=== PATIENT | male | born 1950 | race Caucasian/White ===

== ENCOUNTER 2016-10-04 10:10 | Inpatient (IN) | payer MEDICARE ==
[~2016-10-04] VITALS: Ht 172.7 cm; Wt 82.0 kg
[2016-10-04] MEDS ORDERED: SOD CHLORIDE 0.9% 1,000 ML IV STA (11:07)
[2016-10-04 11:28] LABS: ADD SCAN DIFF NO
[2016-10-04 11:31] LABS: BASOPHILS % 0.7 % (0.0-2.0); EOSINOPHILS # 0.3 10^3/ul (0.0-0.5); EOSINOPHILS % 4.1 % (0.0-7.0); HEMATOCRIT 26.6 % (42.0-52.0); HEMOGLOBIN 9.3 g/dl (14.0-18.0); LYMPHOCYTES # 1.5 10^3/ul (0.8-2.9); MEAN CORPUSCULAR HEMOGLOBIN 32.2 pg (29.0-33.0); MEAN PLATELET VOLUME 9.6 fl (7.4-10.4); MONOCYTE # 0.6 10^3/ul (0.3-0.9); MONOCYTES % 9.5 % (0.0-11.0); NEUTROPHIL # 3.7 10^3/ul (1.6-7.5); NEUTROPHILS % 61.4 % (39.0-77.0); PLATELET COUNT 181 10^3/UL (140-415); RED BLOOD COUNT 2.89 10^6/ul (4.70-6.10); RED CELL DISTRIBUTION WIDTH 13.2 % (11.5-14.5); WHITE BLOOD COUNT 6.1 10^3/ul (4.8-10.8)
[2016-10-04 11:46] LABS: INR 0.92; PARTIAL THROMBOPLASTIN TIME 28.1 Sec (25.0-35.0); PROTIME 12.4 Sec (12.2-14.2)
[2016-10-04] MEDS ORDERED: METF500T4 PO (11:51)
[2016-10-04] MEDS ORDERED: FLUO20CA38 PO (11:51)
[2016-10-04] MEDS ORDERED: ASPI81TA3 PO (11:51)
--- NOTE | 2016-10-04 11:59 | RADRPT ---
PROCEDURE: XR Chest. CLINICAL INDICATION: chest pain TECHNIQUE: Single AP view of the chest were obtained COMPARISON: None FINDINGS: The heart and mediastinum are within normal limits. The pulmonary vasculature are unremarkable. The aorta demonstrates atherosclerotic calcifications. There is no lung consolidation, pleural effusio n or pneumothorax. Degenerative changes are seen within the thoracic spine. There is no acute osse ous abnormality. IMPRESSION: No acute disease. RPTAT: AA .Madison Ledesma MD, Date Time Electronically viewed and signed by .Madison Ledesma MD, on 10/04/2016 11:58 .J/
[2016-10-04 12:45] LABS: ALBUMIN 4.7 g/dl (3.3-4.9); ALBUMIN/GLOBULIN RATIO 1.8; CREATININE 11.75 mg/dl (0.61-1.24); TOTAL PROTEIN 7.3 g/dl (6.1-8.1)
[2016-10-04 12:55] LABS: POTASSIUM 6.7 mmol/L (3.5-5.1)
[2016-10-04] MEDS ORDERED: NA POLYST SULFON 15 GM/60 ML BTL PO STA (13:13)
[2016-10-04] MEDS ORDERED: ALBUTEROL 0.5% (NEB) 2.5 MG/0.5 ML AMP INH STA (13:13)
[2016-10-04] MEDS ORDERED: INSULIN REGULAR, HUMAN 100 UNIT/1 ML 3ML VIAL IV STA (13:13)
--- NOTE | 2016-10-04 13:27 | ERA ---
ER Documentation Chief Complaint Date/Time DATE: 10/04/16 TIME: 13:21 Chief Complaint UNABLE TO CONTROL HTN AND DIZZY HPI 66-year-old male with a history of hypertension and diabetes presenting with complaints of uncontrollable hypertension and dizziness. He states that over the last 2 weeks his blood pressure has been difficult to control. He has also noticed 5 days of abdominal discomfort, decreased appetite, and dark stools. He denies any nausea, vomiting, chest pain, shortness of breath, headache, fever , chills, or vision disturbance that is new. He denies any dysuria or change in urination. He denies any hematochezia or hematemesis. He has noted a 20 pound weight loss within the past month, but denies any night sweats. His only blood thinner is aspirin. He is taking all his medications regularly ROS All systems reviewed and are negative except as per history of present illness. Medications Home Meds Reported Medications Aspirin* (Aspirin* Chew) 81 Mg Tab.chew, 81 MG PO DAILY, TAB.CHEW 10/04/16 Fluoxetine Hcl* (Prozac*) 20 Mg Capsule, 20 MG PO DAILY, CAP 10/04/16 Metformin* (Glucophage*) 500 Mg Tab, 500 MG PO WITH BREAKFAST, #30 TAB 10/04/16 Allergies Allergies: Coded Allergies: No Known Allergy (Unverified , 10/04/16) PMhx/Soc History of Surgery: Yes (GALLBLADDER, BONE MARROW TRANSPLANT 18YRS AGO) Anesthesia Reaction: No Hx Neurological Disorder: No Hx Respiratory Disorders: No Hx Cardiac Disorders: Yes (HTN) Hx Psychiatric Problems: No Hx Miscellaneous Medical Probl: Yes (DM) Hx Alcohol Use: No Hx Substance Use: No Hx Tobacco Use: No Smoking Status: Never smoker FmHx Family History: No diabetes Physical Exam Vitals Vital Signs Date Time Temp Pulse Resp B/P Pulse Ox O2 Delivery O2 Flow Rate FiO2 10/04/16 12:22 70 20 162/85 98 Room Air 10/04/16 11:55 Nasal Cannula 2 10/04/16 10:12 98.0 82 18 191/83 99 Physical Exam Const: No apparent distress, nontoxic, nondiaphoretic Head: Atraumatic Eyes: Normal Conjunctiva, PERRLA, EOMI ENT: Dry mucous membranes Neck: Full range of motion. No JVD. No meningismus. Resp: Clear to auscultation bilaterally Cardio: Regular rate and rhythm, no murmurs Abd: Soft, non tender, non distended. Normal bowel sounds Skin: No petechiae or rashes, pallor noted Back: No midline or flank tenderness Ext: No cyanosis, or edema Neur: Awake and alert and oriented 3, cranial nerves intact, strength and sensations intact in all 4 extremities Psych: Normal Mood and Affect Result Diagram: 10/04/16 1117 10/04/16 1117 Results 24 hrs Laboratory Tests Test 10/04/16 11:17 10/04/16 13:52 White Blood Count 6.110^3/ul Red Blood Count 2.8910^6/ul Hemoglobin 9.3g/dl Hematocrit 26.6% Mean Corpuscular Volume 92.0fl Mean Corpuscular Hemoglobin 32.2pg Mean Corpuscular Hemoglobin Concent 35.0g/dl Red Cell Distribution Width 13.2% Platelet Count 73285^3/UL Mean Platelet Volume 9.6fl Neutrophils % 61.4% Lymphocytes % 24.0% Monocytes % 9.5% Eosinophils % 4.1% Basophils % 0.7% Nucleated Red Blood Cells % 0.0/100WBC Neutrophils # 3.710^3/ul Lymphocytes # 1.510^3/ul Monocytes # 0.610^3/ul Eosinophils # 0.310^3/ul Basophils # 0.010^3/ul Nucleated Red Blood Cells # 0.010^3/ul Prothrombin Time 12.4Sec Prothrombin Time Ratio 1.0 INR International Normalized Ratio 0.92 Activated Partial Thromboplast Time 28.1Sec Sodium Level 134mmol/L Potassium Level 6.7mmol/L Chloride Level 97mmol/L Carbon Dioxide Level 19mmol/L Anion Gap 25 Blood Urea Nitrogen 135mg/dl Creatinine 11.75mg/dl Glucose Level 99mg/dl Calcium Level 9.0mg/dl Total Bilirubin 0.0mg/dl Direct Bilirubin 0.00mg/dl Indirect Bilirubin 0.0mg/dl Aspartate Amino Transf (AST/SGOT) 11IU/L Alanine Aminotransferase (ALT/SGPT) 22IU/L Alkaline Phosphatase 72IU/L Troponin I < 0.012ng/ml Total Protein 7.3g/dl Albumin 4.7g/dl Globulin 2.60g/dl Albumin/Globulin Ratio 1.80 Urine Color LT. YELLOW Urine Clarity SLIGHTLY CLOUDY Urine pH 6.0 Urine Specific [place] <=1.005 Urine Ketones NEGATIVE Urine Nitrite NEGATIVE Urine Bilirubin NEGATIVE Urine Urobilinogen 0.2 E.U./dL Urine Leukocyte Esterase 3+ Urine Microscopic RBC 0-2/HPF Urine Microscopic WBC >50/HPF Urine Bacteria FEW Urine Hemoglobin TRACE Urine Glucose NEGATIVE% Urine Total Protein TRACE Current Medications Medications (Trade) Dose Ordered Sig/Antwon Route PRN Reason Start Time Stop Time Status Last Admin Dose Admin Sodium Chloride (NS) 1,000 ml @ 1,000 mls/hr Q1H STAT IV 10/04/16 11:07 10/04/16 12:06 DC 10/04/16 11:28 Sodium Polystyrene Sulfonate (Kayexalate) 30 gm ONCE STAT PO 10/04/16 13:13 10/04/16 13:15 DC 10/04/16 13:42 Albuterol (Proventil 0.5% (Neb)) 15 mg ONCE STAT INH 10/04/16 13:13 10/04/16 13:15 DC Insulin Human Regular (Humulin R) 10 unit ONCE STAT IV 10/04/16 13:13 10/04/16 13:16 DC 10/04/16 13:45 Dextrose (D50w Syringe) ONCE PRN IV POC BLOOD GLUCOSE <250 MG/DL 10/04/16 13:30 10/04/16 13:41 Ondansetron HCl (Zofran Inj) 4 mg ER BRIDGE PRN IV NAUSEA AND/OR VOMITING 10/04/16 14:30 10/05/16 14:29 Acetaminophen (Tylenol Tab) 650 mg ER BRIDGE PRN PO MILD PAIN/FEVER 10/04/16 14:30 10/05/16 14:29 Procedures/MDM EKG: Rate/Rhythm: Normal Sinus Rhythm QRS, ST, T-waves: QTC 453, no changes consistent w/ acute ischemia Impression: No evidence of ischemia or arrhythmia EKG: Rate/Rhythm: Normal Sinus Rhythm QRS, ST, T-waves: No changes consistent w/ acute ischemia Impression: No evidence of ischemia or arrhythmia Chest x-ray shows no acute abnormalities Labs: CBC shows anemia CMP shows evidence of acute renal failure Troponin within normal limits MDM Patient is presenting with generalized weakness, difficulty controlling his hypertension, and black stools. Vitals were notable for hypertension without any other abnormalities. Workup showed mild anemia, which may be secondary to slow UGI bleed. However labs were also notable for evidence of acute renal failure with hyperkalemia, uremia, acidosis, and elevated creatinine. EKGs did not show any peaked T waves. Acute coronary syndrome is less likely. Patient was treated for hyperkalemia with insulin, dextrose, albuterol, and Kayexalate. Patient's blood pressure improved without any intervention. I have a low suspicion for hypertensive emergency. However patient is not stable for discharge at this time and will require admission for further workup and treatment of his acute renal failure. Critical Care Time: 35 minutes Treatments/Evaluations: Close monitoring and treatment of unstable vital signs, cardiorespiratory, and neurologic status, while maintaining tight balance of fluid, respiratory, and cardiac interventions. This time includes discussing the case with the patient and the patients family. This time does not include all procedures stated elsewhere in this record. This time also includes reviewing old records, labs and radiological studies. This time includes examining and re-examining the patient. Additionally, this time also includes arranging care with admitting and consulting physicians. Accepting Care Team: Current data and ongoing care discussed. Time: Time of admission Primary Provider: Mendoza Consulting: none Outstanding Data: none Departure Diagnosis: Primary Impression: Acute renal failure Qualified Code: N17.9 - Acute renal failure, unspecified acute renal failure type Additional Impressions: Hypertension Qualified Code: I15.9 - Secondary hypertension Hyperkalemia Anemia Qualified Code: D64.89 - Anemia due to other cause, not classified Condition: Critical JASMYNE MCLAIN MD Oct 04, 2016 13:27
[2016-10-04] MEDS ORDERED: DEXTROSE 50% 50 ML SYRINGE IV PRN ×3 (13:30→21:30)
[2016-10-04 14:09] LABS: ADD UMIC YES; UR BILIRUBIN (Dip) NEGATIVE (NEGATIVE); UR BLOOD (Dip) TRACE (NEGATIVE); UR CLARITY SLIGHTLY CLOUDY (CLEAR); UR COLOR LT. YELLOW (YELLOW); UR GLUCOSE (Dip) NEGATIVE (NEGATIVE); UR KETONES (Dip) NEGATIVE (NEGATIVE); UR LEUKOCYTE ESTERASE (Dip) 3+ (NEGATIVE); UR NITRITE (Dip) NEGATIVE (NEGATIVE); UR TOTAL PROTEIN (Dip) TRACE (NEGATIVE); UR UROBILINOGEN (Dip) 0.2 E.U./dL (0.1-1.0)
[2016-10-04 14:28] LABS: URINE RBCS 0-2 /HPF (0)
[2016-10-04 14:29] LABS: UR BACTERIA FEW
[2016-10-04] MEDS ORDERED: ONDANSETRON 4 MG INJ IV PRN (14:30)
[2016-10-04] MEDS ORDERED: ACETAMINOPHEN 325 MG TAB PO PRN (14:30)
[2016-10-04 18:42] LABS: ALBUMIN 4.4 g/dl (3.3-4.9); ALBUMIN/GLOBULIN RATIO 1.51; CALCIUM 8.6 mg/dl (8.4-10.2); CREATININE 11.81 mg/dl (0.61-1.24); MAGNESIUM 3.6 mg/dl (1.7-2.5); PHOSPHORUS 7.8 mg/dl (2.5-4.9); POTASSIUM 4.9 mmol/L (3.5-5.1); TOTAL PROTEIN 7.3 g/dl (6.1-8.1)
[2016-10-04 19:12] LABS: THYROID STIMULATING HORMONE 3.82 MIU/L (0.465-4.680)
--- NOTE | 2016-10-04 19:13 | HP ---
DATE OF ADMISSION: 10/04/2016 REASON FOR ADMISSION: Uncontrolled hypertension, dizziness and black stools. CONSULTANTS: 1. Fabrice Cummings MD, Nephrology. 2. Rebecca Gray MD, Gastroenterology. HISTORY OF PRESENT ILLNESS: This is a 66-year-old male with past medical history of essential hypertension and type 2 diabetes mellitus, who came to the emergency room with the chief complaint of uncontrolled hypertension and dizziness. The patient verbalized that over the last 2 weeks his blood pressure has been difficult to control. The patient also verbalized 5 days of abdominal discomfort with decreased appetite and dark stools. The patient was complaining of nausea. He denied any vomiting. He denied any chest pain or dyspnea. The patient was complaining of headache. The patient denied any fevers or chills. The patient also verbalized dark stools. He denied any blood in stools or hematemesis. The patient verbalized that he has noticed a 20 -pound weight loss within the past month. There were no reported night sweats. The patient is not the best historian. The patient denied any history of chronic kidney disease although he vaguely mentioned that he was told that his kidneys are not functioning "normal." In the emergency room, the patient was noticed to be in acute renal failure with a BUN and creatinine of 135 and 11.75, respectively. The patient was noticed to have a potassium of 6.7. The patient had no leukocytosis. He was noticed to have anemia with a hemoglobin and hematocrit of 9.3 and 26.6, respectively. The patient's coag panel was within normal limits. His urinalysis showed 3+ leukocyte esterase along with urine microscopic WBCs greater than 50, with trace total urine protein. The patient's chest x-ray was negative for any acute cardiopulmonary findings. A 12-lead EKG showed no evidence of any ST-T changes. The patient was treated with IV insulin along with Kayexalate and inhaled beta 2 agonist for hyperkalemia. PAST MEDICAL HISTORY: Essential hypertension, diabetes mellitus. PAST SURGICAL HISTORY: Gallbladder removal. In the ER physician's notes, the ER physician mentions about bone marrow transplant. However, the patient was unable to give me this history. HOME MEDICATIONS 1. Aspirin 81 mg p.o. daily. 2. Prozac 20 mg p.o. daily. 3. Metformin 500 mg p.o. with breakfast and dinner. ALLERGIES: NO KNOWN DRUG ALLERGIES. SOCIAL HISTORY: The patient lives at home with his family. Currently retired. No history of tobacco, alcohol or illicit drug use. REVIEW OF SYSTEMS: A 12-point review of systems was made and the review of systems are negative other than what is mentioned in the history of present illness. PHYSICAL EXAMINATION: VITAL SIGNS: Temperature 98.0, pulse is 70, respiratory rate 20, blood pressure 160/84, oxygen saturation 98% on room air. GENERAL: This is a well-built, well-nourished male lying in bed in no apparent distress. HEENT: Head normocephalic and atraumatic. Eyes: Anicteric sclerae. Conjunctivae clear. ENT: Nasal septum is dry. Oral mucosa is dry. NECK: Supple. JVD noticed. RESPIRATORY: Bilaterally diminished breath sounds. No adventitious breath sounds. No use of accessory muscles of respiration. CARDIAC: Regular rate and rhythm. S1, S2 heard. ABDOMEN: Soft and nontender. Nondistended. Bowel sounds hypoactive in all 4 quadrants. GENITOURINARY: Deferred. EXTREMITIES: No cyanosis, no clubbing. Trace pretibial edema. Peripheral pulses are palpable. NEUROLOGIC: The patient is awake, alert and oriented. Cranial nerves are grossly intact. LABORATORY AND DIAGNOSTIC DATA: WBC 6.1, hemoglobin 9.3, hematocrit 26.6, platelet count 181. Sodium 134, potassium 6.7, chloride 97, carbon dioxide 19, anion gap 25, BUN 135, creatinine 11.75, glucose 99, calcium 9.0. AST 11, ALT 22, alkaline phosphatase 72. Troponin I less than 0.012. PT 12.4, INR 0.9, APTT 28.1. Urinalysis: Urine nitrite negative, leukocyte esterase negative, urine microscopic WBCs greater than 50. Chest x-ray: No acute cardiopulmonary findings. 12-lead EKG: Normal sinus rhythm. IMPRESSION: This is a 66-year-old male who came to the emergency room with multiple complaints who was found to have evidence of acute kidney injury with significant azotemia and hyperkalemia, who will be admitted here for further treatment and evaluation. ASSESSMENT AND PLAN: 1. Acute kidney injury. Etiology unclear. Unknown baseline creatinine. The patient is nonoliguric. Nephrology consult will be obtained. The patient has no evidence of any underlying fluid overload. The patient has no symptoms of uremia. The patient's mental status is stable at this time. Hence, it is likely that the patient does not need emergent hemodialysis today. We will repeat the patient's BMP to further evaluate the trend in BUN and creatinine. The patient will be monitored on telemetry floor. 2. Hyperkalemia. Most probably secondary to underlying acute kidney injury. It has been treated with potassium exchange resin, IV insulin and beta 2 agonist therapy. A repeat potassium level will be obtained. The patient will be monitored on telemetry. 3. Essential hypertension. The patient will be started on appropriate antihypertensives. The patient's blood pressure will be lowered gradually. 4. Type 2 diabetes mellitus. The patient's metformin will be discontinued because of underlying acute kidney injury. The patient will be started on sliding scale insulin along with basal insulin and Lantus insulin. Hemoglobin A1c will be obtained to evaluate the blood glucose control over the past few days. 5. Melena. The patient has evidence of normocytic normochromic anemia. The patient will be started on IV Protonix. A gastroenterology consult will be obtained. Stool for OB will be obtained. 6. Reported weight loss. Etiology unclear. Tumor markers will be sent on this patient. The patient denied any night sweats. The patient's chest x-ray was negative for any acute infiltrates, ruling out any possibility of tuberculosis. Plan. The patient will be admitted to inpatient telemetry floor. The patient will be started on a renal, carbohydrate controlled diet. The patient will remain a FULL CODE. Activities will be as tolerated. He will be started on DVT prophylaxis and gastrointestinal prophylaxis. The rest of the patient's management will be based on the clinical course, the results of the diagnostic studies, and inputs from consultants. Based on the patient's clinical presentation, he most probably requires at least 2 midnights' stay for further management and evaluation of his clinical presentation. The case and management of this patient was fully discussed with Dr. Donaldson. KWAME DONALDSON MD, AM/RACHELLE Conf#: [id number] DID#: [id number] KODAK
[2016-10-04 19:35] VITALS: TEMP 98.9
[2016-10-04] MEDS ORDERED: DEXTROSE 5%-0.45% NACL 1,000 ML IV ONE (20:38)
[2016-10-04] MEDS ORDERED: GLUCOSE GEL 15 GRAM TUBE BUCCAL PRN (21:30)
[2016-10-04] MEDS ORDERED: GLUCAGON 1 MG INJ IM PRN (21:30)
[2016-10-04] MEDS ORDERED: GLUCOSE GEL 15 GRAM TUBE PO PRN ×2 (21:30)
[2016-10-04 21:43] VITALS: PULSE 81
[2016-10-04] MEDS: INSULIN ASPART [NOVOLOG] 3 ML PEN SC SCH (22:11)
[2016-10-04] MEDS: hydrALAzine 20 MG INJ IV PRN (22:21)
[2016-10-04] MEDS: DEXTROSE 5%-0.45% NACL 1,000 ML IV SCH (23:45)
[2016-10-04 23:54] VITALS: BP 179/84; RESP 19
[2016-10-05] VITALS (14 sets, daily range): BP systolic 103–183; BP diastolic 56–94; PULSE 61–79; RESP 16–21; Ht 172.7 cm; Wt 82.0 kg
[2016-10-05] MEDS ORDERED: PANTOPRAZOLE 40 MG INJ IV SCH (00:30)
[2016-10-05] MEDS ORDERED: ONDANSETRON 4 MG INJ IV PRN ×2 (00:30)
[2016-10-05] MEDS ORDERED: HYDROCODONE/APAP (5/325) TAB PO PRN ×2 (00:30)
[2016-10-05] MEDS ORDERED: METOPROLOL 25 MG TAB PO SCH (00:30)
[2016-10-05] MEDS ORDERED: SOD CHLORIDE 0.9% 1,000 ML IV SCH (00:30)
[2016-10-05] MEDS ORDERED: morphine 2 MG INJ IV PRN ×2 (00:30)
[2016-10-05] MEDS ORDERED: ACETAMINOPHEN 500 MG TAB PO PRN (00:30)
[2016-10-05] MEDS: DEXTROSE 5%-0.45% NACL 1,000 ML IV SCH ×3 (00:36→01:45)
[2016-10-05] MEDS: METOPROLOL 25 MG TAB PO SCH ×3 (00:54→20:44)
[2016-10-05] MEDS: ACCUCHECK AT 2AM (Patients on SS coverage) XX SCH (02:00)
[2016-10-05] MEDS: SOD CHLORIDE 0.45% 1,000 ML IV SCH ×4 (02:48→23:45)
[2016-10-05] MEDS: ACETAMINOPHEN 500 MG TAB PO PRN ×2 (02:53→19:48)
[2016-10-05] MEDS: PANTOPRAZOLE 40 MG INJ IV SCH ×2 (05:55→17:39)
[2016-10-05] MEDS: INSULIN ASPART [NOVOLOG] 3 ML PEN SC SCH ×7 (08:00→20:44)
[2016-10-05] MEDS ORDERED: INSULIN ASPART [NOVOLOG] 3 ML PEN SC SCH (08:00)
[2016-10-05 09:08] LABS: CARCINOEMBRYONIC ANTIGEN 2.5 ng/ml (0.0-5.0)
[2016-10-05 09:12] LABS: CANCER ANTIGEN 19-9 71.8 U/ml (0.0-37.0)
[2016-10-05 11:21] LABS: IRON 75 ug/dl (35-150)
[2016-10-05 11:23] LABS: ALBUMIN 4.7 g/dl (3.3-4.9); ALBUMIN/GLOBULIN RATIO 1.74; CALCIUM 9.3 mg/dl (8.4-10.2); CREATININE 10.15 mg/dl (0.61-1.24); POTASSIUM 4.9 mmol/L (3.5-5.1); TOTAL PROTEIN 7.4 g/dl (6.1-8.1)
[2016-10-05 11:24] LABS: CHOL/HDL RATIO 6.8 RATIO; MAGNESIUM 3.5 mg/dl (1.7-2.5); PHOSPHORUS 8.6 mg/dl (2.5-4.9)
[2016-10-05 11:30] LABS: TOTAL IRON BINDING CAPACITY 270 ug/dl (241-421)
[2016-10-05 11:52] LABS: PROSTATE SPECIFIC ANTIGEN 30.6 ng/ml (0.0-4.0)
--- NOTE | 2016-10-05 12:07 | PN ---
Date/Time of Note Date/Time of Note DATE: 10/05/16 TIME: 12:03 Assessment/Plan VTE Prophylaxis VTE Prophylaxis Intervention: anti-embolic stocking Lines/Catheters [facility] Peripheral IV Urinary Cath still in place: Yes Reason Cath still needed: urinary retention Assessment/Plan Problems: (1) Hyperkalemia Status: Acute Comment: Patient has received the appropriate treatments for the hyperkalemia which included insulin sugar bicarb etc. Potassium is now normalized. This is due to his acute renal failure. (2) Acute renal failure Status: Acute Comment: The exact etiology of this is to be determined but one has to be concerned that he had a liter of urine in his bladder after voiding. We will have to be careful for watching for changes renal function and especially for postobstructive diuresis. Qualifiers: Acute renal failure type: unspecified Qualified Code: N17.9 - Acute renal failure, unspecified acute renal failure type (3) Anemia Status: Acute Comment: GI will be seeing him in consultation. Qualifiers: Anemia type: other cause Other causes of anemia: other cause, not classified Qualified Code: D64.89 - Anemia due to other cause, not classified (4) Hypertension Status: Acute Comment: Add an alpha blockade given the urinary retention. Titrate up this drug to effect. Qualifiers: Hypertension type: unspecified secondary hypertension Qualified Code: I15.9 - Secondary hypertension (5) Diabetes mellitus type 2 in nonobese Status: Chronic Comment: Continue observation. Under the present circumstances metformin will be held we can use a DPP 4 inhibitor drug if needed that can be added on (6) Dysthymia Status: Chronic Comment: Noted. Subjective 24 Hr Interval Summary Free Text/Dictation Patient reports he feels better. As an outpatient he was having black stools but cannot describe whether or not they were tarry. He states he was having frequent urination however please see the rather obscure note from the nurses had in the emergency room but says when they put the catheter and he had 1 L of urine there Constitutional: no complaints Respiratory: no complaints Cardiovascular: no complaints (No shortness of breath) Gastrointestinal: no complaints Genitourinary: other (At this time with a catheter and he has no complaints) Exam/Review of Systems Vital Signs Vitals Vital Signs Date Time Temp Pulse Resp B/P Pulse Ox O2 Delivery O2 Flow Rate FiO2 10/05/16 08:27 98.0 67 18 177/80 99 10/04/16 19:35 Room Air 10/04/16 16:30 21 10/04/16 11:55 2 Intake and Output 10/04/16 10/04/16 10/05/16 15:00 23:00 07:00 Intake Total 1550 ml Output Total 6000 ml Balance -4450 ml Exam Constitutional: alert, oriented Neck: non-tender, supple Respiratory: clear to auscultation, normal air movement Cardiovascular: nl pulses, regular rate and rhythm Results Result Diagram: 10/04/16 1117 10/05/16 0720 Results 24 hrs Laboratory Tests Test 10/04/16 13:52 10/04/16 18:00 10/04/16 19:47 10/04/16 21:30 Urine Color LT. YELLOW Urine Clarity SLIGHTLY CLOUDY Urine pH 6.0 Urine Specific [place] <=1.005 L Urine Ketones NEGATIVE Urine Nitrite NEGATIVE Urine Bilirubin NEGATIVE Urine Urobilinogen 0.2 E.U./dL Urine Leukocyte Esterase 3+ H Urine Microscopic RBC 0-2 Urine Microscopic WBC >50 Urine Bacteria FEW Urine Hemoglobin TRACE Urine Glucose NEGATIVE Urine Total Protein TRACE Sodium Level 137 Potassium Level 4.9 Chloride Level 101 Carbon Dioxide Level 15 L Anion Gap 26 H Blood Urea Nitrogen 133 H Creatinine 11.81 H Glucose Level 112 Calcium Level 8.6 Phosphorus Level 7.8 H Magnesium Level 3.6 H Total Bilirubin 0.0 L Direct Bilirubin 0.00 Indirect Bilirubin 0.0 Aspartate Amino Transf (AST/SGOT) 14 L Alanine Aminotransferase (ALT/SGPT) 29 Alkaline Phosphatase 75 Total Protein 7.3 Albumin 4.4 Globulin 2.90 Albumin/Globulin Ratio 1.51 Vitamin D 1,25-Dihydroxy 41.8 Thyroid Stimulating Hormone (TSH) 3.820 Free Thyroxine 1.07 Bedside Glucose 152 Urine Osmolality 273 Urine Random Sodium 41 Test 10/05/16 07:20 10/05/16 08:50 Sodium Level 142 Potassium Level 4.9 Chloride Level 105 Carbon Dioxide Level 17 L Anion Gap 25 H Blood Urea Nitrogen 120 H Creatinine 10.15 H Glucose Level 88 Hemoglobin A1c 6.6 H Calcium Level 9.3 Phosphorus Level 8.6 H Magnesium Level 3.5 H Iron Level 75 Total Iron Binding Capacity 270 Percent Iron Saturation 28 Ferritin 387.0 H Total Bilirubin 0.0 L Direct Bilirubin 0.00 Indirect Bilirubin 0.0 Aspartate Amino Transf (AST/SGOT) 12 L Alanine Aminotransferase (ALT/SGPT) 22 Alkaline Phosphatase 74 Total Protein 7.4 Albumin 4.7 Globulin 2.70 Albumin/Globulin Ratio 1.74 Triglycerides Level 130 Cholesterol Level 177 LDL Cholesterol, Calculated 125 HDL Cholesterol 26 L Cholesterol/HDL Ratio 6.8 Carcinoembryonic Antigen 2.5 CA 19-9 Antigen 71.8 H Prostate Specific Antigen 30.6 H Bedside Glucose 117 Medications Medications Current Medications Dextrose (D50w Syringe) ONCE PRN IV POC BLOOD GLUCOSE <250 MG/DL Last administered on 10/04/16 13:41; Admin Dose 50 ML; Start 10/04/16 at 13:30 Hydralazine HCl (Apresoline) 10 mg Q6H PRN IV SBP>160 Last administered on 10/04 22:21; Admin Dose 10 MG; Start 10/04/16 at 20:30 Diagnostic Test (Pha) (Accu-Chek) 1 ea 02 XX ; Start 10/05/16 at 02:00 Miscellaneous Information 1 ea NOTE XX ; Start 10/04/16 at 21:30 Glucose (Glutose) 15 gm Q15M PRN PO DECREASED GLUCOSE; Start 10/04/16 at 21:30 Glucose (Glutose) 22.5 gm Q15M PRN PO DECREASED GLUCOSE; Start 10/04/16 at 21: 30 Dextrose (D50w Syringe) 25 ml Q15M PRN IV DECREASED GLUCOSE; Start 10/04/16 at 21:30 Dextrose (D50w Syringe) 50 ml Q15M PRN IV DECREASED GLUCOSE; Start 10/04/16 at 21:30 Glucagon (Glucagen) 1 mg Q15M PRN IM DECREASED GLUCOSE; Start 10/04/16 at 21:30 Glucose 15 gm 15 gm Q15M PRN BUCCAL DECREASED GLUCOSE; Start 10/04/16 at 21:30 Sodium Chloride (1/2 NS) 1,000 ml @ 125 mls/hr Q8H IV Last administered on 10:26; Admin Dose 125 MLS/HR; Start 10/04/16 at 23:45 Pantoprazole (Protonix Iv) 40 mg BID@,18 IV Last administered on 10/05/16 05 :55; Admin Dose 40 MG; Start 10/05/16 at 06:00 Insulin Glargine (Lantus) 8 unit HS SC ; Start 10/05/16 at 21:00 Metoprolol Tartrate (Lopressor) 25 mg BID PO Last administered on 10/05/16 08: 55; Admin Dose 25 MG; Start 10/05/16 at 00:50 Ondansetron HCl (Zofran Inj) 4 mg Q6H PRN IV NAUSEA AND/OR VOMITING; Start at 00:30 Acetaminophen (Tylenol Tab) 500 mg Q6H PRN PO MILD PAIN &OR TEMP.>100.4F Last administered on 10/05/16 02:53; Admin Dose 500 MG; Start 10/05/16 at 00:30 Acetaminophen/ Hydrocodone Bitart ([place] (5/325)) 1 tab Q6H PRN PO PAIN; Start 10/05/16 at 00:30 Morphine Sulfate (morphine) 2 mg Q6H PRN IV PAIN; Start 10/05/16 at 00:30 Doxazosin Mesylate (Cardura) 1 mg ONCE ONCE PO ; Start 10/05/16 at 12:00; Stop 10/05/16 at 12:01; Status UNV Doxazosin Mesylate (Cardura) 2 mg HS PO ; Start 10/05/16 at 21:00; Status PATTI MACHADO MD Oct 05, 2016 12:07
--- NOTE | 2016-10-05 12:31 | CONS ---
Date/Time of Note Date/Time of Note DATE: 10/05/16 TIME: 12:23 Assessment/Plan Assessment/Plan Additional Assessment/Plan Assessment: * Renal failure likely chronic * Anemia likely multifactorial * Rule out GI bleeding * Melena/GI bleeding * Significant unexplained weight loss likely multifactorial * Rule out occult neoplasm * History of diabetes mellitus type 2 * History of hypertension poorly controlled Plan; * Awaiting nephrology consult would likely required dialysis * Monitor H&H, transfuse as necessary * Stool for occult blood * Obtain CT of the abdomen and pelvis to rule out masses * EGD and colonoscopy once stable from the renal and blood pressure point of view Consultation Date/Type/Reason Admit Date/Time Oct 04, 2016 at 14:10 Date of Consultation: Oct 05, 2016 Reason for Consultation Questionable melena/anemia Hx of Present Illness Patient 66-year-old male with history of diabetes mellitus and hypertension, the patient states that he has been having significant difficulty controlling his blood pressure of late. He was also told that his kidney function was severely compromised but at no point was told to have any need for dialysis. The patient presented to the emergency room with progressive weakness and a very significant weight loss of over 20 pounds over the last 2 or 3 months which is the period of time where his complaints have exacerbated. Patient also reports episodes of black tarry stool. He is moderately anemic. There has been no hematemesis, no hematochezia. The patient has never had any gastrointestinal evaluation such as endoscopy or colonoscopy. At this time the patient is awaiting nephrology consultation and once this is completed and the patient stabilized and cleared from the renal point of view GI workup is clearly indicated with endoscopy and colonoscopy. In the meantime the patient will be treated empirically with PPIs and stool will be obtained for occult blood, his hemoglobin hematocrit will be closely monitor and if situation deteriorates urgent evaluation will be available. Constitutional: other (Significant weakness and lethargy) Eyes: no complaints ENT: no complaints Respiratory: no complaints Cardiovascular: no complaints (No shortness of breath) Gastrointestinal: no complaints, other (Melena) Genitourinary: no complaints, other (At this time with a catheter and he has no complaints) Musculoskeletal: no complaints Skin: no complaints Neurologic: no complaints Endocrine: no complaints Lymphatic: no complaints Psychological: no complaints Past Medical History Medical History: diabetes, hypertension Past Surgical History Past Surgical Hx: cholecystectomy Family History Significant Family History: no pertinent family hx Social History Alcohol Use: none Smoking Status: Former smoker Drug Use: none Exam/Review of Systems Vital Signs Vitals Vital Signs Date Time Temp Pulse Resp B/P Pulse Ox O2 Delivery O2 Flow Rate FiO2 10/05/16 12:10 61 10/05/16 08:27 98.0 18 177/80 99 10/04/16 19:35 Room Air 10/04/16 16:30 21 10/04/16 11:55 2 Intake and Output 10/04/16 10/04/16 10/05/16 15:00 23:00 07:00 Intake Total 1550 ml Output Total 6000 ml Balance -4450 ml Exam Constitutional: alert, oriented, well developed Psych: nl mood/affect, no complaints Head: atraumatic, normocephalic Eyes: EOMI, PERRL, nl conjunctiva, nl lids, nl sclera ENMT: nl external ears & nose, nl lips & teeth, nl nasal mucosa & septum Neck: non-tender, supple Respiratory: clear to auscultation, normal air movement Cardiovascular: nl pulses, regular rate and rhythm Gastrointestinal: nl liver, spleen, non-tender, soft Musculoskeletal: nl extremities to inspection Extremities: normal pulses Neurological: No DTR's symmetric, No confused, No focal weakness, No lethargic , No numbness, No other, No reflexes, No unresponsive Skin: nl turgor, No rash or lesions Lymph: nl lymph nodes Results Result Diagram: 10/04/16 1117 10/05/16 0720 Results 24 hrs Laboratory Tests Test 10/04/16 13:52 10/04/16 18:00 10/04/16 19:47 10/04/16 21:30 Urine Color LT. YELLOW Urine Clarity SLIGHTLY CLOUDY Urine pH 6.0 Urine Specific [place] <=1.005 L Urine Ketones NEGATIVE Urine Nitrite NEGATIVE Urine Bilirubin NEGATIVE Urine Urobilinogen 0.2 E.U./dL Urine Leukocyte Esterase 3+ H Urine Microscopic RBC 0-2 Urine Microscopic WBC >50 Urine Bacteria FEW Urine Hemoglobin TRACE Urine Glucose NEGATIVE Urine Total Protein TRACE Sodium Level 137 Potassium Level 4.9 Chloride Level 101 Carbon Dioxide Level 15 L Anion Gap 26 H Blood Urea Nitrogen 133 H Creatinine 11.81 H Glucose Level 112 Calcium Level 8.6 Phosphorus Level 7.8 H Magnesium Level 3.6 H Total Bilirubin 0.0 L Direct Bilirubin 0.00 Indirect Bilirubin 0.0 Aspartate Amino Transf (AST/SGOT) 14 L Alanine Aminotransferase (ALT/SGPT) 29 Alkaline Phosphatase 75 Total Protein 7.3 Albumin 4.4 Globulin 2.90 Albumin/Globulin Ratio 1.51 Vitamin D 1,25-Dihydroxy 41.8 Thyroid Stimulating Hormone (TSH) 3.820 Free Thyroxine 1.07 Bedside Glucose 152 Urine Osmolality 273 Urine Random Sodium 41 Test 10/05/16 07:20 10/05/16 08:50 10/05/16 12:08 Sodium Level 142 Potassium Level 4.9 Chloride Level 105 Carbon Dioxide Level 17 L Anion Gap 25 H Blood Urea Nitrogen 120 H Creatinine 10.15 H Glucose Level 88 Hemoglobin A1c 6.6 H Calcium Level 9.3 Phosphorus Level 8.6 H Magnesium Level 3.5 H Iron Level 75 Total Iron Binding Capacity 270 Percent Iron Saturation 28 Ferritin 387.0 H Total Bilirubin 0.0 L Direct Bilirubin 0.00 Indirect Bilirubin 0.0 Aspartate Amino Transf (AST/SGOT) 12 L Alanine Aminotransferase (ALT/SGPT) 22 Alkaline Phosphatase 74 Total Protein 7.4 Albumin 4.7 Globulin 2.70 Albumin/Globulin Ratio 1.74 Triglycerides Level 130 Cholesterol Level 177 LDL Cholesterol, Calculated 125 HDL Cholesterol 26 L Cholesterol/HDL Ratio 6.8 Carcinoembryonic Antigen 2.5 CA 19-9 Antigen 71.8 H Prostate Specific Antigen 30.6 H Bedside Glucose 117 109 Medications Medications Current Medications Dextrose (D50w Syringe) ONCE PRN IV POC BLOOD GLUCOSE <250 MG/DL Last administered on 10/04/16 13:41; Admin Dose 50 ML; Start 10/04/16 at 13:30 Hydralazine HCl (Apresoline) 10 mg Q6H PRN IV SBP>160 Last administered on 10/04 22:21; Admin Dose 10 MG; Start 10/04/16 at 20:30 Diagnostic Test (Pha) (Accu-Chek) 1 ea 02 XX ; Start 10/05/16 at 02:00 Miscellaneous Information 1 ea NOTE XX ; Start 10/04/16 at 21:30 Glucose (Glutose) 15 gm Q15M PRN PO DECREASED GLUCOSE; Start 10/04/16 at 21:30 Glucose (Glutose) 22.5 gm Q15M PRN PO DECREASED GLUCOSE; Start 10/04/16 at 21: 30 Dextrose (D50w Syringe) 25 ml Q15M PRN IV DECREASED GLUCOSE; Start 10/04/16 at 21:30 Dextrose (D50w Syringe) 50 ml Q15M PRN IV DECREASED GLUCOSE; Start 10/04/16 at 21:30 Glucagon (Glucagen) 1 mg Q15M PRN IM DECREASED GLUCOSE; Start 10/04/16 at 21:30 Glucose 15 gm 15 gm Q15M PRN BUCCAL DECREASED GLUCOSE; Start 10/04/16 at 21:30 Sodium Chloride (1/2 NS) 1,000 ml @ 125 mls/hr Q8H IV Last administered on 10:26; Admin Dose 125 MLS/HR; Start 10/04/16 at 23:45 Pantoprazole (Protonix Iv) 40 mg BID@18 IV Last administered on 10/05/16 05 :55; Admin Dose 40 MG; Start 10/05/16 at 06:00 Insulin Glargine (Lantus) 8 unit HS SC ; Start 10/05/16 at 21:00 Metoprolol Tartrate (Lopressor) 25 mg BID PO Last administered on 10/05/16 08: 55; Admin Dose 25 MG; Start 10/05/16 at 00:50 Ondansetron HCl (Zofran Inj) 4 mg Q6H PRN IV NAUSEA AND/OR VOMITING; Start at 00:30 Acetaminophen (Tylenol Tab) 500 mg Q6H PRN PO MILD PAIN &OR TEMP.>100.4F Last administered on 10/05/16 02:53; Admin Dose 500 MG; Start 10/05/16 at 00:30 Acetaminophen/ Hydrocodone Bitart ([place] (5/325)) 1 tab Q6H PRN PO PAIN; Start 10/05/16 at 00:30 Morphine Sulfate (morphine) 2 mg Q6H PRN IV PAIN; Start 10/05/16 at 00:30 Doxazosin Mesylate (Cardura) 1 mg ONCE ONCE PO ; Start 10/05/16 at 13:00; Stop 10/05/16 at 13:01 Doxazosin Mesylate (Cardura) 2 mg HS PO ; Start 10/05/16 at 21:00 CARMEN FONSECA MD Oct 05, 2016 12:31
--- NOTE | 2016-10-05 12:48 | PN ---
Date/Time of Note Date/Time of Note DATE: 10/05/16 TIME: 12:42 Assessment/Plan VTE Prophylaxis VTE Prophylaxis Intervention: other Lines/Catheters Urinary Cath still in place: Yes Reason Cath still needed: urinary retention Assessment/Plan Problems: (1) Hyperkalemia Status: Acute (2) Acute renal failure Status: Acute Qualifiers: Acute renal failure type: unspecified Qualified Code: N17.9 - Acute renal failure, unspecified acute renal failure type (3) Anemia Status: Acute Qualifiers: Anemia type: other cause Other causes of anemia: other cause, not classified Qualified Code: D64.89 - Anemia due to other cause, not classified (4) Hypertension Status: Acute Qualifiers: Hypertension type: unspecified secondary hypertension Qualified Code: I15.9 - Secondary hypertension (5) Diabetes mellitus type 2 in nonobese Status: Chronic Assessment/Plan arf obstructice uropathu ckd baseline not known pt deveolping symptoms for uraemia if no improvement may require hd Subjective 24 Hr Interval Summary Eyes: no complaints Respiratory: no complaints Cardiovascular: no complaints Gastrointestinal: nausea, vomiting Genitourinary: no complaints Exam/Review of Systems Vital Signs Vitals Vital Signs Date Time Temp Pulse Resp B/P Pulse Ox O2 Delivery O2 Flow Rate FiO2 10/05/16 12:26 98.0 65 18 183/94 100 10/04/16 19:35 Room Air 10/04/16 16:30 21 10/04/16 11:55 2 Intake and Output 10/04/16 10/04/16 10/05/16 15:00 23:00 07:00 Intake Total 1550 ml Output Total 6000 ml Balance -4450 ml Exam Constitutional: alert, oriented, well developed Psych: no complaints Head: normocephalic Eyes: nl conjunctiva Neck: supple Respiratory: clear to auscultation Cardiovascular: regular rate and rhythm Gastrointestinal: soft Musculoskeletal: nl extremities to inspection Results Result Diagram: 10/04/16 1117 10/05/16 0720 Results 24 hrs Laboratory Tests Test 10/04/16 13:52 10/04/16 18:00 10/04/16 19:47 10/04/16 21:30 Urine Color LT. YELLOW Urine Clarity SLIGHTLY CLOUDY Urine pH 6.0 Urine Specific [place] <=1.005 L Urine Ketones NEGATIVE Urine Nitrite NEGATIVE Urine Bilirubin NEGATIVE Urine Urobilinogen 0.2 E.U./dL Urine Leukocyte Esterase 3+ H Urine Microscopic RBC 0-2 Urine Microscopic WBC >50 Urine Bacteria FEW Urine Hemoglobin TRACE Urine Glucose NEGATIVE Urine Total Protein TRACE Sodium Level 137 Potassium Level 4.9 Chloride Level 101 Carbon Dioxide Level 15 L Anion Gap 26 H Blood Urea Nitrogen 133 H Creatinine 11.81 H Glucose Level 112 Calcium Level 8.6 Phosphorus Level 7.8 H Magnesium Level 3.6 H Total Bilirubin 0.0 L Direct Bilirubin 0.00 Indirect Bilirubin 0.0 Aspartate Amino Transf (AST/SGOT) 14 L Alanine Aminotransferase (ALT/SGPT) 29 Alkaline Phosphatase 75 Total Protein 7.3 Albumin 4.4 Globulin 2.90 Albumin/Globulin Ratio 1.51 Vitamin D 1,25-Dihydroxy 41.8 Thyroid Stimulating Hormone (TSH) 3.820 Free Thyroxine 1.07 Bedside Glucose 152 Urine Osmolality 273 Urine Random Sodium 41 Test 10/05/16 07:20 10/05/16 08:50 10/05/16 12:08 Sodium Level 142 Potassium Level 4.9 Chloride Level 105 Carbon Dioxide Level 17 L Anion Gap 25 H Blood Urea Nitrogen 120 H Creatinine 10.15 H Glucose Level 88 Hemoglobin A1c 6.6 H Calcium Level 9.3 Phosphorus Level 8.6 H Magnesium Level 3.5 H Iron Level 75 Total Iron Binding Capacity 270 Percent Iron Saturation 28 Ferritin 387.0 H Total Bilirubin 0.0 L Direct Bilirubin 0.00 Indirect Bilirubin 0.0 Aspartate Amino Transf (AST/SGOT) 12 L Alanine Aminotransferase (ALT/SGPT) 22 Alkaline Phosphatase 74 Total Protein 7.4 Albumin 4.7 Globulin 2.70 Albumin/Globulin Ratio 1.74 Triglycerides Level 130 Cholesterol Level 177 LDL Cholesterol, Calculated 125 HDL Cholesterol 26 L Cholesterol/HDL Ratio 6.8 Carcinoembryonic Antigen 2.5 CA 19-9 Antigen 71.8 H Prostate Specific Antigen 30.6 H Bedside Glucose 117 109 Medications Medications Current Medications Dextrose (D50w Syringe) ONCE PRN IV POC BLOOD GLUCOSE <250 MG/DL Last administered on 10/04/16 13:41; Admin Dose 50 ML; Start 10/04/16 at 13:30 Hydralazine HCl (Apresoline) 10 mg Q6H PRN IV SBP>160 Last administered on 10/04 22:21; Admin Dose 10 MG; Start 10/04/16 at 20:30 Diagnostic Test (Pha) (Accu-Chek) 1 ea 02 XX ; Start 10/05/16 at 02:00 Miscellaneous Information 1 ea NOTE XX ; Start 10/04/16 at 21:30 Glucose (Glutose) 15 gm Q15M PRN PO DECREASED GLUCOSE; Start 10/04/16 at 21:30 Glucose (Glutose) 22.5 gm Q15M PRN PO DECREASED GLUCOSE; Start 10/04/16 at 21: 30 Dextrose (D50w Syringe) 25 ml Q15M PRN IV DECREASED GLUCOSE; Start 10/04/16 at 21:30 Dextrose (D50w Syringe) 50 ml Q15M PRN IV DECREASED GLUCOSE; Start 10/04/16 at 21:30 Glucagon (Glucagen) 1 mg Q15M PRN IM DECREASED GLUCOSE; Start 10/04/16 at 21:30 Glucose 15 gm 15 gm Q15M PRN BUCCAL DECREASED GLUCOSE; Start 10/04/16 at 21:30 Sodium Chloride (1/2 NS) 1,000 ml @ 125 mls/hr Q8H IV Last administered on 10:26; Admin Dose 125 MLS/HR; Start 10/04/16 at 23:45 Pantoprazole (Protonix Iv) 40 mg BID@06,18 IV Last administered on 10/05/16 05 :55; Admin Dose 40 MG; Start 10/05/16 at 06:00 Insulin Glargine (Lantus) 8 unit HS SC ; Start 10/05/16 at 21:00 Metoprolol Tartrate (Lopressor) 25 mg BID PO Last administered on 10/05/16 08: 55; Admin Dose 25 MG; Start 10/05/16 at 00:50 Ondansetron HCl (Zofran Inj) 4 mg Q6H PRN IV NAUSEA AND/OR VOMITING; Start at 00:30 Acetaminophen (Tylenol Tab) 500 mg Q6H PRN PO MILD PAIN &OR TEMP.>100.4F Last administered on 10/05/16 02:53; Admin Dose 500 MG; Start 10/05/16 at 00:30 Acetaminophen/ Hydrocodone Bitart ([place] (5/325)) 1 tab Q6H PRN PO PAIN; Start 10/05/16 at 00:30 Morphine Sulfate (morphine) 2 mg Q6H PRN IV PAIN; Start 10/05/16 at 00:30 Doxazosin Mesylate (Cardura) 1 mg ONCE ONCE PO ; Start 10/05/16 at 13:00; Stop 10/05/16 at 13:01 Doxazosin Mesylate (Cardura) 2 mg HS PO ; Start 10/05/16 at 21:00 CHRISTIANO ROWLEY MD Oct 05, 2016 12:47
[2016-10-05] MEDS ORDERED: BARIUM SULF 2% 450 ML BTL (BERRY SMOOTHIE) PO ONE (13:00)
[2016-10-05] MEDS ORDERED: DOXAZOSIN 1 MG TAB PO ONE (13:00)
[2016-10-05] MEDS: hydrALAzine 20 MG INJ IV PRN (14:21)
[2016-10-05 15:05] LABS: PHOSPHORUS 8.1 mg/dl (2.5-4.9)
--- NOTE | 2016-10-05 15:17 | RADRPT ---
PROCEDURE: Renal US. CLINICAL INDICATION: Renal dysfunction. TECHNIQUE: Multiple sonographic images of the kidneys and urinary bladder were obtained. The imag es were reviewed on a PACS workstation. COMPARISON: No prior studies are available for comparison. FINDINGS: The right kidney measures 10.9 cm. The left kidney measures 10.1 cm. There is no renal mass. There is moderate right hydronephrosis and mild left hydronephrosis. No obstructing lesion is visua lized. There is no renal calculus. Renal parenchymal thickness is normal bilaterally. Echogenicity is normal bilaterally. The perirenal regions are normal with no fluid collection or mass. There is a Shannon catheter in the urinary bladder. There is diffuse bladder wall thickening measuri ng up to 1.6 cm. IMPRESSION: 1. Moderate right hydronephrosis and mild left hydronephrosis. 2. Shannon catheter in the bladder. 3. Thickening of the wall of the bladder. RPTAT: QQ .Francisco Tian MD, MD Date Time Electronically viewed and signed by .Francisco Tian MD, on 10/05/2016 15:17 .R/
[2016-10-05] MEDS ORDERED: INSULIN GLARGINE [LANtus] 3 ML PEN SC SCH (20:00)
[2016-10-05] MEDS: DOXAZOSIN 2 MG TAB PO SCH (20:53)
[2016-10-05] MEDS: INSULIN GLARGINE [LANtus] 3 ML PEN SC SCH (21:41)
[2016-10-06] VITALS (11 sets, daily range): BP systolic 110–153; BP diastolic 60–98; PULSE 59–73; RESP 18–20
[2016-10-06] MEDS: ACCUCHECK AT 2AM (Patients on SS coverage) XX SCH (01:51)
[2016-10-06] MEDS: SOD CHLORIDE 0.45% 1,000 ML IV SCH ×3 (03:12→21:19)
[2016-10-06] MEDS: PANTOPRAZOLE 40 MG INJ IV SCH ×2 (05:12→17:30)
[2016-10-06] MEDS: ACETAMINOPHEN 500 MG TAB PO PRN ×2 (05:16→21:09)
[2016-10-06] MEDS: INSULIN ASPART [NOVOLOG] 3 ML PEN SC SCH ×7 (08:00→21:00)
[2016-10-06] MEDS: METOPROLOL 25 MG TAB PO SCH ×2 (08:12→21:09)
--- NOTE | 2016-10-06 11:02 | RADRPT ---
PROCEDURE: CT Abdomen and Pelvis without contrast. CLINICAL INDICATION: Unexplained weight loss. TECHNIQUE: Multiple contiguous axial CT images of the abdomen and pelvis were obtained without the administration of intravenous contrast. Oral contrast was administered. Coronal and sagittal recons tructions were also performed. CTDIvol (mGy): 8.75; Total Exam DLP (mGy-cm): 545.50. One or more of the following dose reduction techniques were utilized: - Automated exposure control. - Adjustment of the mA and/or kV according to patient size. - Use of iterative reconstruction technique. COMPARISON: Renal ultrasound 10/05/2016. FINDINGS: Limited imaging of the lower thorax demonstrates hyperinflation and mild bronchial wall thickening o f the lower lobe airways. The lung bases are clear. The liver and spleen are homogeneous in density. The gallbladder is surgically absent. The pancrea s and adrenal glands are unremarkable. The kidneys are symmetric in size. There are no nephroureteral stones. Mild moderate bilateral symm etric hydroureteronephrosis is present and unchanged. Bilateral symmetric perinephric fat stranding is observed. The abdominal aorta is normal in caliber. Atherosclerotic calcification is present. There is no per iaortic / retroperitoneal lymphadenopathy. The stomach and small and large intestines are unremarkable. The appendix is normal. There are no focal inflammatory changes of the mesentery. There is no mesenteric lymphadenopathy. There is no a scites. The bladder is collapsed around a Shannon. There is marked concentric bladder wall thickening with pe rivesical edema. The prostate gland and seminal vesicles are unremarkable. There is no free pelvic fluid. There is no pelvic sidewall or inguinal lymphadenopathy. L4-S1 degenerative disk disease is observed. Body wall soft tissues are unremarkable. IMPRESSION: Mild moderate bilateral symmetric hydroureteronephrosis without evidence of nephroureterolithiasis. Marked concentric urinary bladder wall thickening with perivesical edema is observed suggesting seq uelae of lower urinary tract inflammation and / or bladder outlet obstruction. Correlate with appro priate clinical data. L4-S1 degenerative disk disease. RPTAT: HLST .Karie Small MD, Date Time Electronically viewed and signed by .Karie Small MD, on 10/06/2016 11:02 .T/
[2016-10-06 12:10] LABS: CALCIUM 8.7 mg/dl (8.4-10.2); CREATININE 6.86 mg/dl (0.61-1.24); POTASSIUM 3.8 mmol/L (3.5-5.1)
--- NOTE | 2016-10-06 15:53 | PN ---
Date/Time of Note Date/Time of Note DATE: 10/06/16 TIME: 15:49 Assessment/Plan VTE Prophylaxis VTE Prophylaxis Intervention: ambulation Lines/Catheters IV Catheter Type (from [facility]): Peripheral IV Urinary Cath still in place: Yes Reason Cath still needed: urinary retention Assessment/Plan Assessment/Plan Assessment: * Renal failure likely chronic * Anemia likely multifactorial * Rule out GI bleeding * Melena/GI bleeding * Significant unexplained weight loss likely multifactorial * Rule out occult neoplasm * History of diabetes mellitus type 2 * History of hypertension poorly controlled Plan; * Awaiting nephrology consult would likely required dialysis * Monitor H&H, transfuse as necessary * Stool for occult blood * EGD and colonoscopy once stable risk and benefit explained to patient agreed with planned procedure Subjective 24 Hr Interval Summary Free Text/Dictation * Course reviewed with RN * Patient seen and examined * awaiting stool for occult blood result * Still complaining of melena Exam/Review of Systems Vital Signs Vitals Vital Signs Date Time Temp Pulse Resp B/P Pulse Ox O2 Delivery O2 Flow Rate FiO2 10/06/16 12:33 98.8 57 20 153/77 100 10/05/16 16:45 Room Air 10/04/16 16:30 21 10/04/16 11:55 2 Intake and Output 10/05/16 10/05/16 10/06/16 15:00 23:00 07:00 Intake Total 437 ml 2000 ml 1975 ml Output Total 4300 ml 1800 ml Balance 437 ml -2300 ml 175 ml Exam Constitutional: alert, oriented Psych: nl mood/affect, no complaints Head: atraumatic, normocephalic Neck: non-tender, supple Respiratory: clear to auscultation, normal air movement Cardiovascular: nl pulses, regular rate and rhythm Gastrointestinal: nl liver, spleen, non-tender, soft Musculoskeletal: nl extremities to inspection, nl gait and stance Extremities: normal pulses Neurological: nl speech, nl strength Skin: nl turgor, No rash or lesions Lymph: nl lymph nodes Results Result Diagram: 10/04/16 1117 10/06/16 1130 Results 24 hrs Laboratory Tests Test 10/05/16 17:20 10/05/16 20:43 10/06/16 08:11 10/06/16 11:30 Bedside Glucose 197 146 118 Sodium Level 134 L Potassium Level 3.8 Chloride Level 101 Carbon Dioxide Level 21 Anion Gap 16 # Blood Urea Nitrogen 85 #H Creatinine 6.86 #H Glucose Level 166 Calcium Level 8.7 Test 10/06/16 12:35 Bedside Glucose 176 Medications Medications Current Medications Dextrose (D50w Syringe) ONCE PRN IV POC BLOOD GLUCOSE <250 MG/DL Last administered on 10/04/16 13:41; Admin Dose 50 ML; Start 10/04/16 at 13:30 Hydralazine HCl (Apresoline) 10 mg Q6H PRN IV SBP>160 Last administered on 10/05 14:21; Admin Dose 10 MG; Start 10/04/16 at 20:30 Diagnostic Test (Pha) (Accu-Chek) 1 ea 02 XX ; Start 10/05/16 at 02:00 Miscellaneous Information 1 ea NOTE XX ; Start 10/04/16 at 21:30 Glucose (Glutose) 15 gm Q15M PRN PO DECREASED GLUCOSE; Start 10/04/16 at 21:30 Glucose (Glutose) 22.5 gm Q15M PRN PO DECREASED GLUCOSE; Start 10/04/16 at 21: 30 Dextrose (D50w Syringe) 25 ml Q15M PRN IV DECREASED GLUCOSE; Start 10/04/16 at 21:30 Dextrose (D50w Syringe) 50 ml Q15M PRN IV DECREASED GLUCOSE; Start 10/04/16 at 21:30 Glucagon (Glucagen) 1 mg Q15M PRN IM DECREASED GLUCOSE; Start 10/04/16 at 21:30 Glucose 15 gm 15 gm Q15M PRN BUCCAL DECREASED GLUCOSE; Start 10/04/16 at 21:30 Sodium Chloride (1/2 NS) 1,000 ml @ 125 mls/hr Q8H IV Last administered on 12:42; Admin Dose 125 MLS/HR; Start 10/04/16 at 23:45 Pantoprazole (Protonix Iv) 40 mg BID@,18 IV Last administered on 10/06/16 05 :12; Admin Dose 40 MG; Start 10/05/16 at 06:00 Insulin Glargine (Lantus) 8 unit HS SC Last administered on 10/05/16 21:41; Admin Dose 8 UNIT; Start 10/05/16 at 21:00 Metoprolol Tartrate (Lopressor) 25 mg BID PO Last administered on 10/06/16 08: 12; Admin Dose 25 MG; Start 10/05/16 at 00:50 Ondansetron HCl (Zofran Inj) 4 mg Q6H PRN IV NAUSEA AND/OR VOMITING; Start at 00:30 Acetaminophen (Tylenol Tab) 500 mg Q6H PRN PO MILD PAIN &OR TEMP.>100.4F Last administered on 10/06/16 05:16; Admin Dose 500 MG; Start 10/05/16 at 00:30 Acetaminophen/ Hydrocodone Bitart ([place] (5/325)) 1 tab Q6H PRN PO PAIN; Start 10/05/16 at 00:30 Morphine Sulfate (morphine) 2 mg Q6H PRN IV PAIN; Start 10/05/16 at 00:30 Doxazosin Mesylate (Cardura) 2 mg HS PO Last administered on 10/05/16 20:53; Admin Dose 2 MG; Start 10/05/16 at 21:00 VENESSA PAYNE NP Oct 06, 2016 15:53
--- NOTE | 2016-10-06 16:29 | PN ---
Date/Time of Note Date/Time of Note DATE: 10/06/16 TIME: 16:22 Assessment/Plan VTE Prophylaxis VTE Prophylaxis Intervention: SCD's Lines/Catheters IV C[facility]ter Type (from [facility]): Peripheral IV Urinary Cath still in place: Yes Assessment/Plan Chief Complaint/Hosp Course Assessment and plan 1. Acute renal failure. Suspect postobstructive issue. Continue with nephrology recommendations. Dialysis per recreational specialist. Will get urologist to follow 2. Reported anemia. Occult stool is pending. Tentative plan for EGD/ colonoscopy per GI 3. Moderate bilateral symmetric hydroureteronephrosis without evidence of nephroureterolithiasis. Will get urologist to follow. 4. Elevated tumor markers. Patient does report having unintentional weight loss of 20 pounds in a month. Will get oncologist to follow. 5. Essential hypertension. Continue antihypertensives and adjust needed 6. Diabetes. On insulin regimen. Will adjust as needed. Disposition and plan: Monitor renal function. Dialysis per recreational specialist. Will get urology and oncology involved. Discussed plan of care with Dr. Quan Problems: Subjective 24 Hr Interval Summary Free Text/Dictation Appears comfortable at present. No apparent distress at this time. Exam/Review of Systems Vital Signs Vitals Vital Signs Date Time Temp Pulse Resp B/P Pulse Ox O2 Delivery O2 Flow Rate FiO2 10/06/16 12:33 98.8 57 20 153/77 100 10/05/16 16:45 Room Air 10/04/16 16:30 21 10/04/16 11:55 2 Intake and Output 10/05/16 10/05/16 10/06/16 14:59 22:59 06:59 Intake Total 437 ml 2000 ml 1975 ml Output Total 4300 ml 1800 ml Balance 437 ml -2300 ml 175 ml Exam Constitutional: alert, oriented Psych: nl mood/affect Eyes: nl conjunctiva Respiratory: clear to auscultation Cardiovascular: nl pulses, regular rate and rhythm Gastrointestinal: non-tender, soft Genitourinary - Male: other (Shannon catheter in place) Neurological: RENEWALS MANAGER II-XII intact, nl mental status, nl speech Results Result Diagram: 10/04/16 1117 10/06/16 1130 Results 24 hrs Laboratory Tests Test 10/05/16 17:20 10/05/16 20:43 10/06/16 08:11 10/06/16 11:30 Bedside Glucose 197 146 118 Sodium Level 134 L Potassium Level 3.8 Chloride Level 101 Carbon Dioxide Level 21 Anion Gap 16 # Blood Urea Nitrogen 85 #H Creatinine 6.86 #H Glucose Level 166 Calcium Level 8.7 Test 10/06/16 12:35 Bedside Glucose 176 Medications Medications Current Medications Dextrose (D50w Syringe) ONCE PRN IV POC BLOOD GLUCOSE <250 MG/DL Last administered on 10/04/16 13:41; Admin Dose 50 ML; Start 10/04/16 at 13:30 Hydralazine HCl (Apresoline) 10 mg Q6H PRN IV SBP>160 Last administered on 10/05 14:21; Admin Dose 10 MG; Start 10/04/16 at 20:30 Diagnostic Test (Pha) (Accu-Chek) 1 ea 02 XX ; Start 10/05/16 at 02:00 Miscellaneous Information 1 ea NOTE XX ; Start 10/04/16 at 21:30 Glucose (Glutose) 15 gm Q15M PRN PO DECREASED GLUCOSE; Start 10/04/16 at 21:30 Glucose (Glutose) 22.5 gm Q15M PRN PO DECREASED GLUCOSE; Start 10/04/16 at 21: 30 Dextrose (D50w Syringe) 25 ml Q15M PRN IV DECREASED GLUCOSE; Start 10/04/16 at 21:30 Dextrose (D50w Syringe) 50 ml Q15M PRN IV DECREASED GLUCOSE; Start 10/04/16 at 21:30 Glucagon (Glucagen) 1 mg Q15M PRN IM DECREASED GLUCOSE; Start 10/04/16 at 21:30 Glucose 15 gm 15 gm Q15M PRN BUCCAL DECREASED GLUCOSE; Start 10/04/16 at 21:30 Sodium Chloride (1/2 NS) 1,000 ml @ 125 mls/hr Q8H IV Last administered on 12:42; Admin Dose 125 MLS/HR; Start 10/04/16 at 23:45 Pantoprazole (Protonix Iv) 40 mg BID@,18 IV Last administered on 10/06/16 05 :12; Admin Dose 40 MG; Start 10/05/16 at 06:00 Insulin Glargine (Lantus) 8 unit HS SC Last administered on 10/05/16 21:41; Admin Dose 8 UNIT; Start 10/05/16 at 21:00 Metoprolol Tartrate (Lopressor) 25 mg BID PO Last administered on 10/06/16 08: 12; Admin Dose 25 MG; Start 10/05/16 at 00:50 Ondansetron HCl (Zofran Inj) 4 mg Q6H PRN IV NAUSEA AND/OR VOMITING; Start at 00:30 Acetaminophen (Tylenol Tab) 500 mg Q6H PRN PO MILD PAIN &OR TEMP.>100.4F Last administered on 10/06/16 05:16; Admin Dose 500 MG; Start 10/05/16 at 00:30 Acetaminophen/ Hydrocodone Bitart ([place] (5/325)) 1 tab Q6H PRN PO PAIN; Start 10/05/16 at 00:30 Morphine Sulfate (morphine) 2 mg Q6H PRN IV PAIN; Start 10/05/16 at 00:30 Doxazosin Mesylate (Cardura) 2 mg HS PO Last administered on 10/05/16 20:53; Admin Dose 2 MG; Start 10/05/16 at 21:00 Bisacodyl (Dulcolax) 10 mg ONCE ONCE PO ; Start 10/07/16 at 16:30; Stop at 16:31; Status UNV Magnesium Citrate (Citroma) 300 ml ONCE ONCE PO ; Start 10/07/16 at 17:30; Stop 10/07/16 at 17:31; Status UNV Polyethylene Glycol (Miralax) 119 gm ONCE ONCE PO ; Start 10/07/16 at 18:30; Stop 10/07/16 at 18:31; Status UNV ALEXA CHAVEZ Oct 06, 2016 16:29
[2016-10-06] MEDS: CALCIUM CARBONATE 500 MG CHEW TAB PO SCH (19:02)
[2016-10-06] MEDS: DOXAZOSIN 2 MG TAB PO SCH (21:08)
[2016-10-06] MEDS: INSULIN GLARGINE [LANtus] 3 ML PEN SC SCH (21:11)
--- NOTE | 2016-10-06 22:14 | CONS ---
Date/Time of Note Date/Time of Note DATE: 10/06/16 TIME: 22:07 Assessment/Plan Assessment/Plan Additional Assessment/Plan In light of good urine vol will continue vigorous hydration monitor I/O chemistry Cont'd Hospitalization Reason: WIll replace lytes as needed and monitor I/I chemistry. Pt need gu eval. Consultation Date/Type/Reason Admit Date/Time Oct 04, 2016 at 14:10 Initial Consult Date 10/05/16 Reason for Consultation KAIT< Azotemia 24 HR Interval Summary Subjective hx not possible: other (Pt is in good spirits) Exam/Review of Systems Vital Signs Vitals Vital Signs Date Time Temp Pulse Resp B/P Pulse Ox O2 Delivery O2 Flow Rate FiO2 10/06/16 20:00 97.9 70 18 137/98 100 10/05/16 16:45 Room Air 10/04/16 16:30 21 10/04/16 11:55 2 Intake and Output 10/05/16 10/05/16 10/06/16 15:00 23:00 07:00 Intake Total 437 ml 2000 ml 1975 ml Output Total 4300 ml 1800 ml Balance 437 ml -2300 ml 175 ml Exam Constitutional: alert, oriented, well developed Psych: nl mood/affect, no complaints Head: atraumatic, normocephalic Eyes: EOMI, PERRL, nl conjunctiva, nl lids, nl sclera ENMT: nl external ears & nose, nl lips & teeth, nl nasal mucosa & septum Neck: non-tender, supple Respiratory: clear to auscultation, normal air movement Cardiovascular: nl pulses, regular rate and rhythm Gastrointestinal: nl liver, spleen, non-tender, soft Genitourinary - Male: other Musculoskeletal: nl extremities to inspection, nl gait and stance Extremities: normal pulses Neurological: JUNIOR AUTOMATION ENGINEER II-XII intact, nl mental status, nl speech, nl strength Skin: nl turgor, No rash or lesions Lymph: nl lymph nodes Results Despite impressive Diuresis, BUN/Creat have not decreased proportionately Note very high PSA>30 Result Diagram: 10/04/16 1117 10/06/16 1130 Results 24 hrs Laboratory Tests Test 10/06/16 08:11 10/06/16 11:30 10/06/16 12:35 10/06/16 17:18 Bedside Glucose 118 176 100 Sodium Level 134 L Potassium Level 3.8 Chloride Level 101 Carbon Dioxide Level 21 Anion Gap 16 # Blood Urea Nitrogen 85 #H Creatinine 6.86 #H Glucose Level 166 Calcium Level 8.7 Test 10/06/16 21:07 Bedside Glucose 90 Medications Medications Current Medications Dextrose (D50w Syringe) ONCE PRN IV POC BLOOD GLUCOSE <250 MG/DL Last administered on 10/04/16 13:41; Admin Dose 50 ML; Start 10/04/16 at 13:30 Hydralazine HCl (Apresoline) 10 mg Q6H PRN IV SBP>160 Last administered on 10/05 14:21; Admin Dose 10 MG; Start 10/04/16 at 20:30 Diagnostic Test (Pha) (Accu-Chek) 1 ea 02 XX ; Start 10/05/16 at 02:00 Miscellaneous Information 1 ea NOTE XX ; Start 10/04/16 at 21:30 Glucose (Glutose) 15 gm Q15M PRN PO DECREASED GLUCOSE; Start 10/04/16 at 21:30 Glucose (Glutose) 22.5 gm Q15M PRN PO DECREASED GLUCOSE; Start 10/04/16 at 21: 30 Dextrose (D50w Syringe) 25 ml Q15M PRN IV DECREASED GLUCOSE; Start 10/04/16 at 21:30 Dextrose (D50w Syringe) 50 ml Q15M PRN IV DECREASED GLUCOSE; Start 10/04/16 at 21:30 Glucagon (Glucagen) 1 mg Q15M PRN IM DECREASED GLUCOSE; Start 10/04/16 at 21:30 Glucose 15 gm 15 gm Q15M PRN BUCCAL DECREASED GLUCOSE; Start 10/04/16 at 21:30 Sodium Chloride (1/2 NS) 1,000 ml @ 125 mls/hr Q8H IV Last administered on 21:19; Admin Dose 125 MLS/HR; Start 10/04/16 at 23:45 Pantoprazole (Protonix Iv) 40 mg BID@,18 IV Last administered on 10/06/16 17 :30; Admin Dose 40 MG; Start 10/05/16 at 06:00 Insulin Glargine (Lantus) 8 unit HS SC Last administered on 10/06/16 21:11; Admin Dose 8 UNIT; Start 10/05/16 at 21:00 Metoprolol Tartrate (Lopressor) 25 mg BID PO Last administered on 10/06/16 21: 09; Admin Dose 25 MG; Start 10/05/16 at 00:50 Ondansetron HCl (Zofran Inj) 4 mg Q6H PRN IV NAUSEA AND/OR VOMITING; Start at 00:30 Acetaminophen (Tylenol Tab) 500 mg Q6H PRN PO MILD PAIN &OR TEMP.>100.4F Last administered on 10/06/16 21:09; Admin Dose 500 MG; Start 10/05/16 at 00:30 Acetaminophen/ Hydrocodone Bitart ([place] (5/325)) 1 tab Q6H PRN PO PAIN; Start 10/05/16 at 00:30 Morphine Sulfate (morphine) 2 mg Q6H PRN IV PAIN; Start 10/05/16 at 00:30 Doxazosin Mesylate (Cardura) 2 mg HS PO Last administered on 10/06/16 21:08; Admin Dose 2 MG; Start 10/05/16 at 21:00 Bisacodyl (Dulcolax) 10 mg ONCE ONCE PO ; Start 10/07/16 at 16:30; Stop at 16:31 Magnesium Citrate (Citroma) 300 ml ONCE ONCE PO ; Start 10/07/16 at 17:30; Stop 10/07/16 at 17:31 Polyethylene Glycol (Miralax) 119 gm ONCE ONCE PO ; Start 10/07/16 at 18:30; Stop 10/07/16 at 18:31 ALEXSANDRA WILSON MD Oct 06, 2016 22:14
[2016-10-07] VITALS (13 sets, daily range): BP systolic 116–181; BP diastolic 56–82; PULSE 61–74; RESP 18–20
[2016-10-07] MEDS: ACCUCHECK AT 2AM (Patients on SS coverage) XX SCH (02:00)
[2016-10-07] MEDS: PANTOPRAZOLE 40 MG INJ IV SCH ×2 (06:03→17:49)
[2016-10-07] MEDS: SOD CHLORIDE 0.45% 1,000 ML IV SCH ×2 (06:04→16:08)
[2016-10-07 07:56] LABS: ADD SCAN DIFF NO
[2016-10-07] MEDS: INSULIN ASPART [NOVOLOG] 3 ML PEN SC SCH ×7 (08:00→21:00)
[2016-10-07 08:06] LABS: BASOPHILS % 0.4 % (0.0-2.0); EOSINOPHILS # 0.2 10^3/ul (0.0-0.5); EOSINOPHILS % 3.3 % (0.0-7.0); HEMOGLOBIN 9.2 g/dl (14.0-18.0); LYMPHOCYTES # 1.9 10^3/ul (0.8-2.9); LYMPHOCYTES % 27.6 % (15.0-51.0); MEAN CORPUSCULAR HEMOGLOBIN 31.7 pg (29.0-33.0); MEAN CORPUSCULAR HGB CONC 34.1 g/dl (32.0-37.0); MEAN CORPUSCULAR VOLUME 93.1 fl (82.0-101.0); MEAN PLATELET VOLUME 9.8 fl (7.4-10.4); MONOCYTE # 0.7 10^3/ul (0.3-0.9); MONOCYTES % 9.8 % (0.0-11.0); NEUTROPHIL # 3.9 10^3/ul (1.6-7.5); NEUTROPHILS % 58.5 % (39.0-77.0); PLATELET COUNT 174 10^3/UL (140-415); RED CELL DISTRIBUTION WIDTH 13.5 % (11.5-14.5); WHITE BLOOD COUNT 6.7 10^3/ul (4.8-10.8)
[2016-10-07] MEDS: CALCIUM CARBONATE 500 MG CHEW TAB PO SCH ×3 (08:40→21:16)
[2016-10-07] MEDS: METOPROLOL 25 MG TAB PO SCH ×2 (08:41→21:17)
[2016-10-07 10:50] LABS: CALCIUM 8.9 mg/dl (8.4-10.2); CREATININE 5.45 mg/dl (0.61-1.24); POTASSIUM 3.6 mmol/L (3.5-5.1)
--- NOTE | 2016-10-07 12:22 | CONS ---
Date/Time of Note Date/Time of Note DATE: 10/07/16 TIME: 12:22 Assessment/Plan Assessment/Plan Additional Assessment/Plan (1) Hyperkalemia Status: Acute (2) Acute renal failure Status: Acute- improved Qualifiers: Acute renal failure type: unspecified Qualified Code: N17.9 - Acute renal failure, unspecified acute renal failure type (3) Anemia Status: Acute Qualifiers: Anemia type: other cause Other causes of anemia: other cause, not classified Qualified Code: D64.89 - Anemia due to other cause, not classified (4) Hypertension Status: Acute Qualifiers: Hypertension type: unspecified secondary hypertension Qualified Code: I15.9 - Secondary hypertension (5) Diabetes mellitus type 2 in nonobese Status: Chronic Assessment/Plan arf obstructice uropathu- improving ckd baseline not known No acute indication for HD Will cont to closely monitor UO, Electrolytes, volume status and renal function. Consultation Date/Type/Reason Admit Date/Time Oct 04, 2016 at 14:10 Initial Consult Date 10/05/16 Type of Consultation: Renal Reason for Consultation KAIT 24 HR Interval Summary Free Text/Dictation NO new complaints, Good UO reported Constitutional: No requiring O2 Exam/Review of Systems Vital Signs Vitals Vital Signs Date Time Temp Pulse Resp B/P Pulse Ox O2 Delivery O2 Flow Rate FiO2 10/07/16 11:46 97.8 68 18 160/81 100 10/05/16 16:45 Room Air 10/04/16 16:30 21 10/04/16 11:55 2 Intake and Output 10/06/16 10/06/16 10/07/16 15:00 23:00 07:00 Intake Total 950 ml 1650 ml 365 ml Output Total 2600 ml 1700 ml Balance 950 ml -950 ml -1335 ml Exam Constitutional: alert, No distress ENMT: mucosa pink and moist Neck: No jvd Respiratory: clear to auscultation Cardiovascular: regular rate and rhythm, No edema Gastrointestinal: non-tender, soft Extremities: No edema Neurological: MATE FISHING VESSEL II-XII intact, No lethargic Skin: No diaphoresis Results Result Diagram: 10/07/16 0736 10/07/16 0736 Results 24 hrs Laboratory Tests Test 10/06/16 12:35 10/06/16 17:18 10/06/16 21:07 10/07/16 07:36 Bedside Glucose 176 100 90 White Blood Count 6.7 Red Blood Count 2.90 L Hemoglobin 9.2 L Hematocrit 27.0 L Mean Corpuscular Volume 93.1 Mean Corpuscular Hemoglobin 31.7 Mean Corpuscular Hemoglobin Concent 34.1 Red Cell Distribution Width 13.5 Platelet Count 174 Mean Platelet Volume 9.8 Neutrophils % 58.5 Lymphocytes % 27.6 Monocytes % 9.8 Eosinophils % 3.3 Basophils % 0.4 Nucleated Red Blood Cells % 0.0 Neutrophils # 3.9 Lymphocytes # 1.9 Monocytes # 0.7 Eosinophils # 0.2 Basophils # 0.0 Nucleated Red Blood Cells # 0.0 Sodium Level 140 Potassium Level 3.6 Chloride Level 105 Carbon Dioxide Level 18 L Anion Gap 21 H Blood Urea Nitrogen 75 H Creatinine 5.45 H Glucose Level 78 # Calcium Level 8.9 Magnesium Level 2.4 Test 10/07/16 08:15 10/07/16 11:29 Bedside Glucose 91 152 Medications Medications Current Medications Dextrose (D50w Syringe) ONCE PRN IV POC BLOOD GLUCOSE <250 MG/DL Last administered on 10/04/16 13:41; Admin Dose 50 ML; Start 10/04/16 at 13:30 Hydralazine HCl (Apresoline) 10 mg Q6H PRN IV SBP>160 Last administered on 10/05 14:21; Admin Dose 10 MG; Start 10/04/16 at 20:30 Diagnostic Test (Pha) (Accu-Chek) 1 ea 02 XX ; Start 10/05/16 at 02:00 Miscellaneous Information 1 ea NOTE XX ; Start 10/04/16 at 21:30 Glucose (Glutose) 15 gm Q15M PRN PO DECREASED GLUCOSE; Start 10/04/16 at 21:30 Glucose (Glutose) 22.5 gm Q15M PRN PO DECREASED GLUCOSE; Start 10/04/16 at 21: 30 Dextrose (D50w Syringe) 25 ml Q15M PRN IV DECREASED GLUCOSE; Start 10/04/16 at 21:30 Dextrose (D50w Syringe) 50 ml Q15M PRN IV DECREASED GLUCOSE; Start 10/04/16 at 21:30 Glucagon (Glucagen) 1 mg Q15M PRN IM DECREASED GLUCOSE; Start 10/04/16 at 21:30 Glucose 15 gm 15 gm Q15M PRN BUCCAL DECREASED GLUCOSE; Start 10/04/16 at 21:30 Sodium Chloride (1/2 NS) 1,000 ml @ 125 mls/hr Q8H IV Last administered on 06:04; Admin Dose 125 MLS/HR; Start 10/04/16 at 23:45 Pantoprazole (Protonix Iv) 40 mg BID@06,18 IV Last administered on 10/07/16 06 :03; Admin Dose 40 MG; Start 10/05/16 at 06:00 Insulin Glargine (Lantus) 8 unit HS SC Last administered on 10/06/16 21:11; Admin Dose 8 UNIT; Start 10/05/16 at 21:00 Metoprolol Tartrate (Lopressor) 25 mg BID PO Last administered on 10/07/16 08: 41; Admin Dose 25 MG; Start 10/05/16 at 00:50 Ondansetron HCl (Zofran Inj) 4 mg Q6H PRN IV NAUSEA AND/OR VOMITING; Start at 00:30 Acetaminophen (Tylenol Tab) 500 mg Q6H PRN PO MILD PAIN &OR TEMP.>100.4F Last administered on 10/06/16 21:09; Admin Dose 500 MG; Start 10/05/16 at 00:30 Acetaminophen/ Hydrocodone Bitart ([place] (5/325)) 1 tab Q6H PRN PO PAIN; Start 10/05/16 at 00:30 Morphine Sulfate (morphine) 2 mg Q6H PRN IV PAIN; Start 10/05/16 at 00:30 Doxazosin Mesylate (Cardura) 2 mg HS PO Last administered on 10/06/16 21:08; Admin Dose 2 MG; Start 10/05/16 at 21:00 Bisacodyl (Dulcolax) 10 mg ONCE ONCE PO ; Start 10/07/16 at 16:30; Stop at 16:31 Magnesium Citrate (Citroma) 300 ml ONCE ONCE PO ; Start 10/07/16 at 17:30; Stop 10/07/16 at 17:31 Polyethylene Glycol (Miralax) 119 gm ONCE ONCE PO ; Start 10/07/16 at 18:30; Stop 10/07/16 at 18:31 TARIQ GARCIA MD Oct 07, 2016 12:22
--- NOTE | 2016-10-07 15:57 | PN ---
Date/Time of Note Date/Time of Note DATE: 10/07/16 TIME: 15:54 Assessment/Plan VTE Prophylaxis VTE Prophylaxis Intervention: SCD's Lines/Catheters IV Catheter Type (from [facility]): Peripheral IV Urinary Cath still in place: Yes Assessment/Plan Chief Complaint/Hosp Course Assessment and plan 1. Acute renal failure. postobstructive issue. Continue with nephrology recommendations. No need for dialysis at this time per worm packer. Appears to be improving at present 2. Reported anemia. Occult stool is pending. Tentative plan for EGD/ colonoscopy per GI 3. Moderate bilateral symmetric hydroureteronephrosis without evidence of nephroureterolithiasis. Await urologist input. 4. Elevated tumor markers. Patient does report having unintentional weight loss of 20 pounds in a month. Oncologist follow 5. Essential hypertension. Continue antihypertensives and adjust needed 6. Diabetes. On insulin regimen. Will adjust as needed. Disposition and plan: Continue to monitor renal function. Appears to be improving. Discharged in medically stable for by consultants. Discussed plan of care with Dr. Quan Problems: Subjective 24 Hr Interval Summary Free Text/Dictation No specific complaints at this time. Comfortable at present Exam/Review of Systems Vital Signs Vitals Vital Signs Date Time Temp Pulse Resp B/P Pulse Ox O2 Delivery O2 Flow Rate FiO2 10/07/16 12:40 61 10/07/16 11:46 97.8 18 160/81 100 10/05/16 16:45 Room Air 10/04/16 16:30 21 10/04/16 11:55 2 Intake and Output 10/06/16 10/06/16 10/07/16 15:00 23:00 07:00 Intake Total 950 ml 1650 ml 365 ml Output Total 2600 ml 1700 ml Balance 950 ml -950 ml -1335 ml Exam Constitutional: alert, oriented, no reports of pain Psych: nl mood/affect Eyes: nl conjunctiva Respiratory: clear to auscultation Cardiovascular: nl pulses, regular rate and rhythm Gastrointestinal: non-tender, soft Genitourinary - Male: other (Shannon catheter in place) bowen urine Neurological: FIBERGLASS LAMINATOR II-XII intact, nl mental status, nl speech Results Result Diagram: 10/07/16 0736 10/07/16 0736 Results 24 hrs Laboratory Tests Test 10/06/16 17:18 10/06/16 21:07 10/07/16 07:36 10/07/16 08:15 Bedside Glucose 100 90 91 White Blood Count 6.7 Red Blood Count 2.90 L Hemoglobin 9.2 L Hematocrit 27.0 L Mean Corpuscular Volume 93.1 Mean Corpuscular Hemoglobin 31.7 Mean Corpuscular Hemoglobin Concent 34.1 Red Cell Distribution Width 13.5 Platelet Count 174 Mean Platelet Volume 9.8 Neutrophils % 58.5 Lymphocytes % 27.6 Monocytes % 9.8 Eosinophils % 3.3 Basophils % 0.4 Nucleated Red Blood Cells % 0.0 Neutrophils # 3.9 Lymphocytes # 1.9 Monocytes # 0.7 Eosinophils # 0.2 Basophils # 0.0 Nucleated Red Blood Cells # 0.0 Sodium Level 140 Potassium Level 3.6 Chloride Level 105 Carbon Dioxide Level 18 L Anion Gap 21 H Blood Urea Nitrogen 75 H Creatinine 5.45 H Glucose Level 78 # Calcium Level 8.9 Magnesium Level 2.4 Test 10/07/16 11:29 Bedside Glucose 152 Medications Medications Current Medications Dextrose (D50w Syringe) ONCE PRN IV POC BLOOD GLUCOSE <250 MG/DL Last administered on 10/04/16 13:41; Admin Dose 50 ML; Start 10/04/16 at 13:30 Hydralazine HCl (Apresoline) 10 mg Q6H PRN IV SBP>160 Last administered on 10/05 14:21; Admin Dose 10 MG; Start 10/04/16 at 20:30 Diagnostic Test (Pha) (Accu-Chek) 1 ea 02 XX ; Start 10/05/16 at 02:00 Miscellaneous Information 1 ea NOTE XX ; Start 10/04/16 at 21:30 Glucose (Glutose) 15 gm Q15M PRN PO DECREASED GLUCOSE; Start 10/04/16 at 21:30 Glucose (Glutose) 22.5 gm Q15M PRN PO DECREASED GLUCOSE; Start 10/04/16 at 21: 30 Dextrose (D50w Syringe) 25 ml Q15M PRN IV DECREASED GLUCOSE; Start 10/04/16 at 21:30 Dextrose (D50w Syringe) 50 ml Q15M PRN IV DECREASED GLUCOSE; Start 10/04/16 at 21:30 Glucagon (Glucagen) 1 mg Q15M PRN IM DECREASED GLUCOSE; Start 10/04/16 at 21:30 Glucose 15 gm 15 gm Q15M PRN BUCCAL DECREASED GLUCOSE; Start 10/04/16 at 21:30 Sodium Chloride (1/2 NS) 1,000 ml @ 125 mls/hr Q8H IV Last administered on 06:04; Admin Dose 125 MLS/HR; Start 10/04/16 at 23:45 Pantoprazole (Protonix Iv) 40 mg BID@06,18 IV Last administered on 10/07/16 06 :03; Admin Dose 40 MG; Start 10/05/16 at 06:00 Insulin Glargine (Lantus) 8 unit HS SC Last administered on 10/06/16 21:11; Admin Dose 8 UNIT; Start 10/05/16 at 21:00 Metoprolol Tartrate (Lopressor) 25 mg BID PO Last administered on 10/07/16 08: 41; Admin Dose 25 MG; Start 10/05/16 at 00:50 Ondansetron HCl (Zofran Inj) 4 mg Q6H PRN IV NAUSEA AND/OR VOMITING; Start at 00:30 Acetaminophen (Tylenol Tab) 500 mg Q6H PRN PO MILD PAIN &OR TEMP.>100.4F Last administered on 10/06/16 21:09; Admin Dose 500 MG; Start 10/05/16 at 00:30 Acetaminophen/ Hydrocodone Bitart ([place] (5/325)) 1 tab Q6H PRN PO PAIN; Start 10/05/16 at 00:30 Morphine Sulfate (morphine) 2 mg Q6H PRN IV PAIN; Start 10/05/16 at 00:30 Doxazosin Mesylate (Cardura) 2 mg HS PO Last administered on 10/06/16 21:08; Admin Dose 2 MG; Start 10/05/16 at 21:00 Bisacodyl (Dulcolax) 10 mg ONCE ONCE PO ; Start 10/07/16 at 16:30; Stop at 16:31 Magnesium Citrate (Citroma) 300 ml ONCE ONCE PO ; Start 10/07/16 at 17:30; Stop 10/07/16 at 17:31 Polyethylene Glycol (Miralax) 119 gm ONCE ONCE PO ; Start 10/07/16 at 18:30; Stop 10/07/16 at 18:31 ALEXA CHAVEZ Oct 07, 2016 15:57
[2016-10-07] MEDS ORDERED: BISACODYL (EC) 5 MG TAB PO ONE (16:30)
[2016-10-07] MEDS ORDERED: MAGNESIUM CITRATE 300 ML BTL PO ONE (17:30)
[2016-10-07] MEDS ORDERED: POLYETHYLENE GLYCOL 3350 119 GM POWDER PO ONE (18:30)
[2016-10-07] MEDS: DOXAZOSIN 2 MG TAB PO SCH (21:17)
[2016-10-07] MEDS: INSULIN GLARGINE [LANtus] 3 ML PEN SC SCH (21:22)
--- NOTE | 2016-10-07 21:34 | CONS ---
Date/Time of Note Date/Time of Note DATE: 10/07/16 TIME: 21:30 Assessment/Plan Assessment/Plan Chief Complaint/Hosp Course anemia. Occult stool is pending. Tentative plan for EGD/colonoscopy per GI Elevated tumor markers- CA 19-9 and PSA. Patient does report having unintentional weight loss of 20 pounds in a month. Marked concentric urinary bladder wall thickening with perivesical edema is observed suggesting sequelae of lower urinary tract inflammation and / or bladder outlet obstruction. Acute renal failure. postobstructive issue. No need for dialysis at this time per physicians and surgeons. Appears to be improving at present RE- UROLOGY EVAL Essential hypertension. Continue antihypertensives and adjust needed Diabetes. On insulin regimen. Will adjust as needed. Problems: Consultation Date/Type/Reason Admit Date/Time Oct 04, 2016 at 14:10 Initial Consult Date 10/05/16 Type of Consultation: hemeoncre 24 HR Interval Summary Free Text/Dictation all noted w-up in progress Exam/Review of Systems Vital Signs Vitals Vital Signs Date Time Temp Pulse Resp B/P Pulse Ox O2 Delivery O2 Flow Rate FiO2 10/07/16 20:33 68 10/07/16 19:57 98.0 18 181/81 100 10/05/16 16:45 Room Air 10/04/16 16:30 21 10/04/16 11:55 2 Intake and Output 10/06/16 10/06/16 10/07/16 15:00 23:00 07:00 Intake Total 950 ml 1650 ml 365 ml Output Total 2600 ml 1700 ml Balance 950 ml -950 ml -1335 ml Exam Constitutional: alert, oriented Psych: nl mood/affect Eyes: nl conjunctiva Respiratory: clear to auscultation Cardiovascular: nl pulses, regular rate and rhythm Gastrointestinal: non-tender, soft Genitourinary - Male: other (Shannon catheter in place) Neurological: BI TECHNICAL LEAD II-XII intact, nl mental status, nl speech Results Result Diagram: 10/07/16 0736 10/07/16 0736 Results 24 hrs Laboratory Tests Test 10/07/16 07:36 10/07/16 08:15 10/07/16 11:29 10/07/16 17:23 White Blood Count 6.7 Red Blood Count 2.90 L Hemoglobin 9.2 L Hematocrit 27.0 L Mean Corpuscular Volume 93.1 Mean Corpuscular Hemoglobin 31.7 Mean Corpuscular Hemoglobin Concent 34.1 Red Cell Distribution Width 13.5 Platelet Count 174 Mean Platelet Volume 9.8 Neutrophils % 58.5 Lymphocytes % 27.6 Monocytes % 9.8 Eosinophils % 3.3 Basophils % 0.4 Nucleated Red Blood Cells % 0.0 Neutrophils # 3.9 Lymphocytes # 1.9 Monocytes # 0.7 Eosinophils # 0.2 Basophils # 0.0 Nucleated Red Blood Cells # 0.0 Sodium Level 140 Potassium Level 3.6 Chloride Level 105 Carbon Dioxide Level 18 L Anion Gap 21 H Blood Urea Nitrogen 75 H Creatinine 5.45 H Glucose Level 78 # Calcium Level 8.9 Magnesium Level 2.4 Bedside Glucose 91 152 127 Medications Medications Current Medications Dextrose (D50w Syringe) ONCE PRN IV POC BLOOD GLUCOSE <250 MG/DL Last administered on 10/04/16 13:41; Admin Dose 50 ML; Start 10/04/16 at 13:30 Hydralazine HCl (Apresoline) 10 mg Q6H PRN IV SBP>160 Last administered on 10/05 14:21; Admin Dose 10 MG; Start 10/04/16 at 20:30 Diagnostic Test (Pha) (Accu-Chek) 1 ea 02 XX ; Start 10/05/16 at 02:00 Miscellaneous Information 1 ea NOTE XX ; Start 10/04/16 at 21:30 Glucose (Glutose) 15 gm Q15M PRN PO DECREASED GLUCOSE; Start 10/04/16 at 21:30 Glucose (Glutose) 22.5 gm Q15M PRN PO DECREASED GLUCOSE; Start 10/04/16 at 21: 30 Dextrose (D50w Syringe) 25 ml Q15M PRN IV DECREASED GLUCOSE; Start 10/04/16 at 21:30 Dextrose (D50w Syringe) 50 ml Q15M PRN IV DECREASED GLUCOSE; Start 10/04/16 at 21:30 Glucagon (Glucagen) 1 mg Q15M PRN IM DECREASED GLUCOSE; Start 10/04/16 at 21:30 Glucose 15 gm 15 gm Q15M PRN BUCCAL DECREASED GLUCOSE; Start 10/04/16 at 21:30 Sodium Chloride (1/2 NS) 1,000 ml @ 125 mls/hr Q8H IV Last administered on 16:08; Admin Dose 125 MLS/HR; Start 10/04/16 at 23:45 Pantoprazole (Protonix Iv) 40 mg BID@18 IV Last administered on 10/07/16 17 :49; Admin Dose 40 MG; Start 10/05/16 at 06:00 Insulin Glargine (Lantus) 8 unit HS SC Last administered on 10/07/16 21:22; Admin Dose 8 UNIT; Start 10/05/16 at 21:00 Metoprolol Tartrate (Lopressor) 25 mg BID PO Last administered on 10/07/16 21: 17; Admin Dose 25 MG; Start 10/05/16 at 00:50 Ondansetron HCl (Zofran Inj) 4 mg Q6H PRN IV NAUSEA AND/OR VOMITING; Start at 00:30 Acetaminophen (Tylenol Tab) 500 mg Q6H PRN PO MILD PAIN &OR TEMP.>100.4F Last administered on 10/06/16 21:09; Admin Dose 500 MG; Start 10/05/16 at 00:30 Acetaminophen/ Hydrocodone Bitart ([place] (5/325)) 1 tab Q6H PRN PO PAIN; Start 10/05/16 at 00:30 Morphine Sulfate (morphine) 2 mg Q6H PRN IV PAIN; Start 10/05/16 at 00:30 Doxazosin Mesylate (Cardura) 2 mg HS PO Last administered on 10/07/16 21:17; Admin Dose 2 MG; Start 10/05/16 at 21:00 Procedures Procedures PROCEDURE: CT Abdomen and Pelvis without contrast. CLINICAL INDICATION: Unexplained weight loss. TECHNIQUE: Multiple contiguous axial CT images of the abdomen and pelvis were obtained without the administration of intravenous contrast. Oral contrast was administered. Coronal and sagittal reconstructions were also performed. CTDIvol (mGy): 8.75; Total Exam DLP (mGy-cm): 545.50. One or more of the following dose reduction techniques were utilized: - Automated exposure control. - Adjustment of the mA and/or kV according to patient size. - Use of iterative reconstruction technique. COMPARISON: Renal ultrasound 10/05/2016. FINDINGS: Limited imaging of the lower thorax demonstrates hyperinflation and mild bronchial wall thickening of the lower lobe airways. The lung bases are clear. The liver and spleen are homogeneous in density. The gallbladder is surgically absent. The pancreas and adrenal glands are unremarkable. The kidneys are symmetric in size. There are no nephroureteral stones. Mild moderate bilateral symmetric hydroureteronephrosis is present and unchanged. Bilateral symmetric perinephric fat stranding is observed. The abdominal aorta is normal in caliber. Atherosclerotic calcification is present. There is no periaortic / retroperitoneal lymphadenopathy. The stomach and small and large intestines are unremarkable. The appendix is normal. There are no focal inflammatory changes of the mesentery. There is no mesenteric lymphadenopathy. There is no ascites. The bladder is collapsed around a Shannon. There is marked concentric bladder wall thickening with perivesical edema. The prostate gland and seminal vesicles are unremarkable. There is no free pelvic fluid. There is no pelvic sidewall or inguinal lymphadenopathy. L4-S1 degenerative disk disease is observed. Body wall soft tissues are unremarkable. IMPRESSION: Mild moderate bilateral symmetric hydroureteronephrosis without evidence of nephroureterolithiasis. Marked concentric urinary bladder wall thickening with perivesical edema is observed suggesting sequelae of lower urinary tract inflammation and / or bladder outlet obstruction. Correlate with appropriate clinical data. L4-S1 degenerative disk disease. KEVIN HENNING MD Oct 07, 2016 21:34
[2016-10-07] MEDS: hydrALAzine 20 MG INJ IV PRN (22:42)
[2016-10-08] VITALS (16 sets, daily range): BP systolic 103–188; BP diastolic 55–97; PULSE 63–79; RESP 12–20
[2016-10-08] MEDS: SOD CHLORIDE 0.45% 1,000 ML IV SCH ×4 (00:19→22:45)
[2016-10-08] MEDS: ACCUCHECK AT 2AM (Patients on SS coverage) XX SCH (02:00)
[2016-10-08] MEDS ORDERED: POLYETHYLENE GLYCOL 3350 119 GM POWDER PO ONE ×2 (06:00→08:00)
[2016-10-08] MEDS: PANTOPRAZOLE 40 MG INJ IV SCH ×2 (06:15→18:22)
[2016-10-08 07:28] LABS: ADD SCAN DIFF NO
[2016-10-08] MEDS ORDERED: BISACODYL (EC) 5 MG TAB PO ONE (08:00)
[2016-10-08] MEDS: INSULIN ASPART [NOVOLOG] 3 ML PEN SC SCH ×8 (08:00→20:49)
[2016-10-08 08:01] LABS: CREATININE 4.42 mg/dl (0.61-1.24); POTASSIUM 3.7 mmol/L (3.5-5.1)
[2016-10-08 08:06] LABS: BASOPHILS % 0.5 % (0.0-2.0); EOSINOPHILS # 0.3 10^3/ul (0.0-0.5); EOSINOPHILS % 4.2 % (0.0-7.0); HEMATOCRIT 37.4 % (42.0-52.0); HEMOGLOBIN 12.8 g/dl (14.0-18.0); LYMPHOCYTES # 1.8 10^3/ul (0.8-2.9); LYMPHOCYTES % 28.4 % (15.0-51.0); MEAN CORPUSCULAR HEMOGLOBIN 32.3 pg (29.0-33.0); MEAN CORPUSCULAR HGB CONC 34.2 g/dl (32.0-37.0); MEAN CORPUSCULAR VOLUME 94.4 fl (82.0-101.0); MEAN PLATELET VOLUME 10.1 fl (7.4-10.4); MONOCYTE # 0.6 10^3/ul (0.3-0.9); MONOCYTES % 9.9 % (0.0-11.0); NEUTROPHIL # 3.6 10^3/ul (1.6-7.5); NEUTROPHILS % 56.8 % (39.0-77.0); PLATELET COUNT 177 10^3/UL (140-415); RED BLOOD COUNT 3.96 10^6/ul (4.70-6.10); RED CELL DISTRIBUTION WIDTH 13.6 % (11.5-14.5); WHITE BLOOD COUNT 6.3 10^3/ul (4.8-10.8)
[2016-10-08] MEDS: METOPROLOL 25 MG TAB PO SCH ×2 (08:53→20:46)
[2016-10-08] MEDS: CALCIUM CARBONATE 500 MG CHEW TAB PO SCH ×3 (08:53→18:22)
--- NOTE | 2016-10-08 11:28 | CONS ---
Date/Time of Note Date/Time of Note DATE: 10/08/16 TIME: 11:27 Assessment/Plan Assessment/Plan Additional Assessment/Plan (1) Hyperkalemia Status: Acute (2) Acute renal failure Status: Acute- improved Qualifiers: Acute renal failure type: unspecified Qualified Code: N17.9 - Acute renal failure, unspecified acute renal failure type (3) Anemia Status: Acute Qualifiers: Anemia type: other cause Other causes of anemia: other cause, not classified Qualified Code: D64.89 - Anemia due to other cause, not classified (4) Hypertension Status: Acute Qualifiers: Hypertension type: unspecified secondary hypertension Qualified Code: I15.9 - Secondary hypertension (5) Diabetes mellitus type 2 in nonobese Status: Chronic Assessment/Plan arf obstructice uropathy- improving ckd baseline not known No acute indication for HD Will cont to closely monitor UO, Electrolytes, volume status and renal function. Consultation Date/Type/Reason Admit Date/Time Oct 04, 2016 at 14:10 Initial Consult Date 10/05/16 Type of Consultation: renal 24 HR Interval Summary Free Text/Dictation No new complaints Exam/Review of Systems Vital Signs Vitals Vital Signs Date Time Temp Pulse Resp B/P Pulse Ox O2 Delivery O2 Flow Rate FiO2 10/08/16 08:28 68 10/08/16 08:00 97.8 20 160/71 99 10/05/16 16:45 Room Air 10/04/16 16:30 21 10/04/16 11:55 2 Intake and Output 10/07/16 10/07/16 10/08/16 15:00 23:00 07:00 Intake Total 1700 ml 1240 ml Output Total 1900 ml 1600 ml Balance -200 ml -360 ml Exam Constitutional: oriented, No distress ENMT: mucosa pink and moist Neck: No jvd Respiratory: clear to auscultation Cardiovascular: regular rate and rhythm, No edema Gastrointestinal: non-tender, soft Genitourinary - Male: other (Shannon) Neurological: GOGGLES ASSEMBLER II-XII intact, nl mental status, No lethargic Skin: No diaphoresis Results Result Diagram: 10/08/16 0620 10/08/16 0620 Results 24 hrs Laboratory Tests Test 10/07/16 11:29 10/07/16 17:23 10/07/16 21:21 10/08/16 06:20 Bedside Glucose 152 127 125 White Blood Count 6.3 Red Blood Count 3.96 #L Hemoglobin 12.8 #L Hematocrit 37.4 #L Mean Corpuscular Volume 94.4 Mean Corpuscular Hemoglobin 32.3 Mean Corpuscular Hemoglobin Concent 34.2 Red Cell Distribution Width 13.6 Platelet Count 177 Mean Platelet Volume 10.1 Neutrophils % 56.8 Lymphocytes % 28.4 Monocytes % 9.9 Eosinophils % 4.2 Basophils % 0.5 Nucleated Red Blood Cells % 0.0 Neutrophils # 3.6 Lymphocytes # 1.8 Monocytes # 0.6 Eosinophils # 0.3 Basophils # 0.0 Nucleated Red Blood Cells # 0.0 Sodium Level 141 Potassium Level 3.7 Chloride Level 108 Carbon Dioxide Level 19 L Anion Gap 18 H Blood Urea Nitrogen 72 H Creatinine 4.42 #H Glucose Level 81 Calcium Level 9.0 Test 10/08/16 07:45 Bedside Glucose 78 Medications Medications Current Medications Dextrose (D50w Syringe) ONCE PRN IV POC BLOOD GLUCOSE <250 MG/DL Last administered on 10/04/16 13:41; Admin Dose 50 ML; Start 10/04/16 at 13:30 Hydralazine HCl (Apresoline) 10 mg Q6H PRN IV SBP>160 Last administered on 10/07 22:42; Admin Dose 10 MG; Start 10/04/16 at 20:30 Diagnostic Test (Pha) (Accu-Chek) 1 ea 02 XX ; Start 10/05/16 at 02:00 Miscellaneous Information 1 ea NOTE XX ; Start 10/04/16 at 21:30 Glucose (Glutose) 15 gm Q15M PRN PO DECREASED GLUCOSE; Start 10/04/16 at 21:30 Glucose (Glutose) 22.5 gm Q15M PRN PO DECREASED GLUCOSE; Start 10/04/16 at 21: 30 Dextrose (D50w Syringe) 25 ml Q15M PRN IV DECREASED GLUCOSE; Start 10/04/16 at 21:30 Dextrose (D50w Syringe) 50 ml Q15M PRN IV DECREASED GLUCOSE; Start 10/04/16 at 21:30 Glucagon (Glucagen) 1 mg Q15M PRN IM DECREASED GLUCOSE; Start 10/04/16 at 21:30 Glucose 15 gm 15 gm Q15M PRN BUCCAL DECREASED GLUCOSE; Start 10/04/16 at 21:30 Sodium Chloride (1/2 NS) 1,000 ml @ 125 mls/hr Q8H IV Last administered on 06:15; Admin Dose 125 MLS/HR; Start 10/04/16 at 23:45 Pantoprazole (Protonix Iv) 40 mg BID@06,18 IV Last administered on 10/08/16 06 :15; Admin Dose 40 MG; Start 10/05/16 at 06:00 Insulin Glargine (Lantus) 8 unit HS SC Last administered on 10/07/16 21:22; Admin Dose 8 UNIT; Start 10/05/16 at 21:00 Metoprolol Tartrate (Lopressor) 25 mg BID PO Last administered on 10/08/16 08: 53; Admin Dose 25 MG; Start 10/05/16 at 00:50 Ondansetron HCl (Zofran Inj) 4 mg Q6H PRN IV NAUSEA AND/OR VOMITING; Start at 00:30 Acetaminophen (Tylenol Tab) 500 mg Q6H PRN PO MILD PAIN &OR TEMP.>100.4F Last administered on 10/06/16 21:09; Admin Dose 500 MG; Start 10/05/16 at 00:30 Acetaminophen/ Hydrocodone Bitart ([place] (5/325)) 1 tab Q6H PRN PO PAIN; Start 10/05/16 at 00:30 Morphine Sulfate (morphine) 2 mg Q6H PRN IV PAIN; Start 10/05/16 at 00:30 Doxazosin Mesylate (Cardura) 2 mg HS PO Last administered on 10/07/16 21:17; Admin Dose 2 MG; Start 10/05/16 at 21:00 TARIQ GARCIA MD Oct 08, 2016 11:28
--- NOTE | 2016-10-08 16:15 | PN ---
Date/Time of Note Date/Time of Note DATE: 10/08/16 TIME: 16:12 Assessment/Plan Lines/Catheters IV [facility] Type (from [facility]): Peripheral IV Urinary Cath still in place: Yes Assessment/Plan Chief Complaint/Hosp Course Assessment and plan 1. Acute renal failure. postobstructive uropathy. Continue with nephrology recommendations. No need for dialysis at this time per attraction attendant. Appears to be improving at present 2. Reported anemia. Occult stool is pending. Tentative plan for EGD/ colonoscopy per GI 3. Moderate bilateral symmetric hydroureteronephrosis without evidence of nephroureterolithiasis. Urologist was consulted 4. Elevated tumor markers. Patient does report having unintentional weight loss of 20 pounds in a month. Oncologist following. Continue the recommendation 5. Essential hypertension. Continue antihypertensives and adjust needed 6. Diabetes. On insulin regimen. Will adjust as needed. Disposition and plan: Continue to monitor renal function. Slowly improving at present. Await for further clinical improvement. Monitor renal panel. Continue inpatient monitoring. Discharge when medically stable and cleared by consultants Discussed plan of care with Dr. Quan Problems: Subjective 24 Hr Interval Summary Free Text/Dictation Comfortable at this time. No apparent distress seen at this time. Exam/Review of Systems Vital Signs Vitals Vital Signs Date Time Temp Pulse Resp B/P Pulse Ox O2 Delivery O2 Flow Rate FiO2 10/08/16 15:52 97.9 65 20 176/78 100 10/05/16 16:45 Room Air 10/04/16 16:30 21 10/04/16 11:55 2 Intake and Output 10/07/16 10/07/16 10/08/16 15:00 23:00 07:00 Intake Total 1700 ml 1240 ml Output Total 1900 ml 1600 ml Balance -200 ml -360 ml Exam Constitutional: alert, oriented Head: normocephalic Eyes: nl conjunctiva Neck: supple, No jvd Respiratory: clear to auscultation Cardiovascular: regular rate and rhythm Gastrointestinal: non-tender, soft Musculoskeletal: nl extremities to inspection Extremities: normal pulses Neurological: PLANT GUIDE II-XII intact, nl mental status, nl speech Results Result Diagram: 10/08/16 0620 10/08/16 0620 Results 24 hrs Laboratory Tests Test 10/07/16 17:23 10/07/16 21:21 10/07/16 23:30 10/08/16 06:20 Bedside Glucose 127 125 Stool Occult Blood NEGATIVE White Blood Count 6.3 Red Blood Count 3.96 #L Hemoglobin 12.8 #L Hematocrit 37.4 #L Mean Corpuscular Volume 94.4 Mean Corpuscular Hemoglobin 32.3 Mean Corpuscular Hemoglobin Concent 34.2 Red Cell Distribution Width 13.6 Platelet Count 177 Mean Platelet Volume 10.1 Neutrophils % 56.8 Lymphocytes % 28.4 Monocytes % 9.9 Eosinophils % 4.2 Basophils % 0.5 Nucleated Red Blood Cells % 0.0 Neutrophils # 3.6 Lymphocytes # 1.8 Monocytes # 0.6 Eosinophils # 0.3 Basophils # 0.0 Nucleated Red Blood Cells # 0.0 Sodium Level 141 Potassium Level 3.7 Chloride Level 108 Carbon Dioxide Level 19 L Anion Gap 18 H Blood Urea Nitrogen 72 H Creatinine 4.42 #H Glucose Level 81 Calcium Level 9.0 Test 10/08/16 07:45 10/08/16 11:56 Bedside Glucose 78 110 Medications Medications Current Medications Dextrose (D50w Syringe) ONCE PRN IV POC BLOOD GLUCOSE <250 MG/DL Last administered on 10/04/16 13:41; Admin Dose 50 ML; Start 10/04/16 at 13:30 Hydralazine HCl (Apresoline) 10 mg Q6H PRN IV SBP>160 Last administered on 10/07 22:42; Admin Dose 10 MG; Start 10/04/16 at 20:30 Diagnostic Test (Pha) (Accu-Chek) 1 ea 02 XX ; Start 10/05/16 at 02:00 Miscellaneous Information 1 ea NOTE XX ; Start 10/04/16 at 21:30 Glucose (Glutose) 15 gm Q15M PRN PO DECREASED GLUCOSE; Start 10/04/16 at 21:30 Glucose (Glutose) 22.5 gm Q15M PRN PO DECREASED GLUCOSE; Start 10/04/16 at 21: 30 Dextrose (D50w Syringe) 25 ml Q15M PRN IV DECREASED GLUCOSE; Start 10/04/16 at 21:30 Dextrose (D50w Syringe) 50 ml Q15M PRN IV DECREASED GLUCOSE; Start 10/04/16 at 21:30 Glucagon (Glucagen) 1 mg Q15M PRN IM DECREASED GLUCOSE; Start 6/17/17 at 21:30 Glucose 15 gm 15 gm Q15M PRN BUCCAL DECREASED GLUCOSE; Start 10/04/16 at 21:30 Sodium Chloride (1/2 NS) 1,000 ml @ 125 mls/hr Q8H IV Last administered on 06:15; Admin Dose 125 MLS/HR; Start 10/04/16 at 23:45 Pantoprazole (Protonix Iv) 40 mg BID@06,18 IV Last administered on 10/08/16 06 :15; Admin Dose 40 MG; Start 10/05/16 at 06:00 Insulin Glargine (Lantus) 8 unit HS SC Last administered on 10/07/16 21:22; Admin Dose 8 UNIT; Start 10/05/16 at 21:00 Metoprolol Tartrate (Lopressor) 25 mg BID PO Last administered on 10/08/16 08: 53; Admin Dose 25 MG; Start 10/05/16 at 00:50 Ondansetron HCl (Zofran Inj) 4 mg Q6H PRN IV NAUSEA AND/OR VOMITING; Start at 00:30 Acetaminophen (Tylenol Tab) 500 mg Q6H PRN PO MILD PAIN &OR TEMP.>100.4F Last administered on 10/06/16 21:09; Admin Dose 500 MG; Start 10/05/16 at 00:30 Acetaminophen/ Hydrocodone Bitart ([place] (5/325)) 1 tab Q6H PRN PO PAIN; Start 10/05/16 at 00:30 Morphine Sulfate (morphine) 2 mg Q6H PRN IV PAIN; Start 10/05/16 at 00:30 Doxazosin Mesylate (Cardura) 2 mg HS PO Last administered on 10/07/16 21:17; Admin Dose 2 MG; Start 10/05/16 at 21:00 ALEXA CHAVEZ Oct 08, 2016 16:15
[2016-10-08] MEDS ORDERED: MIDAZOLAM 1 MG/ML 2 ML INJ ONE (16:40)
[2016-10-08] MEDS ORDERED: LIDOCAINE 2% (SDV) 5 ML INJ ONE (16:40)
[2016-10-08] MEDS ORDERED: PROPOFOL 20 ML ONE (16:40)
[2016-10-08] MEDS ORDERED: EPHEDrine SULFATE 50 MG/5 ML SYG ONE (17:10)
--- NOTE | 2016-10-08 19:14 | CONS ---
Date/Time of Note Date/Time of Note DATE: 10/08/16 TIME: 19:12 Assessment/Plan Assessment/Plan Chief Complaint/Hosp Course anemia. Occult stool is NEG Tentative plan for EGD/colonoscopy per GI Elevated tumor markers- CA 19-9 and PSA. Patient does report having unintentional weight loss of 20 pounds in a month. Marked concentric urinary bladder wall thickening with perivesical edema is observed suggesting sequelae of lower urinary tract inflammation and / or bladder outlet obstruction. Acute renal failure. postobstructive issue. No need for dialysis at this time per airplane charter clerk. Appears to be improving at present RE- UROLOGY EVAL, CYSTOSCOPY AND PROSTATE US Essential hypertension. Continue antihypertensives and adjust needed Diabetes. On insulin regimen. Will adjust as needed. Problems: Consultation Date/Type/Reason Admit Date/Time Oct 04, 2016 at 14:10 Initial Consult Date 10/05/16 Type of Consultation: HEMEONC 24 HR Interval Summary Free Text/Dictation ALL NOTED Exam/Review of Systems Vital Signs Vitals Vital Signs Date Time Temp Pulse Resp B/P Pulse Ox O2 Delivery O2 Flow Rate FiO2 10/08/16 17:52 63 15 141/73 99 Room Air 10/08/16 15:52 97.9 10/04/16 16:30 21 10/04/16 11:55 2 Intake and Output 10/07/16 10/07/16 10/08/16 15:00 23:00 07:00 Intake Total 1700 ml 1240 ml Output Total 1900 ml 1600 ml Balance -200 ml -360 ml Exam Constitutional: alert, oriented Head: normocephalic Eyes: nl conjunctiva Neck: supple, No jvd Respiratory: clear to auscultation Cardiovascular: regular rate and rhythm Gastrointestinal: non-tender, soft Musculoskeletal: nl extremities to inspection Extremities: normal pulses Neurological: FORKLIFT PICKER II-XII intact, nl mental status, nl speech Results Result Diagram: 10/08/16 0620 10/08/16 0620 Results 24 hrs Laboratory Tests Test 10/07/16 21:21 10/07/16 23:30 10/08/16 06:20 10/08/16 07:45 Bedside Glucose 125 78 Stool Occult Blood NEGATIVE White Blood Count 6.3 Red Blood Count 3.96 #L Hemoglobin 12.8 #L Hematocrit 37.4 #L Mean Corpuscular Volume 94.4 Mean Corpuscular Hemoglobin 32.3 Mean Corpuscular Hemoglobin Concent 34.2 Red Cell Distribution Width 13.6 Platelet Count 177 Mean Platelet Volume 10.1 Neutrophils % 56.8 Lymphocytes % 28.4 Monocytes % 9.9 Eosinophils % 4.2 Basophils % 0.5 Nucleated Red Blood Cells % 0.0 Neutrophils # 3.6 Lymphocytes # 1.8 Monocytes # 0.6 Eosinophils # 0.3 Basophils # 0.0 Nucleated Red Blood Cells # 0.0 Sodium Level 141 Potassium Level 3.7 Chloride Level 108 Carbon Dioxide Level 19 L Anion Gap 18 H Blood Urea Nitrogen 72 H Creatinine 4.42 #H Glucose Level 81 Calcium Level 9.0 Test 10/08/16 11:56 10/08/16 16:33 10/08/16 18:18 Bedside Glucose 110 104 105 Medications Medications Current Medications Dextrose (D50w Syringe) ONCE PRN IV POC BLOOD GLUCOSE <250 MG/DL Last administered on 10/04/16 13:41; Admin Dose 50 ML; Start 10/04/16 at 13:30 Hydralazine HCl (Apresoline) 10 mg Q6H PRN IV SBP>160 Last administered on 10/07 22:42; Admin Dose 10 MG; Start 10/04/16 at 20:30 Diagnostic Test (Pha) (Accu-Chek) 1 ea 02 XX ; Start 10/05/16 at 02:00 Miscellaneous Information 1 ea NOTE XX ; Start 10/04/16 at 21:30 Glucose (Glutose) 15 gm Q15M PRN PO DECREASED GLUCOSE; Start 10/04/16 at 21:30 Glucose (Glutose) 22.5 gm Q15M PRN PO DECREASED GLUCOSE; Start 10/04/16 at 21: 30 Dextrose (D50w Syringe) 25 ml Q15M PRN IV DECREASED GLUCOSE; Start 10/04/16 at 21:30 Dextrose (D50w Syringe) 50 ml Q15M PRN IV DECREASED GLUCOSE; Start 10/04/16 at 21:30 Glucagon (Glucagen) 1 mg Q15M PRN IM DECREASED GLUCOSE; Start 10/04/16 at 21:30 Glucose 15 gm 15 gm Q15M PRN BUCCAL DECREASED GLUCOSE; Start 10/04/16 at 21:30 Sodium Chloride (1/2 NS) 1,000 ml @ 125 mls/hr Q8H IV Last administered on 06:15; Admin Dose 125 MLS/HR; Start 10/04/16 at 23:45 Pantoprazole (Protonix Iv) 40 mg BID@18 IV Last administered on 10/08/16 18 :22; Admin Dose 40 MG; Start 10/05/16 at 06:00 Insulin Glargine (Lantus) 8 unit HS SC Last administered on 10/07/16 21:22; Admin Dose 8 UNIT; Start 10/05/16 at 21:00 Metoprolol Tartrate (Lopressor) 25 mg BID PO Last administered on 10/08/16 08: 53; Admin Dose 25 MG; Start 10/05/16 at 00:50 Ondansetron HCl (Zofran Inj) 4 mg Q6H PRN IV NAUSEA AND/OR VOMITING; Start at 00:30 Acetaminophen (Tylenol Tab) 500 mg Q6H PRN PO MILD PAIN &OR TEMP.>100.4F Last administered on 10/06/16 21:09; Admin Dose 500 MG; Start 10/05/16 at 00:30 Acetaminophen/ Hydrocodone Bitart ([place] (5/325)) 1 tab Q6H PRN PO PAIN; Start 10/05/16 at 00:30 Morphine Sulfate (morphine) 2 mg Q6H PRN IV PAIN; Start 10/05/16 at 00:30 Doxazosin Mesylate (Cardura) 2 mg HS PO Last administered on 10/07/16 21:17; Admin Dose 2 MG; Start 10/05/16 at 21:00 Procedures Procedures [place] [id number] Radiology Main Line: [phone] DIAGNOSTIC IMAGING REPORT Patient: CELE CARRILLO : 1950 Age: 66 Sex: M MR #: [id number] DOS: 10/06/16 0000 Ordering MD: CARMEN FONSECA [place] [facility] [place] [facility] PROCEDURE: CT Abdomen and Pelvis without contrast. CLINICAL INDICATION: Unexplained weight loss. TECHNIQUE: Multiple contiguous axial CT images of the abdomen and pelvis were obtained without the administration of intravenous contrast. Oral contrast was administered. Coronal and sagittal reconstructions were also performed. CTDIvol (mGy): 8.75; Total Exam DLP (mGy-cm): 545.50. One or more of the following dose reduction techniques were utilized: - Automated exposure control. - Adjustment of the mA and/or kV according to patient size. - Use of iterative reconstruction technique. COMPARISON: Renal ultrasound 10/05/2016. FINDINGS: Limited imaging of the lower thorax demonstrates hyperinflation and mild bronchial wall thickening of the lower lobe airways. The lung bases are clear. The liver and spleen are homogeneous in density. The gallbladder is surgically absent. The pancreas and adrenal glands are unremarkable. The kidneys are symmetric in size. There are no nephroureteral stones. Mild moderate bilateral symmetric hydroureteronephrosis is present and unchanged. Bilateral symmetric perinephric fat stranding is observed. The abdominal aorta is normal in caliber. Atherosclerotic calcification is present. There is no periaortic / retroperitoneal lymphadenopathy. The stomach and small and large intestines are unremarkable. The appendix is normal. There are no focal inflammatory changes of the mesentery. There is no mesenteric lymphadenopathy. There is no ascites. The bladder is collapsed around a Shannon. There is marked concentric bladder wall thickening with perivesical edema. The prostate gland and seminal vesicles are unremarkable. There is no free pelvic fluid. There is no pelvic sidewall or inguinal lymphadenopathy. L4-S1 degenerative disk disease is observed. Body wall soft tissues are unremarkable. IMPRESSION: Mild moderate bilateral symmetric hydroureteronephrosis without evidence of nephroureterolithiasis. Marked concentric urinary bladder wall thickening with perivesical edema is observed suggesting sequelae of lower urinary tract inflammation and / or bladder outlet obstruction. Correlate with appropriate clinical data. L4-S1 degenerative disk disease. RPTAT: HLST .Karie Small MD, MD Date Time Electronically viewed and signed by .Karie Small MD, MD on 10/06/2016 11:02 .T/ CC: CARMEN FONSECA MD, VERA M MD Oct 08, 2016 19:13
[2016-10-08] MEDS: DOXAZOSIN 2 MG TAB PO SCH (20:46)
[2016-10-08] MEDS: INSULIN GLARGINE [LANtus] 3 ML PEN SC SCH (20:47)
--- NOTE | 2016-10-08 21:27 | GILP ---
DATE OF PROCEDURE: 10/08/2016 PROCEDURE: Colonoscopy to cecum. PREMEDICATION: Monitored anesthesia care by anesthesiologist. PREPARATION: Suboptimal. INSTRUMENT USED: Olympus colonoscope. FINDINGS: Rectal: Exam is normal with no evidence of perirectal disease, no masses. Colonic: The colonic mucosa is essentially within normal limits. Unfortunately, certain areas were not well visualized due to the presence of semisolid stool; estimate 20% of the lumen was obscured. No gross lesions are identified. No bleeding site is identified. Large internal hemorrhoids are present. PLAN: The patient will be continued on present regimen. Screening colonoscopy in 1-3 years is jelena mmended due to the poor preparation encountered today. Dictated By: CARMEN FONSECA MS/RACHELLE Conf#: [id number] DID#: [id number]
--- NOTE | 2016-10-08 21:36 | GILP ---
DATE OF PROCEDURE: PROCEDURE: Esophagogastroduodenoscopy with biopsies. BRIEF HISTORY AND INDICATIONS: The patient is being evaluated for anemia. PREMEDICATION: Monitored anesthesia care by anesthesiologist. SURGEON: Carmen Gray MD INSTRUMENT USED: Olympus esophagoscope. TECHNIQUE: After informed consent, with the patient/relatives understanding the procedure, its indic ations, potential risks and complications, including but not limited to: allergic reaction, bleeding , perforation or infection, and after all pertinent questions were answered to the patients satisfac tion, the patient/relatives signed witnessed informed consent. Following this, premedication was administered slowly IV push under careful cardiovascular and respi ratory monitoring with pulse oximetry, automatic blood pressure and traffic monitor specialist. Once the sedative effect was achieved the patient was place in the left lateral decubitus, the panen doscope was introduced and advanced under visual control. Careful examination of the upper gastrointestinal tract, both on insertion as well as withdrawal of the instrument disclosed the following findings: ESOPHAGUS: The distal esophagus shows erythema and edema of the mucosa of a moderate degree. STOMACH: Upon entrance to the stomach, air was insufflated. There was erythema and edema of the jennifer dy and antrum of the stomach, which is moderate to severe. The pylorus is severely deformed with er osions. Biopsies were obtained to rule out H. pylori infection. DUODENUM: The duodenum shows significant erythema, edema, and superficial erosion of the mucosa. T he instrument was withdrawn reexamining the mucosa in detail. No additional abnormalities are noted . PYLORUS: The pylorus appears patent and within normal limits, with no evidence of gastric outlet obs truction. The instrument was then withdrawn. The patient tolerated the procedure well and was transfer out of the endoscopy suite awake, and in good condition to continue recovery under observation IMPRESSION: 1. Distal esophagitis. 2. Severe gastritis, rule out Helicobacter pylori infection. 3. Deformed pylorus. 4. Erosive duodenitis. PLAN: The patient will be treated with PPIs. Pathology will be reviewed as soon as available. Fur ther recommendations will depend on the patient's clinical course, as well as review of biopsies. Dictated By: CARMEN GRAY MS/RACHELLE Conf#: [id number] DID#: [id number]
[2016-10-09] VITALS (10 sets, daily range): BP systolic 147–172; BP diastolic 72–78; PULSE 59–76; RESP 14–18
[2016-10-09] MEDS: ACCUCHECK AT 2AM (Patients on SS coverage) XX SCH (02:00)
[2016-10-09] MEDS: PANTOPRAZOLE 40 MG INJ IV SCH ×2 (05:20→18:32)
[2016-10-09] MEDS: INSULIN ASPART [NOVOLOG] 3 ML PEN SC SCH ×7 (07:57→21:00)
[2016-10-09] MEDS: SOD CHLORIDE 0.45% 1,000 ML IV SCH ×3 (07:59→21:40)
[2016-10-09 08:00] LABS: ADD SCAN DIFF NO
[2016-10-09 08:21] LABS: BASOPHILS % 0.6 % (0.0-2.0); EOSINOPHILS # 0.3 10^3/ul (0.0-0.5); EOSINOPHILS % 6.3 % (0.0-7.0); HEMATOCRIT 24.7 % (42.0-52.0); HEMOGLOBIN 8.5 g/dl (14.0-18.0); LYMPHOCYTES # 1.7 10^3/ul (0.8-2.9); LYMPHOCYTES % 31.3 % (15.0-51.0); MEAN CORPUSCULAR HEMOGLOBIN 32.3 pg (29.0-33.0); MEAN CORPUSCULAR HGB CONC 34.4 g/dl (32.0-37.0); MEAN CORPUSCULAR VOLUME 93.9 fl (82.0-101.0); MEAN PLATELET VOLUME 10.4 fl (7.4-10.4); MONOCYTE # 0.6 10^3/ul (0.3-0.9); MONOCYTES % 11.2 % (0.0-11.0); NEUTROPHIL # 2.7 10^3/ul (1.6-7.5); NEUTROPHILS % 50.4 % (39.0-77.0); PLATELET COUNT 177 10^3/UL (140-415); RED BLOOD COUNT 2.63 10^6/ul (4.70-6.10); RED CELL DISTRIBUTION WIDTH 13.6 % (11.5-14.5); WHITE BLOOD COUNT 5.4 10^3/ul (4.8-10.8)
[2016-10-09 09:02] LABS: CALCIUM 8.5 mg/dl (8.4-10.2); CREATININE 3.66 mg/dl (0.61-1.24); POTASSIUM 3.7 mmol/L (3.5-5.1)
[2016-10-09] MEDS: METOPROLOL 25 MG TAB PO SCH ×2 (09:15→21:56)
[2016-10-09] MEDS: CALCIUM CARBONATE 500 MG CHEW TAB PO SCH ×3 (09:15→18:32)
[2016-10-09] MEDS ORDERED: DIATRIZOATE MEGLUMINE 300 ML BTL UR ONE (14:29)
--- NOTE | 2016-10-09 14:39 | PN ---
Date/Time of Note Date/Time of Note DATE: 10/09/16 TIME: 14:34 Assessment/Plan VTE Prophylaxis VTE Prophylaxis Intervention: ambulation Lines/Catheters IV Catheter Type (from [facility]): Peripheral IV Central line still needed: Yes Urinary Cath still in place: Yes Reason Cath still needed: urinary retention Assessment/Plan Assessment/Plan ssessment: * Renal failure likely chronic * Anemia likely multifactorial * EGD Distal esophagitis. Severe gastritis, rule out Helicobacter pylori infection. Deformed pylorus. Erosive duodenitis. Melena/GI bleeding * Significant unexplained weight loss likely multifactorial * Rule out occult neoplasm * History of diabetes mellitus type 2 * History of hypertension poorly controlled Plan; * continue present management * case discussed with Dr Gray * Further orders will depend on clinical course Subjective 24 Hr Interval Summary Free Text/Dictation * course reviewed with RN * Patient seen and examined * EGD Distal esophagitis. Severe gastritis, rule out Helicobacter pylori infection. Deformed pylorus. . Erosive duodenitis. Exam/Review of Systems Vital Signs Vitals Vital Signs Date Time Temp Pulse Resp B/P Pulse Ox O2 Delivery O2 Flow Rate FiO2 10/09/16 12:09 64 10/09/16 11:33 97.5 14 172/78 99 10/09/16 05:00 Room Air Intake and Output 10/08/16 10/08/16 10/09/16 15:00 23:00 07:00 Intake Total 985 ml 1275 ml Output Total 2000 ml 1500 ml Balance -1015 ml -225 ml Exam Constitutional: alert, frail Neck: non-tender, supple Respiratory: clear to auscultation, diminished breath sounds, normal air movement Cardiovascular: nl pulses, regular rate and rhythm Gastrointestinal: nl liver, spleen, non-tender, soft Musculoskeletal: nl extremities to inspection, nl gait and stance Extremities: normal pulses Neurological: nl mental status Results Result Diagram: 10/09/16 0645 10/09/16 0645 Results 24 hrs Laboratory Tests Test 10/08/16 16:33 10/08/16 18:18 10/08/16 20:45 10/09/16 02:28 Bedside Glucose 104 105 207 69 L Test 10/09/16 02:51 10/09/16 03:12 10/09/16 06:45 10/09/16 07:48 Bedside Glucose 71 101 94 White Blood Count 5.4 Red Blood Count 2.63 #L Hemoglobin 8.5 #L Hematocrit 24.7 #L Mean Corpuscular Volume 93.9 Mean Corpuscular Hemoglobin 32.3 Mean Corpuscular Hemoglobin Concent 34.4 Red Cell Distribution Width 13.6 Platelet Count 177 Mean Platelet Volume 10.4 Neutrophils % 50.4 Lymphocytes % 31.3 Monocytes % 11.2 H Eosinophils % 6.3 Basophils % 0.6 Nucleated Red Blood Cells % 0.0 Neutrophils # 2.7 Lymphocytes # 1.7 Monocytes # 0.6 Eosinophils # 0.3 Basophils # 0.0 Nucleated Red Blood Cells # 0.0 Sodium Level 139 Potassium Level 3.7 Chloride Level 106 Carbon Dioxide Level 23 Anion Gap 14 Blood Urea Nitrogen 57 H Creatinine 3.66 H Glucose Level 96 Calcium Level 8.5 Test 10/09/16 11:33 10/09/16 11:49 Lab Scanned Report REFERENCE LAB Bedside Glucose 104 Medications Medications Current Medications Dextrose (D50w Syringe) ONCE PRN IV POC BLOOD GLUCOSE <250 MG/DL Last administered on 10/04/16 13:41; Admin Dose 50 ML; Start 10/04/16 at 13:30 Hydralazine HCl (Apresoline) 10 mg Q6H PRN IV SBP>160 Last administered on 10/07 22:42; Admin Dose 10 MG; Start 10/04/16 at 20:30 Diagnostic Test (Pha) (Accu-Chek) 1 ea 02 XX Last administered on 10/09/16 02: 00; Admin Dose 1 EA; Start 10/05/16 at 02:00 Miscellaneous Information 1 ea NOTE XX ; Start 10/04/16 at 21:30 Glucose (Glutose) 15 gm Q15M PRN PO DECREASED GLUCOSE; Start 10/04/16 at 21:30 Glucose (Glutose) 22.5 gm Q15M PRN PO DECREASED GLUCOSE; Start 10/04/16 at 21: 30 Dextrose (D50w Syringe) 25 ml Q15M PRN IV DECREASED GLUCOSE; Start 10/04/16 at 21:30 Dextrose (D50w Syringe) 50 ml Q15M PRN IV DECREASED GLUCOSE; Start 10/04/16 at 21:30 Glucagon (Glucagen) 1 mg Q15M PRN IM DECREASED GLUCOSE; Start 10/04/16 at 21:30 Glucose 15 gm 15 gm Q15M PRN BUCCAL DECREASED GLUCOSE; Start 10/04/16 at 21:30 Sodium Chloride (1/2 NS) 1,000 ml @ 125 mls/hr Q8H IV Last administered on 07:59; Admin Dose 125 MLS/HR; Start 10/04/16 at 23:45 Pantoprazole (Protonix Iv) 40 mg BID@06,18 IV Last administered on 10/09/16 05 :20; Admin Dose 40 MG; Start 10/05/16 at 06:00 Insulin Glargine (Lantus) 8 unit HS SC Last administered on 10/08/16 20:47; Admin Dose 8 UNIT; Start 10/05/16 at 21:00 Metoprolol Tartrate (Lopressor) 25 mg BID PO Last administered on 10/09/16 09: 15; Admin Dose 25 MG; Start 10/05/16 at 00:50 Ondansetron HCl (Zofran Inj) 4 mg Q6H PRN IV NAUSEA AND/OR VOMITING; Start at 00:30 Acetaminophen (Tylenol Tab) 500 mg Q6H PRN PO MILD PAIN &OR TEMP.>100.4F Last administered on 10/06/16 21:09; Admin Dose 500 MG; Start 10/05/16 at 00:30 Acetaminophen/ Hydrocodone Bitart ([place] (5/325)) 1 tab Q6H PRN PO PAIN; Start 10/05/16 at 00:30 Morphine Sulfate (morphine) 2 mg Q6H PRN IV PAIN; Start 10/05/16 at 00:30 Doxazosin Mesylate (Cardura) 2 mg HS PO Last administered on 10/08/16 20:46; Admin Dose 2 MG; Start 10/05/16 at 21:00 VENESSA PAYNE NP Oct 09, 2016 14:39
--- NOTE | 2016-10-09 15:35 | PN ---
Date/Time of Note Date/Time of Note DATE: 10/09/16 TIME: 15:33 Assessment/Plan VTE Prophylaxis VTE Prophylaxis Intervention: SCD's Lines/Catheters IV [facility] Type (from [facility]): Peripheral IV Urinary Cath still in place: Yes Assessment/Plan Chief Complaint/Hosp Course Assessment and plan 1. Acute renal failure. postobstructive uropathy. awaiting urologist input. Continue with nephrology recommendations. No need for dialysis at this time per round kiln drawer. Appears to be improving at present 2. Reported anemia. Occult stool is pending. Tentative plan for EGD/ colonoscopy per GI 3. Moderate bilateral symmetric hydroureteronephrosis without evidence of nephroureterolithiasis. Urologist was consulted. Awaiting input 4. Elevated tumor markers. Patient does report having unintentional weight loss of 20 pounds in a month. Oncologist following. Continue the recommendation 5. Essential hypertension. Continue antihypertensives and adjust needed 6. Diabetes. On insulin regimen. Will adjust as needed. Disposition and plan: Discussed with oncologist, awaiting urologist input. urologist contacted again. Monitor renal function. Improving at present. Discussed plan of care with Dr. Quan Problems: Subjective 24 Hr Interval Summary Free Text/Dictation No apparent distress at this time. is comfortable at present Exam/Review of Systems Vital Signs Vitals Vital Signs Date Time Temp Pulse Resp B/P Pulse Ox O2 Delivery O2 Flow Rate FiO2 10/09/16 12:09 64 10/09/16 11:33 97.5 14 172/78 99 10/09/16 05:00 Room Air Intake and Output 10/08/16 10/08/16 10/09/16 15:00 23:00 07:00 Intake Total 985 ml 1275 ml Output Total 2000 ml 1500 ml Balance -1015 ml -225 ml Exam Constitutional: alert, oriented Psych: no complaints Eyes: nl conjunctiva Respiratory: clear to auscultation Cardiovascular: regular rate and rhythm Gastrointestinal: non-tender, soft Musculoskeletal: nl extremities to inspection Extremities: normal pulses Neurological: RADIO REPAIRMAN II-XII intact, nl mental status, nl speech Results Result Diagram: 10/09/16 0645 10/09/16 0645 Results 24 hrs Laboratory Tests Test 10/08/16 16:33 10/08/16 18:18 10/08/16 20:45 10/09/16 02:28 Bedside Glucose 104 105 207 69 L Test 10/09/16 02:51 10/09/16 03:12 10/09/16 06:45 10/09/16 07:48 Bedside Glucose 71 101 94 White Blood Count 5.4 Red Blood Count 2.63 #L Hemoglobin 8.5 #L Hematocrit 24.7 #L Mean Corpuscular Volume 93.9 Mean Corpuscular Hemoglobin 32.3 Mean Corpuscular Hemoglobin Concent 34.4 Red Cell Distribution Width 13.6 Platelet Count 177 Mean Platelet Volume 10.4 Neutrophils % 50.4 Lymphocytes % 31.3 Monocytes % 11.2 H Eosinophils % 6.3 Basophils % 0.6 Nucleated Red Blood Cells % 0.0 Neutrophils # 2.7 Lymphocytes # 1.7 Monocytes # 0.6 Eosinophils # 0.3 Basophils # 0.0 Nucleated Red Blood Cells # 0.0 Sodium Level 139 Potassium Level 3.7 Chloride Level 106 Carbon Dioxide Level 23 Anion Gap 14 Blood Urea Nitrogen 57 H Creatinine 3.66 H Glucose Level 96 Calcium Level 8.5 Test 10/09/16 11:33 10/09/16 11:49 Lab Scanned Report REFERENCE LAB Bedside Glucose 104 Medications Medications Current Medications Dextrose (D50w Syringe) ONCE PRN IV POC BLOOD GLUCOSE <250 MG/DL Last administered on 10/04/16 13:41; Admin Dose 50 ML; Start 10/04/16 at 13:30 Hydralazine HCl (Apresoline) 10 mg Q6H PRN IV SBP>160 Last administered on 10/07 22:42; Admin Dose 10 MG; Start 10/04/16 at 20:30 Diagnostic Test (Pha) (Accu-Chek) 1 ea 02 XX Last administered on 10/09/16 02: 00; Admin Dose 1 EA; Start 10/05/16 at 02:00 Miscellaneous Information 1 ea NOTE XX ; Start 10/04/16 at 21:30 Glucose (Glutose) 15 gm Q15M PRN PO DECREASED GLUCOSE; Start 10/04/16 at 21:30 Glucose (Glutose) 22.5 gm Q15M PRN PO DECREASED GLUCOSE; Start 10/04/16 at 21: 30 Dextrose (D50w Syringe) 25 ml Q15M PRN IV DECREASED GLUCOSE; Start 10/04/16 at 21:30 Dextrose (D50w Syringe) 50 ml Q15M PRN IV DECREASED GLUCOSE; Start 10/04/16 at 21:30 Glucagon (Glucagen) 1 mg Q15M PRN IM DECREASED GLUCOSE; Start 10/04/16 at 21:30 Glucose 15 gm 15 gm Q15M PRN BUCCAL DECREASED GLUCOSE; Start 10/04/16 at 21:30 Sodium Chloride (1/2 NS) 1,000 ml @ 125 mls/hr Q8H IV Last administered on 07:59; Admin Dose 125 MLS/HR; Start 10/04/16 at 23:45 Pantoprazole (Protonix Iv) 40 mg BID@06,18 IV Last administered on 10/09/16 05 :20; Admin Dose 40 MG; Start 10/05/16 at 06:00 Insulin Glargine (Lantus) 8 unit HS SC Last administered on 10/08/16 20:47; Admin Dose 8 UNIT; Start 10/05/16 at 21:00 Metoprolol Tartrate (Lopressor) 25 mg BID PO Last administered on 10/09/16 09: 15; Admin Dose 25 MG; Start 10/05/16 at 00:50 Ondansetron HCl (Zofran Inj) 4 mg Q6H PRN IV NAUSEA AND/OR VOMITING; Start at 00:30 Acetaminophen (Tylenol Tab) 500 mg Q6H PRN PO MILD PAIN &OR TEMP.>100.4F Last administered on 10/06/16 21:09; Admin Dose 500 MG; Start 10/05/16 at 00:30 Acetaminophen/ Hydrocodone Bitart ([place] (5/325)) 1 tab Q6H PRN PO PAIN; Start 10/05/16 at 00:30 Morphine Sulfate (morphine) 2 mg Q6H PRN IV PAIN; Start 10/05/16 at 00:30 Doxazosin Mesylate (Cardura) 2 mg HS PO Last administered on 10/08/16 20:46; Admin Dose 2 MG; Start 10/05/16 at 21:00 ALEXA CHAVEZ Oct 09, 2016 15:35
[2016-10-09 17:45] LABS: ADD SCAN DIFF NO
[2016-10-09 17:48] LABS: BASOPHILS % 0.3 % (0.0-2.0); EOSINOPHILS # 0.4 10^3/ul (0.0-0.5); HEMATOCRIT 26.4 % (42.0-52.0); HEMOGLOBIN 9.1 g/dl (14.0-18.0); LYMPHOCYTES % 30.8 % (15.0-51.0); MEAN CORPUSCULAR HEMOGLOBIN 32.2 pg (29.0-33.0); MEAN CORPUSCULAR HGB CONC 34.5 g/dl (32.0-37.0); MEAN CORPUSCULAR VOLUME 93.3 fl (82.0-101.0); MEAN PLATELET VOLUME 9.7 fl (7.4-10.4); MONOCYTE # 0.7 10^3/ul (0.3-0.9); MONOCYTES % 10.1 % (0.0-11.0); NEUTROPHIL # 3.4 10^3/ul (1.6-7.5); NEUTROPHILS % 52.5 % (39.0-77.0); PLATELET COUNT 179 10^3/UL (140-415); RED BLOOD COUNT 2.83 10^6/ul (4.70-6.10); RED CELL DISTRIBUTION WIDTH 13.7 % (11.5-14.5); WHITE BLOOD COUNT 6.6 10^3/ul (4.8-10.8)
--- NOTE | 2016-10-09 19:28 | CONS ---
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 resolving with catheter drainage Rec Bone Scan Cystogram home with zhang , outpt prostate biopsy Problems: Consultation Date/Type/Reason Admit Date/Time Oct 04, 2016 at 14:10 Reason for Consultation Urinary retention with renal failure Elevated PSA Constitutional: No requiring O2 Eyes: no complaints ENT: no complaints Respiratory: no complaints Cardiovascular: no complaints Gastrointestinal: nausea, vomiting Genitourinary: no complaints Musculoskeletal: no complaints Skin: no complaints Neurologic: no complaints Endocrine: no complaints Lymphatic: no complaints Psychological: no complaints Past Medical History Medical History: diabetes, hypertension Past Surgical History Past Surgical Hx: cholecystectomy Social History Alcohol Use: none Smoking Status: Former smoker Drug Use: none Exam/Review of Systems Vital Signs Vitals Vital Signs Date Time Temp Pulse Resp B/P Pulse Ox O2 Delivery O2 Flow Rate FiO2 10/09/16 16:10 66 10/09/16 11:33 97.5 14 172/78 99 10/09/16 05:00 Room Air Intake and Output 10/08/16 10/08/16 10/09/16 15:00 23:00 07:00 Intake Total 985 ml 1275 ml Output Total 2000 ml 1500 ml Balance -1015 ml -225 ml Exam Prostate is hard and nodular Results Result Diagram: 10/09/16 1740 10/09/16 0645 Results 24 hrs Laboratory Tests Test 10/08/16 20:45 10/09/16 02:28 10/09/16 02:51 10/09/16 03:12 Bedside Glucose 207 69 L 71 101 Test 10/09/16 06:45 10/09/16 07:48 10/09/16 11:33 10/09/16 11:49 White Blood Count 5.4 Red Blood Count 2.63 #L Hemoglobin 8.5 #L Hematocrit 24.7 #L Mean Corpuscular Volume 93.9 Mean Corpuscular Hemoglobin 32.3 Mean Corpuscular Hemoglobin Concent 34.4 Red Cell Distribution Width 13.6 Platelet Count 177 Mean Platelet Volume 10.4 Neutrophils % 50.4 Lymphocytes % 31.3 Monocytes % 11.2 H Eosinophils % 6.3 Basophils % 0.6 Nucleated Red Blood Cells % 0.0 Neutrophils # 2.7 Lymphocytes # 1.7 Monocytes # 0.6 Eosinophils # 0.3 Basophils # 0.0 Nucleated Red Blood Cells # 0.0 Sodium Level 139 Potassium Level 3.7 Chloride Level 106 Carbon Dioxide Level 23 Anion Gap 14 Blood Urea Nitrogen 57 H Creatinine 3.66 H Glucose Level 96 Calcium Level 8.5 Bedside Glucose 94 104 Lab Scanned Report REFERENCE LAB Test 10/09/16 17:34 10/09/16 17:40 Bedside Glucose 131 White Blood Count 6.6 # Red Blood Count 2.83 L Hemoglobin 9.1 L Hematocrit 26.4 L Mean Corpuscular Volume 93.3 Mean Corpuscular Hemoglobin 32.2 Mean Corpuscular Hemoglobin Concent 34.5 Red Cell Distribution Width 13.7 Platelet Count 179 Mean Platelet Volume 9.7 Neutrophils % 52.5 Lymphocytes % 30.8 Monocytes % 10.1 Eosinophils % 6.0 Basophils % 0.3 Nucleated Red Blood Cells % 0.0 Neutrophils # 3.4 Lymphocytes # 2.0 Monocytes # 0.7 Eosinophils # 0.4 Basophils # 0.0 Nucleated Red Blood Cells # 0.0 Medications Medications Current Medications Dextrose (D50w Syringe) ONCE PRN IV POC BLOOD GLUCOSE <250 MG/DL Last administered on 10/04/16 13:41; Admin Dose 50 ML; Start 10/04/16 at 13:30 Hydralazine HCl (Apresoline) 10 mg Q6H PRN IV SBP>160 Last administered on 10/07 22:42; Admin Dose 10 MG; Start 10/04/16 at 20:30 Diagnostic Test (Pha) (Accu-Chek) 1 ea 02 XX Last administered on 10/09/16 02: 00; Admin Dose 1 EA; Start 10/05/16 at 02:00 Miscellaneous Information 1 ea NOTE XX ; Start 10/04/16 at 21:30 Glucose (Glutose) 15 gm Q15M PRN PO DECREASED GLUCOSE; Start 10/04/16 at 21:30 Glucose (Glutose) 22.5 gm Q15M PRN PO DECREASED GLUCOSE; Start 10/04/16 at 21: 30 Dextrose (D50w Syringe) 25 ml Q15M PRN IV DECREASED GLUCOSE; Start 10/04/16 at 21:30 Dextrose (D50w Syringe) 50 ml Q15M PRN IV DECREASED GLUCOSE; Start 6/17/17 at 21:30 Glucagon (Glucagen) 1 mg Q15M PRN IM DECREASED GLUCOSE; Start 10/04/16 at 21:30 Glucose 15 gm 15 gm Q15M PRN BUCCAL DECREASED GLUCOSE; Start 10/04/16 at 21:30 Sodium Chloride (1/2 NS) 1,000 ml @ 125 mls/hr Q8H IV Last administered on 07:59; Admin Dose 125 MLS/HR; Start 10/04/16 at 23:45 Pantoprazole (Protonix Iv) 40 mg BID@06,18 IV Last administered on 10/09/16 18 :32; Admin Dose 40 MG; Start 10/05/16 at 06:00 Insulin Glargine (Lantus) 8 unit HS SC Last administered on 10/08/16 20:47; Admin Dose 8 UNIT; Start 10/05/16 at 21:00 Metoprolol Tartrate (Lopressor) 25 mg BID PO Last administered on 10/09/16 09: 15; Admin Dose 25 MG; Start 10/05/16 at 00:50 Ondansetron HCl (Zofran Inj) 4 mg Q6H PRN IV NAUSEA AND/OR VOMITING; Start at 00:30 Acetaminophen (Tylenol Tab) 500 mg Q6H PRN PO MILD PAIN &OR TEMP.>100.4F Last administered on 10/06/16 21:09; Admin Dose 500 MG; Start 10/05/16 at 00:30 Acetaminophen/ Hydrocodone Bitart ([place] (5/325)) 1 tab Q6H PRN PO PAIN; Start 10/05/16 at 00:30 Morphine Sulfate (morphine) 2 mg Q6H PRN IV PAIN; Start 10/05/16 at 00:30 Doxazosin Mesylate (Cardura) 2 mg HS PO Last administered on 10/08/16 20:46; Admin Dose 2 MG; Start 10/05/16 at 21:00 ELBA STUBBS MD Oct 09, 2016 19:28
[2016-10-09] MEDS: DOXAZOSIN 2 MG TAB PO SCH (21:56)
[2016-10-09] MEDS: INSULIN GLARGINE [LANtus] 3 ML PEN SC SCH (22:01)
--- NOTE | 2016-10-09 23:14 | CONS ---
Date/Time of Note Date/Time of Note DATE: 10/09/16 TIME: 23:10 Assessment/Plan Assessment/Plan Chief Complaint/Hosp Course anemia. Occult stool is NEG Tentative plan for EGD/colonoscopy per GI + COMPONENT ACD MONITOR BLOOD COUNT CLOSELY Elevated tumor markers- CA 19-9 and PSA - (30 ) Patient does report having unintentional weight loss of 20 pounds in a month. Marked concentric urinary bladder wall thickening with perivesical edema is observed suggesting sequelae of lower urinary tract inflammation and / or bladder outlet obstruction. Acute renal failure. postobstructive issue. No need for dialysis at this time per landscape architecture teacher. Appears to be improving at present RE- UROLOGY EVAL, CYSTOSCOPY AND PROSTATE US SEEN BY [facility] OUTPT OBTAIN BONE SCAN Essential hypertension. Continue antihypertensives and adjust needed Diabetes. On insulin regimen. Will adjust as needed. Problems: Consultation Date/Type/Reason Admit Date/Time Oct 04, 2016 at 14:10 Initial Consult Date 10/05/16 [facility] Referring Provider: ALEXA CHAVEZ 24 HR Interval Summary Free Text/Dictation ALL NOTED SEEN BY UROLOGY Exam/Review of Systems Vital Signs Vitals Vital Signs Date Time Temp Pulse Resp B/P Pulse Ox O2 Delivery O2 Flow Rate FiO2 10/09/16 21:54 97.9 70 18 153/72 Room Air 10/09/16 11:33 99 Intake and Output 10/08/16 10/08/16 10/09/16 15:00 23:00 07:00 Intake Total 985 ml 1275 ml Output Total 2000 ml 1500 ml Balance -1015 ml -225 ml Exam Constitutional: alert, oriented Psych: no complaints Eyes: nl conjunctiva Respiratory: clear to auscultation Cardiovascular: regular rate and rhythm Gastrointestinal: non-tender, soft Musculoskeletal: nl extremities to inspection Extremities: normal pulses Neurological: ELECTRIC LINEMAN II-XII intact, nl mental status, nl speech Results Result Diagram: 10/09/16 1740 10/09/16 0645 Results 24 hrs Laboratory Tests Test 10/09/16 02:28 10/09/16 02:51 10/09/16 03:12 10/09/16 06:45 Bedside Glucose 69 L 71 101 White Blood Count 5.4 Red Blood Count 2.63 #L Hemoglobin 8.5 #L Hematocrit 24.7 #L Mean Corpuscular Volume 93.9 Mean Corpuscular Hemoglobin 32.3 Mean Corpuscular Hemoglobin Concent 34.4 Red Cell Distribution Width 13.6 Platelet Count 177 Mean Platelet Volume 10.4 Neutrophils % 50.4 Lymphocytes % 31.3 Monocytes % 11.2 H Eosinophils % 6.3 Basophils % 0.6 Nucleated Red Blood Cells % 0.0 Neutrophils # 2.7 Lymphocytes # 1.7 Monocytes # 0.6 Eosinophils # 0.3 Basophils # 0.0 Nucleated Red Blood Cells # 0.0 Sodium Level 139 Potassium Level 3.7 Chloride Level 106 Carbon Dioxide Level 23 Anion Gap 14 Blood Urea Nitrogen 57 H Creatinine 3.66 H Glucose Level 96 Calcium Level 8.5 Test 10/09/16 07:48 10/09/16 11:33 10/09/16 11:49 10/09/16 17:34 Bedside Glucose 94 104 131 Lab Scanned Report REFERENCE LAB Test 10/09/16 17:40 10/09/16 21:59 White Blood Count 6.6 # Red Blood Count 2.83 L Hemoglobin 9.1 L Hematocrit 26.4 L Mean Corpuscular Volume 93.3 Mean Corpuscular Hemoglobin 32.2 Mean Corpuscular Hemoglobin Concent 34.5 Red Cell Distribution Width 13.7 Platelet Count 179 Mean Platelet Volume 9.7 Neutrophils % 52.5 Lymphocytes % 30.8 Monocytes % 10.1 Eosinophils % 6.0 Basophils % 0.3 Nucleated Red Blood Cells % 0.0 Neutrophils # 3.4 Lymphocytes # 2.0 Monocytes # 0.7 Eosinophils # 0.4 Basophils # 0.0 Nucleated Red Blood Cells # 0.0 Bedside Glucose 109 Medications Medications Current Medications Dextrose (D50w Syringe) ONCE PRN IV POC BLOOD GLUCOSE <250 MG/DL Last administered on 10/04/16 13:41; Admin Dose 50 ML; Start 10/04/16 at 13:30 Hydralazine HCl (Apresoline) 10 mg Q6H PRN IV SBP>160 Last administered on 10/07 22:42; Admin Dose 10 MG; Start 10/04/16 at 20:30 Diagnostic Test (Pha) (Accu-Chek) 1 ea 02 XX Last administered on 10/09/16 02: 00; Admin Dose 1 EA; Start 10/05/16 at 02:00 Miscellaneous Information 1 ea NOTE XX ; Start 10/04/16 at 21:30 Glucose (Glutose) 15 gm Q15M PRN PO DECREASED GLUCOSE; Start 10/04/16 at 21:30 Glucose (Glutose) 22.5 gm Q15M PRN PO DECREASED GLUCOSE; Start 10/04/16 at 21: 30 Dextrose (D50w Syringe) 25 ml Q15M PRN IV DECREASED GLUCOSE; Start 10/04/16 at 21:30 Dextrose (D50w Syringe) 50 ml Q15M PRN IV DECREASED GLUCOSE; Start 10/04/16 at 21:30 Glucagon (Glucagen) 1 mg Q15M PRN IM DECREASED GLUCOSE; Start 10/04/16 at 21:30 Glucose 15 gm 15 gm Q15M PRN BUCCAL DECREASED GLUCOSE; Start 10/04/16 at 21:30 Sodium Chloride (1/2 NS) 1,000 ml @ 125 mls/hr Q8H IV Last administered on 21:40; Admin Dose 125 MLS/HR; Start 10/04/16 at 23:45 Pantoprazole (Protonix Iv) 40 mg BID@,18 IV Last administered on 10/09/16 18 :32; Admin Dose 40 MG; Start 10/05/16 at 06:00 Insulin Glargine (Lantus) 8 unit HS SC Last administered on 10/09/16 22:01; Admin Dose 8 UNIT; Start 10/05/16 at 21:00 Metoprolol Tartrate (Lopressor) 25 mg BID PO Last administered on 10/09/16 21: 56; Admin Dose 25 MG; Start 10/05/16 at 00:50 Ondansetron HCl (Zofran Inj) 4 mg Q6H PRN IV NAUSEA AND/OR VOMITING; Start at 00:30 Acetaminophen (Tylenol Tab) 500 mg Q6H PRN PO MILD PAIN &OR TEMP.>100.4F Last administered on 10/06/16 21:09; Admin Dose 500 MG; Start 10/05/16 at 00:30 Acetaminophen/ Hydrocodone Bitart ([place] (5/325)) 1 tab Q6H PRN PO PAIN; Start 10/05/16 at 00:30 Morphine Sulfate (morphine) 2 mg Q6H PRN IV PAIN; Start 10/05/16 at 00:30 Doxazosin Mesylate (Cardura) 2 mg HS PO Last administered on 10/09/16t 21:56; Admin Dose 2 MG; Start 10/05/16 at 21:00 KEVIN HENNING MD Oct 09, 2016 23:14
[2016-10-10] VITALS (12 sets, daily range): BP systolic 126–167; BP diastolic 68–87; PULSE 60–66; RESP 16–18
[2016-10-10] MEDS: ACCUCHECK AT 2AM (Patients on SS coverage) XX SCH (02:00)
[2016-10-10 02:52] LABS: SCRET 3.66 mg/dl (0.61-1.24)
[2016-10-10] MEDS: PANTOPRAZOLE 40 MG INJ IV SCH ×2 (06:10→17:38)
[2016-10-10 07:55] LABS: ADD SCAN DIFF NO
[2016-10-10] MEDS: INSULIN ASPART [NOVOLOG] 3 ML PEN SC SCH ×7 (08:00→21:00)
[2016-10-10 08:01] LABS: BASOPHILS % 0.5 % (0.0-2.0); EOSINOPHILS # 0.3 10^3/ul (0.0-0.5); EOSINOPHILS % 5.5 % (0.0-7.0); HEMATOCRIT 26.5 % (42.0-52.0); HEMOGLOBIN 8.8 g/dl (14.0-18.0); LYMPHOCYTES % 32.1 % (15.0-51.0); MEAN CORPUSCULAR HEMOGLOBIN 31.2 pg (29.0-33.0); MEAN CORPUSCULAR HGB CONC 33.2 g/dl (32.0-37.0); MEAN PLATELET VOLUME 10.1 fl (7.4-10.4); MONOCYTE # 0.6 10^3/ul (0.3-0.9); MONOCYTES % 9.5 % (0.0-11.0); NEUTROPHIL # 3.2 10^3/ul (1.6-7.5); NEUTROPHILS % 52.1 % (39.0-77.0); PLATELET COUNT 180 10^3/UL (140-415); RED BLOOD COUNT 2.82 10^6/ul (4.70-6.10); RED CELL DISTRIBUTION WIDTH 13.8 % (11.5-14.5); WHITE BLOOD COUNT 6.2 10^3/ul (4.8-10.8)
[2016-10-10] MEDS: CALCIUM CARBONATE 500 MG CHEW TAB PO SCH ×3 (08:21→18:10)
[2016-10-10] MEDS: METOPROLOL 25 MG TAB PO SCH ×2 (08:21→22:16)
[2016-10-10 08:44] LABS: CALCIUM 8.5 mg/dl (8.4-10.2); CREATININE 3.52 mg/dl (0.61-1.24); POTASSIUM 3.8 mmol/L (3.5-5.1)
[2016-10-10] MEDS: SOD CHLORIDE 0.45% 1,000 ML IV SCH ×3 (09:49→22:18)
--- NOTE | 2016-10-10 10:13 | PN ---
Date/Time of Note Date/Time of Note DATE: 10/10/16 TIME: 10:10 Assessment/Plan VTE Prophylaxis VTE Prophylaxis Intervention: ambulation Lines/Catheters [facility] Peripheral IV Urinary Cath still in place: Yes Reason Cath still needed: urinary retention Assessment/Plan Assessment/Plan ssessment: * Renal failure likely chronic * Anemia likely multifactorial * EGD Distal esophagitis. Severe gastritis, rule out Helicobacter pylori infection. Deformed pylorus. Erosive duodenitis. * Significant unexplained weight loss likely multifactorial * Rule out occult neoplasm * History of diabetes mellitus type 2 * History of hypertension poorly controlled Plan; * continue present management * case discussed with Dr Gray * Further orders will depend on clinical course Subjective 24 Hr Interval Summary Free Text/Dictation * Course reviewed with RN * Patient seen and examined * No complaints overnight * Latest hemoglobin 8.8 Exam/Review of Systems Vital Signs Vitals Vital Signs Date Time Temp Pulse Resp B/P Pulse Ox O2 Delivery O2 Flow Rate FiO2 10/10/16 08:35 65 10/10/16 07:43 97.6 16 163/73 100 10/09/16 21:54 Room Air Intake and Output 10/09/16 10/09/16 10/10/16 15:00 23:00 07:00 Intake Total 1620 ml 2000 ml Output Total 2000 ml 1000 ml Balance -380 ml 1000 ml Exam Constitutional: alert, oriented Psych: no complaints Head: atraumatic, normocephalic Neck: non-tender, supple Respiratory: clear to auscultation, normal air movement Cardiovascular: nl pulses, regular rate and rhythm Gastrointestinal: nl liver, spleen, non-tender, soft Musculoskeletal: nl extremities to inspection, nl gait and stance Extremities: normal pulses Neurological: nl mental status, nl speech, nl strength Skin: nl turgor, No rash or lesions Lymph: nl lymph nodes Results Result Diagram: 10/10/16 0630 10/10/16 0630 Results 24 hrs Laboratory Tests Test 10/09/16 11:33 10/09/16 11:49 10/09/16 17:34 10/09/16 17:40 Lab Scanned Report REFERENCE LAB Bedside Glucose 104 131 White Blood Count 6.6 # Red Blood Count 2.83 L Hemoglobin 9.1 L Hematocrit 26.4 L Mean Corpuscular Volume 93.3 Mean Corpuscular Hemoglobin 32.2 Mean Corpuscular Hemoglobin Concent 34.5 Red Cell Distribution Width 13.7 Platelet Count 179 Mean Platelet Volume 9.7 Neutrophils % 52.5 Lymphocytes % 30.8 Monocytes % 10.1 Eosinophils % 6.0 Basophils % 0.3 Nucleated Red Blood Cells % 0.0 Neutrophils # 3.4 Lymphocytes # 2.0 Monocytes # 0.7 Eosinophils # 0.4 Basophils # 0.0 Nucleated Red Blood Cells # 0.0 Test 10/09/16 21:59 10/10/16 01:16 10/10/16 06:30 10/10/16 08:05 Bedside Glucose 109 87 Urine Random Creatinine 28.14 Urine Total Volume 24 Hours 3150 Urine Creatinine Timed 24 Creatinine Clearance 16.8 L White Blood Count 6.2 Red Blood Count 2.82 L Hemoglobin 8.8 L Hematocrit 26.5 L Mean Corpuscular Volume 94.0 Mean Corpuscular Hemoglobin 31.2 Mean Corpuscular Hemoglobin Concent 33.2 Red Cell Distribution Width 13.8 Platelet Count 180 Mean Platelet Volume 10.1 Neutrophils % 52.1 Lymphocytes % 32.1 Monocytes % 9.5 Eosinophils % 5.5 Basophils % 0.5 Nucleated Red Blood Cells % 0.0 Neutrophils # 3.2 Lymphocytes # 2.0 Monocytes # 0.6 Eosinophils # 0.3 Basophils # 0.0 Nucleated Red Blood Cells # 0.0 Sodium Level 139 Potassium Level 3.8 Chloride Level 107 Carbon Dioxide Level 23 Anion Gap 13 Blood Urea Nitrogen 52 H Creatinine 3.52 H Glucose Level 93 Calcium Level 8.5 Medications Medications Current Medications Dextrose (D50w Syringe) ONCE PRN IV POC BLOOD GLUCOSE <250 MG/DL Last administered on 10/04/16 13:41; Admin Dose 50 ML; Start 10/04/16 at 13:30 Hydralazine HCl (Apresoline) 10 mg Q6H PRN IV SBP>160 Last administered on 10/07 22:42; Admin Dose 10 MG; Start 10/04/16 at 20:30 Diagnostic Test (Pha) (Accu-Chek) 1 ea 02 XX Last administered on 10/09/16 02: 00; Admin Dose 1 EA; Start 10/05/16 at 02:00 Miscellaneous Information 1 ea NOTE XX ; Start 10/04/16 at 21:30 Glucose (Glutose) 15 gm Q15M PRN PO DECREASED GLUCOSE; Start 10/04/16 at 21:30 Glucose (Glutose) 22.5 gm Q15M PRN PO DECREASED GLUCOSE; Start 10/04/16 at 21: 30 Dextrose (D50w Syringe) 25 ml Q15M PRN IV DECREASED GLUCOSE; Start 10/04/16 at 21:30 Dextrose (D50w Syringe) 50 ml Q15M PRN IV DECREASED GLUCOSE; Start 10/04/16 at 21:30 Glucagon (Glucagen) 1 mg Q15M PRN IM DECREASED GLUCOSE; Start 10/04/16 at 21:30 Glucose 15 gm 15 gm Q15M PRN BUCCAL DECREASED GLUCOSE; Start 10/04/16 at 21:30 Sodium Chloride (1/2 NS) 1,000 ml @ 125 mls/hr Q8H IV Last administered on 09:49; Admin Dose 125 MLS/HR; Start 10/04/16 at 23:45 Pantoprazole (Protonix Iv) 40 mg BID@06,18 IV Last administered on 10/10/16 06 :10; Admin Dose 40 MG; Start 10/05/16 at 06:00 Insulin Glargine (Lantus) 8 unit HS SC Last administered on 10/09/16 22:01; Admin Dose 8 UNIT; Start 10/05/16 at 21:00 Metoprolol Tartrate (Lopressor) 25 mg BID PO Last administered on 10/10/16 08: 21; Admin Dose 25 MG; Start 10/05/16 at 00:50 Ondansetron HCl (Zofran Inj) 4 mg Q6H PRN IV NAUSEA AND/OR VOMITING; Start at 00:30 Acetaminophen (Tylenol Tab) 500 mg Q6H PRN PO MILD PAIN &OR TEMP.>100.4F Last administered on 10/06/16 21:09; Admin Dose 500 MG; Start 10/05/16 at 00:30 Acetaminophen/ Hydrocodone Bitart ([place] (5/325)) 1 tab Q6H PRN PO PAIN; Start 10/05/16 at 00:30 Morphine Sulfate (morphine) 2 mg Q6H PRN IV PAIN; Start 10/05/16 at 00:30 Doxazosin Mesylate (Cardura) 2 mg HS PO Last administered on 10/09/16 21:56; Admin Dose 2 MG; Start 10/05/16 at 21:00 VENESSA PAYNE NP Oct 10, 2016 10:13
--- NOTE | 2016-10-10 15:07 | PN ---
Date/Time of Note Date/Time of Note DATE: 10/10/16 TIME: 15:02 Assessment/Plan VTE Prophylaxis VTE Prophylaxis Intervention: SCD's Lines/Catheters [facility] ([facility] Peripheral IV Urinary Cath still in place: Yes Assessment/Plan Chief Complaint/Hosp Course Assessment and plan 1. Acute renal failure. postobstructive uropathy. outpatient biopsy for prostate per urologist . Continue with nephrology recommendations. No need for dialysis at this time per bobbin stripper. Appears to be improving at present 2. Reported anemia. Occult stool is pending. s/p EGD/colonoscopy with severe gastritis and esophagitis. continue with GI recs 3. Moderate bilateral symmetric hydroureteronephrosis without evidence of nephroureterolithiasis. Urologist was consulted. continue with recs 4. Elevated tumor markers. Patient does report having unintentional weight loss of 20 pounds in a month. Oncologist following. Continue the recommendation 5. Essential hypertension. Continue antihypertensives and adjust needed 6. Diabetes. On insulin regimen. Will adjust as needed. Disposition and plan: Monitor renal panel. continue to monitor for clinical improvement for renal status. Discussed plan of care with Dr. Quan Problems: Subjective 24 Hr Interval Summary Free Text/Dictation no s/s of distress. Exam/Review of Systems Vital Signs Vitals Vital Signs Date Time Temp Pulse Resp B/P Pulse Ox O2 Delivery O2 Flow Rate FiO2 10/10/16 12:26 60 10/10/16 11:51 97.8 18 126/68 99 10/09/16 21:54 Room Air Intake and Output 10/09/16 10/09/16 10/10/16 14:59 22:59 06:59 Intake Total 1620 ml 2000 ml Output Total 2000 ml 1000 ml Balance -380 ml 1000 ml Exam Constitutional: alert, oriented Psych: no complaints Eyes: nl conjunctiva Neck: supple Respiratory: clear to auscultation, normal air movement Cardiovascular: regular rate and rhythm Gastrointestinal: non-tender, soft Musculoskeletal: nl extremities to inspection Neurological: LAW ENFORCEMENT DIRECTOR II-XII intact, nl mental status Skin: nl turgor Results Result Diagram: 10/10/16 0630 10/10/16 0630 Results 24 hrs Laboratory Tests Test 10/09/16 17:34 10/09/16 17:40 10/09/16 21:59 10/10/16 01:16 Bedside Glucose 131 109 White Blood Count 6.6 # Red Blood Count 2.83 L Hemoglobin 9.1 L Hematocrit 26.4 L Mean Corpuscular Volume 93.3 Mean Corpuscular Hemoglobin 32.2 Mean Corpuscular Hemoglobin Concent 34.5 Red Cell Distribution Width 13.7 Platelet Count 179 Mean Platelet Volume 9.7 Neutrophils % 52.5 Lymphocytes % 30.8 Monocytes % 10.1 Eosinophils % 6.0 Basophils % 0.3 Nucleated Red Blood Cells % 0.0 Neutrophils # 3.4 Lymphocytes # 2.0 Monocytes # 0.7 Eosinophils # 0.4 Basophils # 0.0 Nucleated Red Blood Cells # 0.0 Urine Random Creatinine 28.14 Urine Total Volume 24 Hours 3150 Urine Creatinine Timed 24 Creatinine Clearance 16.8 L Test 10/10/16 06:30 10/10/16 08:05 10/10/16 12:03 White Blood Count 6.2 Red Blood Count 2.82 L Hemoglobin 8.8 L Hematocrit 26.5 L Mean Corpuscular Volume 94.0 Mean Corpuscular Hemoglobin 31.2 Mean Corpuscular Hemoglobin Concent 33.2 Red Cell Distribution Width 13.8 Platelet Count 180 Mean Platelet Volume 10.1 Neutrophils % 52.1 Lymphocytes % 32.1 Monocytes % 9.5 Eosinophils % 5.5 Basophils % 0.5 Nucleated Red Blood Cells % 0.0 Neutrophils # 3.2 Lymphocytes # 2.0 Monocytes # 0.6 Eosinophils # 0.3 Basophils # 0.0 Nucleated Red Blood Cells # 0.0 Sodium Level 139 Potassium Level 3.8 Chloride Level 107 Carbon Dioxide Level 23 Anion Gap 13 Blood Urea Nitrogen 52 H Creatinine 3.52 H Glucose Level 93 Calcium Level 8.5 Bedside Glucose 87 134 Medications Medications Current Medications Dextrose (D50w Syringe) ONCE PRN IV POC BLOOD GLUCOSE <250 MG/DL Last administered on 10/04/16 13:41; Admin Dose 50 ML; Start 10/04/16 at 13:30 Hydralazine HCl (Apresoline) 10 mg Q6H PRN IV SBP>160 Last administered on 10/07 22:42; Admin Dose 10 MG; Start 10/04/16 at 20:30 Diagnostic Test (Pha) (Accu-Chek) 1 ea 02 XX Last administered on 10/09/16 02: 00; Admin Dose 1 EA; Start 10/05/16 at 02:00 Miscellaneous Information 1 ea NOTE XX ; Start 10/04/16 at 21:30 Glucose (Glutose) 15 gm Q15M PRN PO DECREASED GLUCOSE; Start 10/04/16 at 21:30 Glucose (Glutose) 22.5 gm Q15M PRN PO DECREASED GLUCOSE; Start 10/04/16 at 21: 30 Dextrose (D50w Syringe) 25 ml Q15M PRN IV DECREASED GLUCOSE; Start 10/04/16 at 21:30 Dextrose (D50w Syringe) 50 ml Q15M PRN IV DECREASED GLUCOSE; Start 10/04/16 at 21:30 Glucagon (Glucagen) 1 mg Q15M PRN IM DECREASED GLUCOSE; Start 10/04/16 at 21:30 Glucose 15 gm 15 gm Q15M PRN BUCCAL DECREASED GLUCOSE; Start 10/04/16 at 21:30 Sodium Chloride (1/2 NS) 1,000 ml @ 125 mls/hr Q8H IV Last administered on 09:49; Admin Dose 125 MLS/HR; Start 10/04/16 at 23:45 Pantoprazole (Protonix Iv) 40 mg BID@06,18 IV Last administered on 10/10/16 06 :10; Admin Dose 40 MG; Start 10/05/16 at 06:00 Insulin Glargine (Lantus) 8 unit HS SC Last administered on 10/09/16 22:01; Admin Dose 8 UNIT; Start 10/05/16 at 21:00 Metoprolol Tartrate (Lopressor) 25 mg BID PO Last administered on 10/10/16 08: 21; Admin Dose 25 MG; Start 10/05/16 at 00:50 Ondansetron HCl (Zofran Inj) 4 mg Q6H PRN IV NAUSEA AND/OR VOMITING; Start at 00:30 Acetaminophen (Tylenol Tab) 500 mg Q6H PRN PO MILD PAIN &OR TEMP.>100.4F Last administered on 10/06/16 21:09; Admin Dose 500 MG; Start 10/05/16 at 00:30 Acetaminophen/ Hydrocodone Bitart ([place] (5/325)) 1 tab Q6H PRN PO PAIN; Start 10/05/16 at 00:30 Morphine Sulfate (morphine) 2 mg Q6H PRN IV PAIN; Start 10/05/16 at 00:30 Doxazosin Mesylate (Cardura) 2 mg HS PO Last administered on 10/09/16t 21:56; Admin Dose 2 MG; Start 10/05/16 at 21:00 ALEXA CHAVEZ Oct 10, 2016 15:07
--- NOTE | 2016-10-10 16:02 | CONS ---
Date/Time of Note Date/Time of Note DATE: 10/10/16 TIME: 16:02 Assessment/Plan Assessment/Plan Additional Assessment/Plan (1) Hyperkalemia Status: Acute (2) Acute renal failure Status: Acute- improved Qualifiers: Acute renal failure type: unspecified Qualified Code: N17.9 - Acute renal failure, unspecified acute renal failure type (3) Anemia Status: Acute Qualifiers: Anemia type: other cause Other causes of anemia: other cause, not classified Qualified Code: D64.89 - Anemia due to other cause, not classified (4) Hypertension Status: Acute Qualifiers: Hypertension type: unspecified secondary hypertension Qualified Code: I15.9 - Secondary hypertension (5) Diabetes mellitus type 2 in nonobese Status: Chronic Assessment/Plan arf obstructice uropathy- improving ckd baseline not known No acute indication for HD Will cont to closely monitor UO, Electrolytes, volume status and renal function. Consultation Date/Type/Reason Admit Date/Time Oct 04, 2016 at 14:10 Initial Consult Date 10/05/16 Type of Consultation: Renal Referring Provider: ALEXA CHAVEZ 24 HR Interval Summary Free Text/Dictation No new complaints Constitutional: No requiring O2 Exam/Review of Systems Vital Signs Vitals Vital Signs Date Time Temp Pulse Resp B/P Pulse Ox O2 Delivery O2 Flow Rate FiO2 10/10/16 15:49 97.7 63 18 155/87 100 10/09/16 21:54 Room Air Intake and Output 10/09/16 10/09/16 10/10/16 15:00 23:00 07:00 Intake Total 1620 ml 2000 ml Output Total 2000 ml 1000 ml Balance -380 ml 1000 ml Exam Constitutional: alert, No distress ENMT: mucosa pink and moist Respiratory: clear to auscultation, No labored breathing Cardiovascular: regular rate and rhythm, No edema Gastrointestinal: non-tender, soft Genitourinary - Male: other (Shannon) Extremities: No edema Neurological: MANAGER MEDICAL AFFAIRS II-XII intact, nl mental status, No lethargic Skin: No diaphoresis Results Result Diagram: 10/10/16 0630 10/10/16 0630 Results 24 hrs Laboratory Tests Test 10/09/16 17:34 10/09/16 17:40 10/09/16 21:59 10/10/16 01:16 Bedside Glucose 131 109 White Blood Count 6.6 # Red Blood Count 2.83 L Hemoglobin 9.1 L Hematocrit 26.4 L Mean Corpuscular Volume 93.3 Mean Corpuscular Hemoglobin 32.2 Mean Corpuscular Hemoglobin Concent 34.5 Red Cell Distribution Width 13.7 Platelet Count 179 Mean Platelet Volume 9.7 Neutrophils % 52.5 Lymphocytes % 30.8 Monocytes % 10.1 Eosinophils % 6.0 Basophils % 0.3 Nucleated Red Blood Cells % 0.0 Neutrophils # 3.4 Lymphocytes # 2.0 Monocytes # 0.7 Eosinophils # 0.4 Basophils # 0.0 Nucleated Red Blood Cells # 0.0 Urine Random Creatinine 28.14 Urine Total Volume 24 Hours 3150 Urine Creatinine Timed 24 Creatinine Clearance 16.8 L Test 10/10/16 06:30 10/10/16 08:05 10/10/16 12:03 White Blood Count 6.2 Red Blood Count 2.82 L Hemoglobin 8.8 L Hematocrit 26.5 L Mean Corpuscular Volume 94.0 Mean Corpuscular Hemoglobin 31.2 Mean Corpuscular Hemoglobin Concent 33.2 Red Cell Distribution Width 13.8 Platelet Count 180 Mean Platelet Volume 10.1 Neutrophils % 52.1 Lymphocytes % 32.1 Monocytes % 9.5 Eosinophils % 5.5 Basophils % 0.5 Nucleated Red Blood Cells % 0.0 Neutrophils # 3.2 Lymphocytes # 2.0 Monocytes # 0.6 Eosinophils # 0.3 Basophils # 0.0 Nucleated Red Blood Cells # 0.0 Sodium Level 139 Potassium Level 3.8 Chloride Level 107 Carbon Dioxide Level 23 Anion Gap 13 Blood Urea Nitrogen 52 H Creatinine 3.52 H Glucose Level 93 Calcium Level 8.5 Bedside Glucose 87 134 Medications Medications Current Medications Dextrose (D50w Syringe) ONCE PRN IV POC BLOOD GLUCOSE <250 MG/DL Last administered on 10/04/16 13:41; Admin Dose 50 ML; Start 10/04/16 at 13:30 Hydralazine HCl (Apresoline) 10 mg Q6H PRN IV SBP>160 Last administered on 10/07 22:42; Admin Dose 10 MG; Start 10/04/16 at 20:30 Diagnostic Test (Pha) (Accu-Chek) 1 ea 02 XX Last administered on 10/09/16 02: 00; Admin Dose 1 EA; Start 10/05/16 at 02:00 Miscellaneous Information 1 ea NOTE XX ; Start 10/04/16 at 21:30 Glucose (Glutose) 15 gm Q15M PRN PO DECREASED GLUCOSE; Start 10/04/16 at 21:30 Glucose (Glutose) 22.5 gm Q15M PRN PO DECREASED GLUCOSE; Start 10/04/16 at 21: 30 Dextrose (D50w Syringe) 25 ml Q15M PRN IV DECREASED GLUCOSE; Start 10/04/16 at 21:30 Dextrose (D50w Syringe) 50 ml Q15M PRN IV DECREASED GLUCOSE; Start 10/04/16 at 21:30 Glucagon (Glucagen) 1 mg Q15M PRN IM DECREASED GLUCOSE; Start 10/04/16 at 21:30 Glucose 15 gm 15 gm Q15M PRN BUCCAL DECREASED GLUCOSE; Start 10/04/16 at 21:30 Sodium Chloride (1/2 NS) 1,000 ml @ 125 mls/hr Q8H IV Last administered on 09:49; Admin Dose 125 MLS/HR; Start 10/04/16 at 23:45 Pantoprazole (Protonix Iv) 40 mg BID@06,18 IV Last administered on 10/10/16 06 :10; Admin Dose 40 MG; Start 10/05/16 at 06:00 Insulin Glargine (Lantus) 8 unit HS SC Last administered on 10/09/16 22:01; Admin Dose 8 UNIT; Start 10/05/16 at 21:00 Metoprolol Tartrate (Lopressor) 25 mg BID PO Last administered on 10/10/16 08: 21; Admin Dose 25 MG; Start 10/05/16 at 00:50 Ondansetron HCl (Zofran Inj) 4 mg Q6H PRN IV NAUSEA AND/OR VOMITING; Start at 00:30 Acetaminophen (Tylenol Tab) 500 mg Q6H PRN PO MILD PAIN &OR TEMP.>100.4F Last administered on 10/06/16 21:09; Admin Dose 500 MG; Start 10/05/16 at 00:30 Acetaminophen/ Hydrocodone Bitart ([place] (5/325)) 1 tab Q6H PRN PO PAIN; Start 10/05/16 at 00:30 Morphine Sulfate (morphine) 2 mg Q6H PRN IV PAIN; Start 10/05/16 at 00:30 Doxazosin Mesylate (Cardura) 2 mg HS PO Last administered on 10/09/16t 21:56; Admin Dose 2 MG; Start 10/05/16 at 21:00 TARIQ GARCIA MD Oct 10, 2016 16:02
--- NOTE | 2016-10-10 17:17 | RADRPT ---
PROCEDURE: Whole body bone scan study CLINICAL INDICATION: 66 -year-old patient with prostate cancer, for evaluation for skeletal metast ases. TECHNIQUE: Following the intravenous injection of 26.2 mCi of Tc-99m MDP, whole body anterior and posterior planar images were obtained along with spot views of the head, neck and chest. COMPARISON: No prior bone scans are available for comparison. CT scan of the abdomen and pelvis da dorene October 06, 2016. FINDINGS: Moderately increased activity seen in the lower lumbar spine, which is likely related to degenerativ e process. Small focus of increased activity is seen in the right anterior superior acetabulum, which may repre sent post-traumatic or degenerative process. No other definite abnormal areas of increased activity or asymmetries are visualized in the study an d distribution of radionuclide is homogeneous in the skull, spine, rib cages, sternum, pelvis and vi sualized portions of the upper and lower extremities. Of incidental note, there is no evidence of mass abnormalities of the kidneys. IMPRESSION: 1. Small focus of increased activity in the right anterior superior acetabulum possibly related to degenerative or post-traumatic process. 2. Likely degenerative changes of the lower lumbar spine. 3. No other definite skeletal abnormalities. RPTAT: HH .Portia Sparks MD, MD Date Time Electronically viewed and signed by .Portia Sparks MD, MD on 10/10/2016 17:17 .L/
--- NOTE | 2016-10-10 18:01 | RADRPT ---
PROCEDURE: XR contrast cystogram. CLINICAL INDICATION: Pelvic pain. TECHNIQUE: 150 ml of Cysto-Conray 30 was infused into the urinary bladder with a Shannon catheter. Images were obtained and postvoid image was obtained. COMPARISON: CT scan of the abdomen and pelvis dated 10/06/2016 which demonstrated diffuse bladder wall thickening. FINDINGS: There is no extravasation of contrast. There is thickening of the bladder wall with trabeculation. There is no filling defect. IMPRESSION: 1. Thickening of the bladder wall. 2. No filling defect or extravasation. RPTAT: QQ .Francisco Tian MD, MD Date Time Electronically viewed and signed by .Francisco Tian MD, MD on 10/10/2016 18:00 .R/
[2016-10-10] MEDS: INSULIN GLARGINE [LANtus] 3 ML PEN SC SCH (22:14)
[2016-10-10] MEDS: DOXAZOSIN 2 MG TAB PO SCH (22:16)
[2016-10-11] VITALS (11 sets, daily range): BP systolic 144–190; BP diastolic 69–87; PULSE 58–65; RESP 17–20
--- NOTE | 2016-10-11 00:27 | CONS ---
Date/Time of Note Date/Time of Note DATE: 10/10/16 TIME: 20:26 vk le Assessment/Plan Assessment/Plan Chief Complaint/Hosp Course anemia. Occult stool is NEG Tentative plan for EGD/colonoscopy per GI + COMPONENT ACD MONITOR BLOOD COUNT CLOSELY Elevated tumor markers- CA 19-9 and PSA - (30 ) Patient does report having unintentional weight loss of 20 pounds in a month. 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 Acute renal failure. postobstructive issue. No need for dialysis at this time per medical coding technician. Appears to be improving at present RE- UROLOGY EVAL, CYSTOSCOPY AND PROSTATE US SEEN BY RAJWINDER TRIVEDI OUTPT Essential hypertension. Continue antihypertensives and adjust needed Diabetes. On insulin regimen. Will adjust as needed. Problems: Consultation Date/Type/Reason Admit Date/Time Oct 04, 2016 at 14:10 Initial Consult Date 10/05/16 Type of Consultation: [facility] Referring Provider: ALEXA CHAVEZ 24 HR Interval Summary Free Text/Dictation ALL NOTED D/W DR STUBBS Exam/Review of Systems Vital Signs Vitals Vital Signs Date Time Temp Pulse Resp B/P Pulse Ox O2 Delivery O2 Flow Rate FiO2 10/11/16 00:18 63 10/10/16 15:49 97.7 18 155/87 100 10/09/16 21:54 Room Air Intake and Output 10/10/16 10/10/16 10/11/16 15:00 23:00 07:00 Intake Total 1880 ml Output Total 1600 ml Balance 280 ml Exam Constitutional: alert, oriented Psych: no complaints Eyes: nl conjunctiva Respiratory: clear to auscultation Cardiovascular: regular rate and rhythm Gastrointestinal: non-tender, soft Musculoskeletal: nl extremities to inspection Extremities: normal pulses Neurological: ALCOHOL AND DRUG COUNSELOR II-XII intact, nl mental status, nl speech Results Result Diagram: 10/10/16 0630 10/10/16 0630 Results 24 hrs Laboratory Tests Test 10/10/16 01:16 10/10/16 06:30 10/10/16 08:05 10/10/16 12:03 Urine Random Creatinine 28.14 Urine Total Volume 24 Hours 3150 Urine Creatinine Timed 24 Creatinine Clearance 16.8 L White Blood Count 6.2 Red Blood Count 2.82 L Hemoglobin 8.8 L Hematocrit 26.5 L Mean Corpuscular Volume 94.0 Mean Corpuscular Hemoglobin 31.2 Mean Corpuscular Hemoglobin Concent 33.2 Red Cell Distribution Width 13.8 Platelet Count 180 Mean Platelet Volume 10.1 Neutrophils % 52.1 Lymphocytes % 32.1 Monocytes % 9.5 Eosinophils % 5.5 Basophils % 0.5 Nucleated Red Blood Cells % 0.0 Neutrophils # 3.2 Lymphocytes # 2.0 Monocytes # 0.6 Eosinophils # 0.3 Basophils # 0.0 Nucleated Red Blood Cells # 0.0 Sodium Level 139 Potassium Level 3.8 Chloride Level 107 Carbon Dioxide Level 23 Anion Gap 13 Blood Urea Nitrogen 52 H Creatinine 3.52 H Glucose Level 93 Calcium Level 8.5 Bedside Glucose 87 134 Test 10/10/16 17:20 10/10/16 22:06 Bedside Glucose 84 104 Medications Medications Current Medications Dextrose (D50w Syringe) ONCE PRN IV POC BLOOD GLUCOSE <250 MG/DL Last administered on 10/04/16 13:41; Admin Dose 50 ML; Start 10/04/16 at 13:30 Hydralazine HCl (Apresoline) 10 mg Q6H PRN IV SBP>160 Last administered on 10/07 22:42; Admin Dose 10 MG; Start 10/04/16 at 20:30 Diagnostic Test (Pha) (Accu-Chek) 1 ea 02 XX Last administered on 10/09/16 02: 00; Admin Dose 1 EA; Start 10/05/16 at 02:00 Miscellaneous Information 1 ea NOTE XX ; Start 10/04/16 at 21:30 Glucose (Glutose) 15 gm Q15M PRN PO DECREASED GLUCOSE; Start 10/04/16 at 21:30 Glucose (Glutose) 22.5 gm Q15M PRN PO DECREASED GLUCOSE; Start 10/04/16 at 21: 30 Dextrose (D50w Syringe) 25 ml Q15M PRN IV DECREASED GLUCOSE; Start 10/04/16 at 21:30 Dextrose (D50w Syringe) 50 ml Q15M PRN IV DECREASED GLUCOSE; Start 10/04/16 at 21:30 Glucagon (Glucagen) 1 mg Q15M PRN IM DECREASED GLUCOSE; Start 10/04/16 at 21:30 Glucose 15 gm 15 gm Q15M PRN BUCCAL DECREASED GLUCOSE; Start 10/04/16 at 21:30 Sodium Chloride (1/2 NS) 1,000 ml @ 125 mls/hr Q8H IV Last administered on 22:18; Admin Dose 125 MLS/HR; Start 10/04/16 at 23:45 Pantoprazole (Protonix Iv) 40 mg BID@06,18 IV Last administered on 10/10/16 17 :38; Admin Dose 40 MG; Start 10/05/16 at 06:00 Insulin Glargine (Lantus) 8 unit HS SC Last administered on 10/10/16 22:14; Admin Dose 8 UNIT; Start 10/05/16 at 21:00 Metoprolol Tartrate (Lopressor) 25 mg BID PO Last administered on 10/10/16 22: 16; Admin Dose 25 MG; Start 10/05/16 at 00:50 Ondansetron HCl (Zofran Inj) 4 mg Q6H PRN IV NAUSEA AND/OR VOMITING; Start at 00:30 Acetaminophen (Tylenol Tab) 500 mg Q6H PRN PO MILD PAIN &OR TEMP.>100.4F Last administered on 10/06/16 21:09; Admin Dose 500 MG; Start 10/05/16 at 00:30 Acetaminophen/ Hydrocodone Bitart ([place] (5/325)) 1 tab Q6H PRN PO PAIN; Start 10/05/16 at 00:30 Morphine Sulfate (morphine) 2 mg Q6H PRN IV PAIN; Start 10/05/16 at 00:30 Doxazosin Mesylate (Cardura) 2 mg HS PO Last administered on 10/10/16 22:16; Admin Dose 2 MG; Start 10/05/16 at 21:00 KEVIN HENNING MD Oct 11, 2016 00:26
[2016-10-11] MEDS: ACCUCHECK AT 2AM (Patients on SS coverage) XX SCH (02:00)
[2016-10-11] MEDS: PANTOPRAZOLE 40 MG INJ IV SCH (06:31)
[2016-10-11] MEDS: SOD CHLORIDE 0.45% 1,000 ML IV SCH (06:33)
[2016-10-11] MEDS: INSULIN ASPART [NOVOLOG] 3 ML PEN SC SCH ×4 (08:00→12:32)
[2016-10-11] MEDS: CALCIUM CARBONATE 500 MG CHEW TAB PO SCH ×2 (08:32→12:29)
[2016-10-11] MEDS: METOPROLOL 25 MG TAB PO SCH (08:33)
[2016-10-11 08:47] LABS: ADD SCAN DIFF NO
[2016-10-11 08:55] LABS: BASOPHILS % 0.5 % (0.0-2.0); EOSINOPHILS # 0.5 10^3/ul (0.0-0.5); EOSINOPHILS % 6.1 % (0.0-7.0); HEMATOCRIT 26.5 % (42.0-52.0); LYMPHOCYTES # 2.7 10^3/ul (0.8-2.9); LYMPHOCYTES % 36.5 % (15.0-51.0); MEAN CORPUSCULAR VOLUME 94.3 fl (82.0-101.0); MEAN PLATELET VOLUME 10.3 fl (7.4-10.4); MONOCYTE # 0.8 10^3/ul (0.3-0.9); MONOCYTES % 10.3 % (0.0-11.0); NEUTROPHIL # 3.5 10^3/ul (1.6-7.5); NEUTROPHILS % 46.5 % (39.0-77.0); PLATELET COUNT 206 10^3/UL (140-415); RED BLOOD COUNT 2.81 10^6/ul (4.70-6.10); RED CELL DISTRIBUTION WIDTH 13.6 % (11.5-14.5); WHITE BLOOD COUNT 7.5 10^3/ul (4.8-10.8)
[2016-10-11 09:18] LABS: CALCIUM 8.8 mg/dl (8.4-10.2); CREATININE 3.16 mg/dl (0.61-1.24); POTASSIUM 4.1 mmol/L (3.5-5.1)
--- NOTE | 2016-10-11 10:20 | PN ---
Date/Time of Note Date/Time of Note DATE: 10/11/16 TIME: :17 Assessment/Plan VTE Prophylaxis VTE Prophylaxis Intervention: ambulation Lines/Catheters IV [facility] Peripheral IV Urinary Cath still in place: Yes Reason Cath still needed: urinary retention Assessment/Plan Assessment/Plan Renal failure likely chronic * Anemia likely multifactorial * EGD Distal esophagitis. Severe gastritis, rule out Helicobacter pylori infection. Deformed pylorus. Erosive duodenitis. * Significant unexplained weight loss likely multifactorial * Rule out occult neoplasm * History of diabetes mellitus type 2 * History of hypertension poorly controlled Plan; * We will signed out but will follow up as needed * continue present management * case discussed with Dr Gray Subjective 24 Hr Interval Summary Free Text/Dictation * Course reviewed with RN * Patient seen and examined * No complaints overnight Exam/Review of Systems Vital Signs Vitals Vital Signs Date Time Temp Pulse Resp B/P Pulse Ox O2 Delivery O2 Flow Rate FiO2 10/11/16 08:10 63 10/11/16 07:59 97.6 18 158/75 100 10/10/16 20:00 Room Air Intake and Output 10/10/16 10/10/16 10/11/16 15:00 23:00 07:00 Intake Total 2255 ml 1700 ml Output Total 1600 ml 2500 ml Balance 655 ml -800 ml Exam Constitutional: alert Psych: no complaints Neck: non-tender, supple Respiratory: clear to auscultation, normal air movement Cardiovascular: nl pulses, regular rate and rhythm Gastrointestinal: nl liver, spleen, non-tender, soft Musculoskeletal: nl extremities to inspection Extremities: normal pulses Neurological: nl mental status, nl speech Skin: nl turgor, No rash or lesions Lymph: nl lymph nodes Results Result Diagram: 10/11/16 0819 10/11/16 0814 Results 24 hrs Laboratory Tests Test 10/10/16 12:03 10/10/16 17:20 10/10/16 22:06 10/11/16 08:14 Bedside Glucose 134 84 104 Sodium Level 139 Potassium Level 4.1 Chloride Level 106 Carbon Dioxide Level 24 Anion Gap 13 Blood Urea Nitrogen 51 H Creatinine 3.16 H Glucose Level 92 Calcium Level 8.8 Test 10/11/16 08:19 10/11/16 08:20 White Blood Count 7.5 # Red Blood Count 2.81 L Hemoglobin 9.0 L Hematocrit 26.5 L Mean Corpuscular Volume 94.3 Mean Corpuscular Hemoglobin 32.0 Mean Corpuscular Hemoglobin Concent 34.0 Red Cell Distribution Width 13.6 Platelet Count 206 Mean Platelet Volume 10.3 Neutrophils % 46.5 Lymphocytes % 36.5 Monocytes % 10.3 Eosinophils % 6.1 Basophils % 0.5 Nucleated Red Blood Cells % 0.0 Neutrophils # 3.5 Lymphocytes # 2.7 Monocytes # 0.8 Eosinophils # 0.5 Basophils # 0.0 Nucleated Red Blood Cells # 0.0 Bedside Glucose 101 Medications Medications Current Medications Dextrose (D50w Syringe) ONCE PRN IV POC BLOOD GLUCOSE <250 MG/DL Last administered on 10/04/16 13:41; Admin Dose 50 ML; Start 10/04/16 at 13:30 Hydralazine HCl (Apresoline) 10 mg Q6H PRN IV SBP>160 Last administered on 10/07 22:42; Admin Dose 10 MG; Start 10/04/16 at 20:30 Diagnostic Test (Pha) (Accu-Chek) 1 ea 02 XX Last administered on 10/09/16 02: 00; Admin Dose 1 EA; Start 10/05/16 at 02:00 Miscellaneous Information 1 ea NOTE XX ; Start 10/04/16 at 21:30 Glucose (Glutose) 15 gm Q15M PRN PO DECREASED GLUCOSE; Start 10/04/16 at 21:30 Glucose (Glutose) 22.5 gm Q15M PRN PO DECREASED GLUCOSE; Start 10/04/16 at 21: 30 Dextrose (D50w Syringe) 25 ml Q15M PRN IV DECREASED GLUCOSE; Start 10/04/16 at 21:30 Dextrose (D50w Syringe) 50 ml Q15M PRN IV DECREASED GLUCOSE; Start 10/04/16 at 21:30 Glucagon (Glucagen) 1 mg Q15M PRN IM DECREASED GLUCOSE; Start 10/04/16 at 21:30 Glucose 15 gm 15 gm Q15M PRN BUCCAL DECREASED GLUCOSE; Start 10/04/16 at 21:30 Sodium Chloride (1/2 NS) 1,000 ml @ 125 mls/hr Q8H IV Last administered on 06:33; Admin Dose 125 MLS/HR; Start 10/04/16 at 23:45 Pantoprazole (Protonix Iv) 40 mg BID@06,18 IV Last administered on 10/11/16 06 :31; Admin Dose 40 MG; Start 10/05/16 at 06:00 Insulin Glargine (Lantus) 8 unit HS SC Last administered on 10/10/16 22:14; Admin Dose 8 UNIT; Start 10/05/16 at 21:00 Metoprolol Tartrate (Lopressor) 25 mg BID PO Last administered on 10/11/16 08: 33; Admin Dose 25 MG; Start 10/05/16 at 00:50 Ondansetron HCl (Zofran Inj) 4 mg Q6H PRN IV NAUSEA AND/OR VOMITING; Start at 00:30 Acetaminophen (Tylenol Tab) 500 mg Q6H PRN PO MILD PAIN &OR TEMP.>100.4F Last administered on 10/06/16 21:09; Admin Dose 500 MG; Start 10/05/16 at 00:30 Acetaminophen/ Hydrocodone Bitart ([place] (5/325)) 1 tab Q6H PRN PO PAIN; Start 10/05/16 at 00:30 Morphine Sulfate (morphine) 2 mg Q6H PRN IV PAIN; Start 10/05/16 at 00:30 Doxazosin Mesylate (Cardura) 2 mg HS PO Last administered on 10/10/16 22:16; Admin Dose 2 MG; Start 10/05/16 at 21:00 VENESSA PAYNE NP Oct 11, 2016 10:20
[2016-10-11] MEDS ORDERED: AMLODIPINE 5 MG TAB PO SCH (12:30)
--- NOTE | 2016-10-11 12:38 | CONS ---
Date/Time of Note Date/Time of Note DATE: 10/11/16 TIME: 12:34 Assessment/Plan Assessment/Plan Chief Complaint/Hosp Course anemia. Occult stool is NEG POST EGD/colonoscopy- ESOPHAGITIS, PATH- NEG + COMPONENT ACD MONITOR BLOOD COUNT CLOSELY Elevated tumor markers- CA 19-9 and PSA - (30 ) Patient does report having unintentional weight loss of 20 pounds in a month. 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 Acute renal failure. postobstructive issue. No need for dialysis at this time per missile control pilot. Appears to be improving at present RE- UROLOGY EVAL, CYSTOSCOPY AND PROSTATE US SEEN BY RAJWINDER TRIVEDI OUTPT Essential hypertension. Continue antihypertensives and adjust needed Diabetes. On insulin regimen. Will adjust as needed. Problems: Consultation Date/Type/Reason Admit Date/Time Oct 04, 2016 at 14:10 Initial Consult Date 10/05/16 Type of Consultation: [facility] Referring Provider: ALEXA CHAVEZ 24 HR Interval Summary Free Text/Dictation NO NEW EVENTS Exam/Review of Systems Vital Signs Vitals Vital Signs Date Time Temp Pulse Resp B/P Pulse Ox O2 Delivery O2 Flow Rate FiO2 10/11/16 12:13 59 10/11/16 11:48 97.5 18 190/87 100 10/10/16 20:00 Room Air Intake and Output 10/10/16 10/10/16 10/11/16 15:00 23:00 07:00 Intake Total 2255 ml 1700 ml Output Total 1600 ml 2500 ml Balance 655 ml -800 ml Exam Constitutional: alert, oriented Psych: no complaints Eyes: nl conjunctiva Respiratory: clear to auscultation Cardiovascular: regular rate and rhythm Gastrointestinal: non-tender, soft Musculoskeletal: nl extremities to inspection Extremities: normal pulses Neurological: TEST PREPARER II-XII intact, nl mental status, nl speech Results Result Diagram: 10/11/16 0819 10/11/16 0814 Results 24 hrs Laboratory Tests Test 10/10/16 17:20 10/10/16 22:06 10/11/16 08:14 10/11/16 08:19 Bedside Glucose 84 104 Sodium Level 139 Potassium Level 4.1 Chloride Level 106 Carbon Dioxide Level 24 Anion Gap 13 Blood Urea Nitrogen 51 H Creatinine 3.16 H Glucose Level 92 Calcium Level 8.8 White Blood Count 7.5 # Red Blood Count 2.81 L Hemoglobin 9.0 L Hematocrit 26.5 L Mean Corpuscular Volume 94.3 Mean Corpuscular Hemoglobin 32.0 Mean Corpuscular Hemoglobin Concent 34.0 Red Cell Distribution Width 13.6 Platelet Count 206 Mean Platelet Volume 10.3 Neutrophils % 46.5 Lymphocytes % 36.5 Monocytes % 10.3 Eosinophils % 6.1 Basophils % 0.5 Nucleated Red Blood Cells % 0.0 Neutrophils # 3.5 Lymphocytes # 2.7 Monocytes # 0.8 Eosinophils # 0.5 Basophils # 0.0 Nucleated Red Blood Cells # 0.0 Test 10/11/16 08:20 10/11/16 11:44 Bedside Glucose 101 161 Medications Medications Current Medications Dextrose (D50w Syringe) ONCE PRN IV POC BLOOD GLUCOSE <250 MG/DL Last administered on 10/04/16 13:41; Admin Dose 50 ML; Start 10/04/16 at 13:30 Hydralazine HCl (Apresoline) 10 mg Q6H PRN IV SBP>160 Last administered on 10/07 22:42; Admin Dose 10 MG; Start 10/04/16 at 20:30 Diagnostic Test (Pha) (Accu-Chek) 1 ea 02 XX Last administered on 10/09/16 02: 00; Admin Dose 1 EA; Start 10/05/16 at 02:00 Miscellaneous Information 1 ea NOTE XX ; Start 10/04/16 at 21:30 Glucose (Glutose) 15 gm Q15M PRN PO DECREASED GLUCOSE; Start 10/04/16 at 21:30 Glucose (Glutose) 22.5 gm Q15M PRN PO DECREASED GLUCOSE; Start 10/04/16 at 21: 30 Dextrose (D50w Syringe) 25 ml Q15M PRN IV DECREASED GLUCOSE; Start 10/04/16 at 21:30 Dextrose (D50w Syringe) 50 ml Q15M PRN IV DECREASED GLUCOSE; Start 10/04/16 at 21:30 Glucagon (Glucagen) 1 mg Q15M PRN IM DECREASED GLUCOSE; Start 10/04/16 at 21:30 Glucose 15 gm 15 gm Q15M PRN BUCCAL DECREASED GLUCOSE; Start 10/04/16 at 21:30 Sodium Chloride (1/2 NS) 1,000 ml @ 125 mls/hr Q8H IV Last administered on 06:33; Admin Dose 125 MLS/HR; Start 10/04/16 at 23:45 Pantoprazole (Protonix Iv) 40 mg BID@06,18 IV Last administered on 10/11/16 06 :31; Admin Dose 40 MG; Start 10/05/16 at 06:00 Insulin Glargine (Lantus) 8 unit HS SC Last administered on 10/10/16 22:14; Admin Dose 8 UNIT; Start 10/05/16 at 21:00 Metoprolol Tartrate (Lopressor) 25 mg BID PO Last administered on 10/11/16 08: 33; Admin Dose 25 MG; Start 10/05/16 at 00:50 Ondansetron HCl (Zofran Inj) 4 mg Q6H PRN IV NAUSEA AND/OR VOMITING; Start at 00:30 Acetaminophen (Tylenol Tab) 500 mg Q6H PRN PO MILD PAIN &OR TEMP.>100.4F Last administered on 10/06/16 21:09; Admin Dose 500 MG; Start 10/05/16 at 00:30 Acetaminophen/ Hydrocodone Bitart ([place] (5/325)) 1 tab Q6H PRN PO PAIN; Start 10/05/16 at 00:30 Morphine Sulfate (morphine) 2 mg Q6H PRN IV PAIN; Start 10/05/16 at 00:30 Doxazosin Mesylate (Cardura) 2 mg HS PO Last administered on 10/10/16 22:16; Admin Dose 2 MG; Start 10/05/16 at 21:00 Amlodipine Besylate (Norvasc) 5 mg BID PO ; Start 10/11/16 at 12:30 KEVIN HENNING MD Oct 11, 2016 12:38
--- NOTE | 2016-10-11 12:54 | CONS ---
Date/Time of Note Date/Time of Note DATE: 10/06/16 TIME: 12:49 VK LE Assessment/Plan Assessment/Plan Chief Complaint/Hosp Course anemia. Occult stool is pending. Tentative plan for EGD/colonoscopy per GI Elevated tumor markers- CA 19-9 and PSA. Patient does report having unintentional weight loss of 20 pounds in a month. Marked concentric urinary bladder wall thickening with perivesical edema is observed suggesting sequelae of lower urinary tract inflammation and / or bladder outlet obstruction. Acute renal failure. postobstructive issue. No need for dialysis at this time per instructor tap dancing. Appears to be improving at present RE- UROLOGY EVAL Essential hypertension. Continue antihypertensives and adjust needed Diabetes. On insulin regimen. Will adjust as needed. Problems: Consultation Date/Type/Reason Admit Date/Time Oct 04, 2016 at 14:10 Date of Consultation: Oct 06, 2016 Type of Consultation: HEMEON Reason for Consultation ANEMIA WT LOSS Referring Provider: ALEXA CHAVEZ of Present Illness This is a 66-year-old male with past medical history of essential hypertension and type 2 diabetes mellitus, who came to the emergency room with the chief complaint of uncontrolled hypertension and dizziness. The patient verbalized that over the last 2 weeks his blood pressure has been difficult to control. The patient also verbalized 5 days of abdominal discomfort with decreased appetite and dark stools. The patient was complaining of nausea. He denied any vomiting. He denied any chest pain or dyspnea. The patient was complaining of headache. The patient denied any fevers or chills. The patient also verbalized dark stools. He denied any blood in stools or hematemesis. The patient verbalized that he has noticed a 20-pound weight loss within the past month. There were no reported night sweats. The patient is not the best historian. The patient denied any history of chronic kidney disease although he vaguely mentioned that he was told that his kidneys are not functioning "normal." In the emergency room, the patient was noticed to be in acute renal failure with a BUN and creatinine of 135 and 11.75, respectively. The patient was noticed to have a potassium of 6.7. The patient had no leukocytosis. He was noticed to have anemia with a hemoglobin and hematocrit of 9.3 and 26.6, respectively. The patient's coag panel was within normal limits. His urinalysis showed 3+ leukocyte esterase along with urine microscopic WBCs greater than 50, with trace total urine protein. The patient's chest x-ray was negative for any acute cardiopulmonary findings. A 12-lead EKG showed no evidence of any ST-T changes. The patient was treated with IV insulin along with Kayexalate and inhaled beta 2 agonist for hyperkalemia. PT'S MEDIAL W-UP AND TREATMENT ARE IN PROGRESS I WAS ASKED TO PROVIDE HEMEONC CONSULT RE ANEMIA AND WT LOSS Constitutional: No requiring O2 Eyes: no complaints ENT: no complaints Respiratory: no complaints Cardiovascular: no complaints Gastrointestinal: nausea, vomiting Genitourinary: no complaints Musculoskeletal: no complaints Skin: no complaints Neurologic: no complaints Endocrine: no complaints Lymphatic: no complaints Psychological: no complaints Past Medical History Medical History: diabetes, hypertension Past Surgical History Past Surgical Hx: cholecystectomy Social History Alcohol Use: none Smoking Status: Former smoker Drug Use: none Exam/Review of Systems Vital Signs Vitals Vital Signs Date Time Temp Pulse Resp B/P Pulse Ox O2 Delivery O2 Flow Rate FiO2 10/06/16 20:00 97.9 70 18 137/98 100 10/05/16 16:45 Room Air 10/04/16 16:30 21 10/04/16 11:55 2 Intake and Output 10/05/16 10/05/16 10/06/16 15:00 23:00 07:00 Intake Total 437 ml 2000 ml 1975 ml Output Total 4300 ml 1800 ml Balance 437 ml -2300 ml 175 ml Exam Constitutional: alert, oriented, well developed Psych: nl mood/affect, no complaints Head: atraumatic, normocephalic Eyes: EOMI, PERRL, nl conjunctiva, nl lids, nl sclera ENMT: nl external ears & nose, nl lips & teeth, nl nasal mucosa & septum Neck: non-tender, supple Respiratory: clear to auscultation, normal air movement Cardiovascular: nl pulses, regular rate and rhythm Gastrointestinal: nl liver, spleen, non-tender, soft Genitourinary - Male: other Musculoskeletal: nl extremities to inspection, nl gait and stance Extremities: normal pulses Neurological: PARK [place]ARDEN II-XII intact, nl mental status, nl speech, nl strength Skin: nl turgor, No rash or lesions Lymph: nl lymph nodes Results 10/04/16 1117 10/06/16 1130 Results 24 hrs Laboratory Tests Test 10/06/16 08:11 10/06/16 11:30 10/06/16 12:35 10/06/16 17:18 Bedside Glucose 118 176 100 Sodium Level 134 L Potassium Level 3.8 Chloride Level 101 Carbon Dioxide Level 21 Anion Gap 16 # Blood Urea Nitrogen 85 #H Creatinine 6.86 #H Glucose Level 166 Calcium Level 8.7 Test 10/06/16 21:07 Bedside Glucose 90 Result Diagram: 10/11/16 0819 10/11/16 0814 Results 24 hrs Laboratory Tests Test 10/10/16 17:20 10/10/16 22:06 10/11/16 08:14 10/11/16 08:19 Bedside Glucose 84 104 Sodium Level 139 Potassium Level 4.1 Chloride Level 106 Carbon Dioxide Level 24 Anion Gap 13 Blood Urea Nitrogen 51 H Creatinine 3.16 H Glucose Level 92 Calcium Level 8.8 White Blood Count 7.5 # Red Blood Count 2.81 L Hemoglobin 9.0 L Hematocrit 26.5 L Mean Corpuscular Volume 94.3 Mean Corpuscular Hemoglobin 32.0 Mean Corpuscular Hemoglobin Concent 34.0 Red Cell Distribution Width 13.6 Platelet Count 206 Mean Platelet Volume 10.3 Neutrophils % 46.5 Lymphocytes % 36.5 Monocytes % 10.3 Eosinophils % 6.1 Basophils % 0.5 Nucleated Red Blood Cells % 0.0 Neutrophils # 3.5 Lymphocytes # 2.7 Monocytes # 0.8 Eosinophils # 0.5 Basophils # 0.0 Nucleated Red Blood Cells # 0.0 Test 10/11/16 08:20 10/11/16 11:44 Bedside Glucose 101 161 Medications Medications Current Medications Dextrose (D50w Syringe) ONCE PRN IV POC BLOOD GLUCOSE <250 MG/DL Last administered on 10/04/16 13:41; Admin Dose 50 ML; Start 10/04/16 at 13:30 Hydralazine HCl (Apresoline) 10 mg Q6H PRN IV SBP>160 Last administered on 10/07 22:42; Admin Dose 10 MG; Start 10/04/16 at 20:30 Diagnostic Test (Pha) (Accu-Chek) 1 ea 02 XX Last administered on 10/09/16 02: 00; Admin Dose 1 EA; Start 10/05/16 at 02:00 Miscellaneous Information 1 ea NOTE XX ; Start 10/04/16 at 21:30 Glucose (Glutose) 15 gm Q15M PRN PO DECREASED GLUCOSE; Start 10/04/16 at 21:30 Glucose (Glutose) 22.5 gm Q15M PRN PO DECREASED GLUCOSE; Start 10/04/16 at 21: 30 Dextrose (D50w Syringe) 25 ml Q15M PRN IV DECREASED GLUCOSE; Start 10/04/16 at 21:30 Dextrose (D50w Syringe) 50 ml Q15M PRN IV DECREASED GLUCOSE; Start 10/04/16 at 21:30 Glucagon (Glucagen) 1 mg Q15M PRN IM DECREASED GLUCOSE; Start 10/04/16 at 21:30 Glucose 15 gm 15 gm Q15M PRN BUCCAL DECREASED GLUCOSE; Start 10/04/16 at 21:30 Sodium Chloride (1/2 NS) 1,000 ml @ 125 mls/hr Q8H IV Last administered on 06:33; Admin Dose 125 MLS/HR; Start 10/04/16 at 23:45 Pantoprazole (Protonix Iv) 40 mg BID@06,18 IV Last administered on 10/11/16 06 :31; Admin Dose 40 MG; Start 10/05/16 at 06:00 Insulin Glargine (Lantus) 8 unit HS SC Last administered on 10/10/16 22:14; Admin Dose 8 UNIT; Start 10/05/16 at 21:00 Metoprolol Tartrate (Lopressor) 25 mg BID PO Last administered on 10/11/16 08: 33; Admin Dose 25 MG; Start 10/05/16 at 00:50 Ondansetron HCl (Zofran Inj) 4 mg Q6H PRN IV NAUSEA AND/OR VOMITING; Start at 00:30 Acetaminophen (Tylenol Tab) 500 mg Q6H PRN PO MILD PAIN &OR TEMP.>100.4F Last administered on 10/06/16 21:09; Admin Dose 500 MG; Start 10/05/16 at 00:30 Acetaminophen/ Hydrocodone Bitart ([place] (5/325)) 1 tab Q6H PRN PO PAIN; Start 10/05/16 at 00:30 Morphine Sulfate (morphine) 2 mg Q6H PRN IV PAIN; Start 10/05/16 at 00:30 Doxazosin Mesylate (Cardura) 2 mg HS PO Last administered on 10/10/16 22:16; Admin Dose 2 MG; Start 10/05/16 at 21:00 Amlodipine Besylate (Norvasc) 5 mg BID PO Last administered on 10/11/16 12:30 ; Admin Dose 5 MG; Start 10/11/16 at 12:30 KEVIN HENNING MD Oct 11, 2016 12:54
--- NOTE | 2016-10-11 15:16 | PDOCDIS ---
Discharge Instructions DIAGNOSIS Discharge Diagnosis 1. Acute renal failure secondary to postobstructive uropathy 2. Elevated PSA and tumor markers 3.Anemia 4. Moderate bilateral symmetric hydroureteronephrosis without evidence of nephroureterolithiasis 5. Essential hypertension 6. Diabetes CONDITION Patient Condition: Stable HOME CARE INSTRUCTIONS: Special Diet: Renal, carb controlled FOLLOW UP/APPOINTMENTS Follow-up Plan Follow up with : 1) Dr. Fabrice Cummings, in one week 2) Dr. Beka Alves in one week 3) Dr. Flor Araujo within one week ALEXA CHAVEZ Oct 11, 2016 15:16
[2016-10-11] MEDS ORDERED: PANT40TA4 PO (15:21)
[2016-10-11] MEDS ORDERED: DOXA2TAB61 PO (15:21)
[2016-10-11] MEDS ORDERED: HYDR-3498 PO (15:21)
[2016-10-11] MEDS ORDERED: METO-448 PO (15:21)
[2016-10-11] MEDS ORDERED: SITA25TA3 PO (15:21)
[2016-10-11] MEDS ORDERED: AMLO-145 PO (15:21)
[2016-10-11] MEDS ORDERED: PANTOPRAZOLE (EC) 40 MG TAB PO SCH (18:00)
--- NOTE | 2016-10-11 21:44 | CONS ---
Date/Time of Note Date/Time of Note DATE: 10/11/16 TIME: 21:41 Assessment/Plan Assessment/Plan Chief Complaint/Hosp Course Discussed with STABBER, pt may be dcd with Zhang tho must be fillowed by Will also need renal f/u for anemia Problems: Consultation Date/Type/Reason Admit Date/Time Oct 04, 2016 at 14:10 Initial Consult Date 10/05/16 Type of Consultation: renal Referring Provider: ALEXA CHAVEZ Exam/Review of Systems Vital Signs Vitals Vital Signs Date Time Temp Pulse Resp B/P Pulse Ox O2 Delivery O2 Flow Rate FiO2 10/11/16 16:18 97.8 67 17 157/73 100 10/10/16 20:00 Room Air Intake and Output 10/10/16 10/10/16 10/11/16 15:00 23:00 07:00 Intake Total 2255 ml 1700 ml Output Total 1600 ml 2500 ml Balance 655 ml -800 ml Exam Constitutional: alert, oriented, well developed Psych: nl mood/affect, no complaints Head: atraumatic, normocephalic Eyes: EOMI, PERRL, nl conjunctiva, nl lids, nl sclera ENMT: nl external ears & nose, nl lips & teeth, nl nasal mucosa & septum Neck: non-tender, supple Respiratory: clear to auscultation, normal air movement Cardiovascular: nl pulses, regular rate and rhythm Gastrointestinal: nl liver, spleen, non-tender, other, soft Genitourinary - Male: other (Still has zhang catheter) Musculoskeletal: nl extremities to inspection, nl gait and stance Extremities: normal pulses Neurological: PROPAGATION MANAGER II-XII intact, nl mental status, nl speech, nl strength Skin: nl turgor, No rash or lesions Lymph: nl lymph nodes Results Renal fn has stablized to a baseline of ckd 4 level Result Diagram: 10/11/16 0819 10/11/16 0814 Results 24 hrs Laboratory Tests Test 10/10/16 22:06 10/11/16 08:14 10/11/16 08:19 10/11/16 08:20 Bedside Glucose 104 101 Sodium Level 139 Potassium Level 4.1 Chloride Level 106 Carbon Dioxide Level 24 Anion Gap 13 Blood Urea Nitrogen 51 H Creatinine 3.16 H Glucose Level 92 Calcium Level 8.8 White Blood Count 7.5 # Red Blood Count 2.81 L Hemoglobin 9.0 L Hematocrit 26.5 L Mean Corpuscular Volume 94.3 Mean Corpuscular Hemoglobin 32.0 Mean Corpuscular Hemoglobin Concent 34.0 Red Cell Distribution Width 13.6 Platelet Count 206 Mean Platelet Volume 10.3 Neutrophils % 46.5 Lymphocytes % 36.5 Monocytes % 10.3 Eosinophils % 6.1 Basophils % 0.5 Nucleated Red Blood Cells % 0.0 Neutrophils # 3.5 Lymphocytes # 2.7 Monocytes # 0.8 Eosinophils # 0.5 Basophils # 0.0 Nucleated Red Blood Cells # 0.0 Test 10/11/16 11:44 Bedside Glucose 161 ALEXSANDRA WILSON MD Oct 11, 2016 21:44
--- NOTE | 2016-10-13 08:24 | PN ---
DATE: 10/10/2016 SUBJECTIVE: This 66-year-old unfortunate gentleman was brought to the hospital with acute renal failure. The patient has since been placed on Shannon catheter and has been draining urine. The patient has shown marked improvement in the renal function, although creatinine seems to have stabilized at 3.66 on the date of consultation when the patient is was seen at 8:00 in the morning. Electrolytes are normal, and his hematocrit remains low. White count is also normal. The patient has had extensive workup and is under the care of a drafter chief design. Multiple studies have included CT abdomen, and this has shown hydronephrosis. The patient also has hyperinflation of the lungs, and the kidneys have since improved in size. The patient is getting a 24-hour urine study, and creatinine clearance is being requested. The rest of the past history is available in the chart, and the patient is maintained on multiple medications including 1. Protonix. 2. Insulin coverage. 3. Calcium carbonate. 4. Morphine. 5. Hydralazine And some other p.r.n. medications such as 6. Tylenol. 7. Reglan. Please note pt presented with Obstructive Urptahy which may haave resolved. The Urologist plans to lave Shannon in place & fu pt as outpt. In regard to CKD, renal fn may have stabilized to the range of CKD4 & I will continue to follow the patient's renal function closely, and I will leave the rest of the plans in the hands of the primary care physician. Dictated By: ALEXSANDRA SONG/RACHELLE Conf#: [id number] DID#: [id number] KODAK
== END 2016-10-11 18:41 | disposition home or self-care (01) | DRG 683 ==
LOC: E/R 10:10 → MS4 14:10
PROVIDERS: ADMIT Family Medicine; ATTEND Family Medicine
PROC: 0DJD8ZZ Inspection of Lower Intestinal Tract, Via Natural or Artificial Opening Endoscopic (ICD-10-PCS; principal; 2016-10-08 18:30)
PROC: 0DB68ZX Excision of Stomach, Via Natural or Artificial Opening Endoscopic, Diagnostic (ICD-10-PCS; 2016-10-08 18:30)
PROC: CW1N1ZZ Planar Nuclear Medicine Imaging of Whole Body using Technetium 99m (Tc-99m) (ICD-10-PCS; 2016-10-10)
DX: N17.9 Acute kidney failure, unspecified (principal); K92.1 Melena; E11.8 Type 2 diabetes mellitus with unspecified complications; I10 Essential (primary) hypertension; E87.5 Hyperkalemia; N13.30 Unspecified hydronephrosis; D64.9 Anemia, unspecified; R63.4 Abnormal weight loss; F34.1 Dysthymic disorder; R97.20 Elevated prostate specific antigen [PSA]; R97.8 Other abnormal tumor markers; K64.8 Other hemorrhoids; K20.9 Esophagitis, unspecified; K29.70 Gastritis, unspecified, without bleeding; K29.80 Duodenitis without bleeding; K31.89 Other diseases of stomach and duodenum; R33.9 Retention of urine, unspecified
CPT/HCPCS: 36415; 71010; 74176; 74430; 76775; 78306; 80048; 80053; 80061; 81001; 82270; 82378; 82575; 82652; 82728; 82962; 83036; 83540; 83735; 83935; 83970; 84100; 84153; 84154; 84300; 84439; 84443; 84484; 85025; 85610; 85730; 86301; 86803; 86850; 86900; 86901; 87086; 87340; 88305; 88312; 93005; 94664; 96374; 96375; A9503; C9113; J0360; J1815; J2250; J7030; J7042; Q9958

== ENCOUNTER 2017-01-06 12:19 | Inpatient (IN) | payer MEDICARE, MEDICAID ==
[2017-01-06] VITALS (9 sets, daily range): BP systolic 141–176; BP diastolic 76–87; PULSE 84–89
[~2017-01-06] VITALS: Ht 167.6 cm; Wt 68.8 kg
[~2017-01-06 12:19] MED LIST: AMLO-145 PO; ASPI81TA3 PO; DOXA2TAB61 PO; FLUO20CA38 PO; HYDR-3498 PO; METO-448 PO; PANT40TA4 PO; SITA25TA3 PO
--- NOTE | 2017-01-06 15:52 | ERA ---
ER Documentation Chief Complaint Date/Time DATE: 01/06/17 TIME: 15:52 Chief Complaint AP, NAUSEA & VOMITING X2 WEEKS HPI 66-year-old male with history of diabetes, hypertension and renal failure ambulatory to the ED complaining of a 2 week history of generalized, crampy, moderate to severe epigastric abdominal pain with nausea, nonbilious nonbloody emesis and anorexia. Reports 20 pounds in the last 2 weeks. Polyuria but no dysuria, hematuria or flank pain. No hematemesis, hematochezia or melanotic stools. Denies chest pain, palpitations or shortness of breath. No headache, visual changes, focal weakness or numbness. No fevers, chills or night sweats. ROS All systems reviewed and are negative except as per history of present illness. Medications Home Meds Reported Medications Metformin Hcl* (Metformin Hcl*) 1,000 Mg Tablet, 1000 MG PO WITH BREAKFAST DINNE , #60 TAB 01/06/17 Discontinued Reported Medications Metformin Hcl* (Metformin Hcl*) 1,000 Mg Tablet, 1000 MG PO WITH BREAKFAST DINNE , #60 TAB 01/06/17 Aspirin* (Aspirin* Chew) 81 Mg Tab.chew, 81 MG PO DAILY, TAB.CHEW 10/04/16 Fluoxetine Hcl* (Prozac*) 20 Mg Capsule, 20 MG PO DAILY, CAP 10/04/16 Discontinued Scripts Sitagliptin* (Januvia*) 25 Mg Tablet, 25 MG PO DAILY, #30 TAB Prov:REGALEXA CONNELLY 10/11/16 Doxazosin Mesylate* (Cardura*) 2 Mg Tablet, 2 MG PO HS for 30 Days, TAB Prov:REGALEXA CONNELLY 10/11/16 Hydrocodone Bit-Acetaminophen (Hydrocodone Bit-APAP) 5-325MG Tablet, 1 TAB PO Q6H Y for PAIN, #25 TAB Prov:REGALEXA CONNELLY 10/11/16 Metoprolol Tartrate* (Lopressor*) 25 Mg Tab, 25 MG PO BID for 30 Days, TAB Prov:REGALEXA CONNELLY 10/11/16 Pantoprazole (Protonix) 40 Mg Tabec, 40 MG PO BID for 30 Days, TAB Prov:REGALEXA CONNELLY 10/11/16 Amlodipine Besylate* (Amlodipine Besylate*) 5 Mg Tablet, 5 MG PO BID for 30 Days , TAB Prov:REGIDOR,ALEXA 10/11/16 Allergies Allergies: Coded Allergies: Penicillins (Unverified Allergy, Unknown, 01/06/17) PMhx/Soc Reviewed in chart. As per HPI History of Surgery: Yes (Cholecystectomy) Anesthesia Reaction: No Hx Neurological Disorder: No Hx Respiratory Disorders: No Hx Cardiac Disorders: Yes (HTN) Hx Psychiatric Problems: No Hx Miscellaneous Medical Probl: Yes (Renal failure, prostatism) Hx Alcohol Use: Yes (OCCASSIONAL) Hx Substance Use: No Hx Tobacco Use: No FmHx No stroke or cancer Physical Exam Vitals Vital Signs Date Time Temp Pulse Resp B/P Pulse Ox O2 Delivery O2 Flow Rate FiO2 01/06/17 17:52 80 24 100 21 01/06/17 17:18 82 20 160/89 99 Room Air 01/06/17 12:22 97.9 83 16 184/79 99 Physical Exam Const: Alert, moderate distress, ill-appearing Head: Atraumatic Eyes: Pale Conjunctiva. Pupils equal react to light, extraocular movements are intact. ENT: Normal External Ears, Nose and Mouth. Neck: Full range of motion. JVD/ No meningismus. Resp: Diminished at the bases with crackles. No wheezing. Cardio: Regular rate and rhythm, no murmurs Abd: Soft, epigastric tenderness. No rebound or guarding. No masses or abnormal pulsations. Bowel sounds are present. Skin: No petechiae or rashes Back: No midline or flank tenderness Ext: No cyanosis, or edema Neur: Awake and alert. No focal deficit observed. Psych: Normal Mood and Affect Result Diagram: 01/07/17 1446 01/07/17 0451 Results 24 hrs Laboratory Tests Test 01/06/17 16:06 01/06/17 16:32 White Blood Count 5.410^3/ul Red Blood Count 2.0510^6/ul Hemoglobin 6.7g/dl Hematocrit 20.2% Mean Corpuscular Volume 98.5fl Mean Corpuscular Hemoglobin 32.7pg Mean Corpuscular Hemoglobin Concent 33.2g/dl Red Cell Distribution Width 12.8% Platelet Count 80746^3/UL Mean Platelet Volume 9.8fl Neutrophils % % Segmented Neutrophils % (Manual) 64% Lymphocytes % % Lymphocytes % (Manual) 25% Monocytes % % Monocytes % (Manual) 8% Eosinophils % % Eosinophils % (Manual) 3% Basophils % % Nucleated Red Blood Cells % 0.0/100WBC Neutrophils # 10^3/ul Absolute Lymphocytes (Manual) 1.310^3/ul Lymphocytes # 1.410^3/ul Monocytes # 0.410^3/ul Absolute Monocytes (Manual) 0.410^3/ul Eosinophils # 0.210^3/ul Basophils # 10^3/ul Nucleated Red Blood Cells # 10^3/ul Pathologist Review (Hematology) YES Urine Color YELLOW Urine Clarity SLIGHTLY CLOUDY Urine pH 6.0 Urine Specific [place] 1.009 Urine Ketones NEGATIVEmg/dL Urine Nitrite NEGATIVEmg/dL Urine Bilirubin NEGATIVEmg/dL Urine Urobilinogen NEGATIVEmg/dL Urine Leukocyte Esterase 3+Jesus/ul Urine Microscopic RBC 1/HPF Urine Microscopic WBC 96/HPF Urine Squamous Epithelial Cells FEW/HPF Urine Hemoglobin NEGATIVEmg/dL Urine Osmolality 299mOsm/kg Urine Random Sodium 48mmol/L Urine Glucose NEGATIVEmg/dL Urine Total Protein 1+mg/dl Sodium Level 131mmol/L Potassium Level 7.0mmol/L Chloride Level 97mmol/L Carbon Dioxide Level 16mmol/L Anion Gap 25 Blood Urea Nitrogen 143mg/dl Creatinine 15.53mg/dl Glucose Level 87mg/dl Calcium Level 8.7mg/dl Total Bilirubin 0.0mg/dl Direct Bilirubin 0.00mg/dl Indirect Bilirubin 0.0mg/dl Aspartate Amino Transf (AST/SGOT) < 8IU/L Alanine Aminotransferase (ALT/SGPT) 20IU/L Alkaline Phosphatase 70IU/L Total Protein 7.6g/dl Albumin 4.3g/dl Globulin 3.30g/dl Albumin/Globulin Ratio 1.30 Lipase 334U/L Bedside Glucose 99mg/dL Current Medications Medications (Trade) Dose Ordered Sig/Antwon Route PRN Reason Start Time Stop Time Status Last Admin Dose Admin Sodium Chloride (NS) 1,000 ml @ 1,000 mls/hr Q1H STAT IV 01/06/17 15:53 01/06/17 16:52 DC 01/06/17 16:15 Ondansetron HCl (Zofran Inj) 4 mg ONCE STAT IV 01/06/17 15:53 01/06/17 15:57 DC 01/06/17 16:15 Sodium Polystyrene Sulfonate (Kayexalate) 30 gm ONCE STAT PO 01/06/17 16:48 01/06/17 16:50 DC 01/06/17 17:10 Albuterol (Proventil 0.5% (Neb)) 15 mg ONCE STAT INH 01/06/17 16:48 01/06/17 16:50 DC 01/06/17 17:52 Insulin Human Regular (Humulin R) 10 unit ONCE STAT IV 01/06/17 16:48 01/06/17 16:50 DC 01/06/17 17:09 Dextrose (D50w Syringe) ONCE PRN IV POC BLOOD GLUCOSE <250 MG/DL 01/06/17 17:00 01/06/17 17:24 Sodium Bicarbonate 50 ml 50 ml ONCE STAT IV 01/06/17 16:49 01/06/17 16:51 DC 01/06/17 17:10 Sodium Chloride (NS) 1,000 ml @ 40 mls/hr Q24H IV 01/06/17 17:19 01/07/17 14:08 IV Flush (NS 3 ml) 3 ml PER PROTOCOL IV 01/06/17 17:30 Ondansetron HCl (Zofran Inj) 4 mg Q6H PRN IV NAUSEA AND/OR VOMITING 01/06/17 17:30 01/06/17 18:40 DC Albuterol (Proventil 0.083% (Neb)) 2.5 mg Q2H RESP THERAPY PRN NEB SHORTNESS OF BREATH 01/06/17 17:30 Acetaminophen (Tylenol Tab) 650 mg Q6H PRN PO PAIN LEVEL 1-3 OR FEVER 01/06/17 17:30 01/07/17 02:19 Morphine Sulfate (morphine) 2 mg Q4H PRN IV PAIN LEVEL 7-10 01/06/17 17:30 PROCEDURE: XR Chest. CLINICAL INDICATION: chest pain TECHNIQUE: Single AP view of the chest were obtained COMPARISON: None FINDINGS: The heart and mediastinum are within normal limits. The pulmonary vasculature are unremarkable. The aorta demonstrates atherosclerotic calcifications. There is prominence of the interstitial lung markings bilaterally with bibasilar areas of likely scarring or atelectasis. There is no consolidation or effusion or pneumothorax. Degenerative changes are seen within the thoracic spine. There is no acute osseous abnormality. IMPRESSION: Prominence of the interstitial lung markings could represent scarring however interstitial opacity is not excluded. Atherosclerotic disease. RPTAT: AA .Madison Ledesma MD, MD Date Time Electronically viewed and signed by .Madison Ledesma MD, MD on 01/06/2017 16:16 .J/ EKG: Time: 16: 47. Sinus rhythm. Ventricular rate 74. MT and QRS. No acute ST segment elevation or depression. Prolonged QTc. No ectopy. ED interpretation: Abnormal ECG Procedures/MDM DOCUMENTS REVIEWED: ED nurse, prior ED, prior records MEDICAL DECISION MAKIN-year-old male with history of diabetes, hypertension and renal failure ambulatory to the ED complaining of a 2 week history of generalized, crampy, moderate to severe epigastric abdominal pain with nausea, nonbilious nonbloody emesis and anorexia. Patient with acute on chronic renal failure and critical hyperkalemia treated aggressively with nebulized beta agonists, D50, sodium bicarb and Kayexalate but will need emergent dialysis. Previous admission in September 2016 for acute renal failure which was likely postobstructive with bilateral hydronephrosis and elevated tumor markers suspicion for occult malignancy. Severe anemia, but no hypotension, hemodynamically stable. No evidence of acute blood loss. Pulmonary vascular congestion volume overload. Epigastric tenderness and borderline elevated lipase. No rebound, guarding or signs of peritonitis. Urinary retention pending zhang placement. Admit to ICU for emergent dialysis, nephrology consultation, further evaluation and management. Counseled patient regarding diagnosis, diagnostic results and plan for admission. CRITICAL CARE TIME: Due to the high probability of sudden clinically significant hemodynamic, respiratory and cardiovascular deterioration, this patient with hyperkalemia due to acute on chronic renal failure required multiple, frequent reevaluations of vital signs and response to therapy. Additional critical care time was spent in interpretation of relevant clinical, review of previous medical records and arranging for ongoing care with the jacquard loom card changer, Dr Joshi and admitting physician, Dr. Jensen. TOTAL CRITICAL CARE TIME: 35 minutes not including other separately reportable procedures. CALLS/CONSULTS: Time 17:04, Dr. Gayle Jensen, Recommends ICU. CALLS/CONSULTS: Time 17:05, Dr. Joshi, Recommends Gabriel catheter placement for urgent dialysis. CALLS/CONSULTS: Time 17:10, Dr. Kati Tian. CALLS/CONSULTS: Time 17:29, Dr. Paula will place Matthew. PATIENT CARE TRANSITIONED: Time: 17:09, Dr. Malathi Jensen. Departure Diagnosis: Primary Impression: Acute hyperkalemia Additional Impressions: Acute on chronic renal failure Qualified Code: N17.9 - Acute renal failure superimposed on chronic kidney disease, unspecified CKD stage, unspecified acute renal failure type Severe anemia Abdominal pain, acute, epigastric Hypertension Qualified Code: I10 - Hypertension, unspecified type Obstructive uropathy Condition: Critical THIERRY RECIO MD Jan 06, 2017 15:52
[2017-01-06] MEDS ORDERED: ONDANSETRON 4 MG INJ IV STA (15:53)
[2017-01-06] MEDS ORDERED: SOD CHLORIDE 0.9% 1,000 ML IV STA (15:53)
--- NOTE | 2017-01-06 16:16 | RADRPT ---
PROCEDURE: XR Chest. CLINICAL INDICATION: chest pain TECHNIQUE: Single AP view of the chest were obtained COMPARISON: None FINDINGS: The heart and mediastinum are within normal limits. The pulmonary vasculature are unremarkable. The aorta demonstrates atherosclerotic calcifications. There is prominence of the interstitial lung ma rkings bilaterally with bibasilar areas of likely scarring or atelectasis. There is no consolidation or effusion or pneumothorax. Degenerative changes are seen within the thoracic spine. There is no acute osseous abnormality. IMPRESSION: Prominence of the interstitial lung markings could represent scarring however interstitial opacity i s not excluded. Atherosclerotic disease. RPTAT: AA .Madison Ledesma MD, Date Time Electronically viewed and signed by .Madison Ledesma MD, on 01/06/2017 16:16 .Eliot/
[2017-01-06 16:20] LABS: ABNORMAL IP MESSAGE 1; HEMATOCRIT 20.2 % (42.0-52.0); MEAN CORPUSCULAR HEMOGLOBIN 32.7 pg (29.0-33.0); MEAN CORPUSCULAR HGB CONC 33.2 g/dl (32.0-37.0); MEAN CORPUSCULAR VOLUME 98.5 fl (82.0-101.0); MEAN PLATELET VOLUME 9.8 fl (7.4-10.4); PLATELET COUNT 160 10^3/UL (140-415); POSITIVE DIFF @See below; RED BLOOD COUNT 2.05 10^6/ul (4.70-6.10); RED CELL DISTRIBUTION WIDTH 12.8 % (11.5-14.5); WHITE BLOOD COUNT 5.4 10^3/ul (4.8-10.8)
[2017-01-06 16:35] LABS: HEMOGLOBIN 6.7 g/dl (14.0-18.0)
[2017-01-06 16:36] LABS: PATH REVIEW? YES
[2017-01-06 16:40] LABS: ALANINE AMINOTRANSFERASE 20 IU/L (13-69); ALBUMIN 4.3 g/dl (3.3-4.9); ALKALINE PHOSPHATASE 70 IU/L (42-121); ANION GAP 25 (8-16); ASPARTATE AMINO TRANSFERASE < 8 IU/L (15-46); CALCIUM 8.7 mg/dl (8.4-10.2); CARBON DIOXIDE 16 mmol/L (21-31); CHLORIDE 97 mmol/L (97-110); GLUCOSE 87 mg/dl (70-220); SODIUM 131 mmol/L (135-144); TOTAL PROTEIN 7.6 g/dl (6.1-8.1)
[2017-01-06 16:46] LABS: CREATININE 15.53 mg/dl (0.61-1.24)
[2017-01-06] MEDS ORDERED: ALBUTEROL 0.5% (NEB) 2.5 MG/0.5 ML AMP INH STA (16:48)
[2017-01-06] MEDS ORDERED: INSULIN REGULAR, HUMAN 100 UNIT/1 ML 3ML VIAL IV STA (16:48)
[2017-01-06] MEDS ORDERED: NA POLYST SULFON 15 GM/60 ML BTL PO STA (16:48)
[2017-01-06 16:49] LABS: BLOOD UREA NITROGEN 143 mg/dl (7-20)
[2017-01-06] MEDS ORDERED: NA BICARBONATE 8.4% 50 ML SYG IV STA (16:49)
[2017-01-06 16:52] LABS: EOSINOPHILS # 0.2 10^3/ul (0.0-0.5); EOSINOPHILS % (M) 3 % (0.0-7.0); LYMPHOCYTES # 1.4 10^3/ul (0.8-2.9); MONOCYTE # 0.4 10^3/ul (0.3-0.9); MONOCYTES % (M) 8 % (0-11)
[2017-01-06 16:56] LABS: ADD UMIC YES; UR ASCORBIC ACID NEGATIVE (NEGATIVE); UR BILIRUBIN (Dip) NEGATIVE (NEGATIVE); UR BLOOD (Dip) NEGATIVE (NEGATIVE); UR CLARITY SLIGHTLY CLOUDY (CLEAR); UR COLOR YELLOW (YELLOW); UR GLUCOSE (Dip) NEGATIVE (NEGATIVE); UR KETONES (Dip) NEGATIVE (NEGATIVE); UR LEUKOCYTE ESTERASE (Dip) 3+ Leu/ul (NEGATIVE); UR NITRITE (Dip) NEGATIVE (NEGATIVE); UR RBC 1 /HPF (0-5); UR SPECIFIC GRAVITY (Dip) 1.009 (1.003-1.030); UR SQUAMOUS EPITHELIAL CELL FEW /HPF (FEW); UR TOTAL PROTEIN (Dip) 1+ mg/dl (NEGATIVE); UR UROBILINOGEN (Dip) NEGATIVE (NEGATIVE)
[2017-01-06] MEDS: DEXTROSE 50% 50 ML SYRINGE IV PRN ×2 (17:10→17:24)
[2017-01-06] MEDS ORDERED: METF1000 PO ×2 (17:26→17:27)
[2017-01-06] MEDS ORDERED: NACL 0.9% 3 ML SYG IV SCH (17:30)
[2017-01-06] MEDS ORDERED: morphine 2 MG INJ IV PRN (17:30)
[2017-01-06] MEDS ORDERED: ALBUTEROL 0.083% (NEB) 2.5 MG/3 ML AMP NEB PRN (17:30)
[2017-01-06] MEDS ORDERED: ONDANSETRON 4 MG INJ IV PRN (17:30)
--- NOTE | 2017-01-06 17:36 | RADRPT ---
PROCEDURE: Renal US. CLINICAL INDICATION: Hydronephrosis. TECHNIQUE: Multiple sonographic images of the kidneys and urinary bladder were obtained. The imag es were reviewed on a PACS workstation. COMPARISON: CT scan of the abdomen and pelvis dated 10/06/2016. FINDINGS: The right kidney measures 11.4 x 5.7 x 5.3 cm. The left kidney measures 10.1 x 5.3 x 4.2 cm. There is no renal mass. There is moderate bilateral hydronephrosis with right worse than left. No obstructing lesion is visu alized. There is no renal calculus. Renal parenchymal thickness is normal bilaterally. Both kidneys are hyperechoic consistent with medical renal disease. The perirenal regions are normal with no fluid collection or mass. The urinary bladder is distended. IMPRESSION: 1. Moderate bilateral hydronephrosis with right worse than left. 2. Bilateral hyperechoic kidneys consistent with medical renal disease. 3. Distended urinary bladder. RPTAT: QQ .Francisco Tian MD, MD Date Time Electronically viewed and signed by .Francisco Tian MD, MD on 01/06/2017 17:36 .R/
--- NOTE | 2017-01-06 18:06 | HP ---
Date/Time of Note Date/Time of Note DATE: 01/06/17 TIME: 18:01 Assessment/Plan VTE Prophylaxis VTE Prophylaxis Intervention: contraindicated Lines/Catheters IV Catheter Type (from Nrs): Saline Lock Assessment/Plan Assessment/Plan 66 yo M with PMH HTN and DM presented with GI symptoms and found to have acute on chronic renal failure 1. Acute on chronic renal failure - Most likely prerenal component given 2 week history of nausea, diarrhea, and diminished intake - Patient found to have GFR 3.33, Cr 15.3 and BUN 143 - Nephrology on board and patient discussed with Dr. Joshi. Appreciate consultation and recommendations. Will plan to see patient but no need for emergent HD since hemodynamically stable and mentating well - His last recorded Cr from 09/2016 was 3.16 - Consult to vascular for Matthew cath placement in anticipation for dialysis 2. Abdominal pain - Most likely secondary to #1 - If no improvement after renal function begins to improve will work up further 3. Hyperkalemia - K 7.0 but no EKG changes and patient stable - Given insulin, dextrose, and Kayexalate - Will recheck K and continue to treat if still elevated 4. Metabolic acidosis - secondary to renal failure 5. Anemia of chronic disease - Hgb currently 6.7 and patient denies any darrell bleeding - Since patient clinically stable, will hold off giving a unit for now and will give with dialysis if needed. Will cause increase in K. Discussed with Dr. Joshi 6. ?UTI - Patient has minimal output over the past 2 weeks. - UA + and urine cultures ordered - Will start on Cipro for now and change once cultures return 7. Hypertension - stable - PRN medication if SBP>160 8. 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 Diet - NPO for now pending procedures 10. Code - Full Code 11. GI prophylaxis - Pepcid 12. Disposition - ICU for close monitoring. If continues to remain stable will transfer to telemetry in am >45 minutes spent with patient at time of admission HPI/ROS Admit Date/Time Admit Date/Time 01/06/17 Hx of Present Illness 66 yo M with PMH Diabetes Mellitus, remote history of Leukemia, and essential hypertension presented to the ED after experiencing nausea, fevers, chills, abdominal pain, diarrhea, and diminished urine output that has been worsening over the past 2 weeks. He also admits to fatigue, weakness with ambulation, and loss of appetite. Patient states he was in his normal state of health until he developed nausea, but has not been seen by anyone prior to presenting to ED. Patient was seen at [facility] for similar complaints in 09/2016 with renal failure and abdominal pain but never followed up. Patient was found to have acute on chronic renal failure with potassium of 7.0. He was given insulin, dextrose, and Kayexalate in the ED. His renal function was severely diminished with Cr 15. Patient is mentating well and vitals are stable. ROS Constitutional: fatigue, nausea, poor po, weight change, No chills, No febrile Eyes: no complaints ENT: no complaints Respiratory: cough, shortness of breath, No sputum, No wheezing Cardiovascular: No chest pain, No edema, No lightheadedness, No palpitations Gastrointestinal: decreased appetite, diarrhea, nausea, pain, No blood, No vomiting Genitourinary: other (dimished output), No dysuria, No flank pain Musculoskeletal: no complaints Skin: no complaints Neurologic: No confusion, No dizziness, No headache Endocrine: no complaints Lymphatic: no complaints Psychological: no complaints Immunologic: no complaints PMH/Family/Social Past Medical History Medical History: diabetes, hypertension, renal disease Past Surgical History Past Surgical Hx: cholecystectomy Family History Significant Family History: diabetes Social History Alcohol Use: none Smoking Status: Never smoker Drug Use: none Exam/Review of Systems Vital Signs Vitals Vital Signs Date Time Temp Pulse Resp B/P Pulse Ox O2 Delivery O2 Flow Rate FiO2 01/06/17 12:22 97.9 83 16 184/79 99 Exam Constitutional: alert, oriented, well developed Psych: nl mood/affect Head: atraumatic, normocephalic Eyes: EOMI, nl conjunctiva, nl sclera ENMT: mucosa pink and moist, nl external ears & nose Neck: non-tender, supple Respiratory: clear to auscultation, normal air movement, No crackles/rales, No diminished breath sounds Cardiovascular: nl pulses, regular rate and rhythm, No edema, No systolic murmur Gastrointestinal: soft, tender, No firm, No rebound or guarding Musculoskeletal: nl extremities to inspection Extremities: normal pulses Neurological: MARKET MASTER II-XII intact, nl mental status, nl speech, nl strength, No confused Skin: No diaphoresis, No ecchymosis, No laceration Lymph: nl lymph nodes Labs Result Diagram: 01/06/17 1606 01/06/17 1606 Medications Medications Current Medications Dextrose (D50w Syringe) ONCE PRN IV POC BLOOD GLUCOSE <250 MG/DL; Start at 17:00 RICHAR SCOTT MD Jan 06, 2017 18:05
[2017-01-06 18:17] LABS: AADO2 Arterial 81.8 mmHg (7.0-24.0); Allen Test ACCEPTAB; Arterial Base Excess -9.8 mmol/L (-3.0-3); Arterial COHb 0.3 % (0.0-3.0); Arterial Fraction of Oxyhgb 97.8 % (93.0-99.0); Arterial HCO3 15.5 mmol/L (22.0-26.0); Arterial MetHb 0.7 % (0.0-1.5); Arterial Total Hemglobin 6.7 g/dl (12.0-18.0); MODE MASK - CONT NEB TX
[2017-01-06] MEDS ORDERED: METOCLOPRAMIDE 10 MG INJ IV PRN (19:00)
[2017-01-06] MEDS: SOD CHLORIDE 0.9% 1,000 ML IV SCH (19:11)
--- NOTE | 2017-01-06 21:17 | OPR ---
DATE OF OPERATION: 01/06/2017 PREOPERATIVE DIAGNOSIS: Renal failure. POSTOPERATIVE DIAGNOSIS: Renal failure. OPERATION PERFORMED: Right femoral hemodialysis catheter placement. SURGEON: Hebert Paula MD ANESTHESIA: Local. OPERATIVE PROCEDURE: The complications and alternative therapies explained to the patient and the family. Consent obtained. The patient was placed in the supine position, prepped and draped in the usual sterile fashion, and 1 percent lidocaine was to the patient for local anesthesia. Access was gained in the right common femoral vein. Guidewire was advanced without any difficulty. Subcutaneous tissue was dilated to 19 cm tunneled hemodialysis catheter. It was then advanced into the right common femoral vein without any difficulty. Subcutaneous tissues were dilated. Catheter was secured to skin using 2-0 silk sutures. The patient tolerated the procedure well. Dictated By: Hebert Paula MD /lashae/newton /Document#: [id number]
[2017-01-06 23:20] LABS: ALBUMIN 3.5 g/dl (3.3-4.9); CALCIUM 7.9 mg/dl (8.4-10.2); CREATININE 8.01 mg/dl (0.61-1.24); PHOSPHORUS 5.7 mg/dl (2.5-4.9); POTASSIUM 3.7 mmol/L (3.5-5.1)
[2017-01-06] MEDS: CIPROFLOXACIN 400MG/D5W 200 ML IVPB SCH (23:39)
[2017-01-06] MEDS: FAMOTIDINE 20 MG INJ IV SCH (23:45)
[2017-01-07] VITALS (40 sets, daily range): BP systolic 144–194; BP diastolic 55–124; PULSE 73–140; RESP 11–25; Ht 167.6 cm; Wt 68.8 kg
[2017-01-07] MEDS: ACETAMINOPHEN 325 MG TAB PO PRN ×2 (02:19→20:02)
--- NOTE | 2017-01-07 03:36 | CONS ---
DATE OF ADMISSION: 01/06/2017 DATE OF CONSULTATION: 01/06/2017 HISTORY OF PRESENT ILLNESS: The patient is a 66-year-old retired man who was admitted to the hospital with chief complaints of weakness and abdominal pain. The patient speaks Kyrgyz & is a poor historian, & has been admitted to this facility previously. Please contact old record for the details. Pt was found to have high BUN/Creat & SK, nephrology consult therefore requested. In summary, patient has a known diagnosis of diabetes and hypertension. He has been followed by some physician. He has been maintained on the Januvia, Cardura, hydrocodone, Lopressor, Protonix, amlodipine, aspirin, and Prozac. He has been now also having generalized cramps and some abdominal discomfort with vomiting and poor appetite. He has lost 20 pounds of weight. The patient denied any darrell hematuria or bleeding from any source. He was found to have a hemoglobin level less than 7. He is already being transfused. LABORATORY: Reveals a white count of 5.4. Urinalysis: 3+ leukocyte esterase and pH 6. Sodium is 131. Urine sodium is pending. Serum sodium is 131, potassium 7, chloride 97, CO2 16. Blood pH is 7.31. BUN 143 and creatinine 15.5. Calcium is 8.7. Phosphorus is not available. Albumin is 4.3. The patient has already been given a large amount of IV fluids with not much urinary output, and he has been treated for hyperkalemia with bicarb, insulin, Kayexalate, and IV fluids. PAST MEDICAL HISTORY: The rest of the past history is that of cholecystectomy many years ago. SOCIAL HISTORY: The patient denies drug use, hepatitis. He has 3 boys. He is not working at the present time. He does not smoke or drink. ALLERGIES: NO KNOWN DRUG ALLERGIES. HISTORICAL EVENTS: The patient has been admitted to this hospital once before, and the record from then revealed that his hemoglobin was low and actually dropped from 37 to 26 percent. His BUN and creatinine evaluated, at that time, was 51 and 3.16. The patient did have some workup done during the previous admission including a cystogram and pelvic CT, renal ultrasound. The patient had bilateral hydronephrosis documented and was ?followed by Dr. Nava, who had treated him conservatively. The patient has already had a GI workup in the past as well for anemia. No GI bleeding at present. PHYSICAL EXAMINATION: GENERAL: The patient appears to be a pleasant gentleman who appears to be in no acute distress. VITALS: His blood pressure is slightly elevated, although has improved to 160/88, heart rate 82, temperature 97, respirations not labeled, and heart rate is stable at 70 per minute. HEENT: Eyes, pale conjunctivae. No scleral icterus. Nose, normal mucosa. Throat is pale, no pharyngeal congestion. NECK: Supple. No jugular venous distention. Trachea is midline. No lymph node thyroid enlargement is present. LUNGS: Chest is symmetrical. Lungs are clear. HEART: Regular rhythm. S1 S2 are nl. No murmurs. ABDOMEN: Flat. Surgical scar in right upper quadrant is well healed. Liver, spleen, and kidneys are not palpable. Genitalia are not examined. EXTREMITIES: No cyanosis, clubbing, or edema. SKIN: Pale. IMPRESSION: 1. History of diabetes, hypertension, probably end-stage kidney disease. 2. Rule out obstructive uropathy ? etiology, with ongoing CKD, irreversible. 3. Severe anemia may be due to the above. PLAN: This patient is well documented to have chronic kidney disease based on the findings on the previous admission, which, at this time, may have been aggravated by hypovolemia and/or progressive damage of the underlying kidney disease because of the chronic ongoing obstruction the reason for which is not forthcoming, except may be a neurogenic bladder due to DM. This is confirmed from the renal ultrasound that is available in the chart. At this time, urine studies may be of little value. The patient has not responded to fluid challenge. Hyperkalemia, anemia, suggestive of severe renal damage. Therefore, the patient is inevitably in need for hemodialysis. I will pursue that and figure out the long-term plan once the patient is stabilized. I will discuss the case with the admitting doctor. Thank you for this interesting consultation. Dictated By: Fabrice Cummings MD /lashae/trice /Document#: [id number] KODAK
[2017-01-07 03:48] LABS: ABNORMAL IP MESSAGE 1; BASOPHILS % 0.3 % (0.0-2.0); EOSINOPHILS # 0.2 10^3/ul (0.0-0.5); EOSINOPHILS % 4.1 % (0.0-7.0); HEMATOCRIT 16.2 % (42.0-52.0); LYMPHOCYTES # 0.9 10^3/ul (0.8-2.9); LYMPHOCYTES % 23.2 % (15.0-51.0); MEAN CORPUSCULAR HEMOGLOBIN 32.7 pg (29.0-33.0); MEAN CORPUSCULAR VOLUME 96.4 fl (82.0-101.0); MEAN PLATELET VOLUME 9.1 fl (7.4-10.4); MONOCYTE # 0.4 10^3/ul (0.3-0.9); MONOCYTES % 9.8 % (0.0-11.0); NEUTROPHIL # 2.3 10^3/ul (1.6-7.5); NEUTROPHILS % 62.3 % (39.0-77.0); PLATELET COUNT 126 10^3/UL (140-415); POSITIVE DIFF @See below; RED BLOOD COUNT 1.68 10^6/ul (4.70-6.10); RED CELL DISTRIBUTION WIDTH 12.7 % (11.5-14.5); WHITE BLOOD COUNT 3.7 10^3/ul (4.8-10.8)
[2017-01-07 03:54] LABS: HEMOGLOBIN 5.5 g/dl (14.0-18.0)
[2017-01-07] MEDS: SOD CHLORIDE 0.9% 1,000 ML IV SCH ×2 (05:23→14:08)
[2017-01-07 05:44] LABS: ABNORMAL IP MESSAGE 1; BASOPHILS % 0.2 % (0.0-2.0); EOSINOPHILS # 0.2 10^3/ul (0.0-0.5); EOSINOPHILS % 3.6 % (0.0-7.0); HEMATOCRIT 17.6 % (42.0-52.0); LYMPHOCYTES % 22.7 % (15.0-51.0); MEAN CORPUSCULAR HEMOGLOBIN 31.7 pg (29.0-33.0); MEAN CORPUSCULAR VOLUME 96.2 fl (82.0-101.0); MEAN PLATELET VOLUME 10.1 fl (7.4-10.4); MONOCYTE # 0.5 10^3/ul (0.3-0.9); MONOCYTES % 11.5 % (0.0-11.0); NEUTROPHIL # 2.6 10^3/ul (1.6-7.5); NEUTROPHILS % 61.8 % (39.0-77.0); PLATELET COUNT 144 10^3/UL (140-415); POSITIVE DIFF @See below; RED BLOOD COUNT 1.83 10^6/ul (4.70-6.10); RED CELL DISTRIBUTION WIDTH 12.7 % (11.5-14.5); WHITE BLOOD COUNT 4.2 10^3/ul (4.8-10.8)
[2017-01-07 05:51] LABS: ADD UMIC YES; UR ASCORBIC ACID NEGATIVE (NEGATIVE); UR BACTERIA MODERATE /HPF (NONE SEEN); UR BILIRUBIN (Dip) NEGATIVE (NEGATIVE); UR BLOOD (Dip) NEGATIVE (NEGATIVE); UR CLARITY CLEAR (CLEAR); UR COLOR YELLOW (YELLOW); UR GLUCOSE (Dip) NEGATIVE (NEGATIVE); UR KETONES (Dip) NEGATIVE (NEGATIVE); UR LEUKOCYTE ESTERASE (Dip) 3+ Leu/ul (NEGATIVE); UR NITRITE (Dip) NEGATIVE (NEGATIVE); UR RBC 4 /HPF (0-5); UR SPECIFIC GRAVITY (Dip) 1.009 (1.003-1.030); UR TOTAL PROTEIN (Dip) 1+ mg/dl (NEGATIVE); UR UROBILINOGEN (Dip) NEGATIVE (NEGATIVE); UR WBC CLUMPS FEW /HPF (NONE SEEN)
[2017-01-07 06:14] LABS: ALBUMIN 3.3 g/dl (3.3-4.9); CALCIUM 7.8 mg/dl (8.4-10.2); CREATININE 8.85 mg/dl (0.61-1.24); MAGNESIUM 2.8 mg/dl (1.7-2.5); PHOSPHORUS 7.4 mg/dl (2.5-4.9); POTASSIUM 4.5 mmol/L (3.5-5.1)
[2017-01-07 06:25] LABS: HEMOGLOBIN 5.8 g/dl (14.0-18.0)
[2017-01-07] MEDS: CALCIUM ACETATE 667 MG CAP PO SCH ×3 (07:35→17:50)
--- NOTE | 2017-01-07 10:06 | RADRPT ---
PROCEDURE: US bilateral upper extremity Venous. CLINICAL INDICATION: End-stage renal disease, vein mapping TECHNIQUE: Multiple sonographic images of the bilateral upper lower extremity deep an superficial venous system was obtained utilizing grayscale, color-flow, compressive sonography and doppler imagi ng with augmentation. Measurements were performed. The images were reviewed on a PACS workstation. COMPARISON: None. FINDINGS: RIGHT Right basilic vein size: Proximal: 5.6 mm Mid aspect: 3.8 mm Distal: 3.0 mm Right basilic vein size in the forearm: Proximal: 2.1 mm Mid aspect: 1.8 mm Distal: 2.0 mm Right cephalic vein size: Proximal: 2.5 mm Mid aspect: 1.3 mm Distal: 2.1 mm Right cephalic vein size in the forearm: Proximal: 1.8 mm Mid aspect: 1.4 mm Distal: 1.4 mm LEFT Left basilic vein size: Proximal: 5.3 mm Mid aspect: 4.0 mm Distal: 3.8 mm Left basilic vein size in the forearm: Proximal: 2.4 mm Mid aspect: 2.2. mm Distal: 1.9 mm Left cephalic vein size: Proximal: 2.4 mm Mid aspect: 0.8 mm Distal: Thrombosed Left cephalic vein size in the forearm: Thrombosed IMPRESSION: Vein mapping as described. Thrombosed left cephalic vein in the antecubital region and forearm. RPTAT: AA .Torsten Mejia MD, Date Time Electronically viewed and signed by .Torsten Mejia MD, on 01/07/2017 10:05 .S/
[2017-01-07] MEDS: hydrALAzine 20 MG INJ IV PRN ×2 (11:17→17:49)
[2017-01-07 15:12] LABS: PLATELET COUNT 139 10^3/UL (140-415)
[2017-01-07 15:13] LABS: HEMATOCRIT 27.9 % (42.0-52.0); HEMOGLOBIN 9.4 g/dl (14.0-18.0)
[2017-01-07 15:30] LABS: PROTIME 13.2 Sec (12.2-14.2)
[2017-01-07 15:31] LABS: PARTIAL THROMBOPLASTIN TIME 29.8 Sec (25.0-35.0); THROMBIN TIME 15.5 SEC (13.8-19.1)
[2017-01-07 15:34] LABS: D-DIMER 3313.56 ng/ml (<460)
--- NOTE | 2017-01-07 15:35 | PN ---
Date/Time of Note Date/Time of Note DATE: 01/07/17 TIME: 15:14 Assessment/Plan VTE Prophylaxis VTE Prophylaxis Intervention: SCD's Lines/Catheters IV Catheter Type (from Nrs): Saline Lock Urinary Cath still in place: Yes Reason Cath still needed: urinary retention Assessment/Plan Assessment/Plan 1. Acute on chronic renal failure - Nephrology on board and consultation appreciated - His last recorded Cr from 09/2016 was 3.16 - Matthew cath placement in place and will need more permanent access 2. Abdominal pain- improving - Most likely secondary to #1 - Had GI workup in 09/2016 3. Hyperkalemia- resolved - K 4.5. will continue monitoring 4. Hematuria - possible secondary to trauma? - KUB ordered and zhang repositioned - Will continue monitoring output 5. Anemia of chronic disease - hgb dropped to 5 and transfused 2 units. Repeat H/H - Since patient clinically stable, will hold off giving a unit for now and will give with dialysis if needed. Will cause increase in K. Discussed with Dr. Joshi 6. ?UTI - Patient has minimal output over the past 2 weeks. - UA + and urine cultures ordered - Continue on Cipro for now and change once cultures return 7. Hypertension - stable - PRN medication if SBP>160 8. 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 patient unsure type >35 min of critical care time was spent with patient Subjective 24 Hr Interval Summary Free Text/Dictation Patient currently receiving HD and tolerating well. He has been putting out red tinged urine since last night and c/o pain with urination. Catheter readjusted this afternoon with relief. Patient has no other complaints. Exam/Review of Systems Vital Signs Vitals Vital Signs Date Time Temp Pulse Resp B/P Pulse Ox O2 Delivery O2 Flow Rate FiO2 01/07/17 12:00 80 01/07/17 10:00 12 174/83 100 Room Air 01/07/17 08:00 97.8 01/06/17 17:52 21 Intake and Output 01/06/17 01/06/17 01/07/17 15:00 23:00 07:00 Intake Total 500 ml 100 ml Output Total 1500 ml 800 ml Balance -1000 ml -700 ml Exam General: alert, oriented, well developed Respiratory: clear to auscultation, normal air movement, No crackles/rales, No diminished breath sounds Cardiovascular: Regular rate and rhythm, No edema, No systolic murmur Gastrointestinal: soft, mild tenderness epigastric area, No rebound or guarding Musculoskeletal: nl extremities to inspection Extremities: normal pulses Neurological: DOCK CLERK II-XII intact, nl mental status, nl speech, nl strength, No confused Skin: No diaphoresis, No ecchymosis, No laceration Results Result Diagram: 01/07/17 1446 01/07/17 0451 Results 24 hrs Laboratory Tests Test 01/06/17 16:06 01/06/17 16:32 01/06/17 17:56 01/06/17 18:06 White Blood Count 5.4 # Red Blood Count 2.05 #L Hemoglobin 6.7 #*L Hematocrit 20.2 #L Mean Corpuscular Volume 98.5 Mean Corpuscular Hemoglobin 32.7 Mean Corpuscular Hemoglobin Concent 33.2 Red Cell Distribution Width 12.8 Platelet Count 160 # Mean Platelet Volume 9.8 Neutrophils % Segmented Neutrophils % (Manual) 64 Lymphocytes % Lymphocytes % (Manual) 25 Monocytes % Monocytes % (Manual) 8 Eosinophils % Eosinophils % (Manual) 3 Basophils % Nucleated Red Blood Cells % 0.0 Neutrophils # Absolute Lymphocytes (Manual) 1.3 Lymphocytes # 1.4 Monocytes # 0.4 Absolute Monocytes (Manual) 0.4 Eosinophils # 0.2 Basophils # Nucleated Red Blood Cells # Pathologist Review (Hematology) YES Urine Color YELLOW Urine Clarity SLIGHTLY CLOUDY A Urine pH 6.0 Urine Specific [place] 1.009 Urine Ketones NEGATIVE Urine Nitrite NEGATIVE Urine Bilirubin NEGATIVE Urine Urobilinogen NEGATIVE Urine Leukocyte Esterase 3+ H Urine Microscopic RBC 1 Urine Microscopic WBC 96 H Urine Squamous Epithelial Cells FEW Urine Hemoglobin NEGATIVE Urine Osmolality 299 Urine Random Sodium 48 Urine Glucose NEGATIVE Urine Total Protein 1+ H Sodium Level 131 L Potassium Level 7.0 *H Chloride Level 97 Carbon Dioxide Level 16 L Anion Gap 25 H Blood Urea Nitrogen 143 H Creatinine 15.53 H Glucose Level 87 Calcium Level 8.7 Total Bilirubin 0.0 L Direct Bilirubin 0.00 Indirect Bilirubin 0.0 Aspartate Amino Transf (AST/SGOT) < 8 L Alanine Aminotransferase (ALT/SGPT) 20 Alkaline Phosphatase 70 Total Protein 7.6 Albumin 4.3 Globulin 3.30 H Albumin/Globulin Ratio 1.30 Lipase 334 H Bedside Glucose 99 157 Blood Gas Specimen Source Blood arterial Arterial Blood Date Drawn 01/06/2017 6:14:15 PM Arterial Blood pH (Temp corrected) 7.312 L Arterial Blood pCO2 (Temp correct) 31.3 L Arterial Blood pO2 (Temp corrected) 203.5 H Arterial Blood HCO3 15.5 L Arterial Blood Base Excess -9.8 L Arterial Blood Oxygen Saturation 98.8 H Cristobal Test ACCEPTAB Arterial Blood Gas Puncture Site Right Radial Arterial Blood Carboxyhemoglobin 0.3 Arterial Blood Methemoglobin 0.7 Blood Gas A-a O2 Differential 81.8 H Oxyhemoglobin Percent 97.8 Total Hemoglobin 6.7 L Blood Gas Temperature 37.0 Blood Gas Modality MASK - CONT NEB TX FiO2 45.0 Blood Gas Notified Whom JMD Blood Gas Notified Time 01/06/2017 6:16:57 PM Test 01/06/17 18:45 01/06/17 22:30 01/06/17 22:42 01/07/17 03:42 Potassium Level 6.1 *H 3.7 # Urine Color YELLOW Urine Clarity CLEAR Urine pH 6.0 Urine Specific [place] 1.009 Urine Ketones NEGATIVE Urine Nitrite NEGATIVE Urine Bilirubin NEGATIVE Urine Urobilinogen NEGATIVE Urine Leukocyte Esterase 3+ H Urine Microscopic RBC 4 Urine Microscopic WBC 72 H Urine Bacteria MODERATE Urine Hemoglobin NEGATIVE Urine Glucose NEGATIVE Urine Total Protein 1+ H Sodium Level 136 Chloride Level 100 Carbon Dioxide Level 25 Anion Gap 15 # Blood Urea Nitrogen 78 #H Creatinine 8.01 #H Glucose Level 100 Calcium Level 7.9 L Phosphorus Level 5.7 H Albumin 3.5 Hepatitis B Surface Antigen NEGATIVE HIV (1&2) Antibody NEGATIVE White Blood Count 3.7 #L Red Blood Count 1.68 L Hemoglobin 5.5 *L Hematocrit 16.2 L Mean Corpuscular Volume 96.4 Mean Corpuscular Hemoglobin 32.7 Mean Corpuscular Hemoglobin Concent 34.0 Red Cell Distribution Width 12.7 Platelet Count 126 #L Mean Platelet Volume 9.1 Neutrophils % 62.3 Lymphocytes % 23.2 Monocytes % 9.8 Eosinophils % 4.1 Basophils % 0.3 Nucleated Red Blood Cells % 0.0 Neutrophils # 2.3 Lymphocytes # 0.9 Monocytes # 0.4 Eosinophils # 0.2 Basophils # 0.0 Nucleated Red Blood Cells # 0.0 Test 01/07/17 04:51 01/07/17 14:46 White Blood Count 4.2 L Red Blood Count 1.83 L Hemoglobin 5.8 *L Hematocrit 17.6 L Mean Corpuscular Volume 96.2 Mean Corpuscular Hemoglobin 31.7 Mean Corpuscular Hemoglobin Concent 33.0 Red Cell Distribution Width 12.7 Platelet Count 144 139 L Mean Platelet Volume 10.1 Neutrophils % 61.8 Lymphocytes % 22.7 Monocytes % 11.5 H Eosinophils % 3.6 Basophils % 0.2 Nucleated Red Blood Cells % 0.0 Neutrophils # 2.6 Lymphocytes # 1.0 Monocytes # 0.5 Eosinophils # 0.2 Basophils # 0.0 Nucleated Red Blood Cells # 0.0 Sodium Level 138 Potassium Level 4.5 Chloride Level 101 Carbon Dioxide Level 24 Anion Gap 18 H Blood Urea Nitrogen 79 H Creatinine 8.85 H Glucose Level 70 Hemoglobin A1c 5.2 Calcium Level 7.8 L Phosphorus Level 7.4 H Magnesium Level 2.8 H Albumin 3.3 Prothrombin Time Pending Prothrombin Time Ratio Pending INR International Normalized Ratio Pending Activated Partial Thromboplast Time Pending Thrombin Time Pending Fibrinogen Pending Plasma Fibrin Degradation Products Pending D-Dimer Pending Medications Medications Current Medications Dextrose ONCE PRN IV POC BLOOD GLUCOSE <250 MG/DL Last administered on 17:24; Admin Dose 50 ML; Start 01/06/17 at 17:00 Sodium Chloride (NS) 1,000 ml @ 40 mls/hr Q24H IV Last administered on 14:08; Admin Dose 40 MLS/HR; Start 01/06/17 at 17:19 Acetaminophen (Tylenol Tab) 650 mg Q6H PRN PO PAIN LEVEL 1-3 OR FEVER Last administered on 01/07/17 02:19; Admin Dose 650 MG; Start 01/06/17 at 17:30 Morphine Sulfate (morphine) 2 mg Q4H PRN IV PAIN LEVEL 7-10; Start 01/06/17 at 17:30 Famotidine (Pepcid Iv) 20 mg Q24H IV Last administered on 01/06/17 23:45; Admin Dose 20 MG; Start 01/06/17 at 21:00 Labetalol HCl (Labetalol) 10 mg Q4H PRN IV ELEVATED BLOOD PRESSURE; Start 01/06 at 18:00 Hydralazine HCl 10 mg 10 mg Q6 PRN IV ELEVATED BLOOD PRESSURE Last administered on 01/07/17 11:17; Admin Dose 10 MG; Start 01/06/17 at 18:00 Ciprofloxacin/ Dextrose (Cipro Ivpb) 200 ml @ 200 mls/hr Q24H IVPB Last administered on 01/06/17t 23:39; Admin Dose 200 MLS/HR; Start 01/06/17 at 23:00 Metoclopramide HCl (Reglan) 5 mg Q6H PRN IV NAUSEA; Start 01/06/17 at 19:00 RICHAR SCOTT MD Jan 07, 2017 15:24
--- NOTE | 2017-01-07 15:42 | RADRPT ---
PROCEDURE: XR Abdomen. CLINICAL INDICATION: Abdomen pain. TECHNIQUE: AP supine abdomen x-ray. COMPARISON: None. FINDINGS: The bowel gas pattern is normal with no evidence of obstruction. Surgical clips are present in the right upper quadrant of the abdomen, there is a Shannon catheter in the bladder, and there is a right femoral temporary dialysis catheter. There are no abnormal calcifications overlying the urinary tracts. The osseus structures are unremarkable. IMPRESSION: 1. No evidence of obstruction. 2. Prior right upper quadrant surgery. 3. Shannon catheter in the bladder. 4. Right femoral temporary dialysis catheter. 5. Otherwise unremarkable study. RPTAT: QQ .Francisco Tian MD, MD Date Time Electronically viewed and signed by .Francisco Tian MD, MD on 01/07/2017 15:42 .R/
[2017-01-07] MEDS: LABETALOL HCL 20MG INJ IV PRN (15:52)
[2017-01-07 15:56] LABS: FIBRIN SPLIT PRODUCT <10 ug/ml (<10)
--- NOTE | 2017-01-07 18:11 | CONS ---
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 Hct may have stabilized with B Tx Further w/u per PMD Problems: Additional Assessment/Plan Spoke to Dr Paula re need for permacath & AVF Cont'd Hospitalization Reason: May have to continue HD for now. Consultation Date/Type/Reason Admit Date/Time Jan 06, 2017 at 17:55 Initial Consult Date 01/06/2017 Type of Consultation: Nephrology Reason for Consultation KAIT (Obstructive Uropathy), ESRD, Severe Anemia 24 HR Interval Summary Free Text/Dictation Pt seems most comfortable & denies complaints Constitutional: improved, other (c/o bloody urine.) Exam/Review of Systems Vital Signs Vitals Vital Signs Date Time Temp Pulse Resp B/P Pulse Ox O2 Delivery O2 Flow Rate FiO2 01/07/17 16:45 79 12 177/92 97 01/07/17 16:00 97.7 Room Air 01/06/17 17:52 21 Intake and Output 01/06/17 01/06/17 01/07/17 15:00 23:00 07:00 Intake Total 500 ml 300 ml Output Total 1500 ml 800 ml Balance -1000 ml -500 ml Exam Pt concerned about hematuria, BP is still high Constitutional: alert, oriented, well developed Psych: nl mood/affect, no complaints Head: atraumatic, normocephalic Eyes: EOMI, PERRL, nl conjunctiva, nl lids, nl sclera ENMT: nl external ears & nose, nl lips & teeth, nl nasal mucosa & septum Neck: non-tender, supple Respiratory: clear to auscultation, normal air movement Cardiovascular: nl pulses, regular rate and rhythm Gastrointestinal: nl liver, spleen, non-tender, soft Genitourinary - Male: other (Shannon cath draining bloody urine) Musculoskeletal: nl extremities to inspection, nl gait and stance Extremities: normal pulses, other (Rt groin Matthew Cath in place) Neurological: N[employer] MANAGER II-XII intact, nl mental status, nl speech, nl strength, other Skin: nl turgor, other (pale), No rash or lesions Lymph: nl lymph nodes Additional Comments Hct has improved, BUN/Creat high despite increase in urine vol Results BUN, Creat remain high despite good urine vol & HD Result Diagram: 01/07/17 1446 01/07/17 0451 Results 24 hrs Laboratory Tests Test 01/06/17 18:06 01/06/17 18:45 01/06/17 22:30 01/06/17 22:42 Blood Gas Specimen Source Blood arterial Arterial Blood Date Drawn 01/06/2017 6:14:15 PM Arterial Blood pH (Temp corrected) 7.312 L Arterial Blood pCO2 (Temp correct) 31.3 L Arterial Blood pO2 (Temp corrected) 203.5 H Arterial Blood HCO3 15.5 L Arterial Blood Base Excess -9.8 L Arterial Blood Oxygen Saturation 98.8 H Cristobal Test ACCEPTAB Arterial Blood Gas Puncture Site Right Radial Arterial Blood Carboxyhemoglobin 0.3 Arterial Blood Methemoglobin 0.7 Blood Gas A-a O2 Differential 81.8 H Oxyhemoglobin Percent 97.8 Total Hemoglobin 6.7 L Blood Gas Temperature 37.0 Blood Gas Modality MASK - CONT NEB TX FiO2 45.0 Blood Gas Notified Whom JMD Blood Gas Notified Time 01/06/2017 6:16:57 PM Potassium Level 6.1 *H 3.7 # Urine Color YELLOW Urine Clarity CLEAR Urine pH 6.0 Urine Specific [place] 1.009 Urine Ketones NEGATIVE Urine Nitrite NEGATIVE Urine Bilirubin NEGATIVE Urine Urobilinogen NEGATIVE Urine Leukocyte Esterase 3+ H Urine Microscopic RBC 4 Urine Microscopic WBC 72 H Urine Bacteria MODERATE Urine Hemoglobin NEGATIVE Urine Glucose NEGATIVE Urine Total Protein 1+ H Sodium Level 136 Chloride Level 100 Carbon Dioxide Level 25 Anion Gap 15 # Blood Urea Nitrogen 78 #H Creatinine 8.01 #H Glucose Level 100 Calcium Level 7.9 L Phosphorus Level 5.7 H Albumin 3.5 Hepatitis B Surface Antigen NEGATIVE HIV (1&2) Antibody NEGATIVE Test 01/07/17 03:42 01/07/17 04:51 01/07/17 14:46 White Blood Count 3.7 #L 4.2 L Red Blood Count 1.68 L 1.83 L Hemoglobin 5.5 *L 5.8 *L 9.4 #L Hematocrit 16.2 L 17.6 L 27.9 #L Mean Corpuscular Volume 96.4 96.2 Mean Corpuscular Hemoglobin 32.7 31.7 Mean Corpuscular Hemoglobin Concent 34.0 33.0 Red Cell Distribution Width 12.7 12.7 Platelet Count 126 #L 144 139 L Mean Platelet Volume 9.1 10.1 Neutrophils % 62.3 61.8 Lymphocytes % 23.2 22.7 Monocytes % 9.8 11.5 H Eosinophils % 4.1 3.6 Basophils % 0.3 0.2 Nucleated Red Blood Cells % 0.0 0.0 Neutrophils # 2.3 2.6 Lymphocytes # 0.9 1.0 Monocytes # 0.4 0.5 Eosinophils # 0.2 0.2 Basophils # 0.0 0.0 Nucleated Red Blood Cells # 0.0 0.0 Sodium Level 138 Potassium Level 4.5 Chloride Level 101 Carbon Dioxide Level 24 Anion Gap 18 H Blood Urea Nitrogen 79 H Creatinine 8.85 H Glucose Level 70 Hemoglobin A1c 5.2 Calcium Level 7.8 L Phosphorus Level 7.4 H Magnesium Level 2.8 H Albumin 3.3 Prothrombin Time 13.2 Prothrombin Time Ratio 1.0 INR International Normalized Ratio 1.00 Activated Partial Thromboplast Time 29.8 Thrombin Time 15.5 Fibrinogen 507.0 H Plasma Fibrin Degradation Products <10 D-Dimer 3313.56 H D-Dimer Comment Medications Medications Current Medications Dextrose ONCE PRN IV POC BLOOD GLUCOSE <250 MG/DL Last administered on 17:24; Admin Dose 50 ML; Start 01/06/17 at 17:00 Sodium Chloride (NS) 1,000 ml @ 40 mls/hr Q24H IV Last administered on 14:08; Admin Dose 40 MLS/HR; Start 01/06/17 at 17:19 Acetaminophen (Tylenol Tab) 650 mg Q6H PRN PO PAIN LEVEL 1-3 OR FEVER Last administered on 01/07/17 02:19; Admin Dose 650 MG; Start 01/06/17 at 17:30 Morphine Sulfate (morphine) 2 mg Q4H PRN IV PAIN LEVEL 7-10; Start 01/06/17 at 17:30 Famotidine (Pepcid Iv) 20 mg Q24H IV Last administered on 01/06/17 23:45; Admin Dose 20 MG; Start 01/06/17 at 21:00 Labetalol HCl (Labetalol) 10 mg Q4H PRN IV ELEVATED BLOOD PRESSURE Last administered on 01/07/17 15:52; Admin Dose 10 MG; Start 01/06/17 at 18:00 Hydralazine HCl 10 mg 10 mg Q6 PRN IV ELEVATED BLOOD PRESSURE Last administered on 01/07/17 17:49; Admin Dose 10 MG; Start 01/06/17 at 18:00 Ciprofloxacin/ Dextrose (Cipro Ivpb) 200 ml @ 200 mls/hr Q24H IVPB Last administered on 01/06/17 23:39; Admin Dose 200 MLS/HR; Start 01/06/17 at 23:00 Metoclopramide HCl (Reglan) 5 mg Q6H PRN IV NAUSEA; Start 01/06/17 at 19:00 Carvedilol (Coreg) 6.25 mg BID PO Last administered on 01/07/17 17:50; Admin Dose 6.25 MG; Start 01/07/17 at 17:00 ALEXSANDRA WILSON MD Jan 07, 2017 18:11
[2017-01-07 19:08] LABS: HEMATOCRIT 29.4 % (42.0-52.0); HEMOGLOBIN 10.3 g/dl (14.0-18.0)
[2017-01-07] MEDS: FAMOTIDINE 20 MG INJ IV SCH (20:02)
[2017-01-07] MEDS: CIPROFLOXACIN 400MG/D5W 200 ML IVPB SCH (22:26)
[2017-01-08] VITALS (22 sets, daily range): BP systolic 138–182; BP diastolic 58–94; PULSE 61–91; RESP 13–21
[2017-01-08] MEDS: hydrALAzine 20 MG INJ IV PRN ×2 (03:55→10:12)
[2017-01-08 07:51] LABS: BASOPHILS % 0.5 % (0.0-2.0); EOSINOPHILS # 0.2 10^3/ul (0.0-0.5); EOSINOPHILS % 3.5 % (0.0-7.0); HEMATOCRIT 27.5 % (42.0-52.0); HEMOGLOBIN 9.2 g/dl (14.0-18.0); LYMPHOCYTES # 1.1 10^3/ul (0.8-2.9); MEAN CORPUSCULAR HEMOGLOBIN 30.4 pg (29.0-33.0); MEAN CORPUSCULAR HGB CONC 33.5 g/dl (32.0-37.0); MEAN CORPUSCULAR VOLUME 90.8 fl (82.0-101.0); MEAN PLATELET VOLUME 9.9 fl (7.4-10.4); MONOCYTE # 0.7 10^3/ul (0.3-0.9); MONOCYTES % 11.6 % (0.0-11.0); NEUTROPHIL # 4.2 10^3/ul (1.6-7.5); NEUTROPHILS % 66.2 % (39.0-77.0); PLATELET COUNT 140 10^3/UL (140-415); RED BLOOD COUNT 3.03 10^6/ul (4.70-6.10); RED CELL DISTRIBUTION WIDTH 15.3 % (11.5-14.5); WHITE BLOOD COUNT 6.3 10^3/ul (4.8-10.8)
[2017-01-08 08:06] LABS: ALBUMIN 3.3 g/dl (3.3-4.9); ALBUMIN/GLOBULIN RATIO 1.17; BILIRUBIN,INDIRECT 0.3 mg/dl (0-1.1); BILIRUBIN,TOTAL 0.3 mg/dl (0.2-1.3); CALCIUM 9.4 mg/dl (8.4-10.2); CREATININE 5.84 mg/dl (0.61-1.24); POTASSIUM 3.6 mmol/L (3.5-5.1); TOTAL PROTEIN 6.1 g/dl (6.1-8.1)
[2017-01-08] MEDS: LABETALOL HCL 20MG INJ IV PRN (08:26)
[2017-01-08] MEDS: CALCIUM ACETATE 667 MG CAP PO SCH ×3 (08:27→18:27)
[2017-01-08] MEDS ORDERED: ONDANSETRON 4 MG INJ IV PRN (09:30)
[2017-01-08] MEDS: SOD CHLORIDE 0.45% 1,000 ML IV SCH ×2 (10:00→18:28)
--- NOTE | 2017-01-08 11:05 | PN ---
Date/Time of Note Date/Time of Note DATE: 01/08/17 TIME: 11:05 Assessment/Plan VTE Prophylaxis VTE Prophylaxis Intervention: contraindicated, SCD's Lines/Catheters IV Catheter Type (from Nrsg): ruthann Urinary Cath still in place: Yes Reason Cath still needed: urinary retention Assessment/Plan Assessment/Plan 1. Acute on chronic renal failure - Nephrology on board and consultation appreciated. Tolerating HD well - His last recorded Cr from 09/2016 was 3.16 - Dr. Goss spoke to Dr Paula re need for permacath & AVF. appreciate assistance 2. Abdominal pain- resolved - Most likely secondary to #1 - Had GI workup in 09/2016 3. Hyperkalemia- resolved - K 3.6. will continue monitoring 4. Hematuria - possible secondary to trauma? - KUB ordered and zhang in place - Will consult Dr. Nava of Urology for further evaluation - Will continue monitoring output 5. Anemia of chronic disease - remains stable after 2 units PRBC yesterday 6. ?UTI - Patient has minimal output over the past 2 weeks. - UA + and Culture shows contaminant - Continue on Cipro 7. Hypertension - stable - PRN medication if SBP>160 8. 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 patient unsure type Subjective 24 Hr Interval Summary Free Text/Dictation Patient doing well and states no longer experiencing abdominal pain, nausea, or vomiting. Patient tolerating HD but still experiencing diminished appetite and fatigue. Exam/Review of Systems Vital Signs Vitals Vital Signs Date Time Temp Pulse Resp B/P Pulse Ox O2 Delivery O2 Flow Rate FiO2 01/08/17 08:27 85 01/08/17 08:20 98.1 18 168/83 97 01/08/17 05:30 Room Air 01/06/17 17:52 21 Intake and Output 01/07/17 01/07/17 01/08/17 15:00 23:00 07:00 Intake Total 1160 ml 1500 ml 1220 ml Output Total 2230 ml 2870 ml 1200 ml Balance -1070 ml -1370 ml 20 ml Exam General: alert, oriented, well developed Respiratory: clear to auscultation, normal air movement, No crackles/rales, No diminished breath sounds Cardiovascular: Regular rate and rhythm, No edema, No systolic murmur Gastrointestinal: soft, non tender, No rebound or guarding Musculoskeletal: nl extremities to inspection Extremities: normal pulses Skin: No diaphoresis, No ecchymosis, No laceration, ruthann cath in R groin area- no signs of infection Results Result Diagram: 01/08/1772001/08/17 07 Results 24 hrs Laboratory Tests Test 01/07/17 14:46 01/07/17 18:57 01/08/17 05:26 01/08/17 07:21 Hemoglobin 9.4 #L 10.3 L 9.2 L Hematocrit 27.9 #L 29.4 L 27.5 L Platelet Count 139 L 140 Prothrombin Time 13.2 Prothrombin Time Ratio 1.0 INR International Normalized Ratio 1.00 Activated Partial Thromboplast Time 29.8 Thrombin Time 15.5 Fibrinogen 507.0 H Plasma Fibrin Degradation Products <10 D-Dimer 3313.56 H D-Dimer Comment Lab Scanned Report BLOOD TRANSFUSION White Blood Count 6.3 # Red Blood Count 3.03 #L Mean Corpuscular Volume 90.8 Mean Corpuscular Hemoglobin 30.4 Mean Corpuscular Hemoglobin Concent 33.5 Red Cell Distribution Width 15.3 #H Mean Platelet Volume 9.9 Neutrophils % 66.2 Lymphocytes % 18.0 Monocytes % 11.6 H Eosinophils % 3.5 Basophils % 0.5 Nucleated Red Blood Cells % 0.0 Neutrophils # 4.2 Lymphocytes # 1.1 Monocytes # 0.7 Eosinophils # 0.2 Basophils # 0.0 Nucleated Red Blood Cells # 0.0 Sodium Level 135 Potassium Level 3.6 Chloride Level 100 Carbon Dioxide Level 26 Anion Gap 13 Blood Urea Nitrogen 45 #H Creatinine 5.84 #H Glucose Level 86 Calcium Level 9.4 Total Bilirubin 0.3 Direct Bilirubin 0.00 Indirect Bilirubin 0.3 Aspartate Amino Transf (AST/SGOT) 12 #L Alanine Aminotransferase (ALT/SGPT) 21 Alkaline Phosphatase 56 Total Protein 6.1 # Albumin 3.3 Globulin 2.80 Albumin/Globulin Ratio 1.17 Medications Medications Current Medications Dextrose (D50w Syringe) ONCE PRN IV POC BLOOD GLUCOSE <250 MG/DL Last administered on 01/06/17 17:24; Admin Dose 50 ML; Start 01/06/17 at 17:00 Acetaminophen (Tylenol Tab) 650 mg Q6H PRN PO PAIN LEVEL 1-3 OR FEVER Last administered on 01/07/17 20:02; Admin Dose 650 MG; Start 01/06/17 at 17:30 Morphine Sulfate (morphine) 2 mg Q4H PRN IV PAIN LEVEL 7-10; Start 01/06/17 at 17:30 Famotidine (Pepcid Iv) 20 mg Q24H IV Last administered on 01/07/17 20:02; Admin Dose 20 MG; Start 01/06/17 at 21:00 Labetalol HCl (Labetalol) 10 mg Q4H PRN IV ELEVATED BLOOD PRESSURE Last administered on 01/08/17 08:26; Admin Dose 10 MG; Start 01/06/17 at 18:00 Hydralazine HCl (Apresoline) 10 mg Q6 PRN IV ELEVATED BLOOD PRESSURE Last administered on 01/08/17 10:12; Admin Dose 10 MG; Start 01/06/17 at 18:00 Metoclopramide HCl (Reglan) 5 mg Q6H PRN IV NAUSEA; Start 01/06/17 at 19:00 Carvedilol (Coreg) 6.25 mg BID PO Last administered on 01/08/17 08:27; Admin Dose 6.25 MG; Start 01/07/17 at 17:00 Ondansetron HCl 4 mg 4 mg Q6H PRN IV NAUSEA AND/OR VOMITING Last administered on 01/08/17 09:40; Admin Dose 4 MG; Start 01/08/17 at 09:30 Sodium Chloride (1/2 NS) 1,000 ml @ 100 mls/hr Q10H IV ; Start 01/08/17 at 10: 00 Ciprofloxacin (Cipro) 250 mg DAILY@06 PO ; Start 01/08/17 at 12:00 Atenolol (Tenormin) 50 mg BID GTB ; Start 01/08/17 at 10:50 Clonidine (Catapres) 0.1 mg TID PO ; Start 01/08/17 at 13:00 RICHAR SCOTT MD Jan 08, 2017 11:05
[2017-01-08] MEDS: ATENOLOL 50 MG TAB GTB SCH ×2 (11:09→21:33)
[2017-01-08] MEDS: CIPROFLOXACIN 250 MG TAB PO SCH (13:01)
--- NOTE | 2017-01-08 21:12 | CONS ---
Date/Time of Note Date/Time of Note DATE: 01/08/17 TIME: 20:58 Assessment/Plan Assessment/Plan Chief Complaint/Hosp Course 66-year-old male who was at this hospital in September 2015 and had renal failure and bilateral hydronephrosis and urinary retention. His prostate is hard and nodular and his PSA was 30.6 at that time. Patient most likely has prostate cancer and he was supposed to follow-up and have a prostate biopsy but never did. He comes again this time and again he has urinary retention as demonstrated on the ultrasound and bilateral hydronephrosis and the prostate on the exam again is hard and nodular. He has renal failure and this is most likely secondary to obstruction by the prostate cancer. The hematuria that he has is also most likely because of the prostate cancer. I will check his PSA on the blood drawn on admission to see if it has gone up more than it was in September. He will need to have a bone scan and we will repeat his CT scan of the abdomen and pelvis without contrast to check for pelvic adenopathy. As far as a Shannon catheter is concerned if it is draining well and the urine is clearing I will not change it, however if the urine remains bloody I may have to change the Shannon and start him on continuous bladder irrigation. 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 He also admits to fatigue, weakness with ambulation, and loss of appetite. Patient states he was in his normal state of health until he developed nausea, but has not been seen by anyone prior to presenting to ED. Patient was seen at [facility] for similar complaints in 09/2016 with renal failure and abdominal pain but never followed up. The patient at the time had an elevated PSA of 30.6 and was recommended to have prostate biopsy because his prostate also was hard and he had the urinary retention and the hydronephrosis, the patient did not follow-up, did not have the biopsy done. And now he appears to have acute renal failure most likely because of obstruction and the hematuria most likely related to his prostate problem most likely cancer. Patient was found to have acute on chronic renal failure with potassium of 7.0. He was given insulin, dextrose, and Kayexalate in the ED. His renal function was severely diminished with Cr 15. Constitutional: improved, other (Gross hematuria, fatigue and generalized ache) Eyes: no complaints ENT: no complaints Respiratory: cough, no complaints, shortness of breath, No sputum, No wheezing Cardiovascular: No chest pain, No edema, No lightheadedness, No palpitations Gastrointestinal: decreased appetite, diarrhea, nausea, pain, No blood, No vomiting Genitourinary: dysuria, flank pain, other (dimished output, patient has nocturia 3 and during the day he voids often he has a slow urinary stream, and he feels he does not empty his bladder well) Musculoskeletal: no complaints Skin: no complaints Neurologic: No confusion, No dizziness, No headache Lymphatic: no complaints Psychological: nl mood/affect, no complaints Immunologic: no complaints Past Medical History Medical History: diabetes, hypertension, renal disease, other (History of leukemia 20 years ago) Past Surgical History Past Surgical Hx: cholecystectomy Family History Significant Family History: no pertinent family hx Social History Alcohol Use: none Smoking Status: Never smoker Drug Use: none Exam/Review of Systems Vital Signs Vitals Vital Signs Date Time Temp Pulse Resp B/P Pulse Ox O2 Delivery O2 Flow Rate FiO2 01/08/17 20:00 64 01/08/17 19:51 97.9 19 177/79 99 01/08/17 12:00 Room Air 01/06/17 17:52 21 Intake and Output 01/07/17 01/07/17 01/08/17 15:00 23:00 07:00 Intake Total 1160 ml 1500 ml 1220 ml Output Total 2230 ml 2870 ml 1200 ml Balance -1070 ml -1370 ml 20 ml Exam Constitutional: alert, oriented Psych: no complaints Head: normocephalic Eyes: icteric (Pale) ENMT: nl external ears & nose Neck: supple Respiratory: normal air movement Cardiovascular: No edema Gastrointestinal: soft, No mass Genitourinary - Male: nl penis, nl scrotum, other (Rectal exam: prostate is hard and nodular) Musculoskeletal: nl extremities to inspection Extremities: No calf tenderness, No edema Skin: nl turgor Results Result Diagram: 01/08/17 0721 01/08/17 0721 Results 24 hrs Laboratory Tests Test 01/08/17 05:26 01/08/17 07:21 Lab Scanned Report BLOOD TRANSFUSION White Blood Count 6.3 # Red Blood Count 3.03 #L Hemoglobin 9.2 L Hematocrit 27.5 L Mean Corpuscular Volume 90.8 Mean Corpuscular Hemoglobin 30.4 Mean Corpuscular Hemoglobin Concent 33.5 Red Cell Distribution Width 15.3 #H Platelet Count 140 Mean Platelet Volume 9.9 Neutrophils % 66.2 Lymphocytes % 18.0 Monocytes % 11.6 H Eosinophils % 3.5 Basophils % 0.5 Nucleated Red Blood Cells % 0.0 Neutrophils # 4.2 Lymphocytes # 1.1 Monocytes # 0.7 Eosinophils # 0.2 Basophils # 0.0 Nucleated Red Blood Cells # 0.0 Sodium Level 135 Potassium Level 3.6 Chloride Level 100 Carbon Dioxide Level 26 Anion Gap 13 Blood Urea Nitrogen 45 #H Creatinine 5.84 #H Glucose Level 86 Calcium Level 9.4 Total Bilirubin 0.3 Direct Bilirubin 0.00 Indirect Bilirubin 0.3 Aspartate Amino Transf (AST/SGOT) 12 #L Alanine Aminotransferase (ALT/SGPT) 21 Alkaline Phosphatase 56 Total Protein 6.1 # Albumin 3.3 Globulin 2.80 Albumin/Globulin Ratio 1.17 Imaging Free Text/Dictation Renal ultrasound: 1. Moderate bilateral hydronephrosis with right worse than left. 2. Bilateral hyperechoic kidneys consistent with medical renal disease. 3. Distended urinary bladder. Medications Medications Current Medications Dextrose (D50w Syringe) ONCE PRN IV POC BLOOD GLUCOSE <250 MG/DL Last administered on 01/06/17 17:24; Admin Dose 50 ML; Start 01/06/17 at 17:00 Acetaminophen (Tylenol Tab) 650 mg Q6H PRN PO PAIN LEVEL 1-3 OR FEVER Last administered on 01/07/17 20:02; Admin Dose 650 MG; Start 01/06/17 at 17:30 Morphine Sulfate (morphine) 2 mg Q4H PRN IV PAIN LEVEL 7-10; Start 01/06/17 at 17:30 Famotidine (Pepcid Iv) 20 mg Q24H IV Last administered on 01/07/17 20:02; Admin Dose 20 MG; Start 01/06/17 at 21:00 Labetalol HCl (Labetalol) 10 mg Q4H PRN IV ELEVATED BLOOD PRESSURE Last administered on 01/08/17 08:26; Admin Dose 10 MG; Start 01/06/17 at 18:00 Hydralazine HCl (Apresoline) 10 mg Q6 PRN IV ELEVATED BLOOD PRESSURE Last administered on 01/08/17 10:12; Admin Dose 10 MG; Start 01/06/17 at 18:00 Metoclopramide HCl (Reglan) 5 mg Q6H PRN IV NAUSEA; Start 01/06/17 at 19:00 Carvedilol (Coreg) 6.25 mg BID PO Last administered on 01/08/17 08:27; Admin Dose 6.25 MG; Start 01/07/17 at 17:00 Ondansetron HCl 4 mg 4 mg Q6H PRN IV NAUSEA AND/OR VOMITING Last administered on 01/08/17 09:40; Admin Dose 4 MG; Start 01/08/17 at 09:30 Sodium Chloride (1/2 NS) 1,000 ml @ 100 mls/hr Q10H IV Last administered on 18:28; Admin Dose 100 MLS/HR; Start 01/08/17 at 10:00 Ciprofloxacin (Cipro) 250 mg DAILY@06 PO Last administered on 01/08/17 13:01; Admin Dose 250 MG; Start 01/08/17 at 12:00 Atenolol (Tenormin) 50 mg BID GTB Last administered on 01/08/17 11:09; Admin Dose 50 MG; Start 01/08/17 at 10:50 Clonidine (Catapres) 0.1 mg TID PO Last administered on 01/08/17 13:01; Admin Dose 0.1 MG; Start 01/08/17 at 13:00 CATRACHITA GUZMAN MD Jan 08, 2017 21:11
[2017-01-08] MEDS: FAMOTIDINE 20 MG INJ IV SCH (21:32)
--- NOTE | 2017-01-08 23:42 | CONS ---
Date/Time of Note Date/Time of Note DATE: 01/08/17 TIME: 23:42 Assessment/Plan Assessment/Plan Chief Complaint/Hosp Course Pt seen by [facility], await further plans. Problems: Additional Assessment/Plan In light of persistent azotemia, will continue HD for now. Cont'd Hospitalization Reason: Await V Sx plans Consultation Date/Type/Reason Admit Date/Time Jan 06, 2017 at 17:55 Initial Consult Date 01/06/2017 Type of Consultation: renal Reason for Consultation KAIT, ESRD Referring Provider: RICHAR SCOTT MD 24 HR Interval Summary Free Text/Dictation Pt seems to be more stable Exam/Review of Systems Vital Signs Vitals Vital Signs Date Time Temp Pulse Resp B/P Pulse Ox O2 Delivery O2 Flow Rate FiO2 01/08/17 20:00 64 01/08/17 19:51 97.9 19 177/79 99 01/08/17 12:00 Room Air 01/06/17 17:52 21 Intake and Output 01/07/17 01/07/17 01/08/17 15:00 23:00 07:00 Intake Total 1160 ml 1500 ml 1220 ml Output Total 2230 ml 2870 ml 1200 ml Balance -1070 ml -1370 ml 20 ml Exam Constitutional: alert, oriented, well developed Psych: nl mood/affect, no complaints Head: atraumatic, normocephalic Eyes: EOMI, PERRL, nl conjunctiva, nl lids, nl sclera ENMT: nl external ears & nose, nl lips & teeth, nl nasal mucosa & septum Neck: non-tender, supple Respiratory: clear to auscultation, normal air movement Cardiovascular: nl pulses, regular rate and rhythm Gastrointestinal: nl liver, spleen, non-tender, soft Genitourinary - Male: other (Shannon Cath draining less bloody urine in large volume.) Musculoskeletal: nl extremities to inspection, nl gait and stance Extremities: normal pulses, other (Rt groin Matthew Cath in place) Neurological: [employer] 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 II-XII intact, nl mental status, nl speech, nl strength Skin: nl turgor, No rash or lesions Lymph: nl lymph nodes Additional Comments BUN/Creat not improving enough despite marked diuresis and blood tx Results Result Diagram: 01/08/17 0721 01/08/17 0721 Results 24 hrs Laboratory Tests Test 01/08/17 05:26 01/08/17 07:21 01/08/17 22:18 Lab Scanned Report BLOOD TRANSFUSION White Blood Count 6.3 # Red Blood Count 3.03 #L Hemoglobin 9.2 L Hematocrit 27.5 L Mean Corpuscular Volume 90.8 Mean Corpuscular Hemoglobin 30.4 Mean Corpuscular Hemoglobin Concent 33.5 Red Cell Distribution Width 15.3 #H Platelet Count 140 Mean Platelet Volume 9.9 Neutrophils % 66.2 Lymphocytes % 18.0 Monocytes % 11.6 H Eosinophils % 3.5 Basophils % 0.5 Nucleated Red Blood Cells % 0.0 Neutrophils # 4.2 Lymphocytes # 1.1 Monocytes # 0.7 Eosinophils # 0.2 Basophils # 0.0 Nucleated Red Blood Cells # 0.0 Sodium Level 135 Potassium Level 3.6 Chloride Level 100 Carbon Dioxide Level 26 Anion Gap 13 Blood Urea Nitrogen 45 #H Creatinine 5.84 #H Glucose Level 86 Calcium Level 9.4 Total Bilirubin 0.3 Direct Bilirubin 0.00 Indirect Bilirubin 0.3 Aspartate Amino Transf (AST/SGOT) 12 #L Alanine Aminotransferase (ALT/SGPT) 21 Alkaline Phosphatase 56 Total Protein 6.1 # Albumin 3.3 Globulin 2.80 Albumin/Globulin Ratio 1.17 Prostate Specific Antigen 32.2 H Medications Medications Current Medications Dextrose (D50w Syringe) ONCE PRN IV POC BLOOD GLUCOSE <250 MG/DL Last administered on 01/06/17 17:24; Admin Dose 50 ML; Start 01/06/17 at 17:00 Acetaminophen (Tylenol Tab) 650 mg Q6H PRN PO PAIN LEVEL 1-3 OR FEVER Last administered on 01/07/17 20:02; Admin Dose 650 MG; Start 01/06/17 at 17:30 Morphine Sulfate (morphine) 2 mg Q4H PRN IV PAIN LEVEL 7-10; Start 01/06/17 at 17:30 Famotidine (Pepcid Iv) 20 mg Q24H IV Last administered on 01/08/17 21:32; Admin Dose 20 MG; Start 01/06/17 at 21:00 Labetalol HCl (Labetalol) 10 mg Q4H PRN IV ELEVATED BLOOD PRESSURE Last administered on 01/08/17 08:26; Admin Dose 10 MG; Start 01/06/17 at 18:00 Hydralazine HCl (Apresoline) 10 mg Q6 PRN IV ELEVATED BLOOD PRESSURE Last administered on 01/08/17 10:12; Admin Dose 10 MG; Start 01/06/17 at 18:00 Metoclopramide HCl (Reglan) 5 mg Q6H PRN IV NAUSEA; Start 01/06/17 at 19:00 Carvedilol (Coreg) 6.25 mg BID PO Last administered on 01/08/17 08:27; Admin Dose 6.25 MG; Start 01/07/17 at 17:00; Status Future Hold Ondansetron HCl 4 mg 4 mg Q6H PRN IV NAUSEA AND/OR VOMITING Last administered on 01/08/17 09:40; Admin Dose 4 MG; Start 01/08/17 at 09:30 Sodium Chloride (1/2 NS) 1,000 ml @ 100 mls/hr Q10H IV Last administered on 18:28; Admin Dose 100 MLS/HR; Start 01/08/17 at 10:00 Ciprofloxacin (Cipro) 250 mg DAILY@06 PO Last administered on 01/08/17 13:01; Admin Dose 250 MG; Start 01/08/17 at 12:00 Atenolol (Tenormin) 50 mg BID GTB Last administered on 01/08/17 21:33; Admin Dose 50 MG; Start 01/08/17 at 10:50 Clonidine (Catapres) 0.1 mg TID PO Last administered on 01/08/17 21:34; Admin Dose 0.1 MG; Start 01/08/17 at 13:00 ALEXSANDRA WILSON MD Jan 08, 2017 23:42
[2017-01-09] VITALS (18 sets, daily range): BP systolic 115–168; BP diastolic 57–86; PULSE 53–78; RESP 17–18
[2017-01-09] MEDS: CIPROFLOXACIN 250 MG TAB PO SCH (05:46)
[2017-01-09] MEDS: SOD CHLORIDE 0.45% 1,000 ML IV SCH ×2 (05:46→16:00)
[2017-01-09 07:23] LABS: BASOPHILS % 0.4 % (0.0-2.0); EOSINOPHILS # 0.3 10^3/ul (0.0-0.5); EOSINOPHILS % 3.9 % (0.0-7.0); HEMATOCRIT 24.5 % (42.0-52.0); HEMOGLOBIN 8.2 g/dl (14.0-18.0); LYMPHOCYTES # 1.5 10^3/ul (0.8-2.9); LYMPHOCYTES % 20.1 % (15.0-51.0); MEAN CORPUSCULAR HEMOGLOBIN 31.5 pg (29.0-33.0); MEAN CORPUSCULAR HGB CONC 33.5 g/dl (32.0-37.0); MEAN CORPUSCULAR VOLUME 94.2 fl (82.0-101.0); MEAN PLATELET VOLUME 10.1 fl (7.4-10.4); MONOCYTE # 0.8 10^3/ul (0.3-0.9); MONOCYTES % 10.2 % (0.0-11.0); NEUTROPHIL # 4.8 10^3/ul (1.6-7.5); PLATELET COUNT 125 10^3/UL (140-415); RED CELL DISTRIBUTION WIDTH 14.6 % (11.5-14.5); WHITE BLOOD COUNT 7.4 10^3/ul (4.8-10.8)
[2017-01-09] MEDS: ATENOLOL 50 MG TAB GTB SCH (08:59)
[2017-01-09] MEDS: CALCIUM ACETATE 667 MG CAP PO SCH ×3 (08:59→18:05)
[2017-01-09 09:37] LABS: ALBUMIN 2.9 g/dl (3.3-4.9); ALBUMIN/GLOBULIN RATIO 1.2; BILIRUBIN,INDIRECT 0.1 mg/dl (0-1.1); BILIRUBIN,TOTAL 0.1 mg/dl (0.2-1.3); CALCIUM 9.3 mg/dl (8.4-10.2); CREATININE 5.81 mg/dl (0.61-1.24); POTASSIUM 3.8 mmol/L (3.5-5.1); TOTAL PROTEIN 5.3 g/dl (6.1-8.1)
--- NOTE | 2017-01-09 12:13 | CONS ---
Date/Time of Note Date/Time of Note DATE: 01/09/17 TIME: 12:08 Assessment/Plan Assessment/Plan Additional Assessment/Plan 66 yo male with 1) Gross Hematuria 2) KAIT on Unspecified CKD, Obstructive Uropathy 3) Elevated PSA, Possible malignancy 4) Hyperkalemia- Resolved 5) Mild Hyponatremia HD ordered for today Cont to assess need for HD daily Will Decrease IVFs Urology consulted Cont to monitor electrolytes, UO, renal function and Volume status closely Patient may required PC placement prior to discharge. Consultation Date/Type/Reason Admit Date/Time Jan 06, 2017 at 17:55 Initial Consult Date 01/08/17 Type of Consultation: Renal Referring Provider: RICHAR SCOTT MD Exam/Review of Systems Vital Signs Vitals Vital Signs Date Time Temp Pulse Resp B/P Pulse Ox O2 Delivery O2 Flow Rate FiO2 01/09/17 08:04 62 01/09/17 07:43 97.9 17 149/72 99 01/08/17 12:00 Room Air 01/06/17 17:52 21 Intake and Output 01/08/17 01/08/17 01/09/17 15:00 23:00 07:00 Intake Total 720 ml 1440 ml Output Total 1800 ml 1350 ml Balance -1080 ml 90 ml Results Result Diagram: 01/09/17 0654 01/09/17 0654 Results 24 hrs Laboratory Tests Test 01/08/17 22:18 01/09/17 06:54 Prostate Specific Antigen 32.2 H White Blood Count 7.4 Red Blood Count 2.60 L Hemoglobin 8.2 L Hematocrit 24.5 L Mean Corpuscular Volume 94.2 Mean Corpuscular Hemoglobin 31.5 Mean Corpuscular Hemoglobin Concent 33.5 Red Cell Distribution Width 14.6 H Platelet Count 125 L Mean Platelet Volume 10.1 Neutrophils % 65.0 Lymphocytes % 20.1 Monocytes % 10.2 Eosinophils % 3.9 Basophils % 0.4 Nucleated Red Blood Cells % 0.0 Neutrophils # 4.8 Lymphocytes # 1.5 Monocytes # 0.8 Eosinophils # 0.3 Basophils # 0.0 Nucleated Red Blood Cells # 0.0 Sodium Level 133 L Potassium Level 3.8 Chloride Level 99 Carbon Dioxide Level 26 Anion Gap 12 Blood Urea Nitrogen 46 H Creatinine 5.81 H Glucose Level 85 Calcium Level 9.3 Magnesium Level 1.9 Total Bilirubin 0.1 L Direct Bilirubin 0.00 Indirect Bilirubin 0.1 Aspartate Amino Transf (AST/SGOT) 12 L Alanine Aminotransferase (ALT/SGPT) 26 Alkaline Phosphatase 48 Total Protein 5.3 L Albumin 2.9 L Globulin 2.40 Albumin/Globulin Ratio 1.20 Medications Medications Current Medications Dextrose (D50w Syringe) ONCE PRN IV POC BLOOD GLUCOSE <250 MG/DL Last administered on 01/06/17 17:24; Admin Dose 50 ML; Start 01/06/17 at 17:00 Acetaminophen (Tylenol Tab) 650 mg Q6H PRN PO PAIN LEVEL 1-3 OR FEVER Last administered on 01/07/17 20:02; Admin Dose 650 MG; Start 01/06/17 at 17:30 Morphine Sulfate (morphine) 2 mg Q4H PRN IV PAIN LEVEL 7-10; Start 01/06/17 at 17:30 Famotidine (Pepcid Iv) 20 mg Q24H IV Last administered on 01/08/17 21:32; Admin Dose 20 MG; Start 01/06/17 at 21:00 Labetalol HCl (Labetalol) 10 mg Q4H PRN IV ELEVATED BLOOD PRESSURE Last administered on 01/08/17 08:26; Admin Dose 10 MG; Start 01/06/17 at 18:00 Hydralazine HCl (Apresoline) 10 mg Q6 PRN IV ELEVATED BLOOD PRESSURE Last administered on 01/08/17 10:12; Admin Dose 10 MG; Start 01/06/17 at 18:00 Metoclopramide HCl (Reglan) 5 mg Q6H PRN IV NAUSEA; Start 01/06/17 at 19:00 Carvedilol (Coreg) 6.25 mg BID PO Last administered on 01/08/17 08:27; Admin Dose 6.25 MG; Start 01/07/17 at 17:00; Status Future Hold Ondansetron HCl 4 mg 4 mg Q6H PRN IV NAUSEA AND/OR VOMITING Last administered on 01/08/17 09:40; Admin Dose 4 MG; Start 01/08/17 at 09:30 Sodium Chloride (1/2 NS) 1,000 ml @ 100 mls/hr Q10H IV Last administered on 05:46; Admin Dose 100 MLS/HR; Start 01/08/17 at 10:00 Ciprofloxacin (Cipro) 250 mg DAILY@06 PO Last administered on 01/09/17 05:46; Admin Dose 250 MG; Start 01/08/17 at 12:00 Atenolol (Tenormin) 50 mg BID GTB Last administered on 01/09/17 08:59; Admin Dose 50 MG; Start 01/08/17 at 10:50 Clonidine (Catapres) 0.1 mg TID PO Last administered on 01/09/17 08:59; Admin Dose 0.1 MG; Start 01/08/17 at 13:00 TARIQ GARCIA MD Jan 09, 2017 12:13
--- NOTE | 2017-01-09 12:45 | RADRPT ---
PROCEDURE: Whole body bone scan study CLINICAL INDICATION: 66-year-old patient with prostate cancer, for evaluation for skeletal metasta ses. TECHNIQUE: Following the intravenous injection of 25.0 mCi of Tc-99m MDP, whole body anterior and posterior planar images were obtained along with spot views of the head, neck and chest. COMPARISON: Prior bone scan dated 10/10/2016. CT scan of the abdomen and pelvis dated . FINDINGS: Mildly increased activity is seen in the lower lumbar spine. New mildly increased activity is noted in the left 9th-10th ribs. No other definite abnormal areas of increased activity or asymmetries are visualized in the study an d distribution of radionuclide is homogeneous in the skull, spine, rib cages, sternum, pelvis and vi sualized portions of the upper and lower extremities. Of incidental note, there is no evidence of mass abnormalities of the kidneys or obstructive uropath y. IMPRESSION: 1. New possibly posttraumatic changes in the left 9th-10th ribs. 2. Likely unchanged degenerative changes in the lower lumbar spine. 3. No other skeletal abnormalities. RPTAT: HH .Portia Sparks MD, Date Time Electronically viewed and signed by .Portia Sparks MD, on 01/09/2017 12:45 .L/
--- NOTE | 2017-01-09 14:42 | RADRPT ---
PROCEDURE: CT Abdomen and Pelvis without contrast. CLINICAL INDICATION: Prostate cancer TECHNIQUE: CT of the abdomen and pelvis was performed on a multi-detector scanner without IV contr ast. Coronal and sagittal images were reformatted from the axial data set. One or more of the foll owing dose reduction techniques were used: automated exposure control, adjustment of the mA and/or k V according to patient size, use of iterative reconstruction technique. CTDI = 6.68 mGy. DLP = 408. 69 mGy-cm. COMPARISON: CT, 10/06/2016 FINDINGS: There are moderate bilateral pleural effusions, with associated bibasilar atelectasis. The heart si ze is normal, without pericardial effusion. Gallbladder is surgically absent. Liver, biliary tree, pancreas, spleen and adrenal glands are unremarkable. There is moderate to severe bilateral hydroure teronephrosis to the level of the urinary bladder. No urinary calculus is identified. The stomach is grossly unremarkable. The aorta is of normal caliber. Aortic vascular calcifications are present. There is no retroperit sarabia lymphadenopathy. The gale hepatis region is clear. No bowel obstruction, free intraperitoneal air or abscess is identified. Mild inflammation is seen a djacent to a descending colon diverticulum, compatible with diverticulitis. The appendix is well vis ualized and normal. Urinary bladder wall is circumferentially thickened, with mild adjacent edema. F oley catheter balloon is within the urinary bladder. No pelvic mass or lymphadenopathy is seen. Righ t femoral central venous catheter is in place. The surrounding osseous structures are remarkable for degenerative enthesopathy of the spine. No os teolytic or osteoblastic lesion is detected. IMPRESSION: 1. Mild inflammatory stranding is seen adjacent to an ascending colon diverticulum, compatible with diverticulitis. No evidence of diverticular perforation or abscess formation is seen. 2. Urinary bladder wall is circumferentially thickened, with adjacent edema/inflammatory stranding, mildly increased when compared to the prior exam - cystitis is not excluded. Shannon catheter balloon is within the urinary bladder. 3. There is moderate to severe bilateral hydroureteronephrosis, without evidence of urinary calculu s, similar in appearance to the prior CT, likely indicating distal ureteral obstruction secondary to bladder wall thickening. 4. There are moderate bilateral pleural effusions, new when compared to the prior exam. 5. Gallbladder is surgically absent. 6. Aortoiliac atherosclerotic calcifications are present. 7. No mass, lymphadenopathy, or evidence of metastatic disease is identified. RPTAT: AAOO .Amanuel Hatch MD, MD Date Time Electronically viewed and signed by .Amanuel Hatch MD, MD on 01/09/2017 14:41 .R/
--- NOTE | 2017-01-09 17:24 | PN ---
Date/Time of Note Date/Time of Note DATE: 01/09/17 TIME: 17:19 Assessment/Plan VTE Prophylaxis VTE Prophylaxis Intervention: contraindicated Lines/Catheters IV [facility] pat Urinary Cath still in place: Yes Reason Cath still needed: urinary retention Assessment/Plan Assessment/Plan 1. Acute on chronic renal failure- on HD - Nephrology on board and consultation appreciated. Tolerating HD well - Most likely secondary to obstruction caused by enlarged prostate - His last recorded Cr from 09/2016 was 3.16 - Dr. Goss spoke to Dr Paula re need for permacath & AVF. appreciate assistance 2. Abdominal pain- resolved - Most likely secondary to #1 - Had GI workup in 09/2016 3. Hyperkalemia- resolved - K 3.8. will continue monitoring 4. Hematuria- improving - Most likely secondary to present of prostate cancer given harden prostate and elevated PSA - Urology consulted and recommendations appreciated. Suspicious for prostate cancer and will need further workup as outpatient - Will continue monitoring output 5. Anemia of chronic disease - remains stable after 2 units PRBC 6. ?UTI - Patient has minimal output over the past 2 weeks. - UA + and Culture shows contaminant - Continue on Cipro 7. Hypertension - stable - PRN medication if SBP>160 8. 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 Disposition - Will need permanent cath prior to discharge - Financial counselor assisting patient with obtaining proper insurance so can get followed as outpatient Subjective 24 Hr Interval Summary Free Text/Dictation Patient doing well and currently undergoing HD. Tolerating well and no new complaints. No acute overnight event. Appears as if urine is improving and less blood tinged. Exam/Review of Systems Vital Signs Vitals Vital Signs Date Time Temp Pulse Resp B/P Pulse Ox O2 Delivery O2 Flow Rate FiO2 01/09/17 16:03 54 01/09/17 15:34 98.1 18 162/77 96 01/08/17 12:00 Room Air 01/06/17 17:52 21 Intake and Output 01/08/17 01/08/17 01/09/17 14:59 22:59 06:59 Intake Total 720 ml 1440 ml Output Total 1800 ml 1350 ml Balance -1080 ml 90 ml Exam General: alert, oriented, well developed Respiratory: clear to auscultation, normal air movement, No crackles/rales, No diminished breath sounds Cardiovascular: Regular rate and rhythm, No edema, No systolic murmur Gastrointestinal: soft, non tender, No rebound or guarding Musculoskeletal: nl extremities to inspection Extremities: normal pulses Skin: No diaphoresis, No ecchymosis, ruthann cath in R groin area- no signs of infection Results Result Diagram: 01/09/17 0654 01/09/17 0654 Results 24 hrs Laboratory Tests Test 01/08/17 22:18 01/09/17 06:54 Prostate Specific Antigen 32.2 H White Blood Count 7.4 Red Blood Count 2.60 L Hemoglobin 8.2 L Hematocrit 24.5 L Mean Corpuscular Volume 94.2 Mean Corpuscular Hemoglobin 31.5 Mean Corpuscular Hemoglobin Concent 33.5 Red Cell Distribution Width 14.6 H Platelet Count 125 L Mean Platelet Volume 10.1 Neutrophils % 65.0 Lymphocytes % 20.1 Monocytes % 10.2 Eosinophils % 3.9 Basophils % 0.4 Nucleated Red Blood Cells % 0.0 Neutrophils # 4.8 Lymphocytes # 1.5 Monocytes # 0.8 Eosinophils # 0.3 Basophils # 0.0 Nucleated Red Blood Cells # 0.0 Sodium Level 133 L Potassium Level 3.8 Chloride Level 99 Carbon Dioxide Level 26 Anion Gap 12 Blood Urea Nitrogen 46 H Creatinine 5.81 H Glucose Level 85 Calcium Level 9.3 Magnesium Level 1.9 Total Bilirubin 0.1 L Direct Bilirubin 0.00 Indirect Bilirubin 0.1 Aspartate Amino Transf (AST/SGOT) 12 L Alanine Aminotransferase (ALT/SGPT) 26 Alkaline Phosphatase 48 Total Protein 5.3 L Albumin 2.9 L Globulin 2.40 Albumin/Globulin Ratio 1.20 Medications Medications Current Medications Dextrose (D50w Syringe) ONCE PRN IV POC BLOOD GLUCOSE <250 MG/DL Last administered on 01/06/17 17:24; Admin Dose 50 ML; Start 01/06/17 at 17:00 Acetaminophen (Tylenol Tab) 650 mg Q6H PRN PO PAIN LEVEL 1-3 OR FEVER Last administered on 01/07/17 20:02; Admin Dose 650 MG; Start 01/06/17 at 17:30 Morphine Sulfate (morphine) 2 mg Q4H PRN IV PAIN LEVEL 7-10; Start 01/06/17 at 17:30 Famotidine (Pepcid Iv) 20 mg Q24H IV Last administered on 01/08/17 21:32; Admin Dose 20 MG; Start 01/06/17 at 21:00 Labetalol HCl (Labetalol) 10 mg Q4H PRN IV ELEVATED BLOOD PRESSURE Last administered on 01/08/17 08:26; Admin Dose 10 MG; Start 01/06/17 at 18:00 Hydralazine HCl (Apresoline) 10 mg Q6 PRN IV ELEVATED BLOOD PRESSURE Last administered on 01/08/17 10:12; Admin Dose 10 MG; Start 01/06/17 at 18:00 Metoclopramide HCl (Reglan) 5 mg Q6H PRN IV NAUSEA; Start 01/06/17 at 19:00 Carvedilol (Coreg) 6.25 mg BID PO Last administered on 01/08/17 08:27; Admin Dose 6.25 MG; Start 01/07/17 at 17:00; Status Future Hold Ondansetron HCl 4 mg 4 mg Q6H PRN IV NAUSEA AND/OR VOMITING Last administered on 01/08/17 09:40; Admin Dose 4 MG; Start 01/08/17 at 09:30 Sodium Chloride (1/2 NS) 1,000 ml @ 100 mls/hr Q10H IV Last administered on 05:46; Admin Dose 100 MLS/HR; Start 01/08/17 at 10:00 Ciprofloxacin (Cipro) 250 mg DAILY@06 PO Last administered on 01/09/17 05:46; Admin Dose 250 MG; Start 01/08/17 at 12:00 Atenolol (Tenormin) 50 mg BID GTB Last administered on 01/09/17 08:59; Admin Dose 50 MG; Start 01/08/17 at 10:50 Clonidine (Catapres) 0.1 mg TID PO Last administered on 01/09/17 13:43; Admin Dose 0.1 MG; Start 01/08/17 at 13:00 RICHAR SCOTT MD Jan 09, 2017 17:24
[2017-01-09] MEDS ORDERED: ALTEPLASE (CATHFLO) 2 MG INJ CATHETER ONE (19:00)
[2017-01-10] VITALS (12 sets, daily range): BP systolic 134–163; BP diastolic 71–80; PULSE 53–60; RESP 17–19
[2017-01-10] MEDS: SOD CHLORIDE 0.45% 1,000 ML IV SCH ×2 (01:47→20:55)
[2017-01-10] MEDS: CIPROFLOXACIN 250 MG TAB PO SCH (05:02)
[2017-01-10 08:39] LABS: BASOPHILS % 0.3 % (0.0-2.0); EOSINOPHILS # 0.3 10^3/ul (0.0-0.5); EOSINOPHILS % 4.7 % (0.0-7.0); HEMATOCRIT 21.6 % (42.0-52.0); LYMPHOCYTES # 1.9 10^3/ul (0.8-2.9); LYMPHOCYTES % 28.2 % (15.0-51.0); MEAN CORPUSCULAR HEMOGLOBIN 30.4 pg (29.0-33.0); MEAN CORPUSCULAR HGB CONC 32.4 g/dl (32.0-37.0); MEAN CORPUSCULAR VOLUME 93.9 fl (82.0-101.0); MEAN PLATELET VOLUME 10.7 fl (7.4-10.4); MONOCYTE # 0.8 10^3/ul (0.3-0.9); MONOCYTES % 11.8 % (0.0-11.0); NEUTROPHIL # 3.6 10^3/ul (1.6-7.5); NEUTROPHILS % 54.8 % (39.0-77.0); PLATELET COUNT 105 10^3/UL (140-415); RED CELL DISTRIBUTION WIDTH 14.5 % (11.5-14.5); WHITE BLOOD COUNT 6.6 10^3/ul (4.8-10.8)
[2017-01-10] MEDS: CALCIUM ACETATE 667 MG CAP PO SCH ×3 (08:46→17:51)
[2017-01-10] MEDS: FAMOTIDINE 20 MG TAB PO SCH (08:46)
[2017-01-10] MEDS: ATENOLOL 50 MG TAB PO SCH ×2 (08:46→20:57)
[2017-01-10 08:53] LABS: ALBUMIN 2.7 g/dl (3.3-4.9); CALCIUM 8.2 mg/dl (8.4-10.2); CREATININE 4.7 mg/dl (0.61-1.24); MAGNESIUM 1.8 mg/dl (1.7-2.5); PHOSPHORUS 3.8 mg/dl (2.5-4.9); POTASSIUM 3.6 mmol/L (3.5-5.1)
[2017-01-10] MEDS ORDERED: ALTEPLASE (CATHFLO) 2 MG INJ CATHETER ONE (12:30)
--- NOTE | 2017-01-10 13:32 | CONS ---
Date/Time of Note Date/Time of Note DATE: 01/10/17 TIME: 13:24 Assessment/Plan Assessment/Plan Chief Complaint/Hosp Course Pt seen by , await further plans. Problems: Additional Assessment/Plan Pt had problem with Dialysis cath last night. Cont'd Hospitalization Reason: Pt needs permacath placed, will re-contact Dr Paula. Consultation Date/Type/Reason Admit Date/Time Jan 06, 2017 at 17:55 Initial Consult Date 01/06/2017 Type of Consultation: renal Reason for Consultation KAIT Referring Provider: RICHAR SCOTT MD Exam/Review of Systems Vital Signs Vitals Vital Signs Date Time Temp Pulse Resp B/P Pulse Ox O2 Delivery O2 Flow Rate FiO2 01/10/17 12:04 53 01/10/17 11:48 98.1 17 148/71 97 01/09/17 23:32 21 01/08/17 12:00 Room Air Intake and Output 01/09/17 01/09/17 01/10/17 15:00 23:00 07:00 Intake Total 1300 ml 1440 ml Output Total 2150 ml 1400 ml Balance -850 ml 40 ml Exam Constitutional: alert, oriented, well developed Psych: nl mood/affect, no complaints Head: atraumatic, normocephalic Eyes: EOMI, PERRL, nl conjunctiva, nl lids, nl sclera ENMT: nl external ears & nose, nl lips & teeth, nl nasal mucosa & septum Neck: non-tender, supple Respiratory: clear to auscultation, normal air movement Cardiovascular: nl pulses, regular rate and rhythm Gastrointestinal: nl liver, spleen, non-tender, soft Genitourinary - Male: other (Shannon draining only pinkish urine.) Musculoskeletal: nl extremities to inspection, nl gait and stance Extremities: normal pulses, other (rt groin catheter) Neurological: RELIABILITY TECHNOLOGIST II-XII intact, nl mental status, nl speech, nl strength Skin: nl turgor, other (pale), No rash or lesions Lymph: nl lymph nodes Results BUN/Creat not significantly better despite good urine output Result Diagram: 01/10/17 0742 01/10/17 0742 Results 24 hrs Laboratory Tests Test 01/10/17 07:42 White Blood Count 6.6 Red Blood Count 2.30 L Hemoglobin 7.0 L Hematocrit 21.6 L Mean Corpuscular Volume 93.9 Mean Corpuscular Hemoglobin 30.4 Mean Corpuscular Hemoglobin Concent 32.4 Red Cell Distribution Width 14.5 Platelet Count 105 L Mean Platelet Volume 10.7 H Neutrophils % 54.8 Lymphocytes % 28.2 Monocytes % 11.8 H Eosinophils % 4.7 Basophils % 0.3 Nucleated Red Blood Cells % 0.0 Neutrophils # 3.6 Lymphocytes # 1.9 Monocytes # 0.8 Eosinophils # 0.3 Basophils # 0.0 Nucleated Red Blood Cells # 0.0 Sodium Level 133 L Potassium Level 3.6 Chloride Level 100 Carbon Dioxide Level 29 Anion Gap 8 Blood Urea Nitrogen 39 H Creatinine 4.70 #H Glucose Level 81 Calcium Level 8.2 L Phosphorus Level 3.8 Magnesium Level 1.8 Albumin 2.7 L Imaging Free Text/Dictation In light of very high PSA, pt will need further Rx for poss Ca Prostate Medications Medications Current Medications Dextrose (D50w Syringe) ONCE PRN IV POC BLOOD GLUCOSE <250 MG/DL Last administered on 01/06/17 17:24; Admin Dose 50 ML; Start 01/06/17 at 17:00 Acetaminophen (Tylenol Tab) 650 mg Q6H PRN PO PAIN LEVEL 1-3 OR FEVER Last administered on 01/07/17 20:02; Admin Dose 650 MG; Start 01/06/17 at 17:30 Morphine Sulfate (morphine) 2 mg Q4H PRN IV PAIN LEVEL 7-10; Start 01/06/17 at 17:30 Labetalol HCl (Labetalol) 10 mg Q4H PRN IV ELEVATED BLOOD PRESSURE Last administered on 01/08/17 08:26; Admin Dose 10 MG; Start 01/06/17 at 18:00 Hydralazine HCl (Apresoline) 10 mg Q6 PRN IV ELEVATED BLOOD PRESSURE Last administered on 01/08/17 10:12; Admin Dose 10 MG; Start 01/06/17 at 18:00 Metoclopramide HCl (Reglan) 5 mg Q6H PRN IV NAUSEA; Start 01/06/17 at 19:00 Ondansetron HCl 4 mg 4 mg Q6H PRN IV NAUSEA AND/OR VOMITING Last administered on 01/08/17 09:40; Admin Dose 4 MG; Start 01/08/17 at 09:30 Sodium Chloride (1/2 NS) 1,000 ml @ 40 mls/hr Q24H IV Last administered on 01:47; Admin Dose 100 MLS/HR; Start 01/08/17 at 10:00 Ciprofloxacin (Cipro) 250 mg DAILY@06 PO Last administered on 01/10/17 05:02; Admin Dose 250 MG; Start 01/08/17 at 12:00 Atenolol (Tenormin) 75 mg BID PO Last administered on 01/10/17 08:46; Admin Dose 75 MG; Start 01/10/17 at 09:00 Clonidine (Catapres) 0.2 mg TID PO Last administered on 01/10/17 12:22; Admin Dose 0.2 MG; Start 01/10/17 at 09:00 Famotidine (Pepcid) 20 mg DAILY PO Last administered on 01/10/17 08:46; Admin Dose 20 MG; Start 01/10/17 at 09:00 ALEXSANDRA WILSON MD Jan 10, 2017 13:32
--- NOTE | 2017-01-10 15:35 | PN ---
Date/Time of Note Date/Time of Note DATE: 01/10/17 TIME: 15:31 Assessment/Plan VTE Prophylaxis VTE Prophylaxis Intervention: contraindicated Lines/Catheters IV Catheter Type (from Nrs): dialysis cath Urinary Cath still in place: Yes Reason Cath still needed: urinary retention Assessment/Plan Assessment/Plan 1. Acute on chronic renal failure- on HD - Nephrology on board and consultation appreciated. Tolerating HD well - Ruthann cath clogged and will need permanent cath placement performed prior to d/c - Most likely secondary to obstruction caused by enlarged prostate - His last recorded Cr from 09/2016 was 3.16 2. Enlarged prostate - Elevated PSA. Most likely Prostate CA - Discussed with patient and in process of getting insurance so will be able to follow Urology as outpatient and needs to be set up with oncology as well - Zhang in place and still has occasional episodes of blood tinged urine 3. Hyperkalemia- resolved - K 3.6. will continue monitoring 4. Hematuria - still experiencing hematuria occasionally - Most likely secondary to present of prostate cancer - Urology consulted and recommendations appreciated. Suspicious for prostate cancer and will need further workup as outpatient - Will continue monitoring output 5. Anemia of chronic disease - H/H 7.0 this am and transfused 1 unit 6. ?UTI - Patient has minimal output over the past 2 weeks. - UA + and Culture shows contaminant - Continue on Cipro, day 3 7. Hypertension - stable - PRN medication if SBP>160 8. 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 Disposition - Will need permanent cath prior to discharge - Financial counselor assisting patient with obtaining proper insurance so can get followed as outpatient Subjective 24 Hr Interval Summary Free Text/Dictation Patient doing well and has no acute complaints. Still has blood tinged urine from zhang. Denies any chest pain, SOB, dizziness, nausea, vomiting, or abdominal issues. Exam/Review of Systems Vital Signs Vitals Vital Signs Date Time Temp Pulse Resp B/P Pulse Ox O2 Delivery O2 Flow Rate FiO2 01/10/17 12:04 53 01/10/17 11:48 98.1 17 148/71 97 01/09/17 23:32 21 01/08/17 12:00 Room Air Intake and Output 01/09/17 01/09/17 01/10/17 15:00 23:00 07:00 Intake Total 1300 ml 1440 ml Output Total 2150 ml 1400 ml Balance -850 ml 40 ml Exam General: alert, oriented, well developed Respiratory: clear to auscultation, normal air movement, No crackles/rales, No diminished breath sounds Cardiovascular: Regular rate and rhythm, No edema, No systolic murmur Gastrointestinal: soft, non tender, No rebound or guarding Musculoskeletal: nl extremities to inspection Extremities: normal pulses Skin: No diaphoresis, No ecchymosis, ruthann cath in R groin area Results Result Diagram: 01/10/17 0742 01/10/17 0742 Results 24 hrs Laboratory Tests Test 01/10/17 07:42 White Blood Count 6.6 Red Blood Count 2.30 L Hemoglobin 7.0 L Hematocrit 21.6 L Mean Corpuscular Volume 93.9 Mean Corpuscular Hemoglobin 30.4 Mean Corpuscular Hemoglobin Concent 32.4 Red Cell Distribution Width 14.5 Platelet Count 105 L Mean Platelet Volume 10.7 H Neutrophils % 54.8 Lymphocytes % 28.2 Monocytes % 11.8 H Eosinophils % 4.7 Basophils % 0.3 Nucleated Red Blood Cells % 0.0 Neutrophils # 3.6 Lymphocytes # 1.9 Monocytes # 0.8 Eosinophils # 0.3 Basophils # 0.0 Nucleated Red Blood Cells # 0.0 Sodium Level 133 L Potassium Level 3.6 Chloride Level 100 Carbon Dioxide Level 29 Anion Gap 8 Blood Urea Nitrogen 39 H Creatinine 4.70 #H Glucose Level 81 Calcium Level 8.2 L Phosphorus Level 3.8 Magnesium Level 1.8 Albumin 2.7 L Medications Medications Current Medications Dextrose (D50w Syringe) ONCE PRN IV POC BLOOD GLUCOSE <250 MG/DL Last administered on 01/06/17 17:24; Admin Dose 50 ML; Start 01/06/17 at 17:00 Acetaminophen (Tylenol Tab) 650 mg Q6H PRN PO PAIN LEVEL 1-3 OR FEVER Last administered on 01/07/17 20:02; Admin Dose 650 MG; Start 01/06/17 at 17:30 Morphine Sulfate (morphine) 2 mg Q4H PRN IV PAIN LEVEL 7-10; Start 01/06/17 at 17:30 Labetalol HCl (Labetalol) 10 mg Q4H PRN IV ELEVATED BLOOD PRESSURE Last administered on 01/08/17 08:26; Admin Dose 10 MG; Start 01/06/17 at 18:00 Hydralazine HCl (Apresoline) 10 mg Q6 PRN IV ELEVATED BLOOD PRESSURE Last administered on 01/08/17 10:12; Admin Dose 10 MG; Start 01/06/17 at 18:00 Metoclopramide HCl (Reglan) 5 mg Q6H PRN IV NAUSEA; Start 01/06/17 at 19:00 Ondansetron HCl 4 mg 4 mg Q6H PRN IV NAUSEA AND/OR VOMITING Last administered on 01/08/17 09:40; Admin Dose 4 MG; Start 01/08/17 at 09:30 Sodium Chloride (1/2 NS) 1,000 ml @ 40 mls/hr Q24H IV Last administered on 01:47; Admin Dose 100 MLS/HR; Start 01/08/17 at 10:00 Ciprofloxacin (Cipro) 250 mg DAILY@06 PO Last administered on 01/10/17 05:02; Admin Dose 250 MG; Start 01/08/17 at 12:00 Atenolol (Tenormin) 75 mg BID PO Last administered on 01/10/17 08:46; Admin Dose 75 MG; Start 01/10/17 at 09:00 Clonidine (Catapres) 0.2 mg TID PO Last administered on 01/10/17 12:22; Admin Dose 0.2 MG; Start 01/10/17 at 09:00 Famotidine (Pepcid) 20 mg DAILY PO Last administered on 01/10/17 08:46; Admin Dose 20 MG; Start 01/10/17 at 09:00 RICHAR SCOTT MD Jan 10, 2017 15:35
[2017-01-11] VITALS (15 sets, daily range): BP systolic 91–189; BP diastolic 55–82; PULSE 52–61; RESP 18–20
[2017-01-11] MEDS: hydrALAzine 20 MG INJ IV PRN ×3 (05:01→22:01)
[2017-01-11] MEDS: CIPROFLOXACIN 250 MG TAB PO SCH (05:35)
[2017-01-11 08:09] LABS: BASOPHILS % 0.3 % (0.0-2.0); EOSINOPHILS # 0.4 10^3/ul (0.0-0.5); EOSINOPHILS % 5.3 % (0.0-7.0); HEMATOCRIT 24.9 % (42.0-52.0); HEMOGLOBIN 8.5 g/dl (14.0-18.0); LYMPHOCYTES # 1.8 10^3/ul (0.8-2.9); LYMPHOCYTES % 27.7 % (15.0-51.0); MEAN CORPUSCULAR HEMOGLOBIN 31.6 pg (29.0-33.0); MEAN CORPUSCULAR HGB CONC 34.1 g/dl (32.0-37.0); MEAN CORPUSCULAR VOLUME 92.6 fl (82.0-101.0); MEAN PLATELET VOLUME 10.4 fl (7.4-10.4); MONOCYTE # 0.7 10^3/ul (0.3-0.9); MONOCYTES % 10.8 % (0.0-11.0); NEUTROPHIL # 3.7 10^3/ul (1.6-7.5); NEUTROPHILS % 55.7 % (39.0-77.0); PLATELET COUNT 118 10^3/UL (140-415); RED BLOOD COUNT 2.69 10^6/ul (4.70-6.10); RED CELL DISTRIBUTION WIDTH 14.3 % (11.5-14.5); WHITE BLOOD COUNT 6.6 10^3/ul (4.8-10.8)
[2017-01-11] MEDS: CALCIUM ACETATE 667 MG CAP PO SCH ×3 (08:28→17:51)
[2017-01-11] MEDS: FAMOTIDINE 20 MG TAB PO SCH (08:28)
[2017-01-11] MEDS: ATENOLOL 50 MG TAB PO SCH ×2 (08:29→21:26)
[2017-01-11 08:31] LABS: ALBUMIN 2.8 g/dl (3.3-4.9); CREATININE 4.92 mg/dl (0.61-1.24); MAGNESIUM 1.8 mg/dl (1.7-2.5); PHOSPHORUS 3.9 mg/dl (2.5-4.9); POTASSIUM 3.5 mmol/L (3.5-5.1)
--- NOTE | 2017-01-11 16:23 | PN ---
Date/Time of Note Date/Time of Note DATE: 01/11/17 TIME: 16:19 Assessment/Plan VTE Prophylaxis VTE Prophylaxis Intervention: contraindicated Lines/Catheters IV Catheter Type (from Nrs): ruthann cath Urinary Cath still in place: Yes Reason Cath still needed: urinary retention Assessment/Plan Assessment/Plan 1. Acute on chronic renal failure- on HD - Nephrology on board and consultation appreciated. Tolerating HD well - Ruthann cath clogged and will need permanent cath placement performed prior to d/c. Plans for placement tmrw - Most likely secondary to obstruction caused by enlarged prostate - His last recorded Cr from 09/2016 was 3.16 2. Enlarged prostate - Elevated PSA. Most likely Prostate CA - Discussed with patient and in process of getting insurance so will be able to follow Urology as outpatient and needs to be set up with oncology as well - Shannon in place 3. Hyperkalemia- resolved - K 3.5. will continue monitoring 4. Hematuria - Most likely secondary to present of prostate cancer - Urology consulted and recommendations appreciated. Suspicious for prostate cancer and will need further workup as outpatient - Will continue monitoring output 5. Anemia of chronic disease - H/H stable 6. ?UTI - Patient has minimal output over the past 2 weeks. - UA + and Culture shows contaminant - Continue on Cipro, day 4 7. Hypertension - stable - PRN medication if SBP>160 8. 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 Disposition - Plans for permacath placement tmrw - Financial counselor assisting patient with applying for Medical or Medicare B so can be seen by urologist as outpatient since only has Medicare Part A Subjective 24 Hr Interval Summary Free Text/Dictation Patient resting comfortably and no acute distress. No overnight events or new complaints. Exam/Review of Systems Vital Signs Vitals Vital Signs Date Time Temp Pulse Resp B/P Pulse Ox O2 Delivery O2 Flow Rate FiO2 01/11/17 16:00 52 01/11/17 15:52 98.3 18 143/67 100 01/09/17 23:32 21 01/08/17 12:00 Room Air Intake and Output 01/10/17 01/10/17 01/11/17 15:00 23:00 07:00 Intake Total 1280 ml 2000 ml Output Total 1100 ml 2650 ml Balance 180 ml -650 ml Exam General: alert, oriented, well developed Respiratory: clear to auscultation, normal air movement, No crackles/rales, No diminished breath sounds Cardiovascular: Regular rate and rhythm, No edema, No systolic murmur Gastrointestinal: soft, non tender, No rebound or guarding Musculoskeletal: nl extremities to inspection Extremities: normal pulses Skin: No diaphoresis, No ecchymosis, ruthann cath in R groin area Results Result Diagram: 01/11/17 0713 01/11/17 0713 Results 24 hrs Laboratory Tests Test 01/11/17 06:20 01/11/17 07:13 Lab Scanned Report BLOOD TRANSFUSION White Blood Count 6.6 Red Blood Count 2.69 L Hemoglobin 8.5 #L Hematocrit 24.9 L Mean Corpuscular Volume 92.6 Mean Corpuscular Hemoglobin 31.6 Mean Corpuscular Hemoglobin Concent 34.1 Red Cell Distribution Width 14.3 Platelet Count 118 L Mean Platelet Volume 10.4 Neutrophils % 55.7 Lymphocytes % 27.7 Monocytes % 10.8 Eosinophils % 5.3 Basophils % 0.3 Nucleated Red Blood Cells % 0.0 Neutrophils # 3.7 Lymphocytes # 1.8 Monocytes # 0.7 Eosinophils # 0.4 Basophils # 0.0 Nucleated Red Blood Cells # 0.0 Sodium Level 135 Potassium Level 3.5 Chloride Level 102 Carbon Dioxide Level 28 Anion Gap 9 Blood Urea Nitrogen 44 H Creatinine 4.92 H Glucose Level 91 Calcium Level 9.0 Phosphorus Level 3.9 Magnesium Level 1.8 Albumin 2.8 L Medications Medications Current Medications Dextrose (D50w Syringe) ONCE PRN IV POC BLOOD GLUCOSE <250 MG/DL Last administered on 01/06/17 17:24; Admin Dose 50 ML; Start 01/06/17 at 17:00 Acetaminophen (Tylenol Tab) 650 mg Q6H PRN PO PAIN LEVEL 1-3 OR FEVER Last administered on 01/07/17 20:02; Admin Dose 650 MG; Start 01/06/17 at 17:30 Morphine Sulfate (morphine) 2 mg Q4H PRN IV PAIN LEVEL 7-10; Start 01/06/17 at 17:30 Labetalol HCl (Labetalol) 10 mg Q4H PRN IV ELEVATED BLOOD PRESSURE Last administered on 01/08/17 08:26; Admin Dose 10 MG; Start 01/06/17 at 18:00 Hydralazine HCl (Apresoline) 10 mg Q6 PRN IV ELEVATED BLOOD PRESSURE Last administered on 01/11/17 05:01; Admin Dose 10 MG; Start 01/06/17 at 18:00 Metoclopramide HCl (Reglan) 5 mg Q6H PRN IV NAUSEA; Start 01/06/17 at 19:00 Ondansetron HCl 4 mg 4 mg Q6H PRN IV NAUSEA AND/OR VOMITING Last administered on 01/08/17 09:40; Admin Dose 4 MG; Start 01/08/17 at 09:30 Sodium Chloride (1/2 NS) 1,000 ml @ 40 mls/hr Q24H IV Last administered on 20:55; Admin Dose 40 MLS/HR; Start 01/08/17 at 10:00 Ciprofloxacin (Cipro) 250 mg DAILY@06 PO Last administered on 01/11/17 05:35; Admin Dose 250 MG; Start 01/08/17 at 12:00 Atenolol (Tenormin) 75 mg BID PO Last administered on 01/11/17 08:29; Admin Dose 75 MG; Start 01/10/17 at 09:00 Clonidine (Catapres) 0.2 mg TID PO Last administered on 01/11/17 08:29; Admin Dose 0.2 MG; Start 01/10/17 at 09:00 Famotidine (Pepcid) 20 mg DAILY PO Last administered on 01/11/17 08:28; Admin Dose 20 MG; Start 01/10/17 at 09:00 RICHAR SCOTT MD Jan 11, 2017 16:23
[2017-01-11] MEDS: SOD CHLORIDE 0.45% 1,000 ML IV SCH (21:24)
[2017-01-12] VITALS (22 sets, daily range): BP systolic 122–178; BP diastolic 58–79; PULSE 48–75; RESP 12–20
[2017-01-12 01:47] LABS: CALCIUM 9.1 mg/dl (8.4-10.2); CREATININE 5.37 mg/dl (0.61-1.24); MAGNESIUM 1.8 mg/dl (1.7-2.5); PHOSPHORUS 3.4 mg/dl (2.5-4.9); POTASSIUM 3.8 mmol/L (3.5-5.1)
[2017-01-12] MEDS: SOD CHLORIDE 0.45% 1,000 ML IV SCH (02:46)
[2017-01-12] MEDS ORDERED: MAGNESIUM SULFATE 1 GM/D5W 100 ML IVPB ONE (03:00)
[2017-01-12] MEDS ORDERED: POTASSIUM PHOSPHATE 40 MEQ in SOD CHLORIDE 0.9% 250 ML IVPB ONE (04:30)
[2017-01-12] MEDS: CIPROFLOXACIN 250 MG TAB PO SCH (05:14)
[2017-01-12 07:54] LABS: BASOPHILS % 0.4 % (0.0-2.0); EOSINOPHILS # 0.4 10^3/ul (0.0-0.5); HEMATOCRIT 25.3 % (42.0-52.0); HEMOGLOBIN 8.2 g/dl (14.0-18.0); LYMPHOCYTES # 2.2 10^3/ul (0.8-2.9); LYMPHOCYTES % 29.8 % (15.0-51.0); MEAN CORPUSCULAR HEMOGLOBIN 30.6 pg (29.0-33.0); MEAN CORPUSCULAR HGB CONC 32.4 g/dl (32.0-37.0); MEAN CORPUSCULAR VOLUME 94.4 fl (82.0-101.0); MEAN PLATELET VOLUME 10.9 fl (7.4-10.4); MONOCYTE # 0.8 10^3/ul (0.3-0.9); MONOCYTES % 10.7 % (0.0-11.0); NEUTROPHILS % 53.7 % (39.0-77.0); PLATELET COUNT 129 10^3/UL (140-415); RED BLOOD COUNT 2.68 10^6/ul (4.70-6.10); RED CELL DISTRIBUTION WIDTH 14.5 % (11.5-14.5); WHITE BLOOD COUNT 7.4 10^3/ul (4.8-10.8)
[2017-01-12 08:16] LABS: ALBUMIN 2.9 g/dl (3.3-4.9); CREATININE 5.35 mg/dl (0.61-1.24); MAGNESIUM 2.3 mg/dl (1.7-2.5); PHOSPHORUS 4.6 mg/dl (2.5-4.9); POTASSIUM 4.1 mmol/L (3.5-5.1)
[2017-01-12] MEDS: CALCIUM ACETATE 667 MG CAP PO SCH ×3 (09:18→17:34)
[2017-01-12] MEDS: FAMOTIDINE 20 MG TAB PO SCH (09:18)
[2017-01-12] MEDS: ATENOLOL 50 MG TAB PO SCH ×2 (09:20→20:53)
--- NOTE | 2017-01-12 14:59 | PN ---
Date/Time of Note Date/Time of Note DATE: 01/12/17 TIME: 14:57 Assessment/Plan VTE Prophylaxis VTE Prophylaxis Intervention: SCD's Lines/Catheters IV Catheter Type (from Nrs): Peripheral IV Urinary Cath still in place: Yes Reason Cath still needed: urinary retention Assessment/Plan Chief Complaint/Hosp Course 1. Acute on chronic renal failure- on HD - Nephrology on board and consultation appreciated. Tolerating HD well - Ruthann cath clogged and will need permanent cath placement performed prior to d/c. Plans for replacement today - Most likely secondary to obstruction caused by enlarged prostate - His last recorded Cr from 09/2016 was 3.16 2. Enlarged prostate - Elevated PSA. Most likely Prostate CA - Discussed with patient and in process of getting insurance so will be able to follow Urology as outpatient and needs to be set up with oncology as well - Shannon in place 3. Hyperkalemia- resolved - will continue monitoring 4. Hematuria - Most likely secondary to present of prostate cancer - Urology consulted and recommendations appreciated. Suspicious for prostate cancer and will need further workup as outpatient - Will continue monitoring output 5. Anemia of chronic disease - H/H stable 6. ?UTI - Patient has minimal output over the past 2 weeks. - UA + and Culture shows contaminant - Continue on Cipro 7. Hypertension - stable - PRN medication if SBP>160 8. 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 Disposition - Plans for permacath placement today - Financial counselor assisting patient with applying for Medical or Medicare B so can be seen by urologist as outpatient since only has Medicare Part A Problems: Subjective 24 Hr Interval Summary Free Text/Dictation no acute complaints Exam/Review of Systems Vital Signs Vitals Vital Signs Date Time Temp Pulse Resp B/P Pulse Ox O2 Delivery O2 Flow Rate FiO2 01/12/17 12:00 52 01/12/17 11:53 97.0 18 158/78 98 01/09/17 23:32 21 01/08/17 12:00 Room Air Intake and Output 01/11/17 01/11/17 01/12/17 15:00 23:00 07:00 Intake Total 1250 ml 1000 ml Output Total 1200 ml 700 ml Balance 50 ml 300 ml Exam General: alert, oriented, well developed Respiratory: clear to auscultation, normal air movement, No crackles/rales, No diminished breath sounds Cardiovascular: Regular rate and rhythm, No edema, No systolic murmur Gastrointestinal: soft, non tender, No rebound or guarding Musculoskeletal: nl extremities to inspection Extremities: normal pulses Skin: No diaphoresis, No ecchymosis, ruthann cath in R groin area Results Result Diagram: 01/12/17 0646 01/12/17 0646 Results 24 hrs Laboratory Tests Test 01/12/17 01:05 01/12/17 06:46 Sodium Level 135 138 Potassium Level 3.8 4.1 Chloride Level 103 102 Carbon Dioxide Level 27 28 Anion Gap 9 12 Blood Urea Nitrogen 54 H 57 H Creatinine 5.37 H 5.35 H Glucose Level 124 105 Calcium Level 9.1 9.0 Phosphorus Level 3.4 4.6 Magnesium Level 1.8 2.3 White Blood Count 7.4 Red Blood Count 2.68 L Hemoglobin 8.2 L Hematocrit 25.3 L Mean Corpuscular Volume 94.4 Mean Corpuscular Hemoglobin 30.6 Mean Corpuscular Hemoglobin Concent 32.4 Red Cell Distribution Width 14.5 Platelet Count 129 L Mean Platelet Volume 10.9 H Neutrophils % 53.7 Lymphocytes % 29.8 Monocytes % 10.7 Eosinophils % 5.0 Basophils % 0.4 Nucleated Red Blood Cells % 0.0 Neutrophils # 4.0 Lymphocytes # 2.2 Monocytes # 0.8 Eosinophils # 0.4 Basophils # 0.0 Nucleated Red Blood Cells # 0.0 Albumin 2.9 L Medications Medications Current Medications Dextrose (D50w Syringe) ONCE PRN IV POC BLOOD GLUCOSE <250 MG/DL Last administered on 01/06/17 17:24; Admin Dose 50 ML; Start 01/06/17 at 17:00 Acetaminophen (Tylenol Tab) 650 mg Q6H PRN PO PAIN LEVEL 1-3 OR FEVER Last administered on 01/07/17 20:02; Admin Dose 650 MG; Start 01/06/17 at 17:30 Morphine Sulfate (morphine) 2 mg Q4H PRN IV PAIN LEVEL 7-10; Start 01/06/17 at 17:30 Labetalol HCl (Labetalol) 10 mg Q4H PRN IV ELEVATED BLOOD PRESSURE Last administered on 01/08/17 08:26; Admin Dose 10 MG; Start 01/06/17 at 18:00 Hydralazine HCl (Apresoline) 10 mg Q6 PRN IV ELEVATED BLOOD PRESSURE Last administered on 01/11/17 22:01; Admin Dose 10 MG; Start 01/06/17 at 18:00 Metoclopramide HCl (Reglan) 5 mg Q6H PRN IV NAUSEA; Start 01/06/17 at 19:00 Ondansetron HCl 4 mg 4 mg Q6H PRN IV NAUSEA AND/OR VOMITING Last administered on 01/08/17 09:40; Admin Dose 4 MG; Start 01/08/17 at 09:30 Sodium Chloride (1/2 NS) 1,000 ml @ 40 mls/hr Q24H IV Last administered on 02:46; Admin Dose 40 MLS/HR; Start 01/08/17 at 10:00 Ciprofloxacin (Cipro) 250 mg DAILY@06 PO Last administered on 01/12/17 05:14; Admin Dose 250 MG; Start 01/08/17 at 12:00 Atenolol (Tenormin) 75 mg BID PO Last administered on 01/12/17 09:20; Admin Dose 75 MG; Start 01/10/17 at 09:00 Clonidine (Catapres) 0.2 mg TID PO Last administered on 01/12/17 12:35; Admin Dose 0.2 MG; Start 01/10/17 at 09:00 Famotidine (Pepcid) 20 mg DAILY PO Last administered on 01/12/17 09:18; Admin Dose 20 MG; Start 01/10/17 at 09:00 FREDI GALLO Jan 12, 2017 14:59
[2017-01-12] MEDS ORDERED: POLYMYXIN/BACITRACIN 1L IRRIG ONE (15:26)
[2017-01-12] MEDS ORDERED: HEPARIN 1000 UNITS/ML 10 ML INJ ONE ×3 (15:29→17:10)
[2017-01-12] MEDS ORDERED: LIDOCAINE 1% (STERILE-PAK) 30 ML INJ ONE (15:29)
[2017-01-12] MEDS ORDERED: BUPIVACAINE 0.25% (MPF) 30 ML INJ ONE (15:29)
[2017-01-12] MEDS ORDERED: GELATIN SIZE 100 SPONGE ONE (15:29)
[2017-01-12] MEDS ORDERED: THROMBIN 5000 UNIT VIAL ONE (15:30)
[2017-01-12] MEDS ORDERED: PROPOFOL 20 ML ONE (16:20)
[2017-01-12] MEDS ORDERED: LIDOCAINE 2% (SDV) 5 ML INJ ONE (16:20)
[2017-01-12] MEDS ORDERED: ATROPINE 1 MG/10 ML SYRINGE ONE (16:32)
[2017-01-12] MEDS ORDERED: IOHEXOL 300MG/ML 30 ML BTL ONE (16:40)
[2017-01-12] MEDS ORDERED: VANCOMYCIN 1 GM INJ ONE (16:41)
[2017-01-12] MEDS ORDERED: VANCOMYCIN 1 GM (PMX) 250 ML ONE (16:43)
--- NOTE | 2017-01-12 17:21 | OPR ---
Date/Time of Note Date/Time of Note DATE: 01/12/17 TIME: 17:20 Operative Report Procedure Date: Jan 12, 2017 Preoperative Diagnosis ESRD Postoperative Diagnosis ERSD Operation Performed LUE AVF and permcath placement Surgeon see signature line Typo Machine Operator: PARTHA CENTENO MD Anesthesia Type: general Estimated Blood Loss: minimal Transfusion Required: no Specimen: none Grafts/Implants: none Complications: no Pt Condition Post Procedure: stable Disposition: PACU Indications ESRD Operative\Procedure Findings Dictated Procedure Description Dictated PARTHA CENTENO MD Jan 12, 2017 17:21
--- NOTE | 2017-01-12 17:39 | RADRPT ---
PROCEDURE: Intraoperative imaging of the chest with fluoroscopy. CLINICAL INDICATION: Line placement. Intraoperative. TECHNIQUE: A single image of the upper chest was obtained in the operating room with an image inte nsifier. No radiologist was in attendance. Fluoroscopy time is 0.4 minutes. COMPARISON: Chest x-ray dated 01/06/2017. FINDINGS: The image demonstrates a right internal jugular vein dialysis catheter with the tip in the lower sup erior vena cava. IMPRESSION: 1. Intraoperative imaging of the chest. RPTAT: QQ .Francisco Tian MD, MD Date Time Electronically viewed and signed by .Francisco Tian MD, on 01/12/2017 17:38 .R/
[2017-01-12] MEDS ORDERED: METOCLOPRAMIDE 10 MG INJ IV PRN (18:00)
[2017-01-12] MEDS ORDERED: EPHEDrine SULFATE 50 MG/5 ML SYG IV PRN (18:00)
[2017-01-12] MEDS ORDERED: ONDANSETRON 4 MG INJ IV PRN (18:00)
[2017-01-12] MEDS ORDERED: LABETALOL HCL 20MG INJ IV PRN (18:00)
[2017-01-12] MEDS ORDERED: FENTAnyl 50 MCG/ML VIAL IV PRN ×3 (18:00)
[2017-01-12] MEDS ORDERED: MEPERIDINE 25 MG INJ IV PRN (18:00)
[2017-01-12] MEDS ORDERED: DIPHENHYDRAMINE 50 MG INJ IV PRN (18:00)
[2017-01-12] MEDS ORDERED: MIDAZOLAM 1 MG/ML 2 ML INJ IV PRN (18:00)
[2017-01-12] MEDS ORDERED: hydrALAzine 20 MG INJ IV PRN (18:00)
--- NOTE | 2017-01-12 20:41 | CONS ---
Date/Time of Note Date/Time of Note DATE: 01/12/17 TIME: 20:40 Assessment/Plan Assessment/Plan Additional Assessment/Plan 66 yo male with 1) Gross Hematuria 2) KAIT on Unspecified CKD, Obstructive Uropathy 3) Elevated PSA, Possible malignancy 4) Hyperkalemia- Resolved 5) Mild Hyponatremia S/p AVF and PC HD ordered for tomorrow Cont to assess need for HD daily Urology consulted Cont to monitor electrolytes, UO, renal function and Volume status closely Consultation Date/Type/Reason Admit Date/Time Jan 06, 2017 at 17:55 Initial Consult Date 01/08/17 Type of Consultation: renal Referring Provider: RICHAR SCOTT MD 24 HR Interval Summary Free Text/Dictation Pt s/p PC and AVF, no new complaints Constitutional: No requiring O2 Exam/Review of Systems Vital Signs Vitals Vital Signs Date Time Temp Pulse Resp B/P Pulse Ox O2 Delivery O2 Flow Rate FiO2 01/12/17 19:31 98.2 65 18 158/70 98 01/12/17 18:36 Room Air 01/09/17 23:32 21 Intake and Output 01/11/17 01/11/17 01/12/17 15:00 23:00 07:00 Intake Total 1250 ml 1000 ml Output Total 1200 ml 700 ml Balance 50 ml 300 ml Exam Constitutional: alert, No distress ENMT: mucosa pink and moist Neck: No jvd Respiratory: clear to auscultation, other (RT chest PC), No labored breathing Cardiovascular: regular rate and rhythm Gastrointestinal: soft, No rebound or guarding Extremities: No edema Neurological: [employer] intact, nl mental status, No lethargic Skin: No diaphoresis Results Result Diagram: 01/12/17 0646 01/12/17 0646 Results 24 hrs Laboratory Tests Test 01/12/17 01:05 01/12/17 06:46 Sodium Level 135 138 Potassium Level 3.8 4.1 Chloride Level 103 102 Carbon Dioxide Level 27 28 Anion Gap 9 12 Blood Urea Nitrogen 54 H 57 H Creatinine 5.37 H 5.35 H Glucose Level 124 105 Calcium Level 9.1 9.0 Phosphorus Level 3.4 4.6 Magnesium Level 1.8 2.3 White Blood Count 7.4 Red Blood Count 2.68 L Hemoglobin 8.2 L Hematocrit 25.3 L Mean Corpuscular Volume 94.4 Mean Corpuscular Hemoglobin 30.6 Mean Corpuscular Hemoglobin Concent 32.4 Red Cell Distribution Width 14.5 Platelet Count 129 L Mean Platelet Volume 10.9 H Neutrophils % 53.7 Lymphocytes % 29.8 Monocytes % 10.7 Eosinophils % 5.0 Basophils % 0.4 Nucleated Red Blood Cells % 0.0 Neutrophils # 4.0 Lymphocytes # 2.2 Monocytes # 0.8 Eosinophils # 0.4 Basophils # 0.0 Nucleated Red Blood Cells # 0.0 Albumin 2.9 L Imaging Free Text/Dictation PROCEDURE: Intraoperative imaging of the chest with fluoroscopy. CLINICAL INDICATION: Line placement. Intraoperative. TECHNIQUE: A single image of the upper chest was obtained in the operating room with an image intensifier. No radiologist was in attendance. Fluoroscopy time is 0.4 minutes. COMPARISON: Chest x-ray dated 01/06/2017. FINDINGS: The image demonstrates a right internal jugular vein dialysis catheter with the tip in the lower superior vena cava. IMPRESSION: 1. Intraoperative imaging of the chest. RPTAT: QQ .Francisco Tian MD, MD Date Time Electronically viewed and signed by .Francisco Tian MD, MD on 01/12/2017 17:38 Medications Medications Current Medications Dextrose (D50w Syringe) ONCE PRN IV POC BLOOD GLUCOSE <250 MG/DL Last administered on 01/06/17 17:24; Admin Dose 50 ML; Start 01/06/17 at 17:00 Acetaminophen (Tylenol Tab) 650 mg Q6H PRN PO PAIN LEVEL 1-3 OR FEVER Last administered on 01/07/17 20:02; Admin Dose 650 MG; Start 01/06/17 at 17:30 Morphine Sulfate (morphine) 2 mg Q4H PRN IV PAIN LEVEL 7-10; Start 01/06/17 at 17:30 Labetalol HCl (Labetalol) 10 mg Q4H PRN IV ELEVATED BLOOD PRESSURE Last administered on 01/08/17 08:26; Admin Dose 10 MG; Start 01/06/17 at 18:00 Hydralazine HCl (Apresoline) 10 mg Q6 PRN IV ELEVATED BLOOD PRESSURE Last administered on 01/11/17 22:01; Admin Dose 10 MG; Start 01/06/17 at 18:00 Metoclopramide HCl (Reglan) 5 mg Q6H PRN IV NAUSEA; Start 01/06/17 at 19:00 Ondansetron HCl 4 mg 4 mg Q6H PRN IV NAUSEA AND/OR VOMITING Last administered on 01/08/17 09:40; Admin Dose 4 MG; Start 01/08/17 at 09:30 Sodium Chloride (1/2 NS) 1,000 ml @ 40 mls/hr Q24H IV Last administered on 02:46; Admin Dose 40 MLS/HR; Start 01/08/17 at 10:00 Ciprofloxacin (Cipro) 250 mg DAILY@06 PO Last administered on 01/12/17 05:14; Admin Dose 250 MG; Start 01/08/17 at 12:00 Atenolol (Tenormin) 75 mg BID PO Last administered on 01/12/17 09:20; Admin Dose 75 MG; Start 01/10/17 at 09:00 Clonidine (Catapres) 0.2 mg TID PO Last administered on 01/12/17 12:35; Admin Dose 0.2 MG; Start 01/10/17 at 09:00 Famotidine (Pepcid) 20 mg DAILY PO Last administered on 01/12/17 09:18; Admin Dose 20 MG; Start 01/10/17 at 09:00 Procedures Procedures Operative Report Procedure Date: Jan 12, 2017 Preoperative Diagnosis ESRD Postoperative Diagnosis ERSD Operation Performed LUE AVF and permcath placement Surgeon see signature line Fax Machine Repairer: PARTHA CENTENO MD Anesthesia Type: general Estimated Blood Loss: minimal Transfusion Required: no Specimen: none Grafts/Implants: none Complications: no Pt Condition Post Procedure: TARIQ Hopkins MD Jan 12, 2017 20:41
--- NOTE | 2017-01-12 20:48 | OPR ---
DATE OF OPERATION: 01/12/2017 PREOPERATIVE DIAGNOSIS: End-stage renal disease. POSTOPERATIVE DIAGNOSIS: End-stage renal disease. OPERATION PERFORMED: 1. Left arm brachiocephalic arteriovenous fistula. 2. Right internal jugular vein 19-cm tunneled hemodialysis catheter. 3. Ultrasound guidance into the central vein. 4. Fluoroscopy. SURGEON: Hebert Paula MD ANESTHESIA: Local plus IV sedation, in addition to LMA general. INDICATIONS: Risks, benefits, complications and alternative therapies explained to the patient and the family. Consent obtained. OPERATIVE PROCEDURE: Patient was placed in supine position, prepped and draped in the usual sterile fashion; 1 percent lidocaine was used throughout the operation for local anesthesia. A time-out was called. I made a 4-cm incision in the left arm just distal to the antecubital fossa in horizontal fashion. Incision was taken down through the subcutaneous tissue. Cephalic vein was identified, transected distally. Patient was given 5000 units of IV heparin. The vein was anastomosed in end-to-side fashion to the brachial artery just below the antecubital fossa. There was a good thrill and bruit over the newly-constructed fistula. The wound was irrigated and closed in 2 layers of 3-0 Vicryl suture in a running subcuticular skin closure. Access was gained into the right internal jugular vein using ultrasound guidance. Guidewire was advanced without any difficulty. Subcutaneous tissue was dilated. A 19-cm tunneled hemodialysis catheter brought into the subcutaneous tissue, advanced into the right internal jugular vein and superior vena cava, all under fluoroscopic guidance. The tip was placed at the junction of the superior vena cava and right atrium. Both ports of the catheter were aspirated and injected using heparinized saline solution. The catheter was secured to the skin using 2-0 nylon sutures. The neck site and the exit site was closed using a single 3-0 Vicryl suture in interrupted fashion. Patient tolerated the procedure well. Dictated By: Hebert Paula MD /[email or web address] /Document#: [id number]
[2017-01-12] MEDS: ACETAMINOPHEN 325 MG TAB PO PRN (21:44)
[2017-01-13] VITALS (17 sets, daily range): BP systolic 96–164; BP diastolic 50–80; PULSE 50–58; RESP 17–59
[2017-01-13] MEDS: CIPROFLOXACIN 250 MG TAB PO SCH (06:04)
[2017-01-13 07:38] LABS: BASOPHILS % 0.4 % (0.0-2.0); EOSINOPHILS # 0.4 10^3/ul (0.0-0.5); EOSINOPHILS % 4.8 % (0.0-7.0); HEMOGLOBIN 8.3 g/dl (14.0-18.0); LYMPHOCYTES # 1.6 10^3/ul (0.8-2.9); LYMPHOCYTES % 22.2 % (15.0-51.0); MEAN CORPUSCULAR HEMOGLOBIN 30.2 pg (29.0-33.0); MEAN CORPUSCULAR HGB CONC 31.9 g/dl (32.0-37.0); MEAN CORPUSCULAR VOLUME 94.5 fl (82.0-101.0); MEAN PLATELET VOLUME 10.7 fl (7.4-10.4); MONOCYTE # 0.8 10^3/ul (0.3-0.9); MONOCYTES % 10.6 % (0.0-11.0); NEUTROPHIL # 4.5 10^3/ul (1.6-7.5); NEUTROPHILS % 61.7 % (39.0-77.0); PLATELET COUNT 125 10^3/UL (140-415); RED BLOOD COUNT 2.75 10^6/ul (4.70-6.10); RED CELL DISTRIBUTION WIDTH 14.4 % (11.5-14.5); WHITE BLOOD COUNT 7.3 10^3/ul (4.8-10.8)
[2017-01-13 07:56] LABS: CALCIUM 9.3 mg/dl (8.4-10.2); CREATININE 5.44 mg/dl (0.61-1.24); MAGNESIUM 1.9 mg/dl (1.7-2.5); PHOSPHORUS 6.1 mg/dl (2.5-4.9); POTASSIUM 3.9 mmol/L (3.5-5.1)
[2017-01-13] MEDS: ATENOLOL 50 MG TAB PO SCH ×2 (09:24→20:48)
[2017-01-13] MEDS: CALCIUM ACETATE 667 MG CAP PO SCH ×3 (09:27→19:36)
[2017-01-13] MEDS: FAMOTIDINE 20 MG TAB PO SCH (09:28)
--- NOTE | 2017-01-13 10:32 | CONS ---
Date/Time of Note Date/Time of Note DATE: 01/13/17 TIME: 10:32 Assessment/Plan Assessment/Plan Additional Assessment/Plan 66 yo male with 1) Gross Hematuria 2) KAIT on Unspecified CKD, Obstructive Uropathy 3) Elevated PSA, Possible malignancy 4) Hyperkalemia- Resolved 5) Mild Hyponatremia S/p AVF and PC HD ordered for today Cont to assess need for HD daily Cont to monitor electrolytes, UO, renal function and Volume status closely consult for HD placement to [facility] Hep B negative Consultation Date/Type/Reason Admit Date/Time Jan 06, 2017 at 17:55 Initial Consult Date 01/08/17 Type of Consultation: renal Referring Provider: RICHAR SCOTT MD 24 HR Interval Summary Free Text/Dictation No new complaints. Pending HD today Constitutional: No requiring O2 Exam/Review of Systems Vital Signs Vitals Vital Signs Date Time Temp Pulse Resp B/P Pulse Ox O2 Delivery O2 Flow Rate FiO2 01/13/17 08:24 58 01/13/17 07:57 98.1 18 153/70 97 01/12/17 18:36 Room Air 01/09/17 23:32 21 Intake and Output 01/12/17 01/12/17 01/13/17 15:00 23:00 07:00 Intake Total 100 ml 400 ml Output Total 505 ml 1700 ml Balance -405 ml -1300 ml Exam Constitutional: alert, No distress ENMT: mucosa pink and moist Neck: No jvd Respiratory: clear to auscultation Cardiovascular: regular rate and rhythm Gastrointestinal: soft Neurological: No lethargic Skin: No diaphoresis Results Result Diagram: 01/13/17 0637 01/13/17 0637 Results 24 hrs Laboratory Tests Test 01/13/17 06:37 White Blood Count 7.3 Red Blood Count 2.75 L Hemoglobin 8.3 L Hematocrit 26.0 L Mean Corpuscular Volume 94.5 Mean Corpuscular Hemoglobin 30.2 Mean Corpuscular Hemoglobin Concent 31.9 L Red Cell Distribution Width 14.4 Platelet Count 125 L Mean Platelet Volume 10.7 H Neutrophils % 61.7 Lymphocytes % 22.2 Monocytes % 10.6 Eosinophils % 4.8 Basophils % 0.4 Nucleated Red Blood Cells % 0.0 Neutrophils # 4.5 Lymphocytes # 1.6 Monocytes # 0.8 Eosinophils # 0.4 Basophils # 0.0 Nucleated Red Blood Cells # 0.0 Sodium Level 139 Potassium Level 3.9 Chloride Level 105 Carbon Dioxide Level 25 Anion Gap 13 Blood Urea Nitrogen 61 H Creatinine 5.44 H Glucose Level 90 Calcium Level 9.3 Phosphorus Level 6.1 H Magnesium Level 1.9 Medications Medications Current Medications Dextrose (D50w Syringe) ONCE PRN IV POC BLOOD GLUCOSE <250 MG/DL Last administered on 01/06/17 17:24; Admin Dose 50 ML; Start 01/06/17 at 17:00 Acetaminophen (Tylenol Tab) 650 mg Q6H PRN PO PAIN LEVEL 1-3 OR FEVER Last administered on 01/12/17 21:44; Admin Dose 650 MG; Start 01/06/17 at 17:30 Morphine Sulfate (morphine) 2 mg Q4H PRN IV PAIN LEVEL 7-10; Start 01/06/17 at 17:30 Labetalol HCl (Labetalol) 10 mg Q4H PRN IV ELEVATED BLOOD PRESSURE Last administered on 01/08/17 08:26; Admin Dose 10 MG; Start 01/06/17 at 18:00 Hydralazine HCl (Apresoline) 10 mg Q6 PRN IV ELEVATED BLOOD PRESSURE Last administered on 01/11/17 22:01; Admin Dose 10 MG; Start 01/06/17 at 18:00 Metoclopramide HCl (Reglan) 5 mg Q6H PRN IV NAUSEA; Start 01/06/17 at 19:00 Ondansetron HCl 4 mg 4 mg Q6H PRN IV NAUSEA AND/OR VOMITING Last administered on 01/08/17 09:40; Admin Dose 4 MG; Start 01/08/17 at 09:30 Sodium Chloride (1/2 NS) 1,000 ml @ 40 mls/hr Q24H IV Last administered on 02:46; Admin Dose 40 MLS/HR; Start 01/08/17 at 10:00 Ciprofloxacin (Cipro) 250 mg DAILY@06 PO Last administered on 01/13/17 06:04; Admin Dose 250 MG; Start 01/08/17 at 12:00 Atenolol (Tenormin) 75 mg BID PO Last administered on 01/13/17 09:24; Admin Dose 75 MG; Start 01/10/17 at 09:00 Clonidine (Catapres) 0.2 mg TID PO Last administered on 01/13/17 09:26; Admin Dose 0.2 MG; Start 01/10/17 at 09:00 Famotidine (Pepcid) 20 mg DAILY PO Last administered on 01/13/17 09:28; Admin Dose 20 MG; Start 01/10/17 at 09:00 TARIQ GARCIA MD Jan 13, 2017 10:32
[2017-01-13] MEDS ORDERED: HEPARIN 1000 UNITS/ML 10 ML INJ CATHETER ONE (13:00)
[2017-01-13 14:51] LABS: HAAIG REFLEX REFLEX FILED
[2017-01-13 15:49] LABS: HEPATITIS B CORE ANTIBODY NEGATIVE (NEGATIVE)
--- NOTE | 2017-01-13 15:58 | PN ---
Date/Time of Note Date/Time of Note DATE: 01/13/17 TIME: 15:53 Assessment/Plan VTE Prophylaxis VTE Prophylaxis Intervention: SCD's Lines/Catheters IV Catheter Type (from Nrsg): permacath Urinary Cath still in place: Yes Reason Cath still needed: urinary retention Assessment/Plan Chief Complaint/Hosp Course 1. Acute on chronic renal failure- on HD - Nephrology on board and consultation appreciated. Tolerating HD well - permacath placed right chest, AV fistula placed left UE yesterday. - Continue to monitor for dialysis needs - His last recorded Cr from 09/2016 was 3.16 2. Enlarged prostate - Elevated PSA. Most likely Prostate CA - Discussed with patient and in process of getting insurance so will be able to follow Urology as outpatient and needs to be set up with oncology as well - Zhang in place 3. Hyperkalemia- resolved - will continue monitoring 4. Hematuria - Most likely secondary to present of prostate cancer - Urology consulted and recommendations appreciated. Suspicious for prostate cancer and will need further workup as outpatient - Will continue monitoring output 5. Anemia of chronic disease - H/H stable 6. ?UTI - Patient has minimal output over the past 2 weeks. - UA + and Culture shows contaminant - Continue on Cipro 7. Hypertension - stable - PRN medication if SBP>160 8. 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 Disposition -will get placement for dialysis chair, -patient will DC with zhang per urology to follow up outpatient for workup including ?prostate CA. Problems: Subjective 24 Hr Interval Summary Free Text/Dictation no acute complaints, getting HD Exam/Review of Systems Vital Signs Vitals Vital Signs Date Time Temp Pulse Resp B/P Pulse Ox O2 Delivery O2 Flow Rate FiO2 01/13/17 12:30 50 01/13/17 12:00 18 01/13/17 11:42 98.6 160/60 97 01/12/17 18:36 Room Air 01/09/17 23:32 21 Intake and Output 01/12/17 01/12/17 01/13/17 15:00 23:00 07:00 Intake Total 100 ml 400 ml Output Total 505 ml 1700 ml Balance -405 ml -1300 ml Exam General: alert, oriented, well developed Respiratory: clear to auscultation, normal air movement, No crackles/rales, No diminished breath sounds Cardiovascular: Regular rate and rhythm, No edema, No systolic murmur Gastrointestinal: soft, non tender, No rebound or guarding Musculoskeletal: nl extremities to gross inspection Extremities: normal pulses Results Result Diagram: 01/13/17 0637 01/13/17 0637 Results 24 hrs Laboratory Tests Test 01/13/17 06:37 01/13/17 06:40 White Blood Count 7.3 Red Blood Count 2.75 L Hemoglobin 8.3 L Hematocrit 26.0 L Mean Corpuscular Volume 94.5 Mean Corpuscular Hemoglobin 30.2 Mean Corpuscular Hemoglobin Concent 31.9 L Red Cell Distribution Width 14.4 Platelet Count 125 L Mean Platelet Volume 10.7 H Neutrophils % 61.7 Lymphocytes % 22.2 Monocytes % 10.6 Eosinophils % 4.8 Basophils % 0.4 Nucleated Red Blood Cells % 0.0 Neutrophils # 4.5 Lymphocytes # 1.6 Monocytes # 0.8 Eosinophils # 0.4 Basophils # 0.0 Nucleated Red Blood Cells # 0.0 Sodium Level 139 Potassium Level 3.9 Chloride Level 105 Carbon Dioxide Level 25 Anion Gap 13 Blood Urea Nitrogen 61 H Creatinine 5.44 H Glucose Level 90 Calcium Level 9.3 Phosphorus Level 6.1 H Magnesium Level 1.9 Hepatitis B Surface Antigen NEGATIVE Hepatitis B Core Total Antibody Pending Hepatitis C Antibody Pending Medications Medications Current Medications Dextrose (D50w Syringe) ONCE PRN IV POC BLOOD GLUCOSE <250 MG/DL Last administered on 01/06/17 17:24; Admin Dose 50 ML; Start 01/06/17 at 17:00 Acetaminophen (Tylenol Tab) 650 mg Q6H PRN PO PAIN LEVEL 1-3 OR FEVER Last administered on 01/12/17 21:44; Admin Dose 650 MG; Start 01/06/17 at 17:30 Morphine Sulfate (morphine) 2 mg Q4H PRN IV PAIN LEVEL 7-10; Start 01/06/17 at 17:30 Labetalol HCl (Labetalol) 10 mg Q4H PRN IV ELEVATED BLOOD PRESSURE Last administered on 01/08/17 08:26; Admin Dose 10 MG; Start 01/06/17 at 18:00 Hydralazine HCl (Apresoline) 10 mg Q6 PRN IV ELEVATED BLOOD PRESSURE Last administered on 01/11/17 22:01; Admin Dose 10 MG; Start 01/06/17 at 18:00 Metoclopramide HCl (Reglan) 5 mg Q6H PRN IV NAUSEA; Start 01/06/17 at 19:00 Ondansetron HCl 4 mg 4 mg Q6H PRN IV NAUSEA AND/OR VOMITING Last administered on 01/08/17 09:40; Admin Dose 4 MG; Start 01/08/17 at 09:30 Sodium Chloride (1/2 NS) 1,000 ml @ 40 mls/hr Q24H IV Last administered on 02:46; Admin Dose 40 MLS/HR; Start 01/08/17 at 10:00 Ciprofloxacin (Cipro) 250 mg DAILY@06 PO Last administered on 01/13/17 06:04; Admin Dose 250 MG; Start 01/08/17 at 12:00 Atenolol (Tenormin) 75 mg BID PO Last administered on 01/13/17 09:24; Admin Dose 75 MG; Start 01/10/17 at 09:00 Clonidine (Catapres) 0.2 mg TID PO Last administered on 01/13/17 09:26; Admin Dose 0.2 MG; Start 01/10/17 at 09:00 Famotidine (Pepcid) 20 mg DAILY PO Last administered on 01/13/17 09:28; Admin Dose 20 MG; Start 01/10/17 at 09:00 FREDI GALLO Jan 13, 2017 15:58
[2017-01-14] VITALS (12 sets, daily range): BP systolic 143–188; BP diastolic 66–80; PULSE 53–66; RESP 17–18
[2017-01-14] MEDS: CIPROFLOXACIN 250 MG TAB PO SCH (06:02)
[2017-01-14 07:36] LABS: BASOPHILS % 0.4 % (0.0-2.0); EOSINOPHILS # 0.3 10^3/ul (0.0-0.5); EOSINOPHILS % 3.6 % (0.0-7.0); HEMATOCRIT 24.8 % (42.0-52.0); HEMOGLOBIN 8.4 g/dl (14.0-18.0); LYMPHOCYTES % 27.1 % (15.0-51.0); MEAN CORPUSCULAR HEMOGLOBIN 31.9 pg (29.0-33.0); MEAN CORPUSCULAR HGB CONC 33.9 g/dl (32.0-37.0); MEAN CORPUSCULAR VOLUME 94.3 fl (82.0-101.0); MEAN PLATELET VOLUME 10.3 fl (7.4-10.4); MONOCYTE # 1.2 10^3/ul (0.3-0.9); MONOCYTES % 16.4 % (0.0-11.0); NEUTROPHIL # 3.8 10^3/ul (1.6-7.5); NEUTROPHILS % 52.2 % (39.0-77.0); PLATELET COUNT 124 10^3/UL (140-415); RED BLOOD COUNT 2.63 10^6/ul (4.70-6.10); RED CELL DISTRIBUTION WIDTH 13.8 % (11.5-14.5); WHITE BLOOD COUNT 7.2 10^3/ul (4.8-10.8)
[2017-01-14 08:03] LABS: CALCIUM 8.7 mg/dl (8.4-10.2); CREATININE 4.6 mg/dl (0.61-1.24); PHOSPHORUS 4.7 mg/dl (2.5-4.9); POTASSIUM 3.7 mmol/L (3.5-5.1)
[2017-01-14] MEDS: CALCIUM ACETATE 667 MG CAP PO SCH ×3 (08:03→17:10)
[2017-01-14] MEDS: FAMOTIDINE 20 MG TAB PO SCH (08:03)
[2017-01-14] MEDS: ATENOLOL 50 MG TAB PO SCH ×2 (08:04→20:13)
[2017-01-14] MEDS ORDERED: AMLODIPINE 5 MG TAB PO SCH (11:30)
[2017-01-14] MEDS: AMLODIPINE 10 MG TAB PO SCH (12:20)
--- NOTE | 2017-01-14 16:06 | PN ---
Date/Time of Note Date/Time of Note DATE: 01/14/17 TIME: 16:04 Assessment/Plan VTE Prophylaxis VTE Prophylaxis Intervention: SCD's Lines/Catheters IV Catheter Type (from Nrs): Peripheral IV Urinary Cath still in place: Yes Reason Cath still needed: urinary retention Assessment/Plan Chief Complaint/Hosp Course 1. Acute on chronic renal failure- on HD - Nephrology on board and consultation appreciated. Tolerating HD well - permacath placed right chest, AV fistula placed left UE - Continue to monitor for dialysis needs 2. Enlarged prostate - Elevated PSA. Most likely Prostate CA - Discussed with patient and in process of getting insurance so will be able to follow Urology as outpatient and needs to be set up with oncology as well - Zhang in place 3. Hyperkalemia- resolved - will continue monitoring 4. Hematuria - Most likely secondary to present of prostate cancer - Urology consulted and recommendations appreciated. Suspicious for prostate cancer and will need further workup as outpatient - Will continue monitoring output 5. Anemia of chronic disease - H/H stable 6. ?UTI - finished cipro, monitor 7. Hypertension - stable - PRN medication if SBP>160 8. 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 Disposition -Patient only has medicare A, according to case management, need medical or part B in order to get a dialysis chair, will stay in hospital until a chair is found. -patient will DC with zhang per urology to follow up outpatient for workup including ?prostate CA. Problems: Subjective 24 Hr Interval Summary Free Text/Dictation no acute complaints. Exam/Review of Systems Vital Signs Vitals Vital Signs Date Time Temp Pulse Resp B/P Pulse Ox O2 Delivery O2 Flow Rate FiO2 01/14/17 15:54 97.6 52 18 154/74 97 01/12/17 18:36 Room Air Intake and Output 01/13/17 01/13/17 01/14/17 15:00 23:00 07:00 Intake Total 500 ml 950 ml 500 ml Output Total 1000 ml 700 ml 2000 ml Balance -500 ml 250 ml -1500 ml Exam General: alert, oriented, well developed Respiratory: clear to auscultation, normal air movement, No crackles/rales, No diminished breath sounds Cardiovascular: Regular rate and rhythm, No edema, No systolic murmur Gastrointestinal: soft, non tender, No rebound or guarding Musculoskeletal: nl extremities to gross inspection Extremities: normal pulses, R chest permacath, left UE AV fistula Results Result Diagram: 01/14/17 0653 01/14/17 0653 Results 24 hrs Laboratory Tests Test 01/14/17 06:53 White Blood Count 7.2 Red Blood Count 2.63 L Hemoglobin 8.4 L Hematocrit 24.8 L Mean Corpuscular Volume 94.3 Mean Corpuscular Hemoglobin 31.9 Mean Corpuscular Hemoglobin Concent 33.9 Red Cell Distribution Width 13.8 Platelet Count 124 L Mean Platelet Volume 10.3 Neutrophils % 52.2 Lymphocytes % 27.1 Monocytes % 16.4 H Eosinophils % 3.6 Basophils % 0.4 Nucleated Red Blood Cells % 0.0 Neutrophils # 3.8 Lymphocytes # 2.0 Monocytes # 1.2 H Eosinophils # 0.3 Basophils # 0.0 Nucleated Red Blood Cells # 0.0 Sodium Level 135 Potassium Level 3.7 Chloride Level 102 Carbon Dioxide Level 28 Anion Gap 9 Blood Urea Nitrogen 58 H Creatinine 4.60 H Glucose Level 112 Calcium Level 8.7 Phosphorus Level 4.7 Magnesium Level 2.0 Medications Medications Current Medications Dextrose (D50w Syringe) ONCE PRN IV POC BLOOD GLUCOSE <250 MG/DL Last administered on 01/06/17 17:24; Admin Dose 50 ML; Start 01/06/17 at 17:00 Acetaminophen (Tylenol Tab) 650 mg Q6H PRN PO PAIN LEVEL 1-3 OR FEVER Last administered on 01/12/17 21:44; Admin Dose 650 MG; Start 01/06/17 at 17:30 Morphine Sulfate (morphine) 2 mg Q4H PRN IV PAIN LEVEL 7-10; Start 01/06/17 at 17:30 Labetalol HCl (Labetalol) 10 mg Q4H PRN IV ELEVATED BLOOD PRESSURE Last administered on 01/08/17 08:26; Admin Dose 10 MG; Start 01/06/17 at 18:00 Hydralazine HCl (Apresoline) 10 mg Q6 PRN IV ELEVATED BLOOD PRESSURE Last administered on 01/11/17 22:01; Admin Dose 10 MG; Start 01/06/17 at 18:00 Metoclopramide HCl (Reglan) 5 mg Q6H PRN IV NAUSEA; Start 01/06/17 at 19:00 Ondansetron HCl (Zofran Inj) 4 mg Q6H PRN IV NAUSEA AND/OR VOMITING Last administered on 01/08/17 09:40; Admin Dose 4 MG; Start 01/08/17 at 09:30 Atenolol (Tenormin) 75 mg BID PO Last administered on 01/14/17 08:04; Admin Dose 75 MG; Start 01/10/17 at 09:00 Clonidine (Catapres) 0.2 mg TID PO Last administered on 01/14/17 12:20; Admin Dose 0.2 MG; Start 01/10/17 at 09:00 Famotidine (Pepcid) 20 mg DAILY PO Last administered on 01/14/17 08:03; Admin Dose 20 MG; Start 01/10/17 at 09:00 Amlodipine Besylate (Norvasc) 10 mg DAILY PO Last administered on 01/14/17 12: 20; Admin Dose 10 MG; Start 01/14/17 at 11:30 FREDI GALLO Jan 14, 2017 16:06
--- NOTE | 2017-01-14 17:15 | CONS ---
Date/Time of Note Date/Time of Note DATE: 01/14/17 TIME: 17:15 Assessment/Plan Assessment/Plan Additional Assessment/Plan 66 yo male with 1) Gross Hematuria- Resolved 2) KAIT on Unspecified CKD, Obstructive Uropathy 3) Elevated PSA, Possible malignancy 4) Hyperkalemia- Resolved 5) Mild Hyponatremia S/p AVF and PC Cont to assess need for HD daily Cont to monitor electrolytes, UO, renal function and Volume status closely CM consult for HD placement to [facility] Hep B negative Consultation Date/Type/Reason Admit Date/Time Jan 06, 2017 at 17:55 Initial Consult Date 01/08/17 Type of Consultation: renal Referring Provider: RICHAR SCOTT MD 24 HR Interval Summary Free Text/Dictation No new complaints Exam/Review of Systems Vital Signs Vitals Vital Signs Date Time Temp Pulse Resp B/P Pulse Ox O2 Delivery O2 Flow Rate FiO2 01/14/17 16:16 54 01/14/17 15:54 97.6 18 154/74 97 01/12/17 18:36 Room Air Intake and Output 01/13/17 01/13/17 01/14/17 15:00 23:00 07:00 Intake Total 500 ml 950 ml 500 ml Output Total 1000 ml 700 ml 2000 ml Balance -500 ml 250 ml -1500 ml Exam Constitutional: No distress ENMT: mucosa pink and moist Respiratory: No labored breathing Cardiovascular: regular rate and rhythm Gastrointestinal: soft Neurological: nl mental status, No lethargic Skin: No diaphoresis Results Result Diagram: 01/14/17 0653 01/14/17 0653 Results 24 hrs Laboratory Tests Test 01/14/17 06:53 White Blood Count 7.2 Red Blood Count 2.63 L Hemoglobin 8.4 L Hematocrit 24.8 L Mean Corpuscular Volume 94.3 Mean Corpuscular Hemoglobin 31.9 Mean Corpuscular Hemoglobin Concent 33.9 Red Cell Distribution Width 13.8 Platelet Count 124 L Mean Platelet Volume 10.3 Neutrophils % 52.2 Lymphocytes % 27.1 Monocytes % 16.4 H Eosinophils % 3.6 Basophils % 0.4 Nucleated Red Blood Cells % 0.0 Neutrophils # 3.8 Lymphocytes # 2.0 Monocytes # 1.2 H Eosinophils # 0.3 Basophils # 0.0 Nucleated Red Blood Cells # 0.0 Sodium Level 135 Potassium Level 3.7 Chloride Level 102 Carbon Dioxide Level 28 Anion Gap 9 Blood Urea Nitrogen 58 H Creatinine 4.60 H Glucose Level 112 Calcium Level 8.7 Phosphorus Level 4.7 Magnesium Level 2.0 Medications Medications Current Medications Dextrose (D50w Syringe) ONCE PRN IV POC BLOOD GLUCOSE <250 MG/DL Last administered on 01/06/17 17:24; Admin Dose 50 ML; Start 01/06/17 at 17:00 Acetaminophen (Tylenol Tab) 650 mg Q6H PRN PO PAIN LEVEL 1-3 OR FEVER Last administered on 01/12/17 21:44; Admin Dose 650 MG; Start 01/06/17 at 17:30 Morphine Sulfate (morphine) 2 mg Q4H PRN IV PAIN LEVEL 7-10; Start 01/06/17 at 17:30 Labetalol HCl (Labetalol) 10 mg Q4H PRN IV ELEVATED BLOOD PRESSURE Last administered on 01/08/17 08:26; Admin Dose 10 MG; Start 01/06/17 at 18:00 Hydralazine HCl (Apresoline) 10 mg Q6 PRN IV ELEVATED BLOOD PRESSURE Last administered on 01/11/17 22:01; Admin Dose 10 MG; Start 01/06/17 at 18:00 Metoclopramide HCl (Reglan) 5 mg Q6H PRN IV NAUSEA; Start 01/06/17 at 19:00 Ondansetron HCl (Zofran Inj) 4 mg Q6H PRN IV NAUSEA AND/OR VOMITING Last administered on 01/08/17 09:40; Admin Dose 4 MG; Start 01/08/17 at 09:30 Atenolol (Tenormin) 75 mg BID PO Last administered on 01/14/17 08:04; Admin Dose 75 MG; Start 01/10/17 at 09:00 Clonidine (Catapres) 0.2 mg TID PO Last administered on 01/14/17 12:20; Admin Dose 0.2 MG; Start 01/10/17 at 09:00 Famotidine (Pepcid) 20 mg DAILY PO Last administered on 01/14/17 08:03; Admin Dose 20 MG; Start 01/10/17 at 09:00 Amlodipine Besylate (Norvasc) 10 mg DAILY PO Last administered on 01/14/17 12: 20; Admin Dose 10 MG; Start 01/14/17 at 11:30 TARIQ GARCIA MD Jan 14, 2017 17:15
[2017-01-15] VITALS (16 sets, daily range): BP systolic 91–162; BP diastolic 40–76; PULSE 48–56; RESP 17–20
[2017-01-15 07:21] LABS: BASOPHILS % 0.3 % (0.0-2.0); EOSINOPHILS # 0.3 10^3/ul (0.0-0.5); EOSINOPHILS % 3.6 % (0.0-7.0); HEMATOCRIT 26.7 % (42.0-52.0); HEMOGLOBIN 8.6 g/dl (14.0-18.0); LYMPHOCYTES # 2.2 10^3/ul (0.8-2.9); LYMPHOCYTES % 31.2 % (15.0-51.0); MEAN CORPUSCULAR HEMOGLOBIN 30.4 pg (29.0-33.0); MEAN CORPUSCULAR HGB CONC 32.2 g/dl (32.0-37.0); MEAN CORPUSCULAR VOLUME 94.3 fl (82.0-101.0); MEAN PLATELET VOLUME 10.3 fl (7.4-10.4); MONOCYTE # 1.2 10^3/ul (0.3-0.9); MONOCYTES % 16.2 % (0.0-11.0); NEUTROPHIL # 3.5 10^3/ul (1.6-7.5); NEUTROPHILS % 48.4 % (39.0-77.0); PLATELET COUNT 139 10^3/UL (140-415); RED BLOOD COUNT 2.83 10^6/ul (4.70-6.10); RED CELL DISTRIBUTION WIDTH 13.7 % (11.5-14.5); WHITE BLOOD COUNT 7.2 10^3/ul (4.8-10.8)
[2017-01-15 07:46] LABS: CALCIUM 9.6 mg/dl (8.4-10.2); CREATININE 4.79 mg/dl (0.61-1.24); PHOSPHORUS 5.1 mg/dl (2.5-4.9)
[2017-01-15] MEDS: AMLODIPINE 10 MG TAB PO SCH (08:08)
[2017-01-15] MEDS: FAMOTIDINE 20 MG TAB PO SCH (08:08)
[2017-01-15] MEDS: CALCIUM ACETATE 667 MG CAP PO SCH ×3 (08:09→17:14)
[2017-01-15] MEDS: ATENOLOL 50 MG TAB PO SCH ×2 (08:11→20:19)
--- NOTE | 2017-01-15 11:06 | PN ---
Date/Time of Note Date/Time of Note DATE: 01/15/17 TIME: 11:05 Assessment/Plan VTE Prophylaxis VTE Prophylaxis Intervention: SCD's Lines/Catheters IV Catheter Type (from Nrs): Peripheral IV Urinary Cath still in place: Yes Reason Cath still needed: urinary retention Assessment/Plan Chief Complaint/Hosp Course 1. Acute on chronic renal failure- on HD - Nephrology on board and consultation appreciated. Tolerating HD well - permacath placed right chest, AV fistula placed left UE - Continue to monitor for dialysis needs 2. Enlarged prostate - Elevated PSA. Most likely Prostate CA - Discussed with patient and in process of getting insurance so will be able to follow Urology as outpatient and needs to be set up with oncology as well - Zhang in place 3. Hyperkalemia- resolved - will continue monitoring 4. Hematuria - Most likely secondary to present of prostate cancer - Urology consulted and recommendations appreciated. Suspicious for prostate cancer and will need further workup as outpatient - Will continue monitoring output 5. Anemia of chronic disease - H/H stable 6. ?UTI - finished cipro, monitor 7. Hypertension - stable - PRN medication if SBP>160 8. 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 Disposition -Patient only has medicare A, according to case management, need medical or part B in order to get a dialysis chair, will stay in hospital until a chair is found. -patient will DC with zhang per urology to follow up outpatient for workup including ?prostate CA. Problems: Subjective 24 Hr Interval Summary Free Text/Dictation no acute complaints Exam/Review of Systems Vital Signs Vitals Vital Signs Date Time Temp Pulse Resp B/P Pulse Ox O2 Delivery O2 Flow Rate FiO2 01/15/17 08:10 53 01/15/17 07:51 97.6 19 156/76 100 01/12/17 18:36 Room Air Intake and Output 01/14/17 01/14/17 01/15/17 15:00 23:00 07:00 Intake Total 1100 ml 400 ml Output Total 1300 ml 1800 ml Balance -200 ml -1400 ml Exam General: alert, oriented, well developed Respiratory: clear to auscultation, normal air movement, No crackles/rales, No diminished breath sounds Cardiovascular: Regular rate and rhythm, No edema, No systolic murmur Gastrointestinal: soft, non tender, No rebound or guarding Musculoskeletal: nl extremities to gross inspection Extremities: normal pulses, R chest permacath, left UE AV fistula Results Result Diagram: 01/15/17 0638 01/15/17 0638 Results 24 hrs Laboratory Tests Test 01/15/17 06:38 White Blood Count 7.2 Red Blood Count 2.83 L Hemoglobin 8.6 L Hematocrit 26.7 L Mean Corpuscular Volume 94.3 Mean Corpuscular Hemoglobin 30.4 Mean Corpuscular Hemoglobin Concent 32.2 Red Cell Distribution Width 13.7 Platelet Count 139 L Mean Platelet Volume 10.3 Neutrophils % 48.4 Lymphocytes % 31.2 Monocytes % 16.2 H Eosinophils % 3.6 Basophils % 0.3 Nucleated Red Blood Cells % 0.0 Neutrophils # 3.5 Lymphocytes # 2.2 Monocytes # 1.2 H Eosinophils # 0.3 Basophils # 0.0 Nucleated Red Blood Cells # 0.0 Sodium Level 137 Potassium Level 4.0 Chloride Level 101 Carbon Dioxide Level 29 Anion Gap 11 Blood Urea Nitrogen 67 H Creatinine 4.79 H Glucose Level 114 Calcium Level 9.6 Phosphorus Level 5.1 H Magnesium Level 2.0 Medications Medications Current Medications Dextrose (D50w Syringe) ONCE PRN IV POC BLOOD GLUCOSE <250 MG/DL Last administered on 01/06/17 17:24; Admin Dose 50 ML; Start 01/06/17 at 17:00 Acetaminophen (Tylenol Tab) 650 mg Q6H PRN PO PAIN LEVEL 1-3 OR FEVER Last administered on 01/12/17 21:44; Admin Dose 650 MG; Start 01/06/17 at 17:30 Morphine Sulfate (morphine) 2 mg Q4H PRN IV PAIN LEVEL 7-10; Start 01/06/17 at 17:30 Labetalol HCl (Labetalol) 10 mg Q4H PRN IV ELEVATED BLOOD PRESSURE Last administered on 01/08/17 08:26; Admin Dose 10 MG; Start 01/06/17 at 18:00 Hydralazine HCl (Apresoline) 10 mg Q6 PRN IV ELEVATED BLOOD PRESSURE Last administered on 01/11/17 22:01; Admin Dose 10 MG; Start 01/06/17 at 18:00 Metoclopramide HCl (Reglan) 5 mg Q6H PRN IV NAUSEA; Start 01/06/17 at 19:00 Ondansetron HCl (Zofran Inj) 4 mg Q6H PRN IV NAUSEA AND/OR VOMITING Last administered on 01/08/17 09:40; Admin Dose 4 MG; Start 01/08/17 at 09:30 Atenolol (Tenormin) 75 mg BID PO Last administered on 01/15/17 08:11; Admin Dose 75 MG; Start 01/10/17 at 09:00 Clonidine (Catapres) 0.2 mg TID PO Last administered on 01/15/17 08:10; Admin Dose 0.2 MG; Start 01/10/17 at 09:00 Famotidine (Pepcid) 20 mg DAILY PO Last administered on 01/15/17 08:08; Admin Dose 20 MG; Start 01/10/17 at 09:00 Amlodipine Besylate (Norvasc) 10 mg DAILY PO Last administered on 01/15/17 08: 08; Admin Dose 10 MG; Start 01/14/17 at 11:30 FREDI GALLO Jan 15, 2017 11:06
--- NOTE | 2017-01-15 16:07 | CONS ---
Date/Time of Note Date/Time of Note DATE: 01/15/17 TIME: 16:06 Assessment/Plan Assessment/Plan Additional Assessment/Plan 66 yo male with 1) Gross Hematuria- Resolved 2) KAIT on Unspecified CKD, Obstructive Uropathy 3) Elevated PSA, Possible malignancy 4) Hyperkalemia- Resolved 5) Mild Hyponatremia S/p AVF and PC Cont to assess need for HD daily Cont to monitor electrolytes, UO, renal function and Volume status closely CM consult for HD placement to [facility] Hep B negative Consultation Date/Type/Reason Admit Date/Time Jan 06, 2017 at 17:55 Initial Consult Date 01/08/17 Type of Consultation: renal Referring Provider: RICHAR SCOTT MD 24 HR Interval Summary Free Text/Dictation No new complaints Exam/Review of Systems Vital Signs Vitals Vital Signs Date Time Temp Pulse Resp B/P Pulse Ox O2 Delivery O2 Flow Rate FiO2 01/15/17 12:16 51 01/15/17 11:34 98.1 20 151/75 99 01/12/17 18:36 Room Air Intake and Output 01/14/17 01/14/17 01/15/17 15:00 23:00 07:00 Intake Total 1100 ml 400 ml Output Total 1300 ml 1800 ml Balance -200 ml -1400 ml Exam Constitutional: No distress ENMT: mucosa pink and moist Respiratory: clear to auscultation Cardiovascular: edema, regular rate and rhythm Gastrointestinal: non-tender, soft Neurological: [employer] II-XII intact, nl mental status Results Result Diagram: 01/15/17 0638 01/15/17 0638 Results 24 hrs Laboratory Tests Test 01/15/17 06:38 White Blood Count 7.2 Red Blood Count 2.83 L Hemoglobin 8.6 L Hematocrit 26.7 L Mean Corpuscular Volume 94.3 Mean Corpuscular Hemoglobin 30.4 Mean Corpuscular Hemoglobin Concent 32.2 Red Cell Distribution Width 13.7 Platelet Count 139 L Mean Platelet Volume 10.3 Neutrophils % 48.4 Lymphocytes % 31.2 Monocytes % 16.2 H Eosinophils % 3.6 Basophils % 0.3 Nucleated Red Blood Cells % 0.0 Neutrophils # 3.5 Lymphocytes # 2.2 Monocytes # 1.2 H Eosinophils # 0.3 Basophils # 0.0 Nucleated Red Blood Cells # 0.0 Sodium Level 137 Potassium Level 4.0 Chloride Level 101 Carbon Dioxide Level 29 Anion Gap 11 Blood Urea Nitrogen 67 H Creatinine 4.79 H Glucose Level 114 Calcium Level 9.6 Phosphorus Level 5.1 H Magnesium Level 2.0 Medications Medications Current Medications Dextrose (D50w Syringe) ONCE PRN IV POC BLOOD GLUCOSE <250 MG/DL Last administered on 01/06/17 17:24; Admin Dose 50 ML; Start 01/06/17 at 17:00 Acetaminophen (Tylenol Tab) 650 mg Q6H PRN PO PAIN LEVEL 1-3 OR FEVER Last administered on 01/12/17 21:44; Admin Dose 650 MG; Start 01/06/17 at 17:30 Morphine Sulfate (morphine) 2 mg Q4H PRN IV PAIN LEVEL 7-10; Start 01/06/17 at 17:30 Labetalol HCl (Labetalol) 10 mg Q4H PRN IV ELEVATED BLOOD PRESSURE Last administered on 01/08/17 08:26; Admin Dose 10 MG; Start 01/06/17 at 18:00 Hydralazine HCl (Apresoline) 10 mg Q6 PRN IV ELEVATED BLOOD PRESSURE Last administered on 01/11/17 22:01; Admin Dose 10 MG; Start 01/06/17 at 18:00 Metoclopramide HCl (Reglan) 5 mg Q6H PRN IV NAUSEA; Start 01/06/17 at 19:00 Ondansetron HCl (Zofran Inj) 4 mg Q6H PRN IV NAUSEA AND/OR VOMITING Last administered on 01/08/17 09:40; Admin Dose 4 MG; Start 01/08/17 at 09:30 Atenolol (Tenormin) 75 mg BID PO Last administered on 01/15/17 08:11; Admin Dose 75 MG; Start 01/10/17 at 09:00 Clonidine (Catapres) 0.2 mg TID PO Last administered on 01/15/17 12:31; Admin Dose 0.2 MG; Start 01/10/17 at 09:00 Famotidine (Pepcid) 20 mg DAILY PO Last administered on 01/15/17 08:08; Admin Dose 20 MG; Start 01/10/17 at 09:00 Amlodipine Besylate (Norvasc) 10 mg DAILY PO Last administered on 01/15/17 08: 08; Admin Dose 10 MG; Start 01/14/17 at 11:30 TARIQ GARCIA MD Jan 15, 2017 16:07
[2017-01-16] VITALS (12 sets, daily range): BP systolic 109–158; BP diastolic 57–69; PULSE 51–59; RESP 16–20
[2017-01-16] MEDS: FAMOTIDINE 20 MG TAB PO SCH (08:13)
[2017-01-16] MEDS: AMLODIPINE 10 MG TAB PO SCH (08:14)
[2017-01-16] MEDS: CALCIUM ACETATE 667 MG CAP PO SCH ×3 (08:15→17:34)
[2017-01-16] MEDS: ATENOLOL 50 MG TAB PO SCH ×2 (08:18→20:09)
[2017-01-16 08:59] LABS: CALCIUM 9.2 mg/dl (8.4-10.2); CREATININE 3.36 mg/dl (0.61-1.24); PHOSPHORUS 3.7 mg/dl (2.5-4.9); POTASSIUM 3.8 mmol/L (3.5-5.1)
--- NOTE | 2017-01-16 10:40 | PN ---
Date/Time of Note Date/Time of Note DATE: 01/16/17 TIME: 10:34 Assessment/Plan VTE Prophylaxis VTE Prophylaxis Intervention: SCD's Lines/Catheters IV C[facility]ter Type (from [facility] Peripheral IV Urinary Cath still in place: Yes Reason Cath still needed: urinary retention Assessment/Plan Chief Complaint/Hosp Course 1. Acute on chronic renal failure- on HD - Nephrology on board and consultation appreciated. Tolerating HD well - permacath placed right chest, AV fistula placed left UE - Continue to monitor for dialysis needs 2. Enlarged prostate - Elevated PSA. Most likely Prostate CA - Discussed with patient and in process of getting insurance so will be able to follow Urology as outpatient and needs to be set up with oncology as well - Zhang in place 3. Hyperkalemia- resolved - will continue monitoring 4. Hematuria - Most likely secondary to present of prostate cancer - Urology consulted and recommendations appreciated. Suspicious for prostate cancer and will need further workup as outpatient - Will continue monitoring output 5. Anemia of chronic disease - H/H stable 6. ?UTI - finished cipro, monitor 7. Hypertension - stable - PRN medication if SBP>160 8. 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 Disposition -Patient only has medicare A, according to case management, need medical or part B in order to get a dialysis chair, will stay in hospital until a chair is found. -patient will DC with zhang per urology to follow up outpatient for workup including ?prostate CA. -spoke with patient via supervising fire marshal phone, spoke at length regarding prognosis and the importance of patient getting in touch with a PCP via insurance ( resources will also be given via case management) in order to follow up with an oncologist and urologist. Patient has a hx of not following up, as patient had similar prostate problems approximately 6-12 months prior per urology. Patient understands importance of follow up. Problems: Subjective 24 Hr Interval Summary Free Text/Dictation no acute complaints Exam/Review of Systems Vital Signs Vitals Vital Signs Date Time Temp Pulse Resp B/P Pulse Ox O2 Delivery O2 Flow Rate FiO2 01/16/17 08:12 55 01/16/17 07:48 98.1 20 150/68 98 01/12/17 18:36 Room Air Intake and Output 01/15/17 01/15/17 01/16/17 15:00 23:00 07:00 Intake Total 1300 ml Output Total 3000 ml 1300 ml Balance -1700 ml -1300 ml Exam General: alert, oriented, well developed Respiratory: clear to auscultation, normal air movement, No crackles/rales, No diminished breath sounds Cardiovascular: Regular rate and rhythm, No edema, No systolic murmur Gastrointestinal: soft, non tender, No rebound or guarding Musculoskeletal: nl extremities to gross inspection Extremities: normal pulses, R chest permacath, left UE AV fistula Results Result Diagram: 01/15/17 0638 01/16/17 0751 Results 24 hrs Laboratory Tests Test 01/16/17 07:51 Sodium Level 138 Potassium Level 3.8 Chloride Level 102 Carbon Dioxide Level 30 Anion Gap 10 Blood Urea Nitrogen 45 #H Creatinine 3.36 #H Glucose Level 111 Calcium Level 9.2 Phosphorus Level 3.7 Magnesium Level 2.0 Medications Medications Current Medications Dextrose (D50w Syringe) ONCE PRN IV POC BLOOD GLUCOSE <250 MG/DL Last administered on 01/06/17 17:24; Admin Dose 50 ML; Start 01/06/17 at 17:00 Acetaminophen (Tylenol Tab) 650 mg Q6H PRN PO PAIN LEVEL 1-3 OR FEVER Last administered on 01/12/17 21:44; Admin Dose 650 MG; Start 01/06/17 at 17:30 Morphine Sulfate (morphine) 2 mg Q4H PRN IV PAIN LEVEL 7-10; Start 01/06/17 at 17:30 Labetalol HCl (Labetalol) 10 mg Q4H PRN IV ELEVATED BLOOD PRESSURE Last administered on 01/08/17 08:26; Admin Dose 10 MG; Start 01/06/17 at 18:00 Hydralazine HCl (Apresoline) 10 mg Q6 PRN IV ELEVATED BLOOD PRESSURE Last administered on 01/11/17 22:01; Admin Dose 10 MG; Start 01/06/17 at 18:00 Metoclopramide HCl (Reglan) 5 mg Q6H PRN IV NAUSEA; Start 01/06/17 at 19:00 Ondansetron HCl (Zofran Inj) 4 mg Q6H PRN IV NAUSEA AND/OR VOMITING Last administered on 01/08/17 09:40; Admin Dose 4 MG; Start 01/08/17 at 09:30 Atenolol (Tenormin) 75 mg BID PO Last administered on 01/15/17 20:19; Admin Dose 75 MG; Start 01/10/17 at 09:00 Clonidine (Catapres) 0.2 mg TID PO Last administered on 01/16/17 08:14; Admin Dose 0.2 MG; Start 01/10/17 at 09:00 Famotidine (Pepcid) 20 mg DAILY PO Last administered on 01/16/17 08:13; Admin Dose 20 MG; Start 01/10/17 at 09:00 Amlodipine Besylate (Norvasc) 10 mg DAILY PO Last administered on 01/16/17 08: 14; Admin Dose 10 MG; Start 01/14/17 at 11:30 FREDI GALLO Jan 16, 2017 10:40
--- NOTE | 2017-01-16 15:18 | CONS ---
Date/Time of Note Date/Time of Note DATE: 01/16/17 TIME: 15:17 Assessment/Plan Assessment/Plan Additional Assessment/Plan 66 yo male with 1) Gross Hematuria- Resolved 2) KAIT on Unspecified CKD, Obstructive Uropathy 3) Elevated PSA, Possible malignancy 4) Hyperkalemia- Resolved 5) Mild Hyponatremia HD tomorrow TTS schedule S/p AVF and PC Cont to assess need for HD daily Cont to monitor electrolytes, UO, renal function and Volume status closely CM consult for HD placement to [facility], pending. Hep B negative Consultation Date/Type/Reason Admit Date/Time Jan 06, 2017 at 17:55 Initial Consult Date 01/08/17 Type of Consultation: renal Referring Provider: RICHAR SCOTT MD Exam/Review of Systems Vital Signs Vitals Vital Signs Date Time Temp Pulse Resp B/P Pulse Ox O2 Delivery O2 Flow Rate FiO2 01/16/17 12:45 59 01/16/17 11:40 98.1 20 119/61 96 01/12/17 18:36 Room Air Intake and Output 01/15/17 01/15/17 01/16/17 15:00 23:00 07:00 Intake Total 1300 ml Output Total 3000 ml 1300 ml Balance -1700 ml -1300 ml Exam Constitutional: No distress ENMT: mucosa pink and moist Neck: No jvd Respiratory: clear to auscultation Cardiovascular: regular rate and rhythm Neurological: FILING OR REGISTRY CLERK II-XII intact, nl mental status, No lethargic Results Result Diagram: 01/15/17 0638 01/16/17 0751 Results 24 hrs Laboratory Tests Test 01/16/17 07:51 Sodium Level 138 Potassium Level 3.8 Chloride Level 102 Carbon Dioxide Level 30 Anion Gap 10 Blood Urea Nitrogen 45 #H Creatinine 3.36 #H Glucose Level 111 Calcium Level 9.2 Phosphorus Level 3.7 Magnesium Level 2.0 Medications Medications Current Medications Dextrose (D50w Syringe) ONCE PRN IV POC BLOOD GLUCOSE <250 MG/DL Last administered on 01/06/17 17:24; Admin Dose 50 ML; Start 01/06/17 at 17:00 Acetaminophen (Tylenol Tab) 650 mg Q6H PRN PO PAIN LEVEL 1-3 OR FEVER Last administered on 01/12/17 21:44; Admin Dose 650 MG; Start 01/06/17 at 17:30 Morphine Sulfate (morphine) 2 mg Q4H PRN IV PAIN LEVEL 7-10; Start 01/06/17 at 17:30 Labetalol HCl (Labetalol) 10 mg Q4H PRN IV ELEVATED BLOOD PRESSURE Last administered on 01/08/17 08:26; Admin Dose 10 MG; Start 01/06/17 at 18:00 Hydralazine HCl (Apresoline) 10 mg Q6 PRN IV ELEVATED BLOOD PRESSURE Last administered on 01/11/17 22:01; Admin Dose 10 MG; Start 01/06/17 at 18:00 Metoclopramide HCl (Reglan) 5 mg Q6H PRN IV NAUSEA; Start 01/06/17 at 19:00 Ondansetron HCl (Zofran Inj) 4 mg Q6H PRN IV NAUSEA AND/OR VOMITING Last administered on 01/08/17 09:40; Admin Dose 4 MG; Start 01/08/17 at 09:30 Atenolol (Tenormin) 75 mg BID PO Last administered on 01/15/17 20:19; Admin Dose 75 MG; Start 01/10/17 at 09:00 Clonidine (Catapres) 0.2 mg TID PO Last administered on 01/16/17 08:14; Admin Dose 0.2 MG; Start 01/10/17 at 09:00 Famotidine (Pepcid) 20 mg DAILY PO Last administered on 01/16/17 08:13; Admin Dose 20 MG; Start 01/10/17 at 09:00 Amlodipine Besylate (Norvasc) 10 mg DAILY PO Last administered on 01/16/17 08: 14; Admin Dose 10 MG; Start 01/14/17 at 11:30 TARIQ GARCIA MD Jan 16, 2017 15:18
[2017-01-17] VITALS (18 sets, daily range): BP systolic 89–170; BP diastolic 53–76; PULSE 51–66; RESP 17–20
[2017-01-17] MEDS: CALCIUM ACETATE 667 MG CAP PO SCH ×3 (07:56→17:27)
[2017-01-17] MEDS: AMLODIPINE 10 MG TAB PO SCH (09:00)
[2017-01-17] MEDS: FAMOTIDINE 20 MG TAB PO SCH (09:00)
[2017-01-17] MEDS: ATENOLOL 50 MG TAB PO SCH ×2 (09:00→20:57)
[2017-01-17 11:46] LABS: BASOPHILS % 0.7 % (0.0-2.0); EOSINOPHILS # 0.3 10^3/ul (0.0-0.5); EOSINOPHILS % 4.6 % (0.0-7.0); HEMATOCRIT 26.9 % (42.0-52.0); HEMOGLOBIN 8.8 g/dl (14.0-18.0); LYMPHOCYTES # 1.8 10^3/ul (0.8-2.9); LYMPHOCYTES % 33.1 % (15.0-51.0); MEAN CORPUSCULAR HGB CONC 32.7 g/dl (32.0-37.0); MEAN CORPUSCULAR VOLUME 94.7 fl (82.0-101.0); MEAN PLATELET VOLUME 10.2 fl (7.4-10.4); MONOCYTE # 0.6 10^3/ul (0.3-0.9); MONOCYTES % 11.4 % (0.0-11.0); NEUTROPHIL # 2.7 10^3/ul (1.6-7.5); NEUTROPHILS % 49.8 % (39.0-77.0); PLATELET COUNT 143 10^3/UL (140-415); RED BLOOD COUNT 2.84 10^6/ul (4.70-6.10); RED CELL DISTRIBUTION WIDTH 13.5 % (11.5-14.5); WHITE BLOOD COUNT 5.4 10^3/ul (4.8-10.8)
[2017-01-17 11:52] LABS: CALCIUM 8.8 mg/dl (8.4-10.2); CREATININE 2.38 mg/dl (0.61-1.24); MAGNESIUM 1.9 mg/dl (1.7-2.5); PHOSPHORUS 2.5 mg/dl (2.5-4.9)
--- NOTE | 2017-01-17 14:49 | PN ---
Date/Time of Note Date/Time of Note DATE: 01/17/17 TIME: 14:47 Assessment/Plan VTE Prophylaxis VTE Prophylaxis Intervention: other Lines/Catheters Urinary Cath still in place: Yes Reason Cath still needed: urinary retention Assessment/Plan Assessment/Plan ) Gross Hematuria- Resolved 2) KAIT on Unspecified CKD, Obstructive Uropathy 3) Elevated PSA, Possible malignancy 4) Hyperkalemia- Resolved 5) Mild Hyponatremia [id number] hd per plan placement thursday Subjective 24 Hr Interval Summary Constitutional: no complaints Exam/Review of Systems Vital Signs Vitals Vital Signs Date Time Temp Pulse Resp B/P Pulse Ox O2 Delivery O2 Flow Rate FiO2 01/17/17 13:08 57 01/17/17 11:39 98.2 18 101/56 98 Intake and Output 01/16/17 01/16/17 01/17/17 15:00 23:00 07:00 Intake Total 900 ml Output Total 700 ml 800 ml Balance 200 ml -800 ml Exam Constitutional: alert Psych: no complaints Head: normocephalic Eyes: nl conjunctiva ENMT: nl external ears & nose Neck: supple Respiratory: clear to auscultation, normal air movement Cardiovascular: nl pulses, regular rate and rhythm Gastrointestinal: nl liver, spleen, soft Musculoskeletal: nl extremities to inspection Results Result Diagram: 01/17/17 1030 01/17/17 1030 Results 24 hrs Laboratory Tests Test 01/17/17 10:30 White Blood Count 5.4 # Red Blood Count 2.84 L Hemoglobin 8.8 L Hematocrit 26.9 L Mean Corpuscular Volume 94.7 Mean Corpuscular Hemoglobin 31.0 Mean Corpuscular Hemoglobin Concent 32.7 Red Cell Distribution Width 13.5 Platelet Count 143 Mean Platelet Volume 10.2 Neutrophils % 49.8 Lymphocytes % 33.1 Monocytes % 11.4 H Eosinophils % 4.6 Basophils % 0.7 Nucleated Red Blood Cells % 0.0 Neutrophils # 2.7 Lymphocytes # 1.8 Monocytes # 0.6 Eosinophils # 0.3 Basophils # 0.0 Nucleated Red Blood Cells # 0.0 Sodium Level 139 Potassium Level 4.0 Chloride Level 103 Carbon Dioxide Level 32 H Anion Gap 8 Blood Urea Nitrogen 30 #H Creatinine 2.38 H Glucose Level 118 Calcium Level 8.8 Phosphorus Level 2.5 Magnesium Level 1.9 Medications Medications Current Medications Dextrose (D50w Syringe) ONCE PRN IV POC BLOOD GLUCOSE <250 MG/DL Last administered on 01/06/17 17:24; Admin Dose 50 ML; Start 01/06/17 at 17:00 Acetaminophen (Tylenol Tab) 650 mg Q6H PRN PO PAIN LEVEL 1-3 OR FEVER Last administered on 01/12/17 21:44; Admin Dose 650 MG; Start 01/06/17 at 17:30 Morphine Sulfate (morphine) 2 mg Q4H PRN IV PAIN LEVEL 7-10; Start 01/06/17 at 17:30 Labetalol HCl (Labetalol) 10 mg Q4H PRN IV ELEVATED BLOOD PRESSURE Last administered on 01/08/17 08:26; Admin Dose 10 MG; Start 01/06/17 at 18:00 Hydralazine HCl (Apresoline) 10 mg Q6 PRN IV ELEVATED BLOOD PRESSURE Last administered on 01/11/17 22:01; Admin Dose 10 MG; Start 01/06/17 at 18:00 Metoclopramide HCl (Reglan) 5 mg Q6H PRN IV NAUSEA; Start 01/06/17 at 19:00 Ondansetron HCl (Zofran Inj) 4 mg Q6H PRN IV NAUSEA AND/OR VOMITING Last administered on 01/08/17 09:40; Admin Dose 4 MG; Start 01/08/17 at 09:30 Atenolol (Tenormin) 75 mg BID PO Last administered on 01/16/17 20:09; Admin Dose 75 MG; Start 01/10/17 at 09:00 Clonidine (Catapres) 0.2 mg TID PO Last administered on 01/16/17 20:08; Admin Dose 0.2 MG; Start 01/10/17 at 09:00 Famotidine (Pepcid) 20 mg DAILY PO Last administered on 01/16/17 08:13; Admin Dose 20 MG; Start 01/10/17 at 09:00 Amlodipine Besylate (Norvasc) 10 mg DAILY PO Last administered on 01/16/17 08: 14; Admin Dose 10 MG; Start 01/14/17 at 11:30 CHRISTIANO ROWLEY MD Jan 17, 2017 14:49
--- NOTE | 2017-01-17 16:34 | PN ---
Date/Time of Note Date/Time of Note DATE: 01/17/17 TIME: 16:33 Assessment/Plan VTE Prophylaxis VTE Prophylaxis Intervention: SCD's Lines/Catheters Urinary Cath still in place: Yes Reason Cath still needed: urinary retention Assessment/Plan Chief Complaint/Hosp Course 1. Acute on chronic renal failure- on HD - Nephrology on board and consultation appreciated. Tolerating HD well - permacath placed right chest, AV fistula placed left UE - Continue to monitor for dialysis needs 2. Enlarged prostate - Elevated PSA. Most likely Prostate CA - Discussed with patient and in process of getting insurance so will be able to follow Urology as outpatient and needs to be set up with oncology as well - Zhang in place 3. Hyperkalemia- resolved - will continue monitoring 4. Hematuria - Most likely secondary to present of prostate cancer - Urology consulted and recommendations appreciated. Suspicious for prostate cancer and will need further workup as outpatient - Will continue monitoring output 5. Anemia of chronic disease - H/H stable 6. ?UTI - finished cipro, monitor 7. Hypertension - stable - PRN medication if SBP>160 8. 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 Disposition -Patient only has medicare A, according to case management, need medical or part B in order to get a dialysis chair, will stay in hospital until a chair is found. -patient will DC with zhang per urology to follow up outpatient for workup including ?prostate CA. -spoke with patient via security system engineer phone, spoke at length regarding prognosis and the importance of patient getting in touch with a PCP via insurance ( resources will also be given via case management) in order to follow up with an oncologist and urologist. Patient has a hx of not following up, as patient had similar prostate problems approximately 6-12 months prior per urology. Patient understands importance of follow up. Problems: Subjective 24 Hr Interval Summary Free Text/Dictation no acute complaints Exam/Review of Systems Vital Signs Vitals Vital Signs Date Time Temp Pulse Resp B/P Pulse Ox O2 Delivery O2 Flow Rate FiO2 01/17/17 16:13 59 01/17/17 15:41 98.5 17 170/76 99 Intake and Output 01/16/17 01/16/17 01/17/17 15:00 23:00 07:00 Intake Total 900 ml Output Total 700 ml 800 ml Balance 200 ml -800 ml Exam General: alert, oriented, well developed Respiratory: clear to auscultation, normal air movement, No crackles/rales, No diminished breath sounds Cardiovascular: Regular rate and rhythm, No edema, No systolic murmur Gastrointestinal: soft, non tender, No rebound or guarding Musculoskeletal: nl extremities to gross inspection Extremities: normal pulses, R chest permacath, left UE AV fistula Results Result Diagram: 01/17/17 1030 01/17/17 1030 Results 24 hrs Laboratory Tests Test 01/17/17 10:30 White Blood Count 5.4 # Red Blood Count 2.84 L Hemoglobin 8.8 L Hematocrit 26.9 L Mean Corpuscular Volume 94.7 Mean Corpuscular Hemoglobin 31.0 Mean Corpuscular Hemoglobin Concent 32.7 Red Cell Distribution Width 13.5 Platelet Count 143 Mean Platelet Volume 10.2 Neutrophils % 49.8 Lymphocytes % 33.1 Monocytes % 11.4 H Eosinophils % 4.6 Basophils % 0.7 Nucleated Red Blood Cells % 0.0 Neutrophils # 2.7 Lymphocytes # 1.8 Monocytes # 0.6 Eosinophils # 0.3 Basophils # 0.0 Nucleated Red Blood Cells # 0.0 Sodium Level 139 Potassium Level 4.0 Chloride Level 103 Carbon Dioxide Level 32 H Anion Gap 8 Blood Urea Nitrogen 30 #H Creatinine 2.38 H Glucose Level 118 Calcium Level 8.8 Phosphorus Level 2.5 Magnesium Level 1.9 Medications Medications Current Medications Dextrose (D50w Syringe) ONCE PRN IV POC BLOOD GLUCOSE <250 MG/DL Last administered on 01/06/17 17:24; Admin Dose 50 ML; Start 01/06/17 at 17:00 Acetaminophen (Tylenol Tab) 650 mg Q6H PRN PO PAIN LEVEL 1-3 OR FEVER Last administered on 01/12/17 21:44; Admin Dose 650 MG; Start 01/06/17 at 17:30 Morphine Sulfate (morphine) 2 mg Q4H PRN IV PAIN LEVEL 7-10; Start 01/06/17 at 17:30 Labetalol HCl (Labetalol) 10 mg Q4H PRN IV ELEVATED BLOOD PRESSURE Last administered on 01/08/17 08:26; Admin Dose 10 MG; Start 01/06/17 at 18:00 Hydralazine HCl (Apresoline) 10 mg Q6 PRN IV ELEVATED BLOOD PRESSURE Last administered on 01/11/17 22:01; Admin Dose 10 MG; Start 01/06/17 at 18:00 Metoclopramide HCl (Reglan) 5 mg Q6H PRN IV NAUSEA; Start 01/06/17 at 19:00 Ondansetron HCl (Zofran Inj) 4 mg Q6H PRN IV NAUSEA AND/OR VOMITING Last administered on 01/08/17 09:40; Admin Dose 4 MG; Start 01/08/17 at 09:30 Atenolol (Tenormin) 75 mg BID PO Last administered on 01/16/17 20:09; Admin Dose 75 MG; Start 01/10/17 at 09:00 Clonidine (Catapres) 0.2 mg TID PO Last administered on 01/16/17 20:08; Admin Dose 0.2 MG; Start 01/10/17 at 09:00 Famotidine (Pepcid) 20 mg DAILY PO Last administered on 01/16/17 08:13; Admin Dose 20 MG; Start 01/10/17 at 09:00 Amlodipine Besylate (Norvasc) 10 mg DAILY PO Last administered on 01/16/17 08: 14; Admin Dose 10 MG; Start 01/14/17 at 11:30 FREDI GALLO Jan 17, 2017 16:34
[2017-01-18] VITALS (9 sets, daily range): BP systolic 136–161; BP diastolic 64–74; PULSE 52–59; RESP 17–18
[2017-01-18] MEDS: FAMOTIDINE 20 MG TAB PO SCH (08:22)
[2017-01-18] MEDS: CALCIUM ACETATE 667 MG CAP PO SCH ×3 (08:22→18:05)
[2017-01-18] MEDS: AMLODIPINE 10 MG TAB PO SCH (08:23)
[2017-01-18] MEDS: ATENOLOL 50 MG TAB PO SCH ×2 (08:25→21:00)
--- NOTE | 2017-01-18 12:52 | PN ---
Date/Time of Note Date/Time of Note DATE: 01/18/17 TIME: 12:51 Assessment/Plan VTE Prophylaxis VTE Prophylaxis Intervention: SCD's Lines/Catheters IV Catheter Type (from Nrs): Saline Lock Urinary Cath still in place: Yes Reason Cath still needed: urinary retention, terminal illness/intractable pain Assessment/Plan Chief Complaint/Hosp Course 1. Acute on chronic renal failure- on HD - Nephrology on board and consultation appreciated. Tolerating HD well - permacath placed right chest, AV fistula placed left UE - Continue to monitor for dialysis needs 2. Enlarged prostate - Elevated PSA. Most likely Prostate CA - Discussed with patient and in process of getting insurance so will be able to follow Urology as outpatient and needs to be set up with oncology as well - Zhang in place 3. Hyperkalemia- resolved - will continue monitoring 4. Hematuria - Most likely secondary to present of prostate cancer - Urology consulted and recommendations appreciated. Suspicious for prostate cancer and will need further workup as outpatient - Will continue monitoring output 5. Anemia of chronic disease - H/H stable 6. ?UTI - finished cipro, monitor 7. Hypertension - stable - PRN medication if SBP>160 8. 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 Disposition -Patient only has medicare A, according to case management, need medical or part B in order to get a dialysis chair, will stay in hospital until a chair is found. -patient will DC with zhang per urology to follow up outpatient for workup including ?prostate CA. -spoke with patient via rand cementer phone, spoke at length regarding prognosis and the importance of patient getting in touch with a PCP via insurance ( resources will also be given via case management) in order to follow up with an oncologist and urologist. Patient has a hx of not following up, as patient had similar prostate problems approximately 6-12 months prior per urology. Patient understands importance of follow up. Problems: Subjective 24 Hr Interval Summary Free Text/Dictation no acute complaints Exam/Review of Systems Vital Signs Vitals Vital Signs Date Time Temp Pulse Resp B/P Pulse Ox O2 Delivery O2 Flow Rate FiO2 01/18/17 11:19 98.5 59 17 157/74 99 Intake and Output 01/17/17 01/17/17 01/18/17 15:00 23:00 07:00 Intake Total 500 ml 1200 ml 440 ml Output Total 1500 ml 300 ml 1200 ml Balance -1000 ml 900 ml -760 ml Exam General: alert, oriented, well developed Respiratory: clear to auscultation, normal air movement, No crackles/rales, No diminished breath sounds Cardiovascular: Regular rate and rhythm, No edema, No systolic murmur Gastrointestinal: soft, non tender, No rebound or guarding Musculoskeletal: nl extremities to gross inspection Extremities: normal pulses, R chest permacath, left UE AV fistula Results Result Diagram: 01/17/17 1030 01/17/17 1030 Medications Medications Current Medications Dextrose (D50w Syringe) ONCE PRN IV POC BLOOD GLUCOSE <250 MG/DL Last administered on 01/06/17 17:24; Admin Dose 50 ML; Start 01/06/17 at 17:00 Acetaminophen (Tylenol Tab) 650 mg Q6H PRN PO PAIN LEVEL 1-3 OR FEVER Last administered on 01/12/17 21:44; Admin Dose 650 MG; Start 01/06/17 at 17:30 Morphine Sulfate (morphine) 2 mg Q4H PRN IV PAIN LEVEL 7-10; Start 01/06/17 at 17:30 Labetalol HCl (Labetalol) 10 mg Q4H PRN IV ELEVATED BLOOD PRESSURE Last administered on 01/08/17 08:26; Admin Dose 10 MG; Start 01/06/17 at 18:00 Hydralazine HCl (Apresoline) 10 mg Q6 PRN IV ELEVATED BLOOD PRESSURE Last administered on 01/11/17 22:01; Admin Dose 10 MG; Start 01/06/17 at 18:00 Metoclopramide HCl (Reglan) 5 mg Q6H PRN IV NAUSEA; Start 01/06/17 at 19:00 Ondansetron HCl (Zofran Inj) 4 mg Q6H PRN IV NAUSEA AND/OR VOMITING Last administered on 01/08/17 09:40; Admin Dose 4 MG; Start 01/08/17 at 09:30 Atenolol (Tenormin) 75 mg BID PO Last administered on 01/18/17 08:25; Admin Dose 75 MG; Start 01/10/17 at 09:00 Clonidine (Catapres) 0.2 mg TID PO Last administered on 01/18/17 12:35; Admin Dose 0.2 MG; Start 01/10/17 at 09:00 Famotidine (Pepcid) 20 mg DAILY PO Last administered on 01/18/17 08:22; Admin Dose 20 MG; Start 01/10/17 at 09:00 Amlodipine Besylate (Norvasc) 10 mg DAILY PO Last administered on 01/18/17 08: 23; Admin Dose 10 MG; Start 01/14/17 at 11:30 FREDI GALLO Jan 18, 2017 12:52
--- NOTE | 2017-01-18 13:16 | PN ---
Date/Time of Note Date/Time of Note DATE: 01/18/17 TIME: 13:15 Assessment/Plan VTE Prophylaxis VTE Prophylaxis Intervention: other Lines/Catheters Urinary Cath still in place: Yes Reason Cath still needed: urinary retention Assessment/Plan Assessment/Plan Gross Hematuria- Resolved 2) KAIT on Unspecified CKD, Obstructive Uropathy 3) Elevated PSA, Possible malignancy 4) Hyperkalemia- Resolved 5) Mild Hyponatremia [id number] hd per plan placement thursday [id number] no change hd per plan Exam/Review of Systems Vital Signs Vitals Vital Signs Date Time Temp Pulse Resp B/P Pulse Ox O2 Delivery O2 Flow Rate FiO2 01/18/17 11:19 98.5 59 17 157/74 99 Intake and Output 01/17/17 01/17/17 01/18/17 15:00 23:00 07:00 Intake Total 500 ml 1200 ml 440 ml Output Total 1500 ml 300 ml 1200 ml Balance -1000 ml 900 ml -760 ml Exam Neck: supple Respiratory: clear to auscultation, normal air movement Cardiovascular: nl pulses, regular rate and rhythm Gastrointestinal: soft Musculoskeletal: nl extremities to inspection Results Result Diagram: 01/17/17 1030 01/17/17 1030 Medications Medications Current Medications Dextrose (D50w Syringe) ONCE PRN IV POC BLOOD GLUCOSE <250 MG/DL Last administered on 01/06/17 17:24; Admin Dose 50 ML; Start 01/06/17 at 17:00 Acetaminophen (Tylenol Tab) 650 mg Q6H PRN PO PAIN LEVEL 1-3 OR FEVER Last administered on 01/12/17 21:44; Admin Dose 650 MG; Start 01/06/17 at 17:30 Morphine Sulfate (morphine) 2 mg Q4H PRN IV PAIN LEVEL 7-10; Start 01/06/17 at 17:30 Labetalol HCl (Labetalol) 10 mg Q4H PRN IV ELEVATED BLOOD PRESSURE Last administered on 01/08/17 08:26; Admin Dose 10 MG; Start 01/06/17 at 18:00 Hydralazine HCl (Apresoline) 10 mg Q6 PRN IV ELEVATED BLOOD PRESSURE Last administered on 01/11/17 22:01; Admin Dose 10 MG; Start 01/06/17 at 18:00 Metoclopramide HCl (Reglan) 5 mg Q6H PRN IV NAUSEA; Start 01/06/17 at 19:00 Ondansetron HCl (Zofran Inj) 4 mg Q6H PRN IV NAUSEA AND/OR VOMITING Last administered on 01/08/17 09:40; Admin Dose 4 MG; Start 01/08/17 at 09:30 Atenolol (Tenormin) 75 mg BID PO Last administered on 01/18/17 08:25; Admin Dose 75 MG; Start 01/10/17 at 09:00 Clonidine (Catapres) 0.2 mg TID PO Last administered on 01/18/17 12:35; Admin Dose 0.2 MG; Start 01/10/17 at 09:00 Famotidine (Pepcid) 20 mg DAILY PO Last administered on 01/18/17 08:22; Admin Dose 20 MG; Start 01/10/17 at 09:00 Amlodipine Besylate (Norvasc) 10 mg DAILY PO Last administered on 01/18/17 08: 23; Admin Dose 10 MG; Start 01/14/17 at 11:30 CHRISTIANO ROWLEY MD Jan 18, 2017 13:16
[2017-01-18] MEDS ORDERED: SENNA TAB PO PRN (22:00)
[2017-01-18] MEDS: DEXTROSE 5%-0.45% NACL 1,000 ML IV SCH (22:22)
[2017-01-19] VITALS (11 sets, daily range): BP systolic 102–165; BP diastolic 51–80; PULSE 53–56; RESP 17–20
[2017-01-19 07:22] LABS: BASOPHIL # 0.1 10^3/ul (0.0-0.1); BASOPHILS % 0.9 % (0.0-2.0); EOSINOPHILS # 0.5 10^3/ul (0.0-0.5); EOSINOPHILS % 7.1 % (0.0-7.0); HEMATOCRIT 26.4 % (42.0-52.0); HEMOGLOBIN 8.6 g/dl (14.0-18.0); LYMPHOCYTES # 2.3 10^3/ul (0.8-2.9); LYMPHOCYTES % 35.6 % (15.0-51.0); MEAN CORPUSCULAR HEMOGLOBIN 30.6 pg (29.0-33.0); MEAN CORPUSCULAR HGB CONC 32.6 g/dl (32.0-37.0); MEAN PLATELET VOLUME 9.6 fl (7.4-10.4); MONOCYTE # 0.7 10^3/ul (0.3-0.9); MONOCYTES % 11.1 % (0.0-11.0); NEUTROPHILS % 45.1 % (39.0-77.0); PLATELET COUNT 144 10^3/UL (140-415); RED BLOOD COUNT 2.81 10^6/ul (4.70-6.10); RED CELL DISTRIBUTION WIDTH 13.2 % (11.5-14.5); WHITE BLOOD COUNT 6.6 10^3/ul (4.8-10.8)
[2017-01-19 08:09] LABS: CREATININE 3.77 mg/dl (0.61-1.24); PHOSPHORUS 3.6 mg/dl (2.5-4.9); POTASSIUM 3.9 mmol/L (3.5-5.1)
[2017-01-19] MEDS: FAMOTIDINE 20 MG TAB PO SCH (08:47)
[2017-01-19] MEDS: AMLODIPINE 10 MG TAB PO SCH (08:47)
[2017-01-19] MEDS: CALCIUM ACETATE 667 MG CAP PO SCH ×3 (08:48→17:35)
[2017-01-19] MEDS: ATENOLOL 50 MG TAB PO SCH (08:48)
[2017-01-19] MEDS: DEXTROSE 5%-0.45% NACL 1,000 ML IV SCH (13:56)
--- NOTE | 2017-01-19 14:33 | CONS ---
Date/Time of Note Date/Time of Note DATE: 01/19/17 TIME: 14:32 Assessment/Plan Assessment/Plan Additional Assessment/Plan 66 yo male with 1) Gross Hematuria- Resolved 2) KAIT on Unspecified CKD, Obstructive Uropathy 3) Elevated PSA, Possible malignancy 4) Hyperkalemia- Resolved 5) Mild Hyponatremia HD tomorrow TTS schedule S/p AVF and PC Cont to assess need for HD daily Cont to monitor electrolytes, UO, renal function and Volume status closely DC planning, HD Center [facility] confirmed. Discussed with CM. Hep B negative Consultation Date/Type/Reason Admit Date/Time Jan 06, 2017 at 17:55 Initial Consult Date 01/08/17 Type of Consultation: renal Referring Provider: RICHAR SCOTT MD 24 HR Interval Summary Constitutional: No requiring O2 Exam/Review of Systems Vital Signs Vitals Vital Signs Date Time Temp Pulse Resp B/P Pulse Ox O2 Delivery O2 Flow Rate FiO2 01/19/17 12:07 55 01/19/17 11:50 97.8 20 135/60 100 Intake and Output 01/18/17 01/18/17 01/19/17 14:59 22:59 06:59 Intake Total 1000 ml 675 ml Output Total 900 ml 1300 ml Balance 100 ml -625 ml Exam Constitutional: No distress ENMT: mucosa pink and moist Neck: No jvd Respiratory: clear to auscultation Cardiovascular: regular rate and rhythm, No edema Gastrointestinal: soft Neurological: [employer] II-XII intact, No lethargic Results Result Diagram: 01/19/17 0654 01/19/17 0654 Results 24 hrs Laboratory Tests Test 01/19/17 06:54 White Blood Count 6.6 # Red Blood Count 2.81 L Hemoglobin 8.6 L Hematocrit 26.4 L Mean Corpuscular Volume 94.0 Mean Corpuscular Hemoglobin 30.6 Mean Corpuscular Hemoglobin Concent 32.6 Red Cell Distribution Width 13.2 Platelet Count 144 Mean Platelet Volume 9.6 Neutrophils % 45.1 Lymphocytes % 35.6 Monocytes % 11.1 H Eosinophils % 7.1 H Basophils % 0.9 Nucleated Red Blood Cells % 0.0 Neutrophils # 3.0 Lymphocytes # 2.3 Monocytes # 0.7 Eosinophils # 0.5 Basophils # 0.1 Nucleated Red Blood Cells # 0.0 Sodium Level 137 Potassium Level 3.9 Chloride Level 102 Carbon Dioxide Level 30 Anion Gap 9 Blood Urea Nitrogen 49 #H Creatinine 3.77 #H Glucose Level 127 Calcium Level 9.0 Phosphorus Level 3.6 Magnesium Level 2.0 Medications Medications Current Medications Dextrose (D50w Syringe) ONCE PRN IV POC BLOOD GLUCOSE <250 MG/DL Last administered on 01/06/17 17:24; Admin Dose 50 ML; Start 01/06/17 at 17:00 Acetaminophen (Tylenol Tab) 650 mg Q6H PRN PO PAIN LEVEL 1-3 OR FEVER Last administered on 01/12/17 21:44; Admin Dose 650 MG; Start 01/06/17 at 17:30 Morphine Sulfate (morphine) 2 mg Q4H PRN IV PAIN LEVEL 7-10; Start 01/06/17 at 17:30 Labetalol HCl (Labetalol) 10 mg Q4H PRN IV ELEVATED BLOOD PRESSURE Last administered on 01/08/17 08:26; Admin Dose 10 MG; Start 01/06/17 at 18:00 Hydralazine HCl (Apresoline) 10 mg Q6 PRN IV ELEVATED BLOOD PRESSURE Last administered on 01/11/17 22:01; Admin Dose 10 MG; Start 01/06/17 at 18:00 Metoclopramide HCl (Reglan) 5 mg Q6H PRN IV NAUSEA; Start 01/06/17 at 19:00 Ondansetron HCl (Zofran Inj) 4 mg Q6H PRN IV NAUSEA AND/OR VOMITING Last administered on 01/08/17 09:40; Admin Dose 4 MG; Start 01/08/17 at 09:30 Atenolol (Tenormin) 75 mg BID PO Last administered on 01/18/17 08:25; Admin Dose 75 MG; Start 01/10/17 at 09:00 Clonidine (Catapres) 0.2 mg TID PO Last administered on 01/19/17 12:42; Admin Dose 0.2 MG; Start 01/10/17 at 09:00 Famotidine (Pepcid) 20 mg DAILY PO Last administered on 01/19/17 08:47; Admin Dose 20 MG; Start 01/10/17 at 09:00 Amlodipine Besylate (Norvasc) 10 mg DAILY PO Last administered on 01/19/17 08: 47; Admin Dose 10 MG; Start 01/14/17 at 11:30 Senna 2 tab 2 tab BID PRN PO CONSTIPATION Last administered on 01/18/17 22:21 ; Admin Dose 2 TAB; Start 01/18/17 at 22:00 Dextrose/Sodium Chloride (D5-1/2ns) 1,000 ml @ 60 mls/hr [id number] IV Last administered on 01/19/17 13:56; Admin Dose 60 MLS/HR; Start 01/18/17 at 22:00 TARIQ GARCIA MD Jan 19, 2017 14:33
--- NOTE | 2017-01-19 16:35 | PN ---
Date/Time of Note Date/Time of Note DATE: 01/19/17 TIME: 16:30 Assessment/Plan VTE Prophylaxis VTE Prophylaxis Intervention: contraindicated, SCD's Lines/Catheters IV Catheter Type (from Nrs): Saline Lock Urinary Cath still in place: Yes Reason Cath still needed: urinary retention Assessment/Plan Assessment/Plan 1. Acute on chronic renal failure- on HD - Nephrology on board and consultation appreciated. Tolerating HD well - permacath placed right chest, AV fistula placed left UE - Continue to monitor for dialysis needs - Confirmed spot with [facility] as outpatient with next session tmrw 2. Enlarged prostate - Elevated PSA. Most likely Prostate CA - Will need to follow up with Urology as outpatient - Shannon in place 3. Hyperkalemia- resolved 4. Hematuria- resolved - Most likely secondary to present of prostate cancer - Urology consulted and recommendations appreciated. Suspicious for prostate cancer and will need further workup as outpatient - Will continue monitoring output 5. Anemia of chronic disease - H/H stable 6. ?UTI - finished cipro, monitor 7. Hypertension - stable - PRN medication if SBP>160 8. 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 Disposition - accepted at [facility] for HD tomorrow as outpatient. Cleared for d/c home Subjective 24 Hr Interval Summary Free Text/Dictation Patient seen this am and resting comfortably. No acute distress and no overnight events. Exam/Review of Systems Vital Signs Vitals Vital Signs Date Time Temp Pulse Resp B/P Pulse Ox O2 Delivery O2 Flow Rate FiO2 01/19/17 16:14 56 01/19/17 15:48 98.2 19 120/61 100 Intake and Output 01/18/17 01/18/17 01/19/17 15:00 23:00 07:00 Intake Total 1000 ml 675 ml Output Total 900 ml 1300 ml Balance 100 ml -625 ml Exam General: alert, oriented, well developed Lungs: clear to auscultation, normal air movement, No crackles/rales, No diminished breath sounds CVSr: Regular rate and rhythm, No edema, No systolic murmur GI: soft, non tender, No rebound or guarding Musculoskeletal: nl extremities to gross inspection Extremities: normal pulses, R chest permacath, left UE AV fistula Results Result Diagram: 01/19/17 0654 01/19/17653 Results 24 hrs Laboratory Tests Test 01/19/17 06:54 White Blood Count 6.6 # Red Blood Count 2.81 L Hemoglobin 8.6 L Hematocrit 26.4 L Mean Corpuscular Volume 94.0 Mean Corpuscular Hemoglobin 30.6 Mean Corpuscular Hemoglobin Concent 32.6 Red Cell Distribution Width 13.2 Platelet Count 144 Mean Platelet Volume 9.6 Neutrophils % 45.1 Lymphocytes % 35.6 Monocytes % 11.1 H Eosinophils % 7.1 H Basophils % 0.9 Nucleated Red Blood Cells % 0.0 Neutrophils # 3.0 Lymphocytes # 2.3 Monocytes # 0.7 Eosinophils # 0.5 Basophils # 0.1 Nucleated Red Blood Cells # 0.0 Sodium Level 137 Potassium Level 3.9 Chloride Level 102 Carbon Dioxide Level 30 Anion Gap 9 Blood Urea Nitrogen 49 #H Creatinine 3.77 #H Glucose Level 127 Calcium Level 9.0 Phosphorus Level 3.6 Magnesium Level 2.0 Medications Medications Current Medications Dextrose (D50w Syringe) ONCE PRN IV POC BLOOD GLUCOSE <250 MG/DL Last administered on 01/06/17 17:24; Admin Dose 50 ML; Start 01/06/17 at 17:00 Acetaminophen (Tylenol Tab) 650 mg Q6H PRN PO PAIN LEVEL 1-3 OR FEVER Last administered on 01/12/17 21:44; Admin Dose 650 MG; Start 01/06/17 at 17:30 Morphine Sulfate (morphine) 2 mg Q4H PRN IV PAIN LEVEL 7-10; Start 01/06/17 at 17:30 Labetalol HCl (Labetalol) 10 mg Q4H PRN IV ELEVATED BLOOD PRESSURE Last administered on 01/08/17 08:26; Admin Dose 10 MG; Start 01/06/17 at 18:00 Hydralazine HCl (Apresoline) 10 mg Q6 PRN IV ELEVATED BLOOD PRESSURE Last administered on 01/11/17 22:01; Admin Dose 10 MG; Start 01/06/17 at 18:00 Metoclopramide HCl (Reglan) 5 mg Q6H PRN IV NAUSEA; Start 01/06/17 at 19:00 Ondansetron HCl (Zofran Inj) 4 mg Q6H PRN IV NAUSEA AND/OR VOMITING Last administered on 01/08/17 09:40; Admin Dose 4 MG; Start 01/08/17 at 09:30 Atenolol (Tenormin) 75 mg BID PO Last administered on 01/18/17 08:25; Admin Dose 75 MG; Start 01/10/17 at 09:00 Clonidine (Catapres) 0.2 mg TID PO Last administered on 01/19/17 12:42; Admin Dose 0.2 MG; Start 01/10/17 at 09:00 Famotidine (Pepcid) 20 mg DAILY PO Last administered on 01/19/17 08:47; Admin Dose 20 MG; Start 01/10/17 at 09:00 Amlodipine Besylate (Norvasc) 10 mg DAILY PO Last administered on 01/19/17 08: 47; Admin Dose 10 MG; Start 01/14/17 at 11:30 Senna 2 tab 2 tab BID PRN PO CONSTIPATION Last administered on 01/18/17 22:21 ; Admin Dose 2 TAB; Start 01/18/17 at 22:00 Dextrose/Sodium Chloride (D5-1/2ns) 1,000 ml @ 60 mls/hr [id number] IV Last administered on 01/19/17 13:56; Admin Dose 60 MLS/HR; Start 01/18/17 at 22:00 RICHAR SCOTT MD Jan 19, 2017 16:35
[2017-01-19] MEDS ORDERED: CALC667C PO ×2 (16:38→17:17)
[2017-01-19] MEDS ORDERED: ATEN50TA PO ×2 (16:38→17:17)
[2017-01-19] MEDS ORDERED: AMLO-147 PO ×2 (16:38→17:17)
[2017-01-19] MEDS ORDERED: CLON0.1T14 PO ×2 (16:38→17:17)
--- NOTE | 2017-01-19 16:45 | PDOCDIS ---
Discharge Instructions DIAGNOSIS Discharge Diagnosis 1. Acute on chronic renal failure- on HD 2. Enlarged prostate 3. Hyperkalemia- resolved 4. Hematuria- resolved 5. Anemia of chronic disease 6. Hypertension 7. 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 Continue Hemodialysis as planned with close follow up with Nephrology 2. It is important that you establish care with a primary care physician in order to follow up with Urology and Oncology to continue workup for your prostrate 3. You will keep in the zhang and follow up with Urologist for further management 4. You will need to take medications daily for your blood pressure: Norvasc, Clonidine, and Atenolol 5. If you are experiencing any fevers, chills, nausea, vomiting, confusion, swelling, chest pain, or shortness of breath, return to the ED. 1. continuar hemodialisis sorin estaba previsto con un seguimiento cercano para arriba con Nefrologa 2. Es importante establecer rosa atencin con un mdico de atencin primaria para seguimiento con urologa y oncologa para seguir workup para la prstata 3. Mantendr en el zhang y seguimiento con el urlogo para ms jurgen 4. Usted necesitar jose medicamentos diariamente para la presin arterial: Atenolol, Norvasc y clonidina 6. Si usted est experimentando cualquier fiebre, escalofros, nuseas, vmitos , confusin, hinchazn, dolor en el pecho o dificultad para respirar, volver al ED. REFERRALS Other Referrals Bertin Joshi MD Specialty: Nephrology Office Address [facility] [address], [place] [address] Office RICHAR SCOTT MD Jan 19, 2017 16:45
--- NOTE | 2017-01-19 17:24 | DS ---
Date/Time of Note Date/Time of Note DATE: 01/19/17 TIME: 17:24 Discharge Summary Admission/Discharge Info Admit Date/Time Jan 06, 2017 at 17:55 Discharge Date/Time Discharge Diagnosis 1. Acute on chronic renal failure- on HD 2. Enlarged prostate 3. Hyperkalemia- resolved 4. Hematuria- resolved 5. Anemia of chronic disease 6. Hypertension 7. 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 Joshi Urology- Dr. Nava Vascular Surgery- Dr. Paula Hx of Present Illness 66 yo M with PMH Diabetes Mellitus, remote history of Leukemia, and essential hypertension presented to the ED after experiencing nausea, fevers, chills, abdominal pain, diarrhea, and diminished urine output that has been worsening over the past 2 weeks. He also admits to fatigue, weakness with ambulation, and loss of appetite. Patient states he was in his normal state of health until he developed nausea, but has not been seen by anyone prior to presenting to ED. Patient was seen at [facility] for similar complaints in 09/2016 with renal failure and abdominal pain but never followed up. Patient was found to have acute on chronic renal failure with potassium of 7.0. He was given insulin, dextrose, and Kayexalate in the ED. His renal function was severely diminished with Cr 15. Patient is mentating well and vitals are stable. Zhang catheter was placed in the ED for relief of urinary retention. Hospital Course Patient was admitted to ICU for close observation given hyperkalemia with K of 7 and acute on chronic renal failure. Nephrology was consulted for management of acute renal failure. He was also found to have positive UA and treated with a course of antbiotics for UTI. Given obstructive cause and signs of ESRD, patient was started on HD. Patient was also found to be anemic with hemoglobin <7 and transfused PRBC. After transfusion patient started experiencing darrell blood in catheter bag and urology was consulted. Patient had presented in September for similar problems and found to have a hard and enlarged prostate as well as elevated PSA. Patient was lost to follow up given his insurance status of only having Medicare part A as well as being noncompliant. Patient continued to be monitored for hemodynamic stability while awaiting outpatient dialysis approval. Dialysis was continued as well and Vascular surgery was consulted for placement of permacath as well as AVF in left arm. Patient applied and received approval for medicare coverage in order to obtain a chair at outpatient dialysis center. Patient was approved at [facility] and discharged home with instructions to follow up with PCP. He was also discharged with zhang in place with instructions to follow up with Urology as an outpatient to complete workup for prostate CA. Patients abdominal pain resolved and was discharged in good condition. Home Meds Active Scripts Calcium Acetate* (Calcium Acetate*) 667 Mg Capsule, 2001 MG PO WITH MEALS for 30 Days, #90 CAP 1 Refill Prov:RICHAR SCOTT MD 01/19/17 Clonidine Hcl* (Catapres*) 0.1 Mg Tablet, 0.2 MG PO TID for 30 Days, #90 TAB 1 Refill Prov:RICHAR SCOTT MD 01/19/17 Atenolol* (Atenolol*) 50 Mg Tablet, 75 MG PO BID for 30 Days, #60 TAB 1 Refill Prov:RICHAR SCOTT MD 01/19/17 Amlodipine Besylate* (Amlodipine Besylate*) 10 Mg Tablet, 10 MG PO DAILY for 30 Days, #30 TAB 1 Refill Prov:RICHAR SCOTT MD 01/19/17 Discontinued Reported Medications Metformin Hcl* (Metformin Hcl*) 1,000 Mg Tablet, 1000 MG PO WITH BREAKFAST DINNE , #60 TAB 01/06/17 Follow-up Plan 1. Continue Hemodialysis as planned with close follow up with Nephrology 2. It is important that you establish care with a primary care physician in order to follow up with Urology and Oncology to continue workup for your prostrate 3. You will keep in the zhang and follow up with Urologist for further management 4. You will need to take medications daily for your blood pressure: Norvasc, Clonidine, and Atenolol 5. If you are experiencing any fevers, chills, nausea, vomiting, confusion, swelling, chest pain, or shortness of breath, return to the ED. Primary Care Provider Not On Staff Doctor Time spent on discharge: > 30 minutes Pending Labs Laboratory Tests Test 01/19/17 06:54 White Blood Count 6.610^3/ul (4.8-10.8) Red Blood Count 2.8110^6/ul (4.70-6.10) Hemoglobin 8.6g/dl (14.0-18.0) Hematocrit 26.4% (42.0-52.0) Mean Corpuscular Volume 94.0fl (82.0-101.0) Mean Corpuscular Hemoglobin 30.6pg (29.0-33.0) Mean Corpuscular Hemoglobin Concent 32.6g/dl (32.0-37.0) Red Cell Distribution Width 13.2% (11.5-14.5) Platelet Count 73399^3/UL (140-415) Mean Platelet Volume 9.6fl (7.4-10.4) Neutrophils % 45.1% (39.0-77.0) Lymphocytes % 35.6% (15.0-51.0) Monocytes % 11.1% (0.0-11.0) Eosinophils % 7.1% (0.0-7.0) Basophils % 0.9% (0.0-2.0) Nucleated Red Blood Cells % 0.0/100WBC (0.0-0.0) Neutrophils # 3.010^3/ul (1.6-7.5) Lymphocytes # 2.310^3/ul (0.8-2.9) Monocytes # 0.710^3/ul (0.3-0.9) Eosinophils # 0.510^3/ul (0.0-0.5) Basophils # 0.110^3/ul (0.0-0.1) Nucleated Red Blood Cells # 0.010^3/ul (0.0-0.0) Sodium Level 137mmol/L (135-144) Potassium Level 3.9mmol/L (3.5-5.1) Chloride Level 102mmol/L (97-110) Carbon Dioxide Level 30mmol/L (21-31) Anion Gap 9 (8-16) Blood Urea Nitrogen 49mg/dl (7-20) Creatinine 3.77mg/dl (0.61-1.24) Glucose Level 127mg/dl (70-220) Calcium Level 9.0mg/dl (8.4-10.2) Phosphorus Level 3.6mg/dl (2.5-4.9) Magnesium Level 2.0mg/dl (1.7-2.5) RICHAR SCOTT MD Jan 19, 2017 17:24 Anion Gap 9 (8-16) Blood Urea Nitrogen 49mg/dl (7-20) Creatinine 3.77mg/dl (0.61-1.24) Glucose Level 127mg/dl (70-220) Calcium Level 9.0mg/dl (8.4-10.2) Phosphorus Level 3.6mg/dl (2.5-4.9) Magnesium Level 2.0mg/dl (1.7-2.5) RICHAR SCOTT MD Jan 19, 2017 17:24
[2017-01-19] MEDS: ACETAMINOPHEN 325 MG TAB PO PRN (17:52)
== END 2017-01-19 19:56 | disposition home or self-care (01) | DRG 674 ==
LOC: E/R 12:19 → ICU 17:55 → MS4 01-08 06:15
PROVIDERS: ADMIT Internal Medicine; ATTEND Internal Medicine
PROC: 06HY33Z Insertion of Infusion Device into Lower Vein, Percutaneous Approach (ICD-10-PCS; 2017-01-06)
PROC: 5A1D70Z Performance of Urinary Filtration, Intermittent, Less than 6 Hours Per Day (ICD-10-PCS; 2017-01-06)
PROC: 30233N1 Transfusion of Nonautologous Red Blood Cells into Peripheral Vein, Percutaneous Approach (ICD-10-PCS; 2017-01-07)
PROC: 02HV33Z Insertion of Infusion Device into Superior Vena Cava, Percutaneous Approach (ICD-10-PCS; 2017-01-12)
PROC: 0JH63XZ Insertion of Tunneled Vascular Access Device into Chest Subcutaneous Tissue and Fascia, Percutaneous Approach (ICD-10-PCS; 2017-01-12)
PROC: 03180ZF Bypass Left Brachial Artery to Lower Arm Vein, Open Approach (ICD-10-PCS; principal; 2017-01-12 15:00)
DX: N17.9 Acute kidney failure, unspecified (principal); I12.0 Hypertensive chronic kidney disease with stage 5 chronic kidney disease or end stage renal disease; E87.2 Acidosis; E11.22 Type 2 diabetes mellitus with diabetic chronic kidney disease; E87.1 Hypo-osmolality and hyponatremia; N13.8 Other obstructive and reflux uropathy; N39.0 Urinary tract infection, site not specified; N18.6 End stage renal disease; N40.1 Benign prostatic hyperplasia with lower urinary tract symptoms; E87.5 Hyperkalemia; D63.8 Anemia in other chronic diseases classified elsewhere; R31.0 Gross hematuria; Z85.6 Personal history of leukemia
CPT/HCPCS: 36415; 36430; 36600; 71010; 74000; 74176; 76775; 78306; 80048; 80053; 80069; 81001; 82803; 82962; 83036; 83690; 83735; 83935; 84100; 84132; 84153; 84154; 84300; 85014; 85018; 85025; 85049; 85362; 85378; 85384; 85610; 85670; 85730; 86703; 86704; 86709; 86803; 86850; 86900; 86901; 86920; 87081; 87086; 87340; 90935; 93005; 93970; 94644; 96365; 96366; 96375; A9503; C1725; C1752; J0360; J0461; J0744; J1644; J1815; J2405; J2997; J3370; J3475; J7030; J7042; J7050; P9016; Q9967

== ENCOUNTER 2017-02-15 08:18 | Emergency (ER) | payer MEDICAID, MEDICARE ==
[~2017-02-15] VITALS: Ht 170.2 cm; Wt 68.5 kg
[~2017-02-15 08:18] MED LIST changes: -AMLO-145 PO; +AMLO-147 PO; -ASPI81TA3 PO; +ATEN50TA PO; +CALC667C PO; +CLON0.1T14 PO; -DOXA2TAB61 PO; -FLUO20CA38 PO; -HYDR-3498 PO; -METO-448 PO; -PANT40TA4 PO; -SITA25TA3 PO
[2017-02-15 08:23] VITALS: Ht 170.2 cm; Wt 68.5 kg
--- NOTE | 2017-02-15 08:58 | ERD ---
ER Documentation Chief Complaint Chief Complaint urine catheter tubing broke HPI This is a 66-year-old male with a past medical history of diabetes, hypertension , previous leukemia, end-stage renal disease status post right chest permacatheter on dialysis, obstructive uropathy that is potentially related to prostate cancer that is currently being worked up by urology, with an indwelling Shannon catheter that is supposed to remain in place for a month who is now presenting with a problem with his catheter. The patient reportedly had his catheter pulled while sleeping last night and the catheter broke. The urine drained via the catheter so he pulled the catheter out without complication. The patient has not noticed any hematuria. This occurred about 5 hours ago, and now he does describe suprapubic fullness and discomfort. The patient otherwise has no complaints. The patient denies feeling sick recently. The patient denies fever or chills. The patient has had no headache or vision changes. The patient denies lightheadedness or dizziness. The patient has had no chest pain or shortness of breath trouble breathing. The patient denies abdominal pain or changes to bowel movements or urination. The patient has had no focal deficits. The patient has had no weakness or numbness or tingling to the face or extremities. ROS All systems reviewed and are negative except as per history of present illness. Medications Home Meds Active Scripts Calcium Acetate* (Calcium Acetate*) 667 Mg Capsule, 2001 MG PO WITH MEALS for 30 Days, #90 CAP 1 Refill Prov:RICHAR SCOTT MD 01/19/17 Clonidine Hcl* (Catapres*) 0.1 Mg Tablet, 0.2 MG PO TID for 30 Days, #90 TAB 1 Refill Prov:RICHAR SCOTT MD 01/19/17 Atenolol* (Atenolol*) 50 Mg Tablet, 75 MG PO BID for 30 Days, #60 TAB 1 Refill Prov:RICHAR SCOTT MD 01/19/17 Amlodipine Besylate* (Amlodipine Besylate*) 10 Mg Tablet, 10 MG PO DAILY for 30 Days, #30 TAB 1 Refill Prov:RICHAR SCOTT MD 01/19/17 Allergies Allergies: Coded Allergies: Penicillins (Unverified Allergy, Unknown, 01/12/17) PMhx/Soc History of Surgery: Yes (Cholecystectomy) Anesthesia Reaction: No Hx Neurological Disorder: No Hx Respiratory Disorders: No Hx Cardiac Disorders: Yes (HTN) Hx Psychiatric Problems: No Hx Miscellaneous Medical Probl: No Hx Alcohol Use: Yes Hx Substance Use: No Hx Tobacco Use: No FmHx Family History: No diabetes Physical Exam Vitals Vital Signs Date Time Temp Pulse Resp B/P Pulse Ox O2 Delivery O2 Flow Rate FiO2 02/15/17 08:23 97.9 56 18 112/59 100 Physical Exam Const: No apparent distress, well-developed, well-nourished Head: Atraumatic Eyes: Normal Conjunctiva. Extraocular movements intact. ENT: Normal External Ears, Nose and Mouth. Neck: Full range of motion. ~ No meningismus. Resp: Clear to auscultation bilaterally Cardio: Regular rate and rhythm, no murmurs Abd: Soft, non distended. Suprapubic mass with discomfort to palpation. Normal bowel sounds : No blood at the urethral meatus. Normal penile and testicular exam. Skin: No petechiae or rashes Back: No midline or flank tenderness Ext: No cyanosis, or edema Neur: Awake and alert, oriented 4. Cranial nerves intact. No facial droop. Normal strength and sensation in all extremities. Coordination with finger to nose normal. Psych: Normal Mood and Affect Results 24 hrs Laboratory Tests Test 02/15/17 09:10 Urine Color YELLOW Urine Clarity SLIGHTLY CLOUDY Urine pH 9.0 Urine Specific Gratz 1.006 Urine Ketones NEGATIVEmg/dL Urine Nitrite NEGATIVEmg/dL Urine Bilirubin NEGATIVEmg/dL Urine Urobilinogen NEGATIVEmg/dL Urine Leukocyte Esterase 3+Jesus/ul Urine Microscopic RBC 11/HPF Urine Microscopic WBC 161/HPF Urine Bacteria MODERATE/HPF Urine Hemoglobin 1+mg/dL Urine Glucose NEGATIVEmg/dL Urine Total Protein 1+mg/dl Procedures/[facility] Patient's presentation warrants further investigation. The patient presents after breaking his Shannon catheter and is requesting replacement. The patient did have suprapubic mass with discomfort. A bedside ultrasound will be performed before and after Shannon catheter placement. I will evaluate for any signs of free fluid as the catheter was traumatically pulled this morning. He does not endorse any darrell hematuria, and I have less suspicion for urethral injury. The patient does not endorse any infectious symptoms. I will obtain a urinalysis to evaluate for significant hematuria. The patient has had a mixed gram-positive aurelia in recent urine cultures. The patient does not endorse any UTI symptoms at this time, but he has had a Shannon catheter in for 15 days, which predisposes him to a urinary tract infection. LABS The patient's urinalysis shows 3+ leukoesterase with 161 WBCs, which is double since the previous urinalysis. The patient still has moderate amount of bacteria in his urine. The patient does have 11 RBCs in his urine as well. IMAGING ED bedside ultrasound prior to catheter placement: Performed by me. Distended bladder. No suprapubic or perinephric free fluid. Mild bilateral hydronephrosis. ED bedside ultrasound for catheter placement: Performed by me. Bladder is decompressed. TREATMENT/DISPOSITION I do not see any evidence of free fluid on my ultrasound exam. The patient does not endorse hematuria or significant pain, and I had low suspicion for urethral injury. We proceeded with Shannon catheter replacement and it was easily placed without complication. The patient's pubic mass disappeared. He had no suprapubic discomfort any longer. His repeat ultrasound showed decompression of the bladder. There is no gross hematuria in the urine. Urinalysis was sent off. I have higher suspicion for UTI given that he has had a Shannon catheter in for 2 weeks, which could be a nidus of infection. Even though he has had previous urine cultures that showed mixed gram-positive aurelia , I am inclined to treat in this scenario. I will send the patient home with a prescription for Keflex. A urine culture has been sent off. The patient appears well with normal vital signs. He has no other complaints. I do not feel that blood work is required at this time. The patient needs follow-up with his urologist in 2-3 days for reevaluation. He should also follow-up with his primary care doctor into the 3 days for reassessment. The patient is stable for discharge. He will be given precautions with which to return to the emergency department. Departure Diagnosis: Primary Impression: Encounter for urinary catheter Additional Impressions: Complication of catheter Encounter type: initial encounter Qualified Code: T85.9XXA - Complication of catheter, initial encounter UTI (urinary tract infection) Urinary tract infection type: site unspecified Hematuria presence: with hematuria Qualified Code: N39.0 - Urinary tract infection with hematuria, site unspecified Condition: Stable JODI COY MD Feb 15, 2017 08:58
[2017-02-15 09:43] LABS: ADD UMIC YES; UR ASCORBIC ACID NEGATIVE (NEGATIVE); UR BACTERIA MODERATE /HPF (NONE SEEN); UR BILIRUBIN (Dip) NEGATIVE (NEGATIVE); UR BLOOD (Dip) 1+ mg/dL (NEGATIVE); UR CLARITY SLIGHTLY CLOUDY (CLEAR); UR COLOR YELLOW (YELLOW); UR GLUCOSE (Dip) NEGATIVE (NEGATIVE); UR KETONES (Dip) NEGATIVE (NEGATIVE); UR LEUKOCYTE ESTERASE (Dip) 3+ Leu/ul (NEGATIVE); UR NITRITE (Dip) NEGATIVE (NEGATIVE); UR RBC 11 /HPF (0-5); UR SPECIFIC GRAVITY (Dip) 1.006 (1.003-1.030); UR TOTAL PROTEIN (Dip) 1+ mg/dl (NEGATIVE); UR UROBILINOGEN (Dip) NEGATIVE (NEGATIVE)
[2017-02-15] MEDS ORDERED: CEPH-443 PO (10:09)
== END 2017-02-15 10:31 | disposition home or self-care (01) ==
LOC: E/R 08:18
DX: T83.098A Other mechanical complication of other urinary catheter, initial encounter (principal); E11.22 Type 2 diabetes mellitus with diabetic chronic kidney disease; N18.6 End stage renal disease; Y73.8 Miscellaneous gastroenterology and urology devices associated with adverse incidents, not elsewhere classified; Z99.2 Dependence on renal dialysis
CPT/HCPCS: 81001; 87086; Z7502; 99283

== ENCOUNTER 2017-03-10 14:34 | Emergency (ER) | payer MEDICARE, MEDICAID ==
[~2017-03-10] VITALS: Wt 71.0 kg
[~2017-03-10 14:34] MED LIST changes: +CEPH-443 PO
[2017-03-10 14:36] VITALS: Wt 71.0 kg
--- NOTE | 2017-03-10 15:06 | ERD ---
ER Documentation Chief Complaint Chief Complaint leg bag replacement HPI 66-year-old male with a history of diabetes, hypertension, ESRD, history of leukemia on dialysis with right chest permacath comes to emergency department with a Shannon catheter problem. Patient states that the bag of the Shannon catheter and tubing has fallen out 2 days ago and he decided to tie around crystallize her water bottle to it which has been holding the urine but has been very uncomfortable. This patient needs a Shannon bag replacement as the catheter is intact. He has not had any fevers chills, flank pain, hematuria. He denies abdominal pain, chest pain, shortness breath. ROS All systems reviewed and are negative except as per history of present illness. Medications Home Meds Active Scripts Cephalexin* (Keflex*) 500 Mg Capsule, 500 MG PO BID for 7 Days, CAP Prov:JODI COY MD 02/15/17 Calcium Acetate* (Calcium Acetate*) 667 Mg Capsule, 2001 MG PO WITH MEALS for 30 Days, #90 CAP 1 Refill Prov:RICHAR SCOTT MD 01/19/17 Clonidine Hcl* (Catapres*) 0.1 Mg Tablet, 0.2 MG PO TID for 30 Days, #90 TAB 1 Refill Prov:RICHAR SCOTT MD 01/19/17 Atenolol* (Atenolol*) 50 Mg Tablet, 75 MG PO BID for 30 Days, #60 TAB 1 Refill Prov:RICHAR SCOTT MD 01/19/17 Amlodipine Besylate* (Amlodipine Besylate*) 10 Mg Tablet, 10 MG PO DAILY for 30 Days, #30 TAB 1 Refill Prov:RICHAR SCOTT MD 01/19/17 Allergies Allergies: Coded Allergies: Penicillins (Unverified Allergy, Unknown, 01/12/17) PMhx/Soc History of Surgery: Yes (Cholecystectomy) Anesthesia Reaction: No Hx Neurological Disorder: No Hx Respiratory Disorders: No Hx Cardiac Disorders: Yes (HTN) Hx Psychiatric Problems: No Hx Miscellaneous Medical Probl: No Hx Alcohol Use: Yes Hx Substance Use: No Hx Tobacco Use: No Smoking Status: Never smoker Physical Exam Vitals Vital Signs Date Time Temp Pulse Resp B/P Pulse Ox O2 Delivery O2 Flow Rate FiO2 03/10/17 14:36 99.0 73 20 169/74 98 Physical Exam General: Well-developed, well-nourished. The patient appears in no acute distress. HEENT: Head is normocephalic, atraumatic. No scleral icterus. Neck: Supple. Nontender. Lungs: Clear to auscultation. Normal air movement. Heart: Regular rate and rhythm. S1 and S2 are normal. No murmurs, gallops, or rubs. Abdomen: Soft, nontender, nondistended. Bowel sounds are normoactive. There is no suprapubic fullness or mass. : Shannon catheter is in place, the bag is missing, and the patient has a plastic water bottle tied to the catheter on his leg. Extremities: No clubbing or cyanosis. Normal pulses. Moving extremities x 4. No weakness. Neurologic: Alert and oriented 3. No focal deficits. Skin: Normal turgor. No rash or lesions. Procedures/MDM 67-year-old male comes to emergency department with Shannon catheter care needed because the bad portion had fallen off. He interestingly played a plastic bottle and tied it to with the catheter exits the penis. There is no hematuria , signs of UTI, pyelonephritis, ureteral injury. The patient's Shannon catheter bag was replaced in the emergency department and will be discharged home in stable condition. Patient's blood pressure was elevated (>120/80) but appears stable without evidence of hypertension emergency or urgency. The patient was counseled about the risks of hypertension and urged to pursue outpatient monitoring and therapy within a week with their primary care physician. Departure Diagnosis: Primary Impression: Shannon catheter in place prior to arrival Condition: Good Patient Instructions: Shannon Catheter, Care RADHA GALLO PA-C Mar 10, 2017 15:06
== END 2017-03-10 15:08 | disposition home or self-care (01) ==
LOC: FTE 14:34
DX: Z46.6 Encounter for fitting and adjustment of urinary device (principal); E11.22 Type 2 diabetes mellitus with diabetic chronic kidney disease; N18.6 End stage renal disease; Z99.2 Dependence on renal dialysis
CPT/HCPCS: 99282

== ENCOUNTER 2017-04-02 08:25 | Emergency (ER) | payer MEDICARE, MEDICAID ==
[~2017-04-02] VITALS: Ht 177.8 cm; Wt 70.8 kg
[2017-04-02 08:27] VITALS: Ht 177.8 cm; Wt 70.8 kg
--- NOTE | 2017-04-02 08:40 | ERD ---
ER Documentation Chief Complaint Chief Complaint needs a change of zhang cath HPI 67 yo presents with an indwelling zhang catheter, requesting that the bag be changed. He reports that the catheter is draining without blood. He reports no abdominal pain or fever. ROS All systems reviewed and are negative except as per history of present illness. Medications Home Meds Active Scripts Cephalexin* (Keflex*) 500 Mg Capsule, 500 MG PO BID for 7 Days, CAP Prov:JODI COY MD 02/15/17 Calcium Acetate* (Calcium Acetate*) 667 Mg Capsule, 2001 MG PO WITH MEALS for 30 Days, #90 CAP 1 Refill Prov:RICHAR SCOTT MD 01/19/17 Clonidine Hcl* (Catapres*) 0.1 Mg Tablet, 0.2 MG PO TID for 30 Days, #90 TAB 1 Refill Prov:RICHAR SCOTT MD 01/19/17 Atenolol* (Atenolol*) 50 Mg Tablet, 75 MG PO BID for 30 Days, #60 TAB 1 Refill Prov:RICHAR SCOTT MD 01/19/17 Amlodipine Besylate* (Amlodipine Besylate*) 10 Mg Tablet, 10 MG PO DAILY for 30 Days, #30 TAB 1 Refill Prov:RICHAR SCOTT MD 01/19/17 Allergies Allergies: Coded Allergies: Penicillins (Unverified Allergy, Unknown, 01/12/17) PMhx/Soc History of Surgery: Yes (Cholecystectomy) Anesthesia Reaction: No Hx Neurological Disorder: No Hx Respiratory Disorders: No Hx Cardiac Disorders: Yes (HTN) Hx Psychiatric Problems: No Hx Miscellaneous Medical Probl: No Hx Alcohol Use: Yes Hx Substance Use: No Hx Tobacco Use: No FmHx Noncontributory for chief complaint Physical Exam Vitals Vital Signs Date Time Temp Pulse Resp B/P Pulse Ox O2 Delivery O2 Flow Rate FiO2 04/02/17 08:27 98.0 61 18 135/68 100 Physical Exam GENERAL: The patient is well developed and appropriate for usual state of health in no apparent distress ABDOMEN: Soft, non-tender, non-distended. There are bowel sounds in all four quadrants. No rebound or guarding. : Indwelling Zhang catheter is draining urine. The bladder is decompressed Procedures/MDM Patient was taken to a room, seen and examined. Zhang bag was replaced. The Zhang itself appeared to be draining without complications. Medical decision makin-year-old male presents the emergency department for upkeep on his Zhang catheter which appears to be otherwise functional. At this time, patient shows no evidence of urinary retention, urosepsis or any other symptoms at this time. He appears clinically well after supportive care and appropriate for outpatient management Departure Diagnosis: Primary Impression: Complication of catheter Condition: Stable Patient Instructions: Emptying and Cleaning Your Urinary Catheter Bag ADEN MALIK Apr 02, 2017 08:40
== END 2017-04-02 09:13 | disposition home or self-care (01) ==
LOC: FTE 08:25
DX: T83.098A Other mechanical complication of other urinary catheter, initial encounter (principal); I10 Essential (primary) hypertension; Y73.8 Miscellaneous gastroenterology and urology devices associated with adverse incidents, not elsewhere classified; Z46.6 Encounter for fitting and adjustment of urinary device

== ENCOUNTER 2017-05-23 15:29 | Emergency (ER) | END 2017-05-23 20:26 | disposition home or self-care (01) ==

== ENCOUNTER 2017-07-02 13:25 | Emergency (ER) | END 2017-07-02 21:16 | disposition home or self-care (01) ==

== ENCOUNTER 2017-08-27 06:21 | Day surgery (SDC) | END 2017-08-27 09:33 | disposition home or self-care (01) ==

== ENCOUNTER 2017-08-28 07:52 | Day surgery (SDC) | END 2017-08-28 13:52 | disposition home or self-care (01) ==

== ENCOUNTER 2017-09-11 10:16 | Emergency (ER) | END 2017-09-11 13:47 | disposition home or self-care (01) ==

== ENCOUNTER 2017-11-03 12:15 | Emergency (ER) | END 2017-11-03 17:03 | disposition home or self-care (01) ==

== ENCOUNTER 2017-12-21 11:24 | Emergency (ER) | END 2017-12-21 14:32 | disposition home or self-care (01) ==

== ENCOUNTER 2018-01-11 08:22 | Emergency (ER) | END 2018-01-11 10:15 | disposition left against medical advice (07) ==

== ENCOUNTER 2018-03-26 14:59 | Inpatient (IN) | END 2018-03-29 17:39 | disposition home or self-care (01) | DRG 682 ==

== ENCOUNTER 2018-04-29 07:28 | Emergency (ER) | payer MEDICAID, MEDICARE ==
[~2018-04-29] VITALS: Ht 172.7 cm; Wt 73.0 kg
[~2018-04-29 07:28] MED LIST changes: -ATEN50TA PO; +ATOR20TA38 PO; +CEFE2FRO IV; -CEPH-443 PO; -CLON0.1T14 PO; +CLON0.2T5 PO; +FLUO20CA22 PO
[2018-04-29 07:31] VITALS: BP 109/65; PULSE 60; RESP 18; Ht 172.7 cm; Wt 73.0 kg
--- NOTE | 2018-04-29 07:56 | ERD ---
ER Documentation Chief Complaint Chief Complaint right leg pain due to mechanical fall one hours ago HPI 68-year-old male, with history of hemodialysis, presents to the emergency department, complaining of a painful lesion on the left foot that is started bleeding today after hemodialysis. The patient reports that he has had these large skin growth for approximately 4 months. He denies any falls, no right lower extremity pain, contrary to the chief complaint reported by the intake nurse. ROS All systems reviewed and are negative except as per history of present illness. Medications Home Meds Active Scripts Cefepime Hcl/Dextrose, Iso-Osm (Cefepime 2 Gm Injection) 2 Gm/100 Ml Froz.piggy, 2 GM IV AFTER DIALYSIS, #4 DOSE Prov:JAY LARKIN. 03/29/18 Atorvastatin Calcium* (Atorvastatin Calcium*) 20 Mg Tablet, 20 MG PO QHS, #30 TAB 2 Refills Prov:JAY LARKIN. 03/29/18 Reported Medications Amlodipine Besylate* (Amlodipine Besylate*) 10 Mg Tablet, 10 MG PO DAILY, #30 TA B 03/26/18 Calcium Acetate* (Calcium Acetate*) 667 Mg Capsule, 2001 MG PO WITH MEALS, #90 CAP 03/26/18 Clonidine Hcl* (Clonidine Hcl*) 0.2 Mg Tablet, 0.2 MG PO TID, TAB 03/26/18 Fluoxetine Hcl* (Fluoxetine Hcl*) 20 Mg Capsule, 20 MG PO DAILY, CAP 03/26/18 Allergies Allergies: Coded Allergies: Penicillins (Unverified Allergy, Unknown, 03/26/18) PMhx/Soc History of Surgery: Yes (LEFT ARM FISTUAL CREATION , PORTHACATH PLACEMENT. ) Anesthesia Reaction: No Hx Neurological Disorder: No Hx Respiratory Disorders: No Hx Cardiac Disorders: Yes (HTN) Hx Psychiatric Problems: No Hx Miscellaneous Medical Probl: No Hx Alcohol Use: No Hx Substance Use: No Hx Tobacco Use: No Smoking Status: Never smoker Physical Exam Vitals Vital Signs Date Temp Pulse Resp B/P (MAP) Pulse Ox O2 O2 Flow FiO2 Time Delivery Rate 04/29/18 98.6 60 18 109/65 98 07:31 (80) Physical Exam Const: No acute distress Head: Atraumatic Eyes: Normal Conjunctiva ENT: Normal External Ears, Nose and Mouth. Neck: Full range of motion. No meningismus. Resp: Clear to auscultation bilaterally Cardio: Regular rate and rhythm, no murmurs Abd: Soft, non tender, non distended. Normal bowel sounds Skin: Right foot: 4 cm pedunculated lesion the medial aspect of the midfoot, with mild bleeding, the surface of the lesion is hyperkeratotic, verrucose. No peripheral erythema, tenderness or fluctuance. Back: No midline or flank tenderness Ext: No cyanosis, or edema Neur: Awake and alert Psych: Normal Mood and Affect Procedures/MDM Vital signs stable, differential diagnosis include but not limited to: DVT, superficial thrombosis, cellulitis, erysipelas, shingles, abscess. Low suspicion for acute systemic infectious process. 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 During the ED course the patient remained stable, no new complaints. clinical impression discussed with the patient who agrees with management. The patient is stable to be discharged home. A referral to protozoologist has been jelena mmended for excision of the lesion and possible biopsy, however, I have low suspicion for malignancy. The patient was instructed to follow up with the primary care provider in the next 48h. If symptoms persist, worsen or new symptoms develop, then patient should return to the ED immediately. Instructions explained and given directly by me to the patient and relatives with acknowledgment and demonstrated understanding. Disclaimer: Inadvertent spelling and grammatical errors are likely due to EHR/dictation software use and do not reflect on the overall quality of patient care. Also, please note that the electronic time recorded on this note does not necessarily reflect the actual time of the patient encounter. Departure Diagnosis: Primary Impression: Skin lesion of foot Additional Impression: Verruca simplex Condition: Stable Additional Instructions: Muchas ashly por [facility] para cook servicio. Esperamos que en cook visita a la toby de emergencia cook problema medico haya sido solucionado y que se sienta mucho mejor. Para estar seguros que cook mejoria sigue en proceso, le pedimos el favor de hacer rosa mayelin de seguimiento medico con cook doctor primario en los proximos 2-4 kyle. Lleve con usted estos documentos y las medicinas recetadas. Si ruth sintomas empeoran, NO SE ESPERE, por favor regrese a toby de emergencia INMEDIATAMENTE. En franky que usted no tenga un mdico de atencin primaria: Llame al mdico o clnica comunitaria de referencia que aparece abajo arlin las horas de consultorio para hacer rosa mayelin para que le vean. CLINICAS: [facility] [phone] [facility] [place] [phone] [facility] [phone] [facility] [phone] [facility] [phone] [address] [facility]. [phone] ROSANNA GRAY MD Apr 29, 2018 07:56
== END 2018-04-29 08:55 | disposition home or self-care (01) ==
LOC: FTE 07:28
DX: B07.9 Viral wart, unspecified (principal); L98.9 Disorder of the skin and subcutaneous tissue, unspecified; I10 Essential (primary) hypertension
CPT/HCPCS: L3260; Z7502; 99282

== ENCOUNTER 2018-05-06 09:36 | Day surgery (SDC) | payer MEDICAID, MEDICARE ==
[2018-05-06] VITALS (15 sets, daily range): BP systolic 96–146; BP diastolic 56–101; PULSE 64–95; RESP 13–25; Ht 167.6 cm; Wt 71.1 kg
[~2018-05-06] VITALS: Ht 167.6 cm; Wt 71.1 kg
[~2018-05-06 09:36] MED LIST changes: +HEPARIN 1000 UNITS/ML 10 ML INJ IRR ONE; +LIDOCAINE 1% (MPF) 30 ML INJ INJ ONE
[2018-05-06] MEDS ORDERED: HEPARIN 1000 UNITS/ML 10 ML INJ ONE (11:20)
[2018-05-06] MEDS ORDERED: LIDOCAINE 1% (MPF) 30 ML INJ ONE (11:20)
[2018-05-06] MEDS ORDERED: GELATIN SIZE 100 SPONGE ONE ×2 (11:21→13:24)
[2018-05-06] MEDS ORDERED: THROMBIN 5000 UNIT VIAL ONE (11:21)
--- NOTE | 2018-05-06 12:01 | PREAC ---
Date/Time of Note Date/Time of Note DATE: 05/06/18 TIME: 12:01 Anesthesia Eval and Record Evaluation Time Pre-Procedure Interview DATE: 05/06/18 TIME: 12:01 Age 68 Sex male NPO: 8 hrs Preoperative diagnosis ESRD Planned procedure Left AV fistula revision Past Medical History Past Medical History: Includes Cardio: HTN, Dyslipidemia Endo: Diabetes Surgery & Anesthesia Issues No known issue Meds Anticoagulation: No Beta Meredith within 24 hr: No Reason Beta Meredith not given: Pt. not on B-Meredith Active Scripts Atorvastatin Calcium* (Atorvastatin Calcium*) 20 Mg Tablet, 20 MG PO QHS, #30 TAB 2 Refills Prov:JAY LARKIN. 03/29/18 Reported Medications Amlodipine Besylate* (Amlodipine Besylate*) 10 Mg Tablet, 10 MG PO DAILY, #30 TAB 03/26/18 Calcium Acetate* (Calcium Acetate*) 667 Mg Capsule, 2001 MG PO WITH MEALS, #90 CAP 03/26/18 Clonidine Hcl* (Clonidine Hcl*) 0.2 Mg Tablet, 0.2 MG PO TID, TAB 03/26/18 Fluoxetine Hcl* (Fluoxetine Hcl*) 20 Mg Capsule, 20 MG PO DAILY, CAP 03/26/18 Discontinued Scripts Cefepime Hcl/Dextrose, Iso-Osm (Cefepime 2 Gm Injection) 2 Gm/100 Ml Froz.piggy, 2 GM IV AFTER DIALYSIS, #4 DOSE Prov:JAY LARKIN. 03/29/18 Meds reviewed: Yes Allergies Coded Allergies: Penicillins (Unverified Allergy, Unknown, 05/06/18) Allergies Reviewed: Yes Labs/Studies Labs Reviewed: Reviewed by anesthesiologist Result Diagram: 05/06/18 1025 05/06/18 1025 Laboratory Tests 05/06/18 10:25 test: N/A Pre-procedure Exam Last vitals Vital Signs Date Temp Pulse Resp B/P (MAP) Pulse Ox O2 O2 Flow FiO2 Time Delivery Rate 05/06/18 96.4 69 18 96/56 (69) 98 Room Air 10:41 Airway: Adequate mouth opening Mallampati: Mallampati I Teeth: Abnormal (Full dentures) Lung: Normal Heart: Normal ASA Physical Status ASA physical status: 3 Emergency: None Planned Anesthetic General/MAC: LMA Planned Pain Management Parenteral pain med Pre-operative Attestations Prior to commencing anesthesia and surgery, the patient was re-evaluated, there was verification of: *The patient's identity *The results of appropriate recent lab work and preoperative vital signs *The above evaluation not changing prior to induction *Anesthetic plan, risk benefits, alternative and complications discussed with patient/family; questions answered; patient/family understands, accepts and wishes to proceed. LIT GALLO MD May 06, 2018 12:01
--- NOTE | 2018-05-06 12:03 | HPN ---
Date/Time of Note Date/Time of Note DATE: 05/06/18 TIME: 12:03 Interval H&P Admission Note Pt. seen H&P reviewed: No system changes BLAYNE ARZATE MD May 06, 2018 12:03
[2018-05-06] MEDS ORDERED: ROCURONIUM 50 MG INJ ONE (12:26)
[2018-05-06] MEDS ORDERED: LIDOCAINE 2% (SDV) 5 ML INJ ONE (12:26)
[2018-05-06] MEDS ORDERED: SUCCINYLCHOLINE CHLORIDE 100 MG/5 ML SYG IV ONE (12:26)
[2018-05-06] MEDS ORDERED: NEOSTIGMINE 3 MG/3 ML SYRINGE ONE (12:26)
[2018-05-06] MEDS ORDERED: PROPOFOL 20 ML ONE (12:26)
[2018-05-06] MEDS ORDERED: GLYCOPYRROLATE 1 MG INJ ONE (12:26)
[2018-05-06] MEDS ORDERED: HEPARIN 1000 UNITS/ML 10 ML INJ IRR ONE (12:30)
[2018-05-06] MEDS ORDERED: CLINDAMYCIN 600 MG/D5W (PMX) 50 ML IVPB ONE (12:42)
[2018-05-06] MEDS ORDERED: MIDAZOLAM 1 MG/ML 2 ML INJ IV PRN (13:30)
[2018-05-06] MEDS ORDERED: LABETALOL HCL 20MG INJ IV PRN (13:30)
[2018-05-06] MEDS ORDERED: ONDANSETRON 4 MG INJ IV PRN (13:30)
[2018-05-06] MEDS ORDERED: DIPHENHYDRAMINE 50 MG INJ IV PRN (13:30)
[2018-05-06] MEDS ORDERED: FENTAnyl 50 MCG/ML VIAL IV PRN ×3 (13:30)
[2018-05-06] MEDS ORDERED: OXYCODONE/ACETAMINOPHEN (5/325) TAB PO PRN ×2 (13:30)
[2018-05-06] MEDS ORDERED: EPHEDrine SULFATE 50 MG/5 ML SYG IV PRN (13:30)
[2018-05-06] MEDS ORDERED: hydrALAzine 20 MG INJ IV PRN (13:30)
[2018-05-06] MEDS ORDERED: METOCLOPRAMIDE 10 MG INJ IV PRN (13:30)
[2018-05-06] MEDS ORDERED: MEPERIDINE 25 MG INJ IV PRN (13:30)
--- NOTE | 2018-05-06 14:03 | SIPON ---
Date/Time of Note Date/Time of Note DATE: 05/06/18 TIME: 14:02 Operative Report Preoperative Diagnosis ESRD Postoperative Diagnosis same Operation/Procedure Performed L arm basilic vein transposition, 2nd stage Surgeon see signature line desk assistant none Anesthesia: general Estimated blood loss: 10 - 50 ml's Transfusion Required none Specimen none Grafts/Implants none Complications none BLAYNE ARZATE MD May 06, 2018 14:03
--- NOTE | 2018-05-06 14:37 | OPR ---
DATE OF OPERATION: 05/06/2018 PREOPERATIVE DIAGNOSIS: End-stage renal disease with nonfunctional left arm arteriovenous fistula. POSTOPERATIVE DIAGNOSIS: End-stage renal disease with nonfunctional left arm arteriovenous fistula. PROCEDURE PERFORMED: Left arm arteriovenous fistula revision. It was a transposition of the basilic vein as a second stage procedure. SURGEON: Blayne Bardales MD ANESTHESIA: LMA. ESTIMATED BLOOD LOSS: Minimal. COMPLICATIONS: No intraprocedural complications. INDICATIONS: This is a 68-year-old gentleman with end-stage renal disease, diabetes, hypertension. He has a left arm brachiobasilic AV fistula with a first stage procedure with the fistula has develop ed well and brought him back today for superficialization of the basilic vein. DESCRIPTION OF PROCEDURE: Patient was brought to the operating room, placed on the table in supine p osition. After induction of general endotracheal anesthesia, left arm was prepped and draped in usua l sterile fashion. I used ultrasound to identify the basilic vein and traced it from the elbow at th e arterial anastomosis all the way into the axilla. I marked it on the skin. The patient was then p repped and draped in the usual sterile fashion. I then made 2 incisions in the upper arm directly ov er the basilic vein beginning at the elbow and extending to the upper portion of the upper arm and I left a skip island in the middle. We then dissected down to subcutaneous tissue using electrocautery . I sharply dissected out the basilic vein. I ligated all the side branches essentially skeletonizi ng it with 3-0 silk sutures and dividing them. Once the vein was skeletonized from the arterial anas tomosis to the axilla, I clamped the vein just above the arterial anastomosis. I then transected the vein about 3 cm more distally in an oblique fashion. I then used a Maude tunneler to tunnel the v ein in a superficial plane about 2 cm lateral to the incision over the bicep. I then reanastomosed t he 2 ends of the vein using 6-0 Prolene suture in a running standard vascular surgical fashion. I re moved the clamps from the fistula in the vein and there was a good thrill, good hemostasis. I then c losed the skin incision in 2 layers using an inner layer of 3-0 Vicryl and an outer layer of 4-0 Nelson cryl subcuticular suture. Sterile dressing was applied. The patient was then extubated in the opera ting room and transferred to recovery room in stable condition, tolerated the procedure well without any complications. Dictated By: BLAYNE PINEDA/RACHELLE Conf#: [id number] DID#: [id number]
--- NOTE | 2018-05-06 14:59 | PAC ---
Date/Time of Note Date/Time of Note DATE: 05/06/18 TIME: 14:58 Post-Anesthesia Notes Post-Anesthesia Note Last documented vital signs Vital Signs Date Temp Pulse Resp B/P (MAP) Pulse Ox O2 O2 Flow FiO2 Time Delivery Rate 05/06/18 97.9 14:43 05/06/18 69 18 96/56 (69) 98 Room Air 10:41 Activity: WNL Respiratory function: WNL Cardiovascular function: WNL Mental status: Baseline Pain reasonably controlled: Yes Hydration appropriate: Yes Nausea/Vomiting absent: Yes LIT GALLO MD May 06, 2018 14:59
== END 2018-05-06 16:10 | disposition home or self-care (01) ==
LOC: SDS 09:36
PROVIDERS: ATTEND Surgery Vascular Surgery
DX: Z49.01 Encounter for fitting and adjustment of extracorporeal dialysis catheter (principal); E11.22 Type 2 diabetes mellitus with diabetic chronic kidney disease; I12.0 Hypertensive chronic kidney disease with stage 5 chronic kidney disease or end stage renal disease; N18.6 End stage renal disease
CPT/HCPCS: 36832; 80053; 85025; 85610; 85730; J1644; J2710; Z7512; Z7610

== ENCOUNTER 2018-05-10 11:18 | Emergency (ER) | payer MEDICARE, MEDICAID ==
[~2018-05-10] VITALS: Ht 167.6 cm; Wt 76.0 kg
[~2018-05-10 11:18] MED LIST changes: -CEFE2FRO IV; -HEPARIN 1000 UNITS/ML 10 ML INJ IRR ONE; -LIDOCAINE 1% (MPF) 30 ML INJ INJ ONE
[2018-05-10 11:21] VITALS: Ht 167.6 cm; Wt 76.0 kg
[2018-05-10] MEDS ORDERED: LIDOCAINE 2% 20 ML UROJET SYRINGE MM ONE ×2 (12:00)
[2018-05-10] MEDS ORDERED: CIPR500T4 PO (12:21)
--- NOTE | 2018-05-10 12:29 | ERD ---
ER Documentation Chief Complaint Chief Complaint Complains of urinary retention since this am HPI Patient is a 68-year-old male with dialysis who presents for Shannon catheter placement. His Shannon catheter fell out this morning. He said that he cannot urinate and needs a Shannon catheter placed again. He has no fevers and no pain. He has had no treatment as of yet. ROS All systems reviewed and are negative except as per history of present illness. Medications Home Meds Active Scripts Ciprofloxacin Hcl* (Ciprofloxacin Hcl*) 500 Mg Tablet, 500 MG PO BID for 7 Days, TAB Prov:JAMIL POWELL MD 05/10/18 Atorvastatin Calcium* (Atorvastatin Calcium*) 20 Mg Tablet, 20 MG PO QHS, #30 TAB 2 Refills Prov:TRAE,JAY Ruiz. 03/29/18 Reported Medications Amlodipine Besylate* (Amlodipine Besylate*) 10 Mg Tablet, 10 MG PO DAILY, #30 TAB 03/26/18 Calcium Acetate* (Calcium Acetate*) 667 Mg Capsule, 2001 MG PO WITH MEALS, #90 CAP 03/26/18 Clonidine Hcl* (Clonidine Hcl*) 0.2 Mg Tablet, 0.2 MG PO TID, TAB 03/26/18 Fluoxetine Hcl* (Fluoxetine Hcl*) 20 Mg Capsule, 20 MG PO DAILY, CAP 03/26/18 Discontinued Scripts Cefepime Hcl/Dextrose, Iso-Osm (Cefepime 2 Gm Injection) 2 Gm/100 Ml Froz.piggy, 2 GM IV AFTER DIALYSIS, #4 DOSE Prov:TRAEJAY Ruiz. 03/29/18 Allergies Allergies: Coded Allergies: Penicillins (Verified Allergy, Unknown, 05/10/18) PMhx/Soc History of Surgery: Yes (lt fistula) Anesthesia Reaction: No Hx Neurological Disorder: No Hx Respiratory Disorders: No Hx Cardiac Disorders: No Hx Psychiatric Problems: No Hx Miscellaneous Medical Probl: No Hx Alcohol Use: No Hx Substance Use: No Hx Tobacco Use: No Smoking Status: Never smoker FmHx Family History: No diabetes Physical Exam Vitals Vital Signs Date Temp Pulse Resp B/P (MAP) Pulse Ox O2 O2 Flow FiO2 Time Delivery Rate 05/10/18 97.0 54 20 154/70 100 11:21 (98) Physical Exam Const: No acute distress Head: Atraumatic Eyes: Normal Conjunctiva ENT: Normal External Ears, Nose and Mouth. Neck: Full range of motion. No meningismus. Resp: Clear to auscultation bilaterally Cardio: Regular rate and rhythm, no murmurs Abd: Soft, non tender, non distended. Normal bowel sounds Skin: No petechiae or rashes Back: No midline or flank tenderness Ext: No cyanosis, or edema Neur: Awake and alert : Uncircumcised with no bleeding or discharge from the penis Results 24 hrs Laboratory Tests Test 05/10/18 12:11 Bedside Urine pH (LAB) 7.5 Bedside Urine Protein (LAB) 2+ Bedside Urine Glucose (UA) Negative Bedside Urine Ketones (LAB) Negative Bedside Urine Blood 1+ Bedside Urine Nitrite (LAB) Negative Bedside Urine Leukocyte Esterase (L 1+ Current Medications Medications Dose Sig/Antwon Start Time Status Last (Trade) Ordered Route PRN Stop Time Admin Dose Reason Admin Lidocaine 20 ml ONCE ONCE 05/10/18 DC (Lidocaine MM 12:00 2% Urojet) 05/10/18 12:00 Lidocaine 20 ml ONCE ONCE 05/10/18 DC (Lidocaine MM 12:00 2% Urojet) 05/10/18 12:01 Procedures/MDM Urine dip shows infection. Patient is a 68-year-old male who presents with urinary retention. A Shannon catheter was placed by nursing and was successful. Urine dip shows mild infection. The patient will be given a prescription for Cipro twice a day for 1 week. Patient can follow-up with Dr. Guzman. He can return for any worsening symptoms. I doubt sepsis. Departure Diagnosis: Primary Impression: Retention of urine Additional Impression: Cystitis Condition: Fair Patient Instructions: Urinary Retention, Male Referrals: CATRACHITA GUZMAN MD Additional Instructions: Specialist:Usted tiene rosa condicin mdica que requiere que wendie a un especialista dentro de los prximos 1-2 marsh.POR FAVOR,CON CONTRERAS SEGUIMIENTO DE PRIMARIA PHSICIAN refferal. SI USTED NO TIENE UN MDICO GENERAL Y / O USTED NO PUEDE PAGAR kamila a un mdico,los siguientes harper RECURSOS sido suministrado a usted. ES CONTRERAS RESPONSABILIDAD PARA SER VISTOS POR EL ESPECIALISTA: JAMIL POWELL MD May 10, 2018 12:29
[2018-05-10 12:51] VITALS: BP 149/78; PULSE 79; RESP 17
== END 2018-05-10 12:51 | disposition home or self-care (01) ==
LOC: E/R 11:18
DX: N30.90 Cystitis, unspecified without hematuria (principal); Z99.2 Dependence on renal dialysis
CPT/HCPCS: 81003

== ENCOUNTER 2018-07-12 09:15 | Day surgery (SDC) | payer BC ==
[~2018-07-12] VITALS: Ht 160 cm; Wt 74.4 kg
[~2018-07-12 09:15] MED LIST changes: +CIPR500T4 PO
[2018-07-12] MEDS ORDERED: CLON-379 PO (09:49)
[2018-07-12] MEDS ORDERED: FLUO20CA22 PO (09:49)
[2018-07-12] MEDS ORDERED: ATEN-51 PO (09:50)
[2018-07-12] MEDS ORDERED: CALC667C PO (09:50)
[2018-07-12 10:07] VITALS: Ht 160 cm; Wt 74.4 kg
[2018-07-12 10:11] VITALS: BP 104/55; PULSE 62; RESP 16
[2018-07-12] MEDS ORDERED: LIDOCAINE 1% (MDV) 20 ML INJ ONE (12:00)
[2018-07-12] MEDS ORDERED: HEPARIN 1000 UNITS/NS (A-LINE) 1,000 ML ONE (12:00)
[2018-07-12] MEDS ORDERED: MIDAZOLAM 1 MG/ML 2 ML INJ ONE (12:00)
[2018-07-12] MEDS ORDERED: IODIXANOL LOCM 100 ML BTL ONE (12:00)
[2018-07-12] MEDS ORDERED: FENTAnyl 50 MCG/ML VIAL ONE (12:00)
[2018-07-12] MEDS ORDERED: SOD CHLORIDE 0.9% 500 ML ONE (12:00)
[2018-07-12 12:45] VITALS: BP 138/63; PULSE 55; RESP 16
--- NOTE | 2018-07-12 13:55 | OPR ---
DATE OF OPERATION: 07/12/2018 PREOPERATIVE DIAGNOSIS: Nonmaturing left arm arteriovenous fistula. POSTOPERATIVE DIAGNOSIS: Nonmaturing left arm arteriovenous fistula. PROCEDURE PERFORMED: Left arm arteriovenous fistulogram, percutaneous venoplasty of the distal segme nt of the basilic vein. Brachiobasilic transposition procedure. SURGEON: Blayne Bardales MD ANESTHESIA: Local anesthesia. ESTIMATED BLOOD LOSS: Minimal. COMPLICATIONS: No intraprocedural complications. INDICATIONS: A 68-year-old gentleman with end-stage renal disease on hemodialysis via Perm-A-Cath. He has a left brachiobasilic AV fistula. Initially he had a good thrill and was maturing but it has a very weak thrill now and the fistula has not matured; brought him in today for a fistulogram and po ssible intervention. DESCRIPTION OF PROCEDURE: The patient was brought to the laborer prestressed concrete, placed on the table in supine pos ition. Left arm was prepped and draped in the usual sterile fashion. I began by infiltrating over t he AV fistula in the mid upper arm about 5 mL of 1% Xylocaine. I then punctured the vein using ultra sound guidance pointing toward the elbow. I then advanced an 0.018 wire through the needle into the vein and the micropuncture sheath was advanced over the wire into the vein and then did a fistulogram . I identified the left arm AV fistula is patent. The brachiobasilic fistula segment from the arter ial anastomosis for about 5 cm is very sclerotic and small. The rest of the fistula was wide open. Central veins are widely patent. So I decided to treat this area of stenosis. I advanced a Glidewir e through the micropuncture sheath and into the brachial artery, exchanged the micropuncture sheath f or a 5-Vietnamese sheath over the wire. I then used a 5 mm x 8 cm balloon angioplasty of the stenotic se gment from the brachial artery anastomosis up into the lower part of the upper arm. I inflated the b alloon to 20 atmospheres for about a minute. Completion angiogram showed no residual stenosis, and t here is now a nice thrill in the fistula. I removed the catheter, sheaths and wires and used a 4-0 M onocryl pursestring suture to close the puncture site. There was good hemostasis. Sterile dressing was applied. The patient was then discharged home in stable condition. He tolerated the procedure w ell without any complications. Dictated By: BLAYNE PINEDA/RACHELLE Conf#: [id number] DID#: [id number]
== END 2018-07-12 14:29 | disposition home or self-care (01) ==
LOC: SDS 09:15 → CCL 09:15
PROVIDERS: ATTEND Surgery Vascular Surgery
DX: T82.898D Other specified complication of vascular prosthetic devices, implants and grafts, subsequent encounter (principal); Y84.1 Kidney dialysis as the cause of abnormal reaction of the patient, or of later complication, without mention of misadventure at the time of the procedure; I12.0 Hypertensive chronic kidney disease with stage 5 chronic kidney disease or end stage renal disease; N18.6 End stage renal disease; E11.9 Type 2 diabetes mellitus without complications
CPT/HCPCS: 36902; 80048; C1725; C1887; C1894; J1644; J7040; Q9967; Z7610; 36901; J2250; J3010

== ENCOUNTER 2018-08-08 07:43 | Emergency (ER) | payer BC ==
[~2018-08-08] VITALS: Wt 74.8 kg
[~2018-08-08 07:43] MED LIST changes: -AMLO-147 PO; +ATEN-51 PO; -ATOR20TA38 PO; -CIPR500T4 PO; +CLON-379 PO; -CLON0.2T5 PO
--- NOTE | 2018-08-08 08:29 | ERD ---
ER Documentation Chief Complaint Chief Complaint has f/c x 1 mos, wants to have change HPI This is a 68-year-old male who has a chronic indwelling Shannon catheter due to enlarged prostate/prostate cancer. The patient gets a new catheter every month and he is here for that reason. He has no fever no decrease urinary output no blood in the catheter no suprapubic pain testicular pain or scrotal pain ROS All systems reviewed and are negative except as per history of present illness. Medications Home Meds Reported Medications Atenolol* (Atenolol*) 25 Mg Tablet, 75 MG PO BID, #90 TAB 07/12/18 Calcium Acetate* (Calcium Acetate*) 667 Mg Capsule, 2001 MG PO WITH MEALS, #90 CAP 07/12/18 Fluoxetine Hcl* (Fluoxetine Hcl*) 20 Mg Capsule, 20 MG PO DAILY, CAP 07/12/18 Clonidine Hcl* (Clonidine Hcl*) 0.1 Mg Tab, 0.1 MG PO TID PRN for BLOOD PRESSURE SUPPORT, TAB 07/12/18 Allergies Allergies: Coded Allergies: Penicillins (Verified Allergy, Unknown, 07/12/18) PMhx/Soc History of Surgery: Yes (WISDOM TEETH SX, R. CHEST PERMACATH) Anesthesia Reaction: No Hx Neurological Disorder: No Hx Respiratory Disorders: No Hx Cardiac Disorders: Yes (HTN) Hx Psychiatric Problems: No Hx Miscellaneous Medical Probl: Yes (LEUKEMIA, BONE MARROW TRANSPLANT) Hx Alcohol Use: No Hx Substance Use: No Hx Tobacco Use: No FmHx Family History: No coronary disease Physical Exam Vitals Vital Signs Date Temp Pulse Resp B/P (MAP) Pulse Ox O2 O2 Flow FiO2 Time Delivery Rate 08/08/18 98.1 64 18 144/65 99 07:45 (91) Physical Exam Const: Well-developed, well-nourished Head: Atraumatic, normocephalic Eyes: Normal Conjunctiva, PERRLA, EOMI, normal sclera, no nystagmus ENT: Normal External Ears, Nose and Mouth, moist mucus membranes. Neck: Full range of motion. No meningismus, no lymphadenopathy. Resp: Clear to auscultation bilaterally, no wheezing, rhonchi, rales Cardio: Regular rate and rhythm, no murmurs, S1 S2 present Abd: Soft, non tender x 4, non distended. Normal bowel sounds, no guarding or rebound, no pulsitile abdominal masses or bruits, Shannon catheter is in place in the penis without any erythema Skin: No petechiae or rashes, no ecchymosis , no maculopapular rash Back: No midline or flank tenderness Ext: No cyanosis, or edema, FROM x 4, normal inspection, neurovascularly intact x 4 Neur: Awake and alert, STR 5/5 x 4, sensation intact x 4, no focal findings, cerebellum intact Psych: Normal Mood and Affect Procedures/MDM The nurse will place a new Shannon catheter after removing the old one Departure Diagnosis: Primary Impression: Encounter for urinary catheter Condition: Stable Patient Instructions: Shannon Catheter, Care Referrals: NO PRIMARY,CARE PHYSICIAN (PCP) BLAINE BASSETT DO Aug 08, 2018 08:29
[2018-08-08] MEDS ORDERED: ACETAMINOPHEN 500 MG TAB ONE (08:41)
[2018-08-08 09:30] VITALS: BP 158/88; PULSE 80; RESP 18
== END 2018-08-08 10:33 | disposition home or self-care (01) ==
LOC: E/R 07:43
DX: Z46.6 Encounter for fitting and adjustment of urinary device (principal); I10 Essential (primary) hypertension; Z85.46 Personal history of malignant neoplasm of prostate; Z85.6 Personal history of leukemia
CPT/HCPCS: 51702; 99283; Z7610

== ENCOUNTER 2018-08-20 05:53 | Day surgery (SDC) | payer MEDICARE, BC ==
[~2018-08-20] VITALS: Ht 170.2 cm; Wt 70.7 kg
[2018-08-20 06:10] VITALS: Ht 170.2 cm; Wt 70.7 kg
[2018-08-20 06:11] VITALS: BP 111/67; PULSE 61; RESP 18
[2018-08-20] MEDS ORDERED: FLUO20CA22 PO (06:35)
[2018-08-20] MEDS ORDERED: ATOR20TA38 PO (06:35)
[2018-08-20] MEDS ORDERED: FENTAnyl 50 MCG/ML VIAL ONE (07:04)
[2018-08-20] MEDS ORDERED: MIDAZOLAM 1 MG/ML 2 ML INJ ONE (07:04)
[2018-08-20] MEDS ORDERED: HEPARIN 1000 UNITS/ML 10 ML INJ ONE (08:09)
[2018-08-20] MEDS ORDERED: LIDOCAINE 1% (MDV) 20 ML INJ ONE (08:09)
[2018-08-20] MEDS ORDERED: IODIXANOL LOCM 50 ML BTL ONE (08:09)
--- NOTE | 2018-08-20 08:11 | SIPON ---
Date/Time of Note Date/Time of Note DATE: 08/20/18 TIME: 08:09 Operative Report Preoperative Diagnosis ESRD Postoperative Diagnosis same Operation/Procedure Performed L arm AV fistulagram, PTV basilic vein stenosis, permacath exchange Surgeon see signature line engineering inspection assistant none Anesthesia: other Estimated blood loss: minimal Transfusion Required none Specimen none Grafts/Implants none Complications none BLAYNE ARZATE MD August 20, 2018 08:11
[2018-08-20 08:44] VITALS: BP 125/82; PULSE 72; RESP 18
--- NOTE | 2018-08-20 09:01 | OPR ---
DATE OF OPERATION: 08/20/2018 PREOPERATIVE DIAGNOSES: None maturing left arm AV fistula and right Perm-A-Cath malfunction. POSTOPERATIVE DIAGNOSIS: None maturing left arm AV fistula and right Perm-A-Cath malfunction. PROCEDURE PERFORMED: 1. Left arm arteriovenous fistulogram, percutaneous venoplasty of the stenosis of the basilic vein A V fistula. 2. Perm-A-Cath exchange. SURGEON: Blayne Arzate M.D. ANESTHESIA: Local anesthesia. ESTIMATED BLOOD LOSS: Minimal. COMPLICATIONS: No intraprocedural complications. INDICATIONS: A 68-year-old man with diabetes, hypertension, end-stage renal disease on dialysis via right IJ Perm-A-Cath. He has a left arm basilic vein transposition. He has got a weak thrill. It w as patent but thrill in the fistula is weak that appears to be a stenosis in the inflow. I brought trip im in today for a fistulogram. When I examined him, the Perm-A-Cath and has a right IJ Perm-A-Cath, the cuff is just out of the skin, so I exchanged that as well over the wire. DESCRIPTION OF PROCEDURE: The patient was brought to the lab instructor, placed on the table in the supine position. Left arm was prepped and draped in the usual sterile fashion. Using ultrasound to interr ogate the fistula, it is patent and is good caliber, just very, very weak thrill. I could feel an ar ea where the stenosis is about 2 to 3 cm above the elbow. The left arm was prepped and draped in usu al sterile fashion. I infiltrated over the fistula in the upper arm. Under ultrasound guidance, I p unctured the fistula with a micropuncture needle. An 0.018 wire was inserted through the needle into the fistula. I actually had a hard time getting the wire to pass area of stenosis, but I was able t o get it through. I then placed a 5-Dominican micropuncture sheath over the wire into the fistula then did a fistulogram this identified several areas of narrowing in the inflow segment between the arteri al anastomosis and the lower part of the upper arm. The arterial anastomosis itself was widely paten t to the brachial artery. The rest of the fistula was widely patent. The central veins were all pat ent. I then advanced a Glidewire through arterial anastomosis and into the brachial artery, exchange d the micropuncture sheath for a 5-Dominican sheath over the wire then used a 6 mm x 10 cm balloon. I d id 2 inflations through that beginning right at the arterial anastomosis and extending into the mid u pper arm fistula. We inflated to 12 atmospheres and completion fistulogram showed no residual stenos is. There is now good thrill in the fistula throughout and I was happy with placement of the results . I removed the catheter sheaths and wires, put 4-0 Monocryl pursestring suture on the puncture site and then proceeded to exchange the Perm-A-Cath, so the right IJ Perm-A-Cath site was prepped and asher ped. I advanced an Amplatz wire through the venous port and then advanced the wire down through into the inferior vena cava. I then removed the catheter over the wire. I then placed a 28 cm new Perm- A-Cath over the wire, leaving the tips in the right atrium. I then anesthetized about 10 mL of lidoc mike into the insertion site and used a hemostat to dilate the area so I could advance the cuff about 2 to 3 cm up into the puncture site. I then anchored the catheter to the skin using 4-0 nylon sutur es were used. Both ports flushed easily. I left 2 mL of 1000 unit per mL heparin in each port. Miquel rile dressing was applied. The patient was then transferred back to same day the catheter is ready t o use. I will see him in the office in a week to remove the suture from the fistula and will start u sing it at that point. Dictated By: BLAYNE PINEDA/RACHELLE Conf#: [id number] DID#: [id number] CC: BLAYNE ARZATE MD;*EndCC*
== END 2018-08-20 11:30 | disposition home or self-care (01) ==
LOC: SDS 05:53
PROVIDERS: ATTEND Surgery Vascular Surgery
DX: T82.898A Other specified complication of vascular prosthetic devices, implants and grafts, initial encounter (principal); Y84.1 Kidney dialysis as the cause of abnormal reaction of the patient, or of later complication, without mention of misadventure at the time of the procedure; I12.0 Hypertensive chronic kidney disease with stage 5 chronic kidney disease or end stage renal disease; N18.6 End stage renal disease; E11.9 Type 2 diabetes mellitus without complications
CPT/HCPCS: 36581; 36902; 80048; 82962; C1725; C1894; J1644; J2250; J3010; Q9967

== ENCOUNTER 2018-09-09 09:14 | Emergency (ER) | payer BC, MEDICARE ==
[~2018-09-09] VITALS: Wt 8.0 kg
[~2018-09-09 09:14] MED LIST changes: +ATOR20TA38 PO
[2018-09-09] MEDS ORDERED: CEFTRIAXONE 1 GM INJ IM ONE (10:00)
[2018-09-09] MEDS ORDERED: LEVO750T25 PO (11:04)
[2018-09-09] MEDS ORDERED: NITR-58 PO (11:04)
--- NOTE | 2018-09-09 11:07 | ERD ---
ER Documentation Chief Complaint Chief Complaint F/O CHANGED HPI This is a 68-year-old male who is here for purple urine in his Shannon catheter bag. The patient has had purple urine for 5 weeks he states he says he gets purple urine after every dialysis. Dialysis this morning. He did not tell his doctor until today so the doctor sent him to the ER for evaluation. He is on dialysis but makes a little bit of urine and he has multiple attempts lately with the inability to void so he has to get a Shannon catheter. They tried removing it a few times but he would get retention. He has no fever or pain ROS All systems reviewed and are negative except as per history of present illness. Medications Home Meds Active Scripts Levofloxacin* (Levaquin*) 750 Mg Tablet, 750 MG PO every other day, #14 TAB Prov:BLAINE BASSETT DO 09/09/18 Reported Medications Fluoxetine Hcl* (Fluoxetine Hcl*) 20 Mg Capsule, 20 MG PO DAILY, CAP 08/20/18 Atorvastatin Calcium* (Atorvastatin Calcium*) 20 Mg Tablet, 20 MG PO QHS, #30 TAB 08/20/18 Atenolol* (Atenolol*) 25 Mg Tablet, 50 MG PO BID, #90 TAB 07/12/18 Calcium Acetate* (Calcium Acetate*) 667 Mg Capsule, 2001 MG PO WITH MEALS, #90 CAP 07/12/18 Clonidine Hcl* (Clonidine Hcl*) 0.1 Mg Tab, 0.2 MG PO TID PRN for BLOOD PRESSURE SUPPORT, TAB 07/12/18 Discontinued Scripts Nitrofurantoin Monohyd Macrocr* (Macrobid*) 100 Mg Capsr, 100 MG PO BID for 14 Days, CAP Prov:BLAINE BASSETT DO 09/09/18 Allergies Allergies: Coded Allergies: Penicillins (Verified Allergy, Unknown, 09/09/18) PMhx/Soc History of Surgery: Yes (CHOLECYSTECTOMY,RT UPPER CHEST CATH FOR DIALYSIS) Anesthesia Reaction: No Hx Neurological Disorder: No Hx Respiratory Disorders: No Hx Cardiac Disorders: Yes (HTN) Hx Psychiatric Problems: No Hx Miscellaneous Medical Probl: Yes (ESRD) Hx Alcohol Use: No Hx Substance Use: No Hx Tobacco Use: No Smoking Status: Never smoker FmHx Family History: No coronary disease Physical Exam Vitals Vital Signs Date Temp Pulse Resp B/P (MAP) Pulse Ox O2 O2 Flow FiO2 Time Delivery Rate 09/09/18 98.1 75 18 162/75 99 09:17 (104) Physical Exam Const: Well-developed, well-nourished Head: Atraumatic, normocephalic Eyes: Normal Conjunctiva, PERRLA, EOMI, normal sclera, no nystagmus ENT: Normal External Ears, Nose and Mouth, moist mucus membranes. Neck: Full range of motion. No meningismus, no lymphadenopathy. Resp: Clear to auscultation bilaterally, no wheezing, rhonchi, rales Cardio: Regular rate and rhythm, no murmurs, S1 S2 present Abd: Soft, non tender x 4, non distended. Normal bowel sounds, no guarding or rebound, no pulsitile abdominal masses or bruits, Shannon catheter is in place with purple urine in the bag Skin: No petechiae or rashes, no ecchymosis , no maculopapular rash Back: No midline or flank tenderness Ext: No cyanosis, or edema, FROM x 4, normal inspection, neurovascularly intact x 4 Neur: Awake and alert, STR 5/5 x 4, sensation intact x 4, no focal findings, cerebellum intact Psych: Normal Mood and Affect Results 24 hrs Laboratory Tests Test 09/09/18 10:17 Urine Color YELLOW Urine Clarity TURBID Urine pH 8.0 Urine Specific Wanda 1.015 Urine Ketones NEGATIVE mg/dL Urine Nitrite NEGATIVE mg/dL Urine Bilirubin NEGATIVE mg/dL Urine Urobilinogen NEGATIVE mg/dL Urine Leukocyte Esterase 2+ Jesus/ul Urine Microscopic RBC > 182 /HPF Urine Microscopic WBC 105 /HPF Urine Bacteria FEW /HPF Urine Mucus MANY /HPF Urine Yeast (Budding) FEW /HPF Urine Hemoglobin 2+ mg/dL Urine Glucose NEGATIVE mg/dL Urine Total Protein 3+ mg/dl Current Medications Medications Dose Sig/Antwon Start Time Status Last (Trade) Ordered Route PRN Stop Time Admin Dose Reason Admin Ceftriaxone 1 gm ONCE ONCE 09/09/18 DC 09/09/18 Sodium IM 10:00 10:18 (Rocephin) 09/09/18 10:01 Procedures/MDM Patient had a new Shannon catheter placed, He has a UTI. The patient has purple urine due to bacterial infection that is metabolizing tryptophan causing the purple color. This is purple urine bag syndrome. Send off a culture and will discharge home with Levaquin renal dosing Departure Diagnosis: Primary Impression: UTI (urinary tract infection) Urinary tract infection type: acute cystitis Hematuria presence: without hematuria Qualified Codes: N30.00 - Acute cystitis without hematuria Condition: Stable Patient Instructions: Understanding Urinary Tract Infections (UTIs), Shannon Catheter, Care BLAINE BASSETT DO September 09, 2018 11:07
[2018-09-09 11:15] VITALS: BP 152/71; PULSE 78; RESP 18
== END 2018-09-09 11:15 | disposition home or self-care (01) ==
LOC: E/R 09:14
DX: N30.00 Acute cystitis without hematuria (principal); I12.0 Hypertensive chronic kidney disease with stage 5 chronic kidney disease or end stage renal disease; N18.6 End stage renal disease; Z99.2 Dependence on renal dialysis
CPT/HCPCS: 51702; 81001; 87086; 96372; 99284; J0696

== ENCOUNTER 2018-10-18 08:42 | Emergency (ER) | payer BC, MEDICARE ==
[~2018-10-18] VITALS: Ht 170.2 cm; Wt 74.4 kg
[~2018-10-18 08:42] MED LIST changes: +LEVO750T25 PO
[2018-10-18 08:47] VITALS: Ht 170.2 cm; Wt 74.4 kg
--- NOTE | 2018-10-18 09:42 | ERD ---
ER Documentation Chief Complaint Chief Complaint needs leg bag changed, enlarged prostates HPI This is a 68-year-old male with a history of BPH, recurrent UTIs, who presents for request for leg bag change. Patient denies fever, he completed a course of Levaquin he has not had any suprapubic pain. Otherwise he is doing well. ROS All systems reviewed and are negative except as per history of present illness. Medications Home Meds Active Scripts Levofloxacin* (Levaquin*) 750 Mg Tablet, 750 MG PO every other day, #14 TAB Prov:ANSHU BASSETTJACKSONAlysa HodgeCelso DO 09/09/18 Reported Medications Fluoxetine Hcl* (Fluoxetine Hcl*) 20 Mg Capsule, 20 MG PO DAILY, CAP 08/20/18 Atorvastatin Calcium* (Atorvastatin Calcium*) 20 Mg Tablet, 20 MG PO QHS, #30 TAB 08/20/18 Atenolol* (Atenolol*) 25 Mg Tablet, 50 MG PO BID, #90 TAB 07/12/18 Calcium Acetate* (Calcium Acetate*) 667 Mg Capsule, 667 MG PO WITH MEALS, #90 CAP 07/12/18 Clonidine Hcl* (Clonidine Hcl*) 0.1 Mg Tab, 0.2 MG PO TID PRN for BLOOD PRESSURE SUPPORT, TAB 07/12/18 Allergies Allergies: Coded Allergies: Penicillins (Verified Allergy, Unknown, 09/09/18) PMhx/Soc History of Surgery: Yes (CHOLECYSTECTOMY,RT UPPER CHEST CATH FOR DIALYSIS) Anesthesia Reaction: No Hx Neurological Disorder: No Hx Respiratory Disorders: No Hx Cardiac Disorders: Yes (HTN) Hx Psychiatric Problems: No Hx Miscellaneous Medical Probl: Yes (ESRD) Hx Alcohol Use: No Hx Substance Use: No Hx Tobacco Use: No Physical Exam Vitals Vital Signs Date Temp Pulse Resp B/P (MAP) Pulse Ox O2 O2 Flow FiO2 Time Delivery Rate 10/18/18 97.5 63 18 132/62 100 08:47 (85) Physical Exam Const: Alert awake, afebrile nontoxic appearing Head: Atraumatic Eyes: Normal conjunctiva ENT: Normal external ears, nose and mouth. Neck: Resp: Normal respiratory effort Cardio: Abd: Soft nontender, nondistended no rebound or guarding Skin: Back: Ext: Neur: Awake and alert Psych: Normal mood and affect Procedures/MDM 68-year-old male presents for evaluation of a leg bag change. Patient otherwise afebrile and nontoxic-appearing with no evidence of infection. His bag was changed without consultation at discharge she was in no distress. Departure Diagnosis: Primary Impression: Encounter for urinary catheter Condition: FREDI Lui MD Oct 18, 2018 09:42
[2018-10-18 10:07] VITALS: BP 145/74; PULSE 78; RESP 17
== END 2018-10-18 10:09 | disposition home or self-care (01) ==
LOC: E/R 08:42
DX: Z46.6 Encounter for fitting and adjustment of urinary device (principal); I12.0 Hypertensive chronic kidney disease with stage 5 chronic kidney disease or end stage renal disease; N18.6 End stage renal disease
CPT/HCPCS: 99282

== ENCOUNTER 2018-12-12 08:26 | Emergency (ER) | payer BC ==
[~2018-12-12] VITALS: Ht 170.2 cm; Wt 73.1 kg
[2018-12-12 08:29] VITALS: Ht 170.2 cm; Wt 73.1 kg
== END 2018-12-12 09:15 | disposition home or self-care (01) ==
LOC: E/R 08:26
DX: T83.098A Other mechanical complication of other urinary catheter, initial encounter (principal); I12.0 Hypertensive chronic kidney disease with stage 5 chronic kidney disease or end stage renal disease; N18.6 End stage renal disease; Y73.2 Prosthetic and other implants, materials and accessory gastroenterology and urology devices associated with adverse incidents
CPT/HCPCS: 51702; 99283; Z7610

== ENCOUNTER 2019-02-20 07:55 | Emergency (ER) | payer SELFPAY ==
[~2019-02-20] VITALS: Ht 170.2 cm; Wt 73.2 kg
[~2019-02-20 07:55] MED LIST changes: +CEPH-443 PO; +CEPH500C ORAL; +DOCU-144 PO; +FER325 PO; +HYDR-4011 PO; +NAPR-985 PO
[2019-02-20 08:05] VITALS: Ht 170.2 cm; Wt 73.2 kg
[2019-02-20] MEDS ORDERED: ONDANSETRON (ODT) 4 MG TAB ODT STA (08:25)
[2019-02-20] MEDS ORDERED: HYDROCODONE/APAP (5/325) TAB PO ONE (08:30)
[2019-02-20] MEDS ORDERED: KETOROLAC 60 MG INJ IM STA (08:32)
[2019-02-20 09:41] VITALS: BP 142/87; PULSE 63; RESP 18
== END 2019-02-20 09:43 | disposition home or self-care (01) ==
LOC: FTE 07:55
DX: N39.0 Urinary tract infection, site not specified (principal); I12.0 Hypertensive chronic kidney disease with stage 5 chronic kidney disease or end stage renal disease; N18.6 End stage renal disease; Z99.2 Dependence on renal dialysis
CPT/HCPCS: 72100; 80053; 81001; 85025; 87086; 96372; 99284; J1885